=== PATIENT | female | born 1970 | race Caucasian/White ===

== ENCOUNTER 2023-12-16 10:42 | Outpatient (OUT) | payer SELFPAY | END 2023-12-16 10:43 | disposition home or self-care (01) | LOC: PST 10:43 | PROVIDERS: Visit Provider Surgery | DX: Z01.818 Encounter for other preprocedural examination (principal); Z12.11 Encounter for screening for malignant neoplasm of colon ==

== ENCOUNTER 2024-07-13 08:31 | Outpatient (OUT) | payer OTHER, SELFPAY ==
--- OUTSIDE RECORDS SUMMARY | 2024-07-13 08:34 | XMS_ITS | CCD ---
Author Organization [facility] Care Team Providers Care Marketing Consultant Name Role Phone JACQUELYN LECHUGA Admitting Unavailable JACQUELYN LECHUGA Attending Unavailable MISC, DOCTOR Primary Care Unavailable MISC, DOCTOR Consulting Unavailable ABBY GUAJARDO Consulting Unavailable Mayra Lopez Unavailable Sherice Beasley Unavailable Naila Meyer MD Primary Care Pr ovider LNIDA MCCLURE Referring Unavailable NAILA VILLARREAL Primary Care Unavailable NAILA MEYER Primary Care Un available YUNIOR RESTREPO Referring Unavailable Naila Villarreal MD Primary Care Provider ISAIAS CASTELLON Attending Unavailab ISAIAS Pride Referring Unavailab LUCA Linda Attending Unavailable ISAIAS CASTELLON Referring Unavailab SHANTHI Jones Attending Unavailable LUCA SHARMA Attending Unavailable SHANTHI VALLE Referring Unavailable LUCA MACE Attending Unavailable MAYRA HOFFMAN Attending Unavailable SHANTHI VALLE Referring Unavailable Allergies Allergy Classification Reported Allergen(s) Allergy Type Date of Onset Reaction(s) Facility (2 sources) Penicillins; Translations: [PENICILLINS] Drug allergy (disorder) 03-24-20 15 [facility] Repository (2 sources) Penicillin Drug Allergy Unknown [employer] Other (1 source) Penicillins Propensity to adverse reactions to drug 06-19-20 12 Anaphylaxis [facility] (17 sources) Latex Propensity to adverse reactions 12-05-19 24 Rash [facility] (17 sources) Penicillins Drug Intolerance 06-19-20 12 Anaphylaxis, Unknown [facility] Medications Current Medications Medication Drug Class(es) Dates Sig (Normalized) Sig (Original) bacitracin zinc 0.5 unt/mg topical ointment (17 sources) bacitracin 500 UNIT/GM ointment APPLY A THIN AMOUNT TO AFFECTED AREA TWICE A DAY Active Bioflavonoid Products (Bioflex) tablet (17 sources) take 1 tablet by mouth twice daily Bioflavonoid Products (Bioflex) tablet Take by mouth twice a day Active biotin 5 mg oral capsule (2 sources) take 1 capsule by mouth every twenty-four hours Biotin 5000 5 MG 1 capsule Orally Once a day Active bisacodyl 5 mg delayed release oral tablet (2 sources) Stimulant Laxative Start: 07-02-2024 End: 07-02-2024 take 1 tablet by mouth once bisacodyl (Dulcolax) 5 MG EC tablet Indications: Screening for malignant neoplasm of colon Take 1 tablet (5 mg) by mouth 1 time for 1 dose Do not crush, chew, or split. Take as detailed on clinic hand out for colonoscopy prep 4 tablet 07/02/2024 07/02/2024 Active calcium carbonate 1250 mg / cholecalciferol 200 unt oral tablet (1 source) Vitamin D take 1 tablet by mouth once daily calcium-vitamin D (OSCAL-500) 500-200 MG-UNIT per tablet Take 1 tablet by mouth daily 0 Active cefdinir 300 mg oral capsule (1 source) Cephalosporin Antibacterial Start: 08-06-2021 take 1 capsule by mouth every twelve hours Cefdinir 300 MG 1 capsule Orally every 12 hrs for 10 day(s) Aug, Active cholecalciferol 0.01 mg oral tablet (18 sources) Vitamin D take 1 tablet by mouth in the morning Cholecalciferol (VIT D3) 10 MCG (400 UNIT) tablet Take 400 Units by mouth in the morning. Active Cholecalciferol (VITAMIN D PO) Take by mouth 0 Active cyclobenzaprine hydrochloride 10 mg oral tablet (1 source) Muscle Relaxant Start: 11-14-2021 take 1 tablet by mouth three times daily as needed Cyclobenzaprine HCl 10 MG 1 tab(s) Orally tid prn Oct, Active dimenhyDRINATE (1 source) dimenhyDRINATE (MOTION SICKNESS PO) Take by mouth 0 Active estradiol 0.5 mg oral tablet (19 sources) Estrogen estradiol (Estra ce) 0.5 MG tablet Inject 0.5 mg into the skin in the morning. Active apply 1 dose topically once ronna y Divigel 0.5 MG/0.5GM apply 1 packet by topical route every day to upper thigh Transdermal *please review for potential _update for e-prescription and drug interaction check* Active Estradiol POWD (1 source) Start: 09-27-2022 Estradiol POWD APPLY 0.1ML ONCE DAILY & INCREASE BY 0.1ML EVERY 4 DAYS UP TO 0.5ML TOTAL DAILY DOSE, EITHER ONCE DAILY OR IN DIVIDED DOSES. 15 each 5 09/27/2022 Active estrogens, conjugated (detention) 0.625 mg/ml vaginal cream (16 sources) Estrogen Estrogens Conjugated (Premarin) 0.625 MG/GM cream Insert into the vagina Estrogen topical. Active fluconazole 150 mg oral tablet (1 source) Azole Antifungal Start: 08-09-2021 take 1 tablet by mouth once Fluconazole 150 MG 1 tablet Orally once for 1 day Aug, Active FLUoxetine 10 mg oral tablet (3 sources) Serotonin Reuptake Inhibitor Start: 06-17-2021 FLUoxetine (PROZAC) 10 MG tablet take 1 tablet by mouth once ronna y PROzac 10 MG 1 tablet Orally Once a day Active fluticasone propionate 0.05 mg/actuat metered dose nasal spray (18 sources) Corticosteroid Start: 08-06-2021 take 1 spray(s) nasal route once daily Flonase Allergy Relief 50 MCG/ACT 1 spray in each nostril Nasally Once a day for 30 day(s) Aug, Active fluticasone (Gilberto nase) 50 MCG/ACT nasal spray SPRAY SPRAY 1 SPRAY INTO EACH NOSTRIL EVERY DAY FOR 30 DAYS Active L-Lysine (2 sources) L-Lysine *please review for potential _update for e-prescription and drug interaction check* Active L-LYSINE PO (1 source) L-LYSINE PO Take by mouth 0 Active meclizine hydrochloride 25 mg oral tablet (2 sources) Antiemetic Start: take 1 tablet by mouth every twenty-four hours Meclizine HCl 25 MG 1 tablet as needed Orally Once a day for 30 day(s) PRN May, Active meloxicam 15 mg oral tablet (2 sources) Nonsteroidal Anti-inflammatory Drug take 1 tablet by mouth every twenty-four hours Mobic 15 MG 1 tablet Orally Once a day for 30 refill Active Multiple Vitamins-Minerals (MULTIVITAMIN ADULT PO) (1 source) Multiple Vitamins-Minerals (MULTIVITAMIN ADULT PO) Take by mouth 0 Active Multiple Vitamins-Minerals (Multivitamin Women) tablet (17 sources) Multiple Vitamins-Minerals (Multivitamin Women) tablet as directed Orally Active Multivitamin Women - (2 sources) Multivitamin Wom en - as directed Orally Active NONFORMULARY (1 source) NONFORMULARY Armaan ly topically daily. Hormone therapy 0 Active ofloxacin 3 mg/ml otic solution (17 sources) Quinolone Antimicrobial Start: ofloxacin (Floxin) 0.3 % otic solution INSERT 10 DROPS INTO AFFECTED EAR OR EARS ONCE DAILY FOR 7 DAYS 05/18/2023 Active omeprazole 20 mg delayed release oral capsule (20 sources) Proton Pump Inhibitor Start: End: take 1 capsule by mouth in the morning omeprazole (PriLOSEC) [address] capsule Indications: Gastroesophageal reflux disease without esophagitis Take 1 capsule (20 mg) by mouth in the morning and 1 capsule (20 mg) before bedtime. Do not crush or chew.. 180 capsule 1 06/18/2024 Active take 1 tablet by mouth once ronna y PriLOSEC OTC 20 MG 1 tablet 30 minutes before morning meal Orally Once a day Active OneTouch Ultra Test (2 sources) OneTouch Ultra T est In Vitro once daily *please review for potential _update for e-prescription and drug interaction check* Active Osteo Bi-Flex Adv Double St (2 sources) Osteo Bi-Flex Ad v Double St *please review for potential _update for e-prescription and drug interaction check* Active phentermine hydrochloride 37.5 mg oral capsule (9 sources) Sympathomimetic Amine Anorectic Start: End: take 1 capsule by mouth before mealtime phentermine 37.5 MG capsule Indications: Obesity (BMI 30.0-34.9) Take 1 capsule (37.5 mg) by mouth in the morning. Take before meals. 30 capsule 05/31/2024 Active 24 hr phentermine 3.75 mg / topiramate 23 mg extended release oral capsule (6 sources) Sympathomimetic Amine Anorectic Start: End: take 1 capsule by mouth once daily Phentermine-Topiramat e (Qsymia) 3.75-23 MG capsule sustained-release 24 hr Indications: Obesity (BMI 30.0-34.9) Take 1 capsule by mouth Daily 30 capsule 05/17/2024 05/31/2024 Discontinued (Cost of medication) polyethylene glycol 3350 63779 mg powder for oral solution (2 sources) Osmotic Laxative Start: End: take 17 g by mouth once polyethylene glycol, PEG, 3350 (Glycolax) 17 GM/SCOOP powder Indications: Colonoscopy Take 238 g by mouth 1 (one) time for 1 dose Take as detailed from clinic hand out for colonoscopy prep 238 g 07/02/2024 07/02/2024 Active predniSONE 20 mg oral tablet (6 sources) Start: End: take 1 tablet by mouth in the morning predniSONE (Deltasone) 20 MG tablet Indications: Acute pain of left knee Take 1 tablet (20 mg) by mouth in the morning and 1 tablet (20 mg) before bedtime. Do all this for 5 days. 10 tablet 05/15/2024 05/20/2024 Active Start: 11-14-2021 take 1 tablet by adriano th every twelve hours predniSONE 20 MG 1 tablet Orally bid for 5 day(s) Oct, Active Progesterone (16 sources) Progesterone Progesterone 40 % cream Progesterone topical Active Progesterone 50 MG/ML (2 sources) Progesterone 50 MG/ML apply 0.5mL once daily and adjust dose as directed *please review for potential _update for e-prescription and drug interaction check* Active Testosterone (20 sources) Androgen End: 05-15-2024 testosterone (Fortesta) 10 MG/ACT (2%) gel gel 1 (one) time each day at the same time 05/15/2024 Discontinued End: 05-15-2024 testosterone (Androgel) 50 M G/5GM (1%) gel Place 50 mg on the skin in the morning. 05/15/2024 Discontinued End: 05-15-2024 [address] pow[address] er Place on the skin 05/15/2024 Discontinued Testosterone 20 % cream Testosterone topical. Active Testosterone Pro pionate powder Place on the skin Active Testosterone 10 MG/ACT (2%) 1 pump to skin in the morning Transdermal Once a day Active Testosterone Propionate 2 % CREA (1 source) Testosterone Propionate 2 % CREA Indications: Routine gynecological examination Place onto the skin. 0 Active tiZANidine 2 mg oral tablet (16 sources) Central alpha-2 Adrenergic Agonist Start: 4 End: 4 take 1 tablet by mouth every eight hours for muscle spasms tiZANidine (Zanaflex) 2 MG tablet Indications: Acute pain of left knee Take 1 tablet (2 mg) by mouth every 8 (eight) hours if needed for muscle spasms for up to 5 days 15 tablet 06/14/2024 Active valACYclovir 1000 mg oral tablet (5 sources) Herpesvirus Nucleoside Analog DNA Polymerase Inhibitor, Herpes Simplex Virus Nucleoside Analog DNA Polymerase Inhibitor, Herpes Zoster Virus Nucleoside Analog DNA Polymerase Inhibitor Start: 2 take 1 tablet by mouth every twelve hours valACYclovir HCl 1 GM 1 tablet Orally twice a day for 10 day(s) Aug, Active End: 05-15-2024 take 1 tablet by mouth in the morning valACYclovir (Valtrex) 1 g tablet Take 1 tablet by mouth in the morning and 1 tablet before bedtime. 05/15/2024 Discontinued vitamin B12 (2 sources) Vitamin B12 Vitamin B12 *ple ase review for potential _update for e-prescription and drug interaction check* Active Vitamin D3 (2 sources) Vitamin D3 *plea se review for potential _update for e-prescription and drug interaction check* Active Completed/Discontinued Medications Medication Drug Class(es) Dates Sig (Normalized) Sig (Original) doxycycline hyclate 100 mg oral tablet (3 sources) Tetracycline-class Drug End: 05-15-2024 take 1 tablet by mouth in the morning doxycycline (Vibra-Tabs) 100 MG tablet Take 1 tablet by mouth in the morning and 1 tablet before bedtime. 05/15/2024 Discontinued Triamcinolone (20 sources) Corticosteroid Start: 11-14-2021 KENALOG - 10 mg Oct, 40 mg Start: 08-11-2018 triamcinolone (ARISTOCORT) 0.5 % ointment 1 APPLICATION TO AFFECTED AREA TWICE A DAY NEED 4 08/11/2018 Active Problems Active Problems Problem Classification Problem Date Documented Da te Episodic/Chronic Abdominal hernia (4 sources) Hiatal hernia; Translations: [Diaphragmatic hernia without obstruction or gangrene] 07-02-2024 Episodic Conditions associated with dizziness or vertigo (4 sources) Benign paroxysmal positional vertigo; Translations: [Benign paroxysmal vertigo, unspecified ear] Episodic Diabetes mellitus without complication (2 sources) Diabetes mellitus; Translations: [Type 2 diabetes mellitus without complications] Chronic Disorders of lipid metabolism (19 sources) Hypercholesterolemia ; Translations: [Pure hypercholesterolemia , unspecified] Onset: 11-11-2023 11-11-2023 Chronic Esophageal disorders (2 sources) Gastro-esophageal reflux disease without esophagitis; Translations: [Gastroesophageal reflux disease without esophagitis] Onset: 10-14-2023 06-17-2024 Chronic Essential hypertension (19 sources) Essential hypertension; Translations: [Essential (primary) hypertension] Onset: 11-11-2023 11-11-2023 Chronic Gastritis and duodenitis (4 sources) Bile-induced gastritis; Translations: [Other gastritis without bleeding] 07-02-2024 Episodic Malaise and fatigue (2 sources) Fatigue; Translations: [Chronic fatigue, unspecified] Chronic Menopausal disorders (15 sources) Menopausal symptom; Translations: [Menopausal and female climacteric states] Onset: 02-13-2024 05-16-2024 Chronic Mood disorders (17 sources) Reactive depression (situational); Translations: [Major depressive disorder, single episode, unspecified] Onset: 11-11-2023 11-11-2023 Chronic Osteoarthritis (17 sources) Primary coxarthrosis, bilateral; Translations: [Bilateral primary osteoarthritis of hip] Onset: 06-15-2017 11-11-2023 Chronic Other ear and sense organ disorders (19 sources) Conductive hearing loss, bilateral; Translations: [Conductive hearing loss, bilateral] Onset: 06-30-2022 11-11-2023 Chronic Other ear and sense organ disorders (2 sources) Bilateral tinnitus; Translations: [Tinnitus, bilateral] Episodic Other gastrointestinal disorders (1 source) Bariatric surgery status; Translations: [Bariatric surgery status] Onset: 10-14-2023 Episodic Other inflammatory condition of skin (19 sources) Psoriasis; Translations: [Psoriasis, unspecified] Onset: 11-11-2023 11-11-2023 Chronic Other nervous system disorders (4 sources) Nerve root and plexus disorder, unspecified; Translations: [NERVE ROOT AND PLEXUS DISORDER UNS] Onset: 08-28-2018 Chronic Other nervous system disorders (2 sources) Difficulty walking; Translations: [Difficulty in walking, not elsewhere classified] Chronic Other nervous system disorders (2 sources) Chronic pain; Translations: [Other chronic pain] Chronic Other nervous system disorders (2 sources) Nerve root compression syndrome; Translations: [Nerve root and plexus disorder, unspecified] Chronic Other non-traumatic joint disorders (15 sources) Pain in left knee; Translations: [Pain in joint, lower leg] Onset: 05-24-2024 05-15-2024 Episodic Other nutritional; endocrine; and metabolic disorders (2 sources) Morbid obesity; Translations: [Morbid (severe) obesity due to excess calories] Chronic Other nutritional; endocrine; and metabolic disorders (2 sources) Body mass index 40+ - severely obese; Translations: [Morbid (severe) obesity due to excess calories] Onset: 06-22-2012 Resolved: 06-22-2012 Chronic Other nutritional; endocrine; and metabolic disorders (1 source) Morbid (severe) obesity due to excess calories; Translations: [Morbid (severe) obesity due to excess calories] Onset: 10-14-2023 Chronic Other nutritional; endocrine; and metabolic disorders (20 sources) Obese class I; Translations: [Obesity (BMI 30.0-34.9)] Onset: 11-11-2023 11-11-2023 Chronic Other nutritional; endocrine; and metabolic disorders (2 sources) Body mass index 30+ - obesity; Translations: [Obesity, unspecified] 05-16-2024 Chronic Other nutritional; endocrine; and metabolic disorders (2 sources) Abnormal weight gain; Translations: [Abnormal weight gain] Onset: 02-17-2024 Episodic Other screening for suspected conditions (not mental disorders or infectious disease) (3 sources) Encounter for screening for other metabolic disorders; Translations: [Patient encounter status] Onset: 10-14-2023 07-02-2024 Episodic Otitis media and related conditions (17 sources) Chronic tubotympanic suppurative otitis media; Translations: [Chronic tubotympanic suppurative otitis media, unspecified] Onset: 08-25-2022 11-11-2023 Chronic Spondylosis; intervertebral disc disorders; other back problems (4 sources) Lumbosacral spondylosis without myelopathy; Translations: [Spondylosis without myelopathy or radiculopathy, lumbosacral region] Chronic Past or Other Problems Problem Classification Problem Date Documented Da te Episodic/Chronic Appendicitis and other appendiceal conditions (1 source) Perforation of cecum; Translations: [Acute appendicitis with perforation and localized peritonitis, without abscess] Onset: 2 Resolved: 2 Episodic Mood disorders (17 sources) Mood disorders Onset: 4 11-11-2023 Other gastrointestinal disorders (1 source) Disorder of abdomen; Translations: [Peritoneal adhesions (postprocedural) (postinfection)] Onset: 2 Episodic Otitis media and related conditions (20 sources) Postmastoidectomy complication; Translations: [Other disorders following mastoidectomy, unspecified ear] Onset: 2 11-11-2023 Episodic Ovarian cyst (1 source) Cyst of bilateral ovaries; Translations: [Unspecified ovarian cyst, right side] Onset: 2 Episodic Residual codes; unclassified (17 sources) Family history of cancer of colon; Translations: [Family history of malignant neoplasm of digestive organs] Onset: 9 11-11-2023 Episodic Residual codes; unclassified (17 sources) History of sleeve gastrectomy; Translations: [Acquired absence of stomach [part of]] Onset: 4 11-11-2023 Episodic Sprains and strains (2 sources) Strain of muscle, fascia and tendon at neck level, initial encounter; Translations: [Strain of muscle and tendon of back wall of thorax, initial encounter] Onset: 2 Resolved: 2 Episodic Unclassified (2 sources) Acute pain of left knee 05-15-2024 Results Test Name Value Interpretation Reference Range Facility Vitamin B6on 02-21-2024 Vitamin B6 464.6 nmol/L High 20.0-125.0 [facility] Comment on above: Result Comment: (NOT E) INTERPRETIVE INFORMATION: Vitamin B6 (Pyridoxal 5-Phosphate) Pyridoxal 5'-phosphate measured in a specimen collected following an 8-hour or overnight fast accurately indicates vitamin B6 nutritional status. Non-fasting specimen concentration reflects recent vitamin intake. This test was developed and its performance characteristics determined by [facility]. It has not been cleared or approved by the [place] Food and Drug Administration. This test was performed in a CLIA certified laboratory and is intended for clinical purposes. Performed By: [facility] [address] [place] [address] Rhythmic Gymnastics Coach: Partha Crandall MD, PhD CLIA Number: [id number] Performed By: #### A VITB6 #### [facility] [address] [place] [address] Application Internship: León Jain MD #### GLYHGB #### [address] [address] Application Internship: Jamie Kilgore MD #### CP, TSH #### [address] [place] [address] Application Internship: Dk Steele MD Comp Metabolic Profon 2023 Albumin [Mass/Vol] 4.3 g/dL Normal 3.5-5.2 [facility] Comment on above: Performed By: #### A VITB6 #### [address] [address] Application Internship: León Jain MD #### GLYHGB #### [address] [address] Application Internship: Jamie Kilgore MD #### CP, TSH #### [address] [place] [address] Application Internship: Dk Steele MD Albumin/Glob Ratio 1.5 Normal 1.0-2.5 [facility] Comment on above: Performed By: #### A VITB6 #### [facility] [address] [place] [address] Application Internship: León Jain MD #### GLYHGB #### [address] [address] Application Internship: Jamie Kilgore MD #### CP, TSH #### [address] [place], [place] [id number] Application Internship: Dk Steele MD Alkaline Phos 46 U/L Normal 35-104 [facility] Comment on above: Performed By: #### A VITB6 #### [facility] [address] [place] [address] Application Internship: León Jain MD #### GLYHGB #### [facility] [address] [place] [id number] Application Internship: Jamie Kilgore MD #### CP, TSH #### [facility] [address] [place], [place] [id number] Application Internship: Dk Steele MD ALT [Catalytic activity/Vol] 28 U/L Normal 5-33 [facility] Comment on above: Performed By: #### A VITB6 #### [facility] [address] [place] [address] Application Internship: León Jain MD #### GLYHGB #### [facility] [address] [place] [id number] Application Internship: Jamie Kilgore MD #### CP, TSH #### [address] [place], [place] [id number] Application Internship: Dk Steele MD Anion gap [Moles/Vol] 9 mmol/L Normal 9-17 [facility] Comment on above: Performed By: #### A VITB6 #### [facility] [address] [place] [address] Application Internship: León Jain MD #### GLYHGB #### [facility] [address] [place] [address] Application Internship: Jamie Kilgore MD #### CP, TSH #### [facility] [address] [place], [place] [id number] Application Internship: Dk Steele MD AST [Catalytic activity/Vol] 22 U/L Normal <32 [facility] Comment on above: Performed By: #### A VITB6 #### [facility] [address] [place] [address] Application Internship: León Jain MD #### GLYHGB #### [facility] [address] [place] [address] Application Internship: Jamie Kilgore MD #### CP, TSH #### [facility] [address] [place], [place] [id number] Application Internship: Dk Steele MD Bilirubin [Mass/Vol] 0.3 mg/dL Normal 0.3-1.2 [facility] Comment on above: Performed By: #### A VITB6 #### [facility] [address] [place] [address] Application Internship: León Jain MD #### GLYHGB #### [address] [address] Application Internship: Jamie Kilgore MD #### CP, TSH #### [facility] [address] [place], [place] [id number] Application Internship: Dk Steele MD BUN/CRE Ratio 30 High 9-20 [facility] Comment on above: Performed By: #### A VITB6 #### [facility] [address] [place] [address] Application Internship: León Jain MD #### GLYHGB #### [facility] [address] [place] [address] Application Internship: Jamie Kilgore MD #### CP, TSH #### [facility] [address] [place], [place] [id number] Application Internship: Dk Steele MD Calcium [Mass/Vol] 9.3 mg/dL Normal 8.6-10.4 [facility] Comment on above: Performed By: #### A VITB6 #### [facility] [address] [place] [address] Application Internship: León Jain MD #### GLYHGB #### [facility] [address] [place] [address] Application Internship: Jamie Kilgore MD #### CP, TSH #### [facility] [address] [place], [place] [id number] Application Internship: Dk Steele MD Chloride [Moles/Vol] 104 mmol/L Normal 98-107 [facility] Comment on above: Performed By: #### A VITB6 #### [facility] [address] [place] [address] Application Internship: León Jain MD #### GLYHGB #### [address] [address] Application Internship: Jamie Kilgore MD #### CP, TSH #### [facility] [address] [place] [address] Application Internship: Dk Steele MD CO2 [Moles/Vol] 28 mmol/L Normal 20-31 [facility] Comment on above: Performed By: #### A VITB6 #### [facility] [address] [place] [address] Application Internship: León Jain MD #### GLYHGB #### [address] [address] Application Internship: Jamie Kilgore MD #### CP, TSH #### [facility] [address] [place] [address] Application Internship: Dk Steele MD Creatinine [Mass/Vol] 0.6 mg/dL Normal 0.5-0.9 [facility] Comment on above: Performed By: #### A VITB6 #### [facility] [address] [place] [address] Application Internship: León Jain MD #### GLYHGB #### [address] [address] Application Internship: Jamie Kilgore MD #### CP, TSH #### [address] [place] [address] Application Internship: Dk Steele MD GFR/1.73 sq M.predicted among non-blacks MDRD (S/P/Bld) [Vol rate/Area] mL/min/{1.73_m2} Normal >60 [facility] Comment on above: Result Comment: These results are not intended for use in patients <18 years of age. eGFR results are calculated without a race factor using the 2020 CKD-EPI equation. Careful clinical correlation is recommended, particularly when comparing to results calculated using previous equations. The CKD-EPI equation is less accurate in patients with extremes of muscle mass, extra-renal metabolism of creatine, excessive creatine ingestion, or following therapy that affects renal tubular secretion. Performed By: #### A VITB6 #### [facility] [address] [place] [address] Application Internship: León Jain MD #### GLYHGB #### [address] [address] Application Internship: Jamie Kilgore MD #### CP, TSH #### [facility] [address] [place] [address] [place] [address] Application Internship: Dk Steele MD Glucose [Mass/Vol] 93 mg/dL Normal 70-99 [facility] Comment on above: Performed By: #### A VITB6 #### [facility] [address] [place] [address] Application Internship: León Jain MD #### GLYHGB #### [address] [address] Application Internship: Jamie Kilgore MD #### CP, TSH #### [facility] [address] [place] [address] [place] [place], [place] [address] Application Internship: Dk Steele MD Potassium [Moles/Vol] 4.0 mmol/L Normal 3.7-5.3 [facility] Comment on above: Performed By: #### A VITB6 #### [facility] [address] [place] [address] Application Internship: León Jain MD #### GLYHGB #### [address] [address] Application Internship: Jamie Kilgore MD #### CP, TSH #### [address] [place], [place] [address] Application Internship: Dk Steele MD Protein [Mass/Vol] 7.1 g/dL Normal 6.4-8.3 [facility] Comment on above: Performed By: #### A VITB6 #### [facility] [address] [place] [address] Application Internship: León Jain MD #### GLYHGB #### [address] [address] Application Internship: Jamie Kilgore MD #### CP, TSH #### [address] [place], [place] [address] Application Internship: Dk Steele MD Sodium [Moles/Vol] 141 mmol/L Normal 135-144 [facility] Comment on above: Performed By: #### A VITB6 #### [facility] [address] [place] [address] Application Internship: León Jain MD #### GLYHGB #### [address] [address] Application Internship: Jamie Kilgore MD #### CP, TSH #### [facility] [address] [place] [address] Application Internship: Dk Stelee MD Urea nitrogen [Mass/Vol] 18 mg/dL Normal 6-20 [facility] Comment on above: Performed By: #### A VITB6 #### [facility] [address] [place] [address] Application Internship: León Jain MD #### GLYHGB #### [facility] [address] [place] [address] Application Internship: Jamie Kilgore MD #### CP, TSH #### [facility] [address] [address] Application Internship: Dk Steele MD Hemoglobin A1Con 02-17-2024 Glucose [Mass/Vol] 111 mg/dL Normal [facility] Comment on above: Result Comment: The ADA and AACC recommend providing the estimated average glucose result to permit better patient understanding of their HBA1c result. Performed By: #### A VITB6 #### [facility] [address] [place] [address] Application Internship: León Jain MD #### GLYHGB #### [address] [address] Application Internship: Jamie Kilgore MD #### CP, TSH #### [facility] [address] [place] [address] Application Internship: Dk Steele MD HbA1c (Bld) [Mass fraction] 5.5 % Normal 4.0-6.0 [facility] Comment on above: Performed By: #### A VITB6 #### [facility] [address] [place] [address] Application Internship: León Jain MD #### GLYHGB #### [address] [address] Application Internship: Jamie Kilgore MD #### CP, TSH #### [facility] [address] [place] [address] Application Internship: Dk Steele MD Thyroid Stim. Horm.on 2023 Thyroid Stim. Horm. 3.58 uIU/mL Normal 0.30-5.00 [facility] Comment on above: Performed By: #### A VITB6 #### [facility] [address] [place] [address] Application Internship: León Jain MD #### GLYHGB #### [facility] [address] [place] [address] Application Internship: Jamie Kilgore MD #### CP, TSH #### [facility] [address] [place] [address] Application Internship: Dk Steele MD BI MAMMOGRAM SCREENING TOMOS YNTHESIS BILATERALon 12-02-2023 BI MAMMOGRAM SCREENING TOMOSYNTHESIS BILATERAL This is a summary report. The complete report is available in the patient's medical record. If you cannot access the medical record, please contact the sending organization for a detailed fax or copy. EXAMINATION: BI MAMMOGRAM SCREENING TOMOSYNTHESIS BILATERAL CLINICAL HISTORY:SCREENING COMPARISON: September 16, 2022. RESULT: Digital mammography and 3D tomosynthesis of bilateral breasts was performed. Density: Almost entirely fatty [1] Overall appearance is stable. Typically benign calcifications. There is no suspicious mass, asymmetry, architectural distortion, or calcification IMPRESSION: BIRADS 2 - Benign Follow-up: Routine Screening Mamm Board Certified Radiologists. Accredited by the ACR and FDA. MAMMOGRAPHY IS VERY IMPORTANT TO YOUR HEALTH. THE [place] [employer] GUIDELINES RECOMMEND THAT WOMEN 40 YEARS OF AGE AND OLDER SHOULD HAVE A MAMMOGRAM EVERY YEAR. A REMINDER LETTER WILL BE SENT AT THE APPROPRIATE TIME. THIS FACILITY UTILIZES A REMINDER SYSTEM TO ENSURE ALL PATIENTS RECEIVE REMINDER NOTIFICATIONS AT THE APPROPRIATE TIME BASED ON THE RECOMMENDATIONS OF THIS EXAM. THIS INCLUDES REMINDERS FOR ROUTINE SCREENING MAMMOGRAMS, DIAGNOSTIC MAMMOGRAMS IN WHICH THE PATIENT IS ASKED TO RETURN FOR ADDITIONAL VIEWS, OR OTHER BREAST IMAGING INTERVENTIONS WHEN APPROPRIATE. THE PATIENT WILL BE PLACED IN THE APPROPRIATE REMINDER SYSTEM INCLUDING A REMINDER AT THE APPROPRIATE TIME FOR ANY PENDING ADDITIONAL VIEWS. TRANSCRIBED BY: ELECTRONICALLY SIGNED BY: Augustin Esparza MD Normal Not Available CBC AND AUTO DIFFon 10-14-19 24 ABSOLUTE BASOPHIL 0.0 X10E9/L Normal 0.0-0.2 [facility] Comment on above: Performed By: #### C BCA, CMP, 47135-3, FEPR, 81688-1, 2777-1, 2276-4, 2284-8, 12505-0, 2131-9 #### [facility] ([id number]) [address], [address] [place] [address] #### VITASP, 2900-9, 2998-3 #### [facility] ([id number]) [address] [place] [address] ABSOLUTE NEUTROPHIL 2.5 X10E9/L Normal 1.5-6.6 [facility] Comment on above: Performed By: #### C BCA, CMP, 00853-9, FEPR, 79006-6, 2777-1, 2276-4, 2284-8, 17854-1, 2131-9 #### [facility] ([id number]) [address], [address] [place] [address] #### VITASP, 2900-9, 2998-3 #### [facility] ([id number]) [address] [place] [address] Basophils/100 WBC (Bld) 1.1 % Normal [facility] Comment on above: Performed By: #### C BCA, CMP, 43429-8, FEPR, 07453-2, 2777-1, 2276-4, 2284-8, 47377-1, 2131-9 #### [facility] ([id number]) [address], [address] [place] [address] #### VITASP, 2900-9, 2998-3 #### [facility] ([id number]) [address] [place] [address] Eosinophils (Bld) [#/Vol] 0.2 10*3/uL Normal 0.0-0.4 [facility] Comment on above: Performed By: #### C BCA, CMP, 47195-9, FEPR, 05052-9, 2777-1, 2276-4, 2284-8, 32437-2, 2131-9 #### [facility] ([id number]) [address] [facility], [address] [place] [address] #### VITASP, 2900-9, 2998-3 #### [facility] ([id number]) [address] [place] [address] Eosinophils/100 WBC (Bld) 3.6 % Normal [facility] Comment on above: Performed By: #### C BCA, CMP, 13811-9, FEPR, 89791-0, 2777-1, 2276-4, 2284-8, 31757-9, 2132-04 #### [facility] ([id number]) [address], [address] [place] [address] #### VITASP, 2900-9, 2998-3 #### [facility] ([id number]) [address] [place] [address] Erythrocyte distribution width (RBC) [Ratio] 13.1 % Normal 11.5-15.0 [facility] Comment on above: Performed By: #### C BCA, CMP, 99873-4, FEPR, 79177-2, 2777-1, 2276-4, 2284-8, 62488-5, 2131-9 #### [facility] ([id number]) [address], [address] [place] [address] #### VITASP, 2900-9, 2998-3 #### [facility] ([id number]) [address] [place] [address] Hematocrit (Bld) [Volume fraction] 36.8 % Normal 35-47 [facility] Comment on above: Performed By: #### C BCA, CMP, 59095-0, FEPR, 05285-6, 2777-1, 2276-4, 2284-8, 90432-4, 2131-9 #### [facility] ([id number]) [address] [facility], [address] [place] [address] #### VITASP, 2900-9, 2998-3 #### [facility] ([id number]) [address] [place] [address] Hemoglobin (Bld) [Mass/Vol] 12.5 g/dL Normal 11.7-15.5 [facility] Comment on above: Performed By: #### C BCA, CMP, 28939-2, FEPR, 09194-6, 2777-1, 2276-4, 2284-8, 25460-8, 2131-9 #### [facility] ([id number]) [address] [facility], [address] [place] [address] #### VITASP, 2900-9, 2998-3 #### [facility] ([id number]) [address] [place] [address] Lymphocytes (Bld) [#/Vol] 1.4 10*3/uL Normal 1.0-3.5 [facility] Comment on above: Performed By: #### C BCA, CMP, 24166-7, FEPR, 36133-6, 2777-1, 2276-4, 2284-8, 29390-1, 2131-9 #### [facility] ([id number]) [address] [facility], [address] [place] [address] #### VITASP, 2900-9, 2998-3 #### [facility] ([id number]) [address] [place] [address] Lymphocytes/100 WBC (Bld) 31.0 % Normal [facility] Comment on above: Performed By: #### C BCA, CMP, 62714-5, FEPR, 30275-8, 2777-1, 2276-4, 2284-8, 81639-5, 213-9 #### [facility] ([id number]) [address], [address] [place] [address] #### VITASP, 2900-9, 2998-3 #### [facility] ([id number]) [address] [place] [address] MCH (RBC) [Entitic mass] 30.3 pg Normal 27-34 [facility] Comment on above: Performed By: #### C BCA, CMP, 05134-4, FEPR, 01959-2, 2777-1, 2276-4, 2284-8, 85690-1, 2131-9 #### [facility] ([id number]) [address], [address] [place] [address] #### VITASP, 2900-9, 2998-3 #### [facility] ([id number]) [address] [place] [address] MCHC (RBC) [Mass/Vol] 33.9 g/dL Normal 32-36 [facility] Comment on above: Performed By: #### C BCA, CMP, 60717-0, FEPR, 02855-2, 2777-1, 2276-4, 2284-8, 74420-0, 2131-9 #### [facility] ([id number]) [address], [address] [place] [address] #### VITASP, 2900-9, 2998-3 #### [facility] ([id number]) [address] [place] [address] MCV (RBC) [Entitic vol] 89 fL Normal 80-100 [facility] Comment on above: Performed By: #### C BCA, CMP, 18551-6, FEPR, 69071-9, 2777-1, 2276-4, 2284-8, 49428-5, 2131-9 #### [facility] ([id number]) [address], [address] [place] [address] #### VITASP, 2900-9, 2998-3 #### [facility] ([id number]) [address] [place] [address] Monocytes (Bld) [#/Vol] 0.4 10*3/uL Normal 0-0.9 [facility] Comment on above: Performed By: #### C BCA, CMP, 83710-0, FEPR, 80980-8, 2777-1, 2276-4, 2284-8, 88646-4, 2132-04 #### [facility] ([id number]) [address], [address] [place] [address] #### VITASP, 2900-9, 2998-3 #### [facility] ([id number]) [address] [place] [address] Monocytes/100 WBC (Bld) 8.7 % Normal [facility] Comment on above: Performed By: #### C BCA, CMP, 18535-8, FEPR, 99165-6, 2777-1, 2276-4, 2284-8, 81031-7, 2131-9 #### [facility] ([id number]) [address], [address] [place] [address] #### VITASP, 2900-9, 2998-3 #### [facility] ([id number]) [address] [place] [address] Neutrophils/100 WBC (Bld) 55.6 % Normal [facility] Comment on above: Performed By: #### C BCA, CMP, 20977-3, FEPR, 23941-6, 2777-1, 2276-4, 2284-8, 43741-4, 2131-9 #### [facility] ([id number]) [address], [address] [place] [address] #### VITASP, 2900-9, 2998-3 #### [facility] ([id number]) [address] [place] [address] Platelet mean volume (Bld) [Entitic vol] 8.8 fL Normal 7-12 [facility] Comment on above: Performed By: #### C BCA, CMP, 52570-6, FEPR, 76087-5, 2777-1, 2276-4, 2284-8, 69899-1, 2131-9 #### [facility] ([id number]) [address], [address] [place] [address] #### VITASP, 2900-9, 2998-3 #### [facility] ([id number]) [address] [place] [address] Platelets (Bld) [#/Vol] 246 10*3/uL Normal 150-450 [facility] Comment on above: Performed By: #### C BCA, CMP, 41798-1, FEPR, 18894-8, 2777-1, 2276-4, 2284-8, 66633-8, 2131-9 #### [facility] ([id number]) [address], [address] [place] [address] #### VITASP, 2900-9, 2998-3 #### [facility] ([id number]) [address] [place] [address]47 RBC COUNT 4.11 X10E12/L Normal 3.80-5.20 [facility] Comment on above: Performed By: #### C BCA, CMP, 68285-6, FEPR, 33636-4, 2777-1, 2276-4, 2284-8, 35836-7, 2131-9 #### [facility] ([id number]) [address], [address] [place] [address] #### VITASP, 2900-9, 2998-3 #### [facility] ([id number]) [address] [place] [address] WBC (Bld) [#/Vol] 4.4 10*3/uL Normal 4.0-11.0 [facility] Comment on above: Performed By: #### C BCA, CMP, 23264-9, FEPR, 73963-9, 2777-1, 2276-4, 2284-8, 54614-7, 2131-9 #### [facility] ([id number]) [address] [facility], [address] [place] [address] #### VITASP, 2900-9, 2998-3 #### [facility] ([id number]) [address] [place] [address] COMPREHENSIVE METABOLIC PANE Neil 10-14-2023 Albumin [Mass/Vol] 4.4 g/dL Normal 3.2-5.3 [facility] Comment on above: Performed By: #### C BCA, CMP, 90026-7, FEPR, 55139-9, 2777-1, 2276-4, 2284-8, 96896-4, 2131-9 #### [facility] ([id number]) [address] [facility], [address] [place] [address] #### VITASP, 2900-9, 2998-3 #### [facility] ([id number]) [address] [place] [address] ALP [Catalytic activity/Vol] 37 U/L Low 39-130 [facility] Comment on above: Performed By: #### C BCA, CMP, 03893-9, FEPR, 68968-3, 2777-1, 2276-4, 2284-8, 68645-5, 2131-9 #### [facility] ([id number]) [address] [place] [address], [address] [place] [address] #### VITASP, 2900-9, 2998-3 #### [facility] ([id number]) [address] [place] [address]606 ALT [Catalytic activity/Vol] 35 U/L High 0-31 [facility] Comment on above: Performed By: #### C BCA, CMP, 26507-5, FEPR, 17746-1, 2777-1, 2276-4, 2284-8, 98106-3, 2131-9 #### [facility] ([id number]) [address] [place] [address], [address] [place] [address] #### VITASP, 2900-9, 2998-3 #### [facility] ([id number]) [address] [place] [address] 10419 Anion gap [Moles/Vol] 11 mmol/L Normal 5-15 [facility] Comment on above: Performed By: #### C BCA, CMP, 81333-0, FEPR, 38467-8, 2777-1, 2276-4, 2284-8, 40727-3, 2131-9 #### [facility] ([id number]) [address] [place] [address], [address] [place] [address] #### VITASP, 2900-9, 2998-3 #### [facility] ([id number]) [address] [place] [address] 61127 AST [Catalytic activity/Vol] 24 U/L Normal 0-41 [facility] Comment on above: Performed By: #### C BCA, CMP, 85374-5, FEPR, 55110-2, 2777-1, 2276-4, 2284-8, 71141-0, 9 #### [facility] ([id number]) [address] [facility], [address] [place] [address] #### VITASP, 2900-9, 2998-3 #### [facility] ([id number]) [address] [place] [address] 23582 Bilirubin [Mass/Vol] 0.5 mg/dL Normal 0.3-1.2 [facility] Comment on above: Performed By: #### C BCA, CMP, 72810-9, FEPR, 41747-5, 2777-1, 2276-4, 2284-8, 50567-4, 2132-04 #### [facility] ([id number]) [address] [facility], [address] [place] [address] #### VITASP, 2900-9, 2998-3 #### [facility] ([id number]) [address] [place] [address] 12471 Calcium [Mass/Vol] 9.6 mg/dL Normal 8.5-10.5 [facility] Comment on above: Performed By: #### C BCA, CMP, 01445-1, FEPR, 39534-3, 2777-1, 2276-4, 2284-8, 05222-4, 2132-04 #### [facility] ([id number]) [address] [facility], [address] [place] [address] #### VITASP, 2900-9, 2998-3 #### [facility] ([id number]) [address] [place] [address] 66165 Chloride [Moles/Vol] 106 mmol/L Normal 98-109 [facility] Comment on above: Performed By: #### C BCA, CMP, 54241-5, FEPR, 29852-2, 2777-1, 2276-4, 2284-8, 77198-0, 2132-9 #### [facility] ([id number]) [address] [facility], [address] [place] [address] #### VITASP, 2900-9, 2998-3 #### [facility] ([id number]) [address] [place] [address] 76007 CO2 [Moles/Vol] 26 mmol/L Normal 22-32 [facility] Comment on above: Performed By: #### C BCA, CMP, 22502-6, FEPR, 28435-4, 2777-1, 2276-4, 2284-8, 40786-2, 2131-9 #### [facility] ([id number]) [address] [facility], [address] [place] [address] #### VITASP, 2900-9, 2998-3 #### [facility] ([id number]) [address] [place] [address] 50324 Creatinine [Mass/Vol] 0.68 mg/dL Normal 0.40-1.00 [facility] Comment on above: Result Comment: METH OD TRACEABLE TO IDMS STANDARD Performed By: #### C BCA, CMP, 32548-0, FEPR, 66227-2, 2777-1, 2276-4, 2284-8, 02051-7, 9 #### [facility] ([id number]) [address] [facility], [address] [place] [address] #### VITASP, 2900-9, 2998-3 #### [facility] ([id number]) [address] [place] [address] 94583 eGFR (CKD-EPI) NON-RACE DEPENDENT >90 Normal >59 [facility] Comment on above: Result Comment: Reported eGFR is based on the CKD-EPI 2020 equation that does not use a race coefficient. Performed By: #### C BCA, CMP, 63500-8, FEPR, 24828-2, 2777-1, 2276-4, 2284-8, 56664-7, 2131-9 #### [facility] ([id number]) [address], [address] [place] [address] #### VITASP, 2900-9, 2998-3 #### [facility] ([id number]) [address] [place] [address] Glucose [Mass/Vol] 95 mg/dL Normal 65-99 [facility] Comment on above: Performed By: #### C BCA, CMP, 90395-8, FEPR, 11273-9, 2777-1, 2276-4, 2284-8, 63860-7, 9 #### [facility] ([id number]) [address], [address] [place] [address] #### VITASP, 2900-9, 2998-3 #### [facility] ([id number]) [address] [place] [address] 43912 Potassium [Moles/Vol] 3.9 mmol/L Normal 3.5-5.0 [facility] Comment on above: Performed By: #### C BCA, CMP, 07751-6, FEPR, 21107-5, 2777-1, 2276-4, 2284-8, 00176-7, 2131-9 #### [facility] ([id number]) [address], [address] [place] [address] #### VITASP, 2900-9, 2998-3 #### [facility] ([id number]) [address] [place] [address] 41050 Protein [Mass/Vol] 6.8 g/dL Normal 6.0-8.0 [facility] Comment on above: Performed By: #### C BCA, CMP, 91910-1, FEPR, 62707-4, 2777-1, 2276-4, 2284-8, 92017-9, 2131-9 #### [facility] ([id number]) [address] [facility], [address] [place] [address] #### VITASP, 2900-9, 2998-3 #### [facility] ([id number]) [address] [place] [address] 49316 Sodium [Moles/Vol] 143 mmol/L Normal 134-146 [facility] Comment on above: Performed By: #### C BCA, CMP, 47995-5, FEPR, 46735-9, 2777-1, 2276-4, 2284-8, 70411-3, 2131-9 #### [facility] ([id number]) [address] [facility], [address] [place] [address] #### VITASP, 2900-9, 2998-3 #### [facility] ([id number]) [address] [place] [address] 53078 Urea nitrogen [Mass/Vol] 28 mg/dL High 5-23 [facility] Comment on above: Performed By: #### C BCA, CMP, 89655-6, FEPR, 77268-1, 2777-1, 2276-4, 2284-8, 42951-4, 2131-9 #### [facility] ([id number]) [address] [facility], [address] [place] [address] #### VITASP, 2900-9, 2998-3 #### [facility] ([id number]) [address] [place] [address] FERRITINon 10-14-2023 Ferritin [Mass/Vol] 71 ng/mL Normal 11-307 [facility] Comment on above: Performed By: #### C BCA, CMP, 52847-5, FEPR, 35434-5, 2777-1, 2276-4, 2284-8, 58354-5, 2131-9 #### [facility] ([id number]) [address], [address] [place] [address] #### VITASP, 2900-9, 2998-3 #### [facility] ([id number]) [address] [place] [address] Folate [Mass/Vol]on 10-14-19 24 FOLIC ACID >25.0 Normal >5.8 [facility] Comment on above: Result Comment: NEW REFERENCE RANGE Performed By: #### C BCA, CMP, 22395-4, FEPR, 58020-5, 2777-1, 2276-4, 2284-8, 80258-2, 2132-9 #### [facility] ([id number]) [address], [address] [place] [address] #### VITASP, 2900-9, 2998-3 #### [facility] ([id number]) [address] [place] [address] HGB A1C (GLYCO-HGB)on 2023 Glucose [Mass/Vol] 126 mg/dL Normal [facility] Comment on above: Performed By: #### C BCA, CMP, 00020-8, FEPR, 20662-5, 2777-1, 2276-4, 2284-8, 62909-3, 2132-9 #### [facility] ([id number]) [address], [address] [place] [address] #### VITASP, 2900-9, 2998-3 #### [facility] ([id number]) [address] [place] [address] HbA1c (Bld) [Mass fraction] 6.0 % High 4.4-5.6 [facility] Comment on above: Result Comment: NOTE ADA Guidelines Result HgbA1c Normal : less than 5.7 % Prediabetes : 5.7 % to 6.4 % Diabetes : > 6.4 % Use with caution in patients with abnormal hemoglobin variants as the half-life of red blood cells and in vivo glycation rates are affected. Performed By: #### C BCA, CMP, 23136-1, FEPR, 67299-2, 2777-1, 2276-4, 2284-8, 23354-5, 213-9 #### [facility] ([id number]) [address] [facility] [address], [address] [place] [address] #### VITASP, 2900-9, 2998-3 #### [facility] ([id number]) [address] [place] [address] IRON PROFILEon 10-14-2023 Iron [Mass/Vol] 130 ug/dL Normal 50-170 [facility] Comment on above: Performed By: #### C BCA, CMP, 04850-8, FEPR, 13880-2, 2777-1, 2276-4, 2284-8, 65916-4, 2131-9 #### [facility] ([id number]) [address], [address] [place] [address] #### VITASP, 2900-9, 2998-3 #### [facility] ([id number]) [address] [place] [address] IRON BINDING 371 ug/dL Normal 250-425 [facility] Comment on above: Performed By: #### C BCA, CMP, 58125-0, FEPR, 39058-5, 2777-1, 2276-4, 2284-8, 88440-7, 2131-9 #### [facility] ([id number]) [address] [facility] [facility] [address], [address] [place] [address] #### VITASP, 2900-9, 2998-3 #### [facility] ([id number]) [address] [place] [address]78 IRON SATURATION 35 % SATURATION Normal 15-50 [facility] Comment on above: Performed By: #### C BCA, CMP, 02339-8, FEPR, 60696-3, 2777-1, 2276-4, 2284-8, 10000-3, 2131-9 #### [facility] ([id number]) [address], [address] [place] [address] #### VITASP, 2900-9, 2998-3 #### [facility] ([id number]) [address] [place] [address] 86655 Lipid 1996 panelon 4 Cholesterol [Mass/Vol] 183 mg/dL Normal 150-200 [facility] Comment on above: Performed By: #### C BCA, CMP, 68512-9, FEPR, 82313-9, 2777-1, 2276-4, 2284-8, 00935-7, 9 #### [facility] ([id number]) [address], [address] [place] [address] #### VITASP, 2900-9, 2998-3 #### [facility] ([id number]) [address] [place] [address] 60761 Cholesterol in HDL [Mass/Vol] 69 mg/dL Normal >39 [facility] Comment on above: Result Comment: HDL <40 mg/dL - High Risk HDL > or = 40mg/dL- Desirable HDL >60 mg/dL - Negative Risk Performed By: #### C BCA, CMP, 11382-7, FEPR, 21042-4, 2777-1, 2276-4, 2284-8, 28736-2, 2131-9 #### [facility] ([id number]) [address], [address] [place] [address] #### VITASP, 2900-9, 2998-3 #### [facility] ([id number]) [address] [place] [address] 17566 Cholesterol in LDL [Mass/Vol] 92 mg/dL Normal <130 [facility] Comment on above: Result Comment: LDL <100 mg/dL - Desirable LDL >160 mg/dL - High Risk Performed By: #### C BCA, CMP, 51962-9, FEPR, 94535-1, 2777-1, 2276-4, 2284-8, 63458-7, 213-9 #### [facility] ([id number]) [address] [place] [address], [address] [place] [address] #### VITASP, 2900-9, 2998-3 #### [facility] ([id number]) [address] [place] [address] 17390 Cholesterol in VLDL [Mass/Vol] 22 mg/dL Normal 0-30 [facility] Comment on above: Performed By: #### C BCA, CMP, 40854-4, FEPR, 21141-1, 2777-1, 2276-4, 2284-8, 99612-3, 2131-9 #### [facility] ([id number]) [address] [place] [address], [address] [place] [address] #### VITASP, 2900-9, 2998-3 #### [facility] ([id number]) [address] [place] [address] 93159 CHOLESTEROL:HDL 2.7 Normal 1.0-5.0 [facility] Comment on above: Performed By: #### C BCA, CMP, 96695-9, FEPR, 80141-2, 2777-1, 2276-4, 2284-8, 25902-8, 2132-9 #### [facility] ([id number]) [address], [address] [place] [address] #### VITASP, 2900-9, 2998-3 #### [facility] ([id number]) [address] [place] [address] Triglyceride [Mass/Vol] 111 mg/dL Normal 27-150 [facility] Comment on above: Performed By: #### C BCA, CMP, 20692-8, FEPR, 28181-1, 2777-1, 2276-4, 2284-8, 33095-9, 9 #### [facility] ([id number]) [address], [address] [place] [address] #### VITASP, 2900-9, 2998-3 #### [facility] ([id number]) [address] [place] [address] MAGNESIUMon 10-14-2023 Magnesium [Mass/Vol] 2.1 mg/dL Normal 1.8-2.6 [facility] Comment on above: Performed By: #### C BCA, CMP, 22936-4, FEPR, 64177-5, 2777-1, 2276-4, 2284-8, 12713-2, 2132-04 #### [facility] ([id number]) [address], [address] [place] [address] #### VITASP, 2900-9, 2998-3 #### [facility] ([id number]) [address] [place] [address] 45852 PHOSPHORUSon 10-14-2023 Phosphate [Mass/Vol] 4.0 mg/dL Normal 2.4-4.9 [facility] Comment on above: Performed By: #### C BCA, CMP, 28879-9, FEPR, 94930-8, 2777-1, 2276-4, 2284-8, 99066-4, 9 #### [facility] ([id number]) [address] [place] [address], [address] [place] [address] #### VITASP, 2900-9, 2998-3 #### [facility] ([id number]) [address] [place] [address] 59497 Pyridoxine [Mass/Vol]on 09-29 VITAMIN B6 307.1 nmol/L High 20.0-125.0 [facility] Comment on above: Result Comment: NOTE INTERPRETIVE INFORMATION: Vitamin B6 (Pyridoxal 5-Phosphate) Pyridoxal 5'-phosphate measured in a specimen collected following an 8-hour or overnight fast accurately indicates vitamin B6 nutritional status. Non-fasting specimen concentration reflects recent vitamin intake. This test was developed and its performance characteristics determined by [facility]. It has not been cleared or approved by the US Food and Drug Administration. This test was performed in a CLIA certified laboratory and is intended for clinical purposes. Performed By: [facility] [address] [place] [address] Rhythmic Gymnastics Coach: Partha Crandall MD, PhD CLIA Number: [id number] Performed By: #### C BCA, CMP, 47767-1, FEPR, 96884-9, 2777-1, 2276-4, 2284-8, 75615-4, 2132-9 #### [facility] ([id number]) [address] [place] [address], [address] [place] [address] #### VITASP, 2900-9, 2998-3 #### [facility] ([id number]) [address] [place] [address] 84979 Thiamine (Bld) [Mass/Vol]on 10-14-2023 THIAMIN VITAMIN B1 See Below Normal [facility] Comment on above: Result Comment: NOTE TEST RESULT FLAG UNIT REF.RANGE ------ Vitamin B1 (TDP), Whole Blood 112.5 nmol/L 84.3-213.3 This assay measures the concentration of thiamine diphosphate (TDP), the primary active form of vitamin B1. Approximately 90 percent of vitamin B1 present in whole blood is TDP. Thiamine and thiamine monophosphate, which comprise the remaining 10 percent, are not measured. This test was developed and its performance characteristics determined by [facility] [place] ([facility]). It has not been cleared or approved by the FDA. [facility] is regulated under CLIA as qualified to perform high-complexity testing. This test is used for clinical purposes. It should not be regarded as investigational or for research. Test Performed By: [place] [address] Rhythmic Gymnastics Coach: Josias Villanueva III, M.D. CLIA #[id number] Performed By: #### C ELIZABETH, FRAN, 80174-6, FEPR, 06872-6, 2777-1, 2276-4, 2284-8, 21886-8, 2132-04 #### [facility] ([id number]) [address] [place] [address], [address] [place] [address] #### VITASP, 2900-9, 2998-3 #### [facility] ([id number]) [address] [place] [address] 73046 VITAMIN A(RETINOL)on 024 RETINYL PALMITATE 0.24 mg/L High 0.00-0.10 [facility] Comment on above: Performed By: #### C BCA, CMP, 84497-9, FEPR, 83210-4, 2777-1, 2276-4, 2284-8, 61645-8, 9 #### [facility] ([id number]) [address] [place] [address], [address] [place] [address] #### VITASP, 2900-9, 2998-3 #### [facility] ([id number]) [address] [place] [address] 82761 VIT A,SER/PL INTERP SEE NOTE Normal [facility] Comment on above: Result Comment: NOTE Modest elevation of retinyl palmitate consistent with oral supplementation. Vitamin A supplements in the range of 10,000 IU/day are typically associated with a retinyl palmitate concentration less than 0.10 mg/L. Drugs which may interfere with analysis include probucal (Lorelco). This test was developed and its performance characteristics determined by [facility]. It has not been cleared or approved by the US Food and Drug Administration. This test was performed in a CLIA certified laboratory and is intended for clinical purposes. Performed By: [facility] [address] [place] [address] Rhythmic Gymnastics Coach: Partha Crandall MD, PhD CLIA Number: [id number] Performed By: #### C ELIZABETH, CMP, 97997-4, FEPR, 40051-1, 2777-1, 2276-4, 2284-8, 09517-1, 2131-9 #### [facility] ([id number]) [address] [facility], [address] [place] [address] #### VITASP, 2900-9, 2998-3 #### [facility] ([id number]) [address] [place] [address] VITAMIN A(RETINOL) 0.82 mg/L Normal 0.30-1.20 [facility] Comment on above: Performed By: #### C BCA, CMP, 86848-1, FEPR, 14057-2, 2777-1, 2276-4, 2284-8, 72413-0, 2131-9 #### [facility] ([id number]) [address] [facility] [address], [address] [place] [address] #### VITASP, 2900-9, 2998-3 #### [facility] ([id number]) [address] [place] [address] 08741 VITAMIN B12on 10-14-2023 Cobalamin (Vitamin B12) [Mass/Vol] 413 pg/mL Normal 180-914 [facility] Comment on above: Performed By: #### C FRAN JOHNSON, 21106-8, FEPR, 02878-1, 2777-1, 2276-4, 2284-8, 92191-9, 2131-9 #### [facility] ([id number]) [address] [facility], [address] [place] [address] #### VITASP, 2900-9, 2998-3 #### [facility] ([id number]) [address] [place] [address] 36318 Vitamin D+Metabolites [Mass/ Vol]on 10-14-2023 VITAMIN D 25 HYD TOT 29.9 ng/mL Low 30-100 [facility] Comment on above: Result Comment: Vitamin D status 25 [place] Vitamin D Deficiency <20 ng/mL Insufficiency 20-29 ng/mL Sufficiency 30-100 ng/mL Toxicity >100 ng/mL NOTE: A pediatric reference range has not been established by the artistic associate of this kit. The [place] [employer] recommends a Vitamin D level of = or >20ng/mL in infants and children. Performed By: #### C ELIZABETH, CMP, 39774-4, FEPR, 73772-8, 2777-1, 2276-4, 2284-8, 43809-7, 2131-9 #### [facility] ([id number]) [facility] [facility], [address] [place] [address] #### VITASP, 2900-9, 2998-3 #### [facility] ([id number]) [address] [place] [address] Zinc [Mass/Vol]on 10-14-2023 ZINC 83 ug/dL Normal 60-120 [facility] Comment on above: Result Comment: NOTE This test was developed and its performance characteristics determined by [facility] [place] ([facility]). It has not been cleared or approved by the FDA. [facility] is regulated under CLIA as qualified to perform high-complexity testing. This test is used for clinical purposes. It should not be regarded as investigational or for research. Test Performed By: [facility] [address] [place] [address] Rhythmic Gymnastics Coach: Josias Villanueva III, M.D. [place] #[id number] Performed By: #### C BCA, CMP, 28217-4, FEPR, 30075-3, 2777-1, 2276-4, 2284-8, 05667-3, 2132-9 #### [facility] ([id number]) [address] [place] [address], [address] [place] [address] #### VITASP, 2900-9, 2998-3 #### [facility] ([id number]) [address] [facility] [place] [address] Microalbumin (with Creat)on 12-23-2021 mALB <1.2 Low [facility] Comment on above: Result Comment: Unab le to calculate mALB/Crea ratio, mALB is <1.2 mg/dL mALB reference range not established. Performed By: #### m ALBC #### [facility] [address] [place], [place] [id number] UCREA 105 mg/dL Normal 28-217 [facility] Comment on above: Performed By: #### m ALBC #### [facility] [address] [place], [place] [id number] SCREENING MAMMOGRAM W/LLOYD, BILATERAL*on 07-29-2021 SCREENING MAMMOGRAM W/LLOYD, BILATERAL* CLINICAL HISTORY: Screening Mammogram COMPARISON: Dating back to August 24, 2019, June 06, 2018 TECHNIQUE: 2D and 3D Tomosynthesis of the right and left breasts was performed. FINDINGS: Breast composition demonstrates scattered fibroglandular densities. Typically benign calcifications. Overall appearance is stable. No suspicious microcalcifications, asymmetry, architectural distortion, or associated features are present. IMPRESSION: BIRADS 2: Benign mammogram Board Certified Radiologist. Accredited by the ACR and FDA. MAMMOGRAPHY IS VERY IMPORTANT TO YOUR HEALTH. THE CURRENT [place] [employer] AND [employer] GUIDELINES RECOMMENDS ANNUAL MAMMOGRAPHY BEGINNING AT AGE 40 THIS FACILITY USES A REMINDER SYSTEM TO ENSURE ALL PATIENTS RECEIVE REMINDER NOTIFICATIONS AT THE APPROPRIATE TIME BASED ON THE RECOMMENDATIONS OF THIS EXAM. 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 Anesthetic utilized: General. Health Status Allergies: Allergic Reactions (Selected) Moderate Penicillins- Rash. Severity Not Documented Glutens- Stomach bloating/ache. Ibuprofen- Cant have due to sleeve. Latex- Red rash. Problem list: All Problems Symptomatic cholelithiasis / SNOMED CT 582274554 / Confirmed Resolved: Anxiety / SNOMED CT 99661988 Physical Examination No qualifying data available General: Alert and oriented, No acute distress. Respiratory: Lungs are clear to auscultation. Cardiovascular: Normal rate, Regular rhythm. Neurologic: Normal sensory. Review / Management Condition: Stable. Assessment Anesthetic outcome No anesthetic complications noted. Adequate pain relief. TOLERATING PO INTAKE. voiding w/o diff.. No Complaint of nausea and vomiting. Plan Transfer/ Discharge: Condition stable. Normal [facility] Comment on above: Result Comment: Elec tronically Signed By: Joseph Rincon Jr, DO\.br\Date and Time Signed: 05/18/21 10:17 EDT General Surgery Office/Clini c Noteon 04-14-2021 General Surgery Office/Clinic Note HPI Staff 9 day post operative visit following robotic assisted cholecystectomy on 04/01. History of Present Illness Consent: The patient or their guardian verbally consented to allow Yang Blakely to record this visit. Kathy Martinez is a 50-year-old female who presents for postoperative follow-up for a robotic assisted laparoscopic cholecystectomy performed on 04/01/2021 for symptomatic cholelithiasis. There was increased complexity to her case due to robust and tenacious adhesions throughout the peritoneal cavity, requiring lysis of the adhesions, lasting greater than 90 minutes. A 22 modifier was requested for the case. Since the operation, the patient states she has been doing well with no pain and is tolerating a regular diet without difficulty. She experienced some constipation initially, but this has since resolved. Review of Systems Constitutional: no fever, no sweats, no weight loss. Eyes: no glasses, no blurred vision, no visual loss. ENMT: no dentures, no hoarseness, no swallowing difficulties, no hearing loss, no ear infection(s), no nose bleeds. Cardiovascular: normal blood pressure, no chest pain, regular heartbeat, no heart murmur. Respiratory: no shortness of breath, no cough, no asthma, no wheezing. Gastrointestinal: no nausea, no vomiting, no diarrhea, no constipation, no blood in stool, no change in bowel habits, no abdominal pain, no hepatitis. Genitourinary: no kidney stones, no urine infection, no dysuria. Musculoskeletal: no pain, no weakness. Skin: no changing moles, no rash, no skin lumps. Neurologic: no seizures, no epilepsy, no headache. Psychiatric: no emotional or psychiatric problem. Heme/Lymph: no bleeding problems, no anemia, no blood clots, no transfusions. Allergy/Immunologic: no swollen lymph nodes/glands, no IV drug abuse. Other: Additional ROS info: Except as noted in the above Review of Systems and in the History of Present Illness, all other systems have been reviewed and are negative or noncontributory. Physical Exam Vitals & Measurements T: 36.2 ?C (Tympanic) General: No acute distress Respiratory: Unlabored breathing on room air Cardiac: Regular rate and rhythm Abdomen: Soft nontender nondistended. Her incisions are clean, dry, intact, and healing well. Assessment/Plan Symptomatic cholelithiasis (K80.20: Calculus of gallbladder without cholecystitis without obstruction) The patient is a 50-year-old female with symptomatic cholelithiasis status post robotic assisted cholecystectomy. She may resume regular activity without any restrictions. She may advance her diet as tolerated. ATTESTATION Draft generated by Matt RUIZ and edited by Caroline Campa, Quality Cattle Broker. Follow-up No qualifying data available Problem List/Past Medical History Ongoing Symptomatic cholelithiasis Historical No qualifying data Procedure/Surgical History Laparoscopic cholecystectomy (04/01/2021), section, Gastric sleeve, History of appendectomy, History of hernia repair, Mastoidectomy, Myringotomy and insertion of T tube, Partial or subtotal hysterectomy, Reconstruction of abdominal wall, T and A (tonsillectomy and adenoidectomy) postoperative education. Medications biotin 2.5 mg oral tablet, 2.5 mg= 1 tab(s), Oral, Daily calcium (as carbonate) 600 mg oral tablet, 600 mg= 1 tab(s), Oral, Daily Celebrate Multivitamin oral capsule, 1 cap(s), Oral, Daily fluoxetine, 10 mg, Oral, Daily HRT (Bioidentical) Testosterone dhea/Estradiol/progest erone, 5 mg each, Daily lysine, 500 mg, Oral, Daily Motion Sickness Relief 50 mg oral tablet, 50 mg= 1 tab(s), Oral, q6hr, PRN phentermine 37.5 mg oral capsule, 37.5 mg= 1 cap(s), Oral, Daily Vitamin B12 50 mcg oral tablet, 50 mcg= 1 tab(s), Oral, qWeek Vitamin D 1000 intl units Tab, 1000 International_Unit= 1 tab(s), Oral, Daily Allergies penicillins (Rash) Glutens (stomach bloating/ache) Latex (red rash) ibuprofen (cant have due to sleeve) Social History Alcohol Current, 1-2 times per year, 03/19/2021 Substance Abuse - Denies Substance Abuse, 03/19/2021 Tobacco - Denies Tobacco Use, 03/19/2021 Never (less than 100 in lifetime) Tobacco Use:., 03/17/2021 Family History CA - Cancer of kidney: Mother. Diabetes mellitus type 1: Mother. Hodgkin's disease: Mother. Primary malignant neoplasm of colon: Mother. Normal [facility] Comment on above: Result Comment: Elec tronically Signed By: Sumit Killian MD\.br\Date and Time Signed: 04/14/21 08:25 EDT\.br\Electronically Co-Signed By: Caroline Campa.br\Date and Time Co-Signed: 04/10/21 15:13 EDT Provider Letteron 04-10-2021 Provider Letter April 10, 2021 April 10, 2021 KATHY MARTINEZ [address] [place] [id number] KATHY MARTINEZ 1970 To Whom It May Concern, Please excuse above patient from work. Date of Illness: From: 03/20/21 To: 04/15/21 May Return to Work On: 04/16/21 Restrictions: None Comments: Any questions feel free to call the office at [phone] Sincerely, Dr. Sumit Daniel [facility] Progress Note-Physicianon Progress Note-Physician Patient: KATHY MARTINEZ Age: 50 years Sex: Female : 1970 Associated Diagnoses: None Author: Joseph Rincon Jr, DO Preoperative Information Time patient last ate or drank:=== (npo 8 hours) Anesthesia history: Patient history: No prior anesthesia problems. Re-evaluation prior to induction: Completed, Initial evaluation reviewed. Review of Systems Respiratory: No shortness of breath. Cardiovascular: No chest pain. Hematology/Lymphatics: No bruising tendency, No bleeding tendency. Health Status Allergies: Allergic Reactions (All) Moderate Penicillins- Rash. Severity Not Documented Glutens- Stomach bloating/ache. Ibuprofen- Cant have due to sleeve. Latex- Red rash. Canceled/Inactive Reactions (All) No Known Medication Allergies Current medications: (Selected) Inpatient Medications Ordered Lactated Ringers IV Thuy 1000 mL 1,000 mL: 1,000 mL, IV, 150 mL/hr, Routine, Start date 04/01/21 10:30:00 EDT, 6.7 hour(s), Total volume (mL): 1,000, 81.2 kg, 1.96, m2 clindamycin additive + Premix Dextrose 5% Diluent 50 mL: 900 mg = 50 mL, Soln-IV, IV Piggyback, PREOP, Routine, Start date 04/01/21 10:30:00 EDT, 100 mL/hr, Infuse over 30 minute(s) enoxaparin 40 mg/0.4 mL SC Thuy: 40 mg = 0.4 mL, Injection, SubCutaneous, PREOP, Routine, Start date 04/01/21 10:30:00 EDT, 04/01/21 10:30:00 EDT indocyanine green: 5 mg = 2 mL, Powder-Inj, IV Push, PREOP, Routine, Start date 04/01/21 10:30:00 EDT, 04/01/21 10:30:00 EDT Documented Medications Documented Celebrate Multivitamin oral capsule: 1 cap(s), Oral, Daily, Prophylaxis HRT (Bioidentical) Testosterone dhea/Estradiol/progest erone: HRT (Bioidentical) Testosterone dhea/Estradiol/progest erone, 5 mg each, Daily Motion Sickness Relief 50 mg oral tablet: 50 mg = 1 tab(s), Oral, q6hr, PRN as needed for motion sickness Vitamin B12 50 mcg oral tablet: 50 mcg = 1 tab(s), Oral, qWeek, Prophylaxis Vitamin D 1000 intl units Tab: 1,000 International_Unit = 1 tab(s), Oral, Daily, Prophylaxis biotin 2.5 mg oral tablet: 2.5 mg = 1 tab(s), Oral, Daily, Prophylaxis calcium (as carbonate) 600 mg oral tablet: 600 mg = 1 tab(s), Oral, Daily, Prophylaxis fluoxetine: 10 mg, Oral, Daily, Anxiety lysine: 500 mg, Oral, Daily, Prophylaxis phentermine 37.5 mg oral capsule: 37.5 mg = 1 cap(s), Oral, Daily, Other (see comment) Problem list: All Problems Symptomatic cholelithiasis / SNOMED CT 004003923 / Confirmed Resolved: Anxiety / SNOMED CT 58130919 Histories Past Medical History: No active or resolved past medical history items have been selected or recorded. Family History: Primary malignant neoplasm of colon Mother Diabetes mellitus type 1 Mother CA - Cancer of kidney Mother Hodgkin's disease Mother Procedure history: T and A (tonsillectomy and adenoidectomy) (8248058548). Myringotomy and insertion of T tube b/l x5 (445904027). Mastoidectomy (62970908). History of hernia repair x2 (6313971447). section/tubal (25924277). Partial or subtotal hysterectomy (2728740785). History of appendectomy/ovaries removed/4 inches of bowel removed (0885966581). Reconstruction of abdominal wall (619709397). Gastric sleeve (7988579396). Social History Social & Psychosocial Habits Alcohol 03/19/2021 Use: Current Frequency: 1-2 times per year Substance Abuse 03/19/2021 Risk Assessment: Denies Substance Abuse Tobacco 03/17/2021 Tobacco Use: Never (less than 100 in l 03/19/2021 Risk Assessment: Denies Tobacco Use . Physical Examination Vital Signs 04/01/2021 10:48 EDT Heart Rate Monitored 69 bpm Systolic Blood Pressure 115 mmHg Diastolic Blood Pressure 75 mmHg Blood Pressure Location Left arm Mean Arterial Pressure, Monitered 89 mmHg 04/01/2021 10:47 EDT Temperature Oral 36.7 DegC Heart Rate Monitored 67 bpm Respiratory Rate 16 br/min Systolic Blood Pressure 135 mmHg Diastolic Blood Pressure 81 mmHg Mean Arterial Pressure, Monitered 99 mmHg SpO2 100 % Respiratory: Lungs are clear to auscultation. Cardiovascular: Normal rate, Regular rhythm. Review / Management Results review Interpretation of Outside Results Chest x-ray results Radiology results ECG interpretation Condition Plan [place] [employer] Anesthesiologists (ASA) physical status classification: Class II. Anesthetic Preoperative Plan Anesthesia: General. . Anesthetic plan, risks, benefits, and alternatives discussed with the patient and/or family. Risks discussed: nausea, vomiting, headache, sore throat, dental injury, serious complications. Patient verbalized understanding. Communication: face to face with (patient 5 minutes, Pt educated on the importance of smoking cessation.). Normal [facility] Comment on above: Result Comment: Elec tronically Signed By: Joseph Rincon Jr, DO\.rhiannon\Date and Time Signed: 04/08/21 14:50 EDT Coding Summary.on 04-07-2021 Coding Summary. [id number] Gh 0bWw+PGhlYWQ+AE6PMFGlE 40ttZGqpU8TG0kQFN2KOMF IPBZJKZ0CNY6hhUP5USlgQ 2VybiAv PiopdVZvUN38CPv2HPD6wE ctWCgvdU5vwJCbF1e0JvMi LI11nV50SHnbEIJnMyE6Vl ZpbjsgbWFy Y6swXwPcjKUeUxs+PHRhYm xlIHdpZHRoPScxMDAlJyBz tFcnTD0lJx9zQIKnUCXufT xhcHNlOiBj s4yhFQWcOPonYK1auZumB0 LnjTR7YAWmg0e9Vz38tKF+ JRYiPMM6iMfcPKpvm036Ek Aeb7ogIXM4 rTYlNVryLUN4S66tr8U8BV HhRUIhOLG1sXG2pC1ljRaf zbpkG0IawFEvTjM7RBP2qY EvsK8pjHlq wvobbC2lOpu+E62APW5HHF JSZG2PKax7I9OvGvgjmPK+ YW46OOAdUX83zNZycOMyh7 mhtCr3CmFn XGNwPWJ3xQznZFyyn5RlXQ VjW04xiENkv0K1KLZqbBxv oZDjOrJpvDA4oT2wJHwfxf tyr8caydry Irbng4qggk66mF10N68yPU jwEQPeARO0OPXqCVTqtKwx yy3tpX2bYd9+FOnuu8hjb0 cjcDj3YiIj BYFbweEysGebODO0i0ZpPn 30C1SskSagn5KxEah5rv16 lLXpf0M9tTR0TKpoQNBolJ 7dMGctLmN2 TVBoTsMrgC17gBWaMRirWp 0qiHxyuQhfFG1kTMFsktbz FGEbbP5uJAJjyFKkzVpaFI 4wNTBpbjtm c308JpLiQGW1QTKvnWCwL4 ZrdG3fNfMbLBPxRFYoZ3Uk rPZuPFdnV724JPjjTgK6QN AolnItT0Ud GWJerBdfVrT9n1I7Rd2Kc2 KjxepnRYX0GTjwOEO1XzH9 EmYfJmR9F2FgGcq2OYQcyW fdGT5kN6Zy GZGylgrfyopxwEL7BNJoLT MfgJ58pYFjEPqgRw8za4F7 p099HHRqJSGmiU64Dn5ljC ogMTBwdCBU pI3esgowe9pfxdlrNhWsLV CsILg6OJt0EBVapVvoRqTc LSK4LeA5XNG7rSPcvW7npG wulboksK0g Oyc+I71tlB5zWJI4OWL4gx qiMLGfsaEpPY97BW18J4Ej PjwvdGFibGU+PGRpdiBzdH emUN3mZlEv f1xfk0SbEPimG7FtKQXyVV knQgw0TYQlBMM7jYZ1nZ5i HQWiBBvax2W9aDL7I5Jsze Grqc9nn1zv ISOzHPdmN39vvUQlw5W4GX VqqFT7PTPutXqrSeUggG99 Oyc+LBBtyVcbc6PjAnshb2 vqe1dlwXp5 BrOkLNCyycNraOanWOM9h5 EpUh12V83zXDhfDZRaFVHp JWVyDCXjbZfiaw1exF4cJz 8+PGNvbCB3 dQM1nE4yGIMfDhI8TGtdJ6 05NoKstNBaYzzqx3bvk2on eMd3GnVtXBGawgKkdOimCL X3v3RkWk06 F72oSKmfFGXfDFMpGSWoIJ BevXulhh1zoJ8oTy5+PC9j f4otgw61gW98mQP+PHRkIH B5vChlMNar CZQocT4rROwjPiD7PKBjVs JvwN96qPXnOStcUr9wkXim wJmsBL6oXOGvaiaal846Jf Ghg7otZCVe xHNxUOvfORX7L08gz5W7HF QrUCJoPZL0kHX9vY9nsHmg bjogbGVmdDsgdmVydGljYW ixXBwdR419 IHRvcDsnPlBhdGllbnQgTm XtVAc1W4CtLhx5FREejBkd VX9asMPoEGdgMq9nmFvccB gyXT9mBZCa vhlze248QwQpb5quHBJlwR QvQHblDXE1A98qq8Y6YNWd ODQgWDW2rKQ4dX0ebVuunp ogbGVmdDsg yaWsqTruTSaxVDusW716FC RvcDsnPkJpcnRoIERhdGU6 VR11RC11zDBvl3N4lDY8B2 BhZGRpbmct qsjnlXQ1PHBaOONacR89Ig 5asRaxSw1kITBgOUI3XVYc wDAeO3JcgY6lSrYqQBEvYZ RgN4UsnVCd IKaaL972GZuqRwH2GANtnd DyO6SxMZAnaUkfYoE8y6D3 Az9QV9X2LG00MO55hGXne4 J0fYJ9A3Hq IJMhjjppzzsrcXZ5KAUiCU ZsmC61Ry2nwZonVm1kEKOh COF4XGIzmRCfP4YqvS2pEd AjMDAwMDAw S5EtlPAwWQmvG431TKceHc D3PIDsnqWdA1QrHXVtnIez UaA1f8T3Sm8QRMo2NT06VC 55tMZaj6O1 aHW9F3FdKWYtytujbhrvrC B1QHEaTFPawC69Lk0daQrp Py5iDNOaUNE4BZWswXZrM1 CywF1yLnHe IGKmQBXkI3RhiYJrJLoyK3 73BZsdGrX8LWNypvAeN9Ij OBYekXdfTxQ7n4S9Vz8YAJ HzXT07NOT5 qXL4TM19OD22R8VcEcbrhY FibGU+PHRhYmxlIHdpZHRo PAxwWJLkOeLkmTmyMI2gAc 9yZGVyLWNv mJdhrMIrWgVol9baNGRcUO bdPO0kcIjmG7UgfSF8ZVEx m1b4Ul23T62gE0EsjAO+PG YzvMD1xPQ0 wE2rLlJyPgK3JYcdA167Mt TevSZhDzjdu3isa7hzrVe6 OzV1QSMrycRwfNofTNY8o9 PbNt48Q35g IHdpZHRoPSIxNSUiIHZhbG sqsn6iwE1bQz1+PGNvbCB3 zST8lA0jYcEwNeO8GApmT3 49InRvcCIv Lcuvf4slb2kpaKv3LgNaFN ThljWshIezIBC6w6NeWn98 A6KggLkvo0RdXfb7hw51kH Gmz1W8dEE8 X9VrIAOcfirlsETawWtgTK 4iMUTcdlrjYQYhlZ1xHIIr P7d3LbOwAhT4QXepM1Josn B9BNGcpUVw FIpbMZL0Z64nh8I6WUDjMP VcWWM3jFD9zD5hfEhpirpw bGVmdDsgdmVydGljYWwtYW srR624VTWh uLcqEXScvP9eVHTxaLIfuM asHL5eGCJvavhmUqILJJPp BE9UG8fGGQeSOEm3E2PnTi m5BJRewPjd GB4piPKpOLziNz9fvVasdH qnCY0lICMacwuhUKOokX1x OPAxgOJqsUlnAN8xQGJxei ikg126OgWm KSB0XYDljZUuF2QlsJ4hTt OsXHTnEMZtI1QjnABbAUdq B743CAkjOuN5MMEjqrHnR4 FsLWFsaWdu VlO4h8K7Un4nHl4lAX4kFI ohPF20WB07gQBdp5Q5wVJ4 Z4EpKXAalwefpvofxAT5BH OgBQBfsP20 oWXjLOxmEa2cj8P9g696BC VpOROufZ08Rr4tmVwbVDHe xZPGzN4zxsiwc5lljzojRa AwMDAwMDt0 ZQs8METjnXxrZxEcTJM1Uh Y7QJO1zNYmkF1qcLxbaved jY5jNap+KWLxCVMhykY8K2 XaWho3HREc zFcoEY2eyEKpRXvzWc8uoA yhkVzpBL3yMKNpeufiNGTs gS0dYZErbQWbmYcySM7aHG Zyjpvjh563 NiPgXKD9MVJetYEtM4GauU 7gLhDkQWMmUOQkD2XbeOMq YKvuM608UVovJqB6FGUqls TaV6YvUFCr tBhmNdK3p6Y4Zu6OVN9cbW L3F9RdGeb0VTQokGvwYR1f sFFoJRbzLf7qcMidlFedEX 4wNTBpbjtw NQUwlM3bFZUjdRBolAriZR 9mBSZifmdnc294CiHfXFQ3 ROYrlCVoM7UjdM6dFbNeUS CuENMwG3Hy aEUrDXnaC270KBedDlU4AZ VdzbTkO6WzZIKdgBxmUoS4 n8C7Za5PhLF4rTQ6j4J0N8 NhbWUgRGF5 ANO1oncqkta2N8JcRgdffP I+ZD31ZUOuVK31bPBbhDQa z3ihgAq0AyBjQONsURD1qF nfKBwea5Jh BJRwP29ehBCwj2O4WBMieO ygvFTlRbAwlME8mB0oWGqm iogpn7vbtyxoVrgge2hspn 83yD85V70u IHdpZHRoPSIzMCUiIHZhbG leen3zmU4eRu9+PGNvbCB3 pUY1lU4uJrCySyX2ADthY2 49InRvcCIv Bnpkf0juz0idwHn1GtNgCK MurvQvjIuzXTE7i8RiYh66 K92fLBbzVSRvGPAuORUrXZ PofDskkf9x mF3kAm3+WB3ng2awoh13uS 48dHI+TMZxYDV9kOkoKZzx IEKqwN9iCOtwZnU9ZICeLp HsuN18dMJm MAaeIx7rdXqgbFmdYI0uSI Kqedgty705FjNfe6pkRSKu eZDbMShxFOO1Z91vm2A1TA MwMDAwMDA7 fSA3sN1tsHlkdmttsTHshH qqdcEpoUloINtcIKwhF146 CHKfsBpsLvSgcLSuR1fcgp TXUJ1jZghb dGQ+LZUlQVM9lCiwFYubRE HlyY7zAOBxJ0u9IwLrJfD5 MXliQ0JjicI2YDXhfFCfMN LttRRSyN1f aobrc4aszgglSlPpSGRtOE m2OPt4IFQmzYbtVgQzAEC2 MdY9BEO1gBQyjJ9dqSgcpd qwbN1zPis+ RklOOjwvdGQ+ORAsXOI3lK quGBrgVPYnsV9iXFHyD1f0 QpFjDhP7ZUvsG5NslqQ2ED JvbGQgMTBw eTULaY0armkxv7xzgixlYt WpWVBeSGe5YFm8WMNqqRsg XjIsDBX4JcW5SYR1tQEkxX 1hbGlnbjog nH2hAkd+TVJOOjwvdGQ+PH RjBJP7aQyxGYgqUHLulD8h QJBaX3e7TkKwFoG8NOsgT9 GdpwO6VDXn jEGhHVMstQPFmH7jzabxr8 sjrisaCzPiRTMiOCk2SKt4 EPCprThtAoWxGII7PcB5LE G5tJNkwI5u tBrmdhwrsM0qXxf+UGF5ZX Y5TK54AP90Z4TiMxbxdIOj bGU+PHRhYmxlIHdpZHRoPS cxMDAlJyBz dHls (more content not included)... [facility] Postoperative Documentson Postoperative Documents [id number]#1. 00CD:127 [facility] Consent for Anesthesiaon Consent for Anesthesia [id number]#1. 00CD:127 [facility] Discharge Instructionson Discharge Instructions [id number]#1. 00CD:127 Normal [facility] IntraOperative Documentson 0 04-02-2021 IntraOperative Documents [id number]#1. 00CD:127 Normal [facility] IntraOperative Documents [id number]#1. 00CD:127 Normal [facility] IntraOperative Documents [id number]#1. 00CD:127 Normal [facility] Main OR Intraoperative Recor don 04-02-2021 Main OR Intraoperative Record IntraOp Document Type FT Summary Primary Physician: Sumit Killian MD Finalized Date/Time: 04/02/21 12:31:53 Pt. Name: JUAN KATHYFRANK Anderson D.O.B./Sex: 1970 Female Med Rec #: [id number] Physician: Sumit Killian MD Financial #: [id number] Pt. Type: A Room/Bed: [place] [address] Admit/Disch: 04/01/21 10:30:50 - 04/01/21 18:00:00 Institution: Case Times FT Entry 1 Patient Times In Room 04/01/21 11:53:00 Out Room 04/01/21 14:41:00 Procedure Times Start 04/01/21 12:13:00 Stop 04/01/21 14:35:00 Anesthesia Times Start 04/01/21 11:53:00 Stop 04/01/21 14:41:00 Last Modified By: Lalo STROUD, Lori Gómez 04/01/21 14:41:58 General Comments: 04/02/21 Chart opened to review and send charges Tanya FERNANDES Case Attendance FT Entry 1 Entry 2 Entry 3 Case Attendee Constantin CHOE, Sumit Bush CRNA, Sherrie Sainz CST Role Performed Surgeon - Primary 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/ Time In 04/01/21 11:53:00 04/01/21 12:06:00 04/01/21 11:53:00 Time Out 04/01/21 14:41:00 04/01/21 12:41:00 04/01/21 14:41:00 Procedure CHOLECYSTECOMY ROBOT CHOLECYSTECOMY ROBOT CHOLECYSTECOMY ROBOT ASSISTED(.) ASSISTED(.) ASSISTED(.) Comments dr rincon supervising surgical services assistant student Last Modified By: Lalo RN, Lori May RN, Lori May RN, Lori Gómez 04/01/21 15:03:08 04/01/21 15:03:08 04/01/21 15:03:08 Entry 4 Entry 5 Entry 6 Case Attendee Lalo STROUD, Lori Sharma RN, Deepti Whalen CST, Keya Gómez Role Performed Welding Systems And Equipment Repairer - Primary Welding Systems And Equipment Repairer - Primary Scrub - Primary Time In 04/01/21 11:53:00 04/01/21 11:53:00 04/01/21 11:53:00 Time Out 04/01/21 14:41:00 04/01/21 14:41:00 04/01/21 14:41:00 Procedure CHOLECYSTECOMY ROBOT CHOLECYSTECOMY ROBOT CHOLECYSTECOMY ROBOT ASSISTED(.) ASSISTED(.) ASSISTED(.) Comments out of room from orientation - out for [id number] for lunch lunch from [id number] Last Modified By: Lalo RN, Lori May RN, Lori May RN, Lori Gómez 04/01/21 15:03:08 04/01/21 15:03:08 04/01/21 15:03:08 Entry 7 Entry 8 Case Attendee Greyson STROUD, Anayeli Pacheco Role Performed Welding Systems And Equipment Repairer - Relief Anesthesiologist Transportation Specialist Time In 04/01/21 12:15:00 04/01/21 11:53:00 Time Out 04/01/21 12:59:00 04/01/21 14:41:00 Procedure CHOLECYSTECOMY ROBOT CHOLECYSTECOMY ROBOT ASSISTED(.) ASSISTED(.) Comments dr rincon supervising lunch out of room from [id number] Last Modified By: Lalo RN, Lori May RN, Lori Gómez 04/01/21 15:03:08 04/01/21 15:03:08 General Comments: rodger hernandez rep present for procedure. Michael weeks [facility] internship Protocols FT Pre-Care Text: Implements protective measures prior to operative or invasive procedure, confirms identity before the operative or invasive procedure, verifies operative procedure, surgical site, and laterality Entry 1 Procedure(s) CHOLECYSTECOMY ROBOT Patient Identity Birthday, ID Band Check ASSISTED(.) Verified (select at least 2): Consents / H and P Anesthesia Consent, Operative Site N/A Verified HandP, Surgery/Procedure Marking Verified Consent Surgical Site Yes Laterality Verified n/a Verified Procedure Verified Yes Correct Patient Yes Position Verified Availability Equipment, Medication Prep Dry Yes Verified (If Applicable) PreOp Antibiotic Yes Time Out Sumit Killian MD, Given Participants Alpesh NEGRETE, Lalo Marroquin RN, Edith Santoro RN, Marlee Niño 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, John Hidalgo, Anayeli Velasco Time Out Complete 04/01/21 12:13:00 Outcomes Met? Yes Last Modified By: Lori May RN 04/01/21 13:11:00 Post-Care Text: The patient is free from signs and symptoms of injury caused by extraneous objects Allergy Information FT Pre-Care Text: Verifies allergies Entry 1 Allergies Reviewed? Yes Allergies Reviewed Self/Patient With Outcomes Met? Yes Last Modified By: Diana Rubi RN 04/01/21 12:43:38 Post-Care Text: The patient received appropriate medication(s) safely administered during the perioperative period Surgical Procedures FT Entry 1 Procedure Description Procedure CHOLECYSTECOMY ROBOT Modifiers . ASSISTED Surgeon Description ROBOTIC ASSISTED LAPARASCOPIC CHOLECYSTECTOMY, LAPAROSCOPIC LYSIS OF ADHESIONS LASTING GREATER THAN 90 MINUTES (REQUEST 22 MODIFIER) Primary Procedure Yes Primary Surgeon Sumit Killian MD Start 04/01/21 12:13:00 Stop 04/01/21 14:35:00 Anesthesia Type General Surgical Service General Wound Class 3 - Contaminated Last Modified By: Lori May RN 04/01/21 14:41:51 General Case Data FT Pre-Care Text: Classifies surgical wound, implements aseptic technique, initiates traffic control Entry 1 Case Information OR OR 6 FT Case Level Level 5 Wound Class 3 - Contaminated Specialty General ASA Class 2 Preop Diagnosis SYMPTOMATIC Postop Same As Preop Yes CHOLELITHIASIS Postop Diagnosis SYMPTOMATIC Outcomes Met? Yes CHOLELITHIASIS Last Modified By: Lori May RN 04/01/21 14:13:03 Post-Care Text: The patient is free (more content not included)... Normal [facility] Preoperative Documentson Preoperative Documents [id number]#1. 00CD:127 Normal [facility] Preoperative Documents [id number]#1. 00CD:127 Normal [facility] Preoperative Documents [id number]#1. 00CD:127 Normal [facility] Consent for Procedure/Surger yon 04-01-2021 Consent for Procedure/Surgery [id number]#1.00 CD:127 Normal [facility] Consent for Treatmenton Consent for Treatment [id number]#1.0 0CD:127 Normal [facility] Inpatient Patient Summaryon 04-01-2021 Inpatient Patient Summary [place] [id number] [facility] Clinical Discharge Instructions PERSON INFORMATION Name: KATHY MARTINEZ PHYSICIANS Admitting Physician: Sumit Killian MD Attending Physician: Sumit Killian MD PCP: PHIL CHOE, NALIA Discharge Diagnosis: Comment: PATIENT EDUCATION INFORMATION Instructions: Laparoscopic Cholecystectomy, Care After Medication Leaflets: Follow up: With: Address: When: Sumit Killian [address] [place], [place] [id number] [phone] Business (1) Comments: Keep scheduled appointment Type Location Start Finish State Post Op 15 [facility] 04/10/2021 1:00 PM 04/10/2021 1:15 PM Confirmed MEDICATION LIST New Medications [facility]/pharmacy #[id number], [address], [place] [id number], [phone] acetaminophen-oxycodon e (Percocet 5 mg-325 mg oral tablet) 1 Tablets By Mouth every 6 hours as needed as needed for pain. Refills: 0. Medications to Continue with No Changes Other Medications biotin (biotin 2.5 mg oral tablet) 1 Tablets By Mouth every day. calcium carbonate (calcium (as carbonate) 600 mg oral tablet) 1 Tablets By Mouth every day. cholecalciferol (Vitamin D 1000 intl units Tab) 1 Tablets By Mouth every day. cyanocobalamin (Vitamin B12 50 mcg oral tablet) 1 Tablets By Mouth every week. dimenhyDRINATE (Motion Sickness Relief 50 mg oral tablet) 1 Tablets By Mouth every 6 hours as needed as needed for motion sickness. fluoxetine 10 Milligram By Mouth every day. lysine 500 Milligram By Mouth every day. multivitamin with minerals (Celebrate Multivitamin oral capsule) 1 Capsules By Mouth every day. Non-Formulary Medication (HRT (Bioidentical) Testosterone dhea/Estradiol/progest erone) 5 mg each every day., hormone replacement therapy phentermine (phentermine 37.5 mg oral capsule) 1 Capsules By Mouth every day., appetite suppresant Comment: Normal [facility] Main OR PACU I [facility] Main OR PACU I Record PACU Phase I Docum ent Type FT Summary Primary Physician: Sumit Killian MD Finalized Date/Time: 04/01/21 15:38:37 Pt. Name: JUANKATHY/Sex: 1970 Female Med Rec #: [id number] Physician: Sumit Killian MD Financial #: [id number] Pt. Type: A Room/Bed: [facility] Admit/Disch: 04/01/21 10:30:50 - Institution: Case Times PACU I FT Pre-Care Text: Identifies barriers to communication and implements measures to provide psychological support Develops individualized plan of care, and ensures continuity of care Maintains patient's dignity and privacy, and maintains patient confidentiality Identifies and reports philosophical, cultural, and spiritual beliefs and values Identifies individual values and wishes concerning care Implements aseptic technique, and administers prescribed antibiotic therapy and immunizing agents as ordered Evaluates postoperative tissue perfusion Implements thermoregulation measures, and monitors body temperature Evaluates postoperative respiratory status Evaluates postoperative cardiac status Evaluates postoperative neurological status Assesses pain control, collaborated in initiating patient-controlled analgesia and implements alternative methods of pain control Verifies allergies, administers prescribed medications and solutions, evaluates response to medications Entry 1 In PACU I 04/01/21 14:43:00 Discharge from PACU 04/01/21 15:13:00 I Outcomes Met? Yes Last Modified By: Emilie Green RN 04/01/21 15:38:22 Post-Care Text: The patient demonstrates knowledge of the expected response to the operative or invasive procedure The patient's care is consistent with the individualized perioperative plan of care The patient's right to privacy is maintained The patient's value system, lifestyle, ethnicity, and culture are considered, respected, and incorporated into the perioperative plan of care The patient participates in decisions affecting his or her perioperative plan of care The patient is free from signs and symptoms of infection The patient has wound/tissue perfusion consistent with or improved from baseline levels established preoperatively The patient is at or returning to normothermia at the conclusion of the immediate postoperative period The patient's respiratory function is consistent with or improved from baseline levels established preoperatively The patient's cardiovascular status is consistent with or improved from baseline levels established preoperatively The patient's cardiovascular status is consistent with or improved from baseline levels established preoperatively The patient demonstrates and/or reports adequate pain control throughout the perioperative period The patient received appropriate medication(s), safely administered during the perioperative period Acuity Level PACU I FT Entry 1 Start Time 04/01/21 14:43:00 Stop Time 04/01/21 15:13:00 Acuity Level Acuity Level I Last Modified By: Emilie Green RN 04/01/21 15:38:34 Finalized By: Emilie Green RN Document Signatures Signed By: Emilie Green RN 04/01/21 15:38 Normal [facility] Main OR PACU II [facility] Main OR PACU II Record PACU Phase II Document Type FT Summary Primary Physician: Sumit Killian MD Finalized Date/Time: 04/01/21 18:21:53 Pt. Name: MARTINEZKATHY/Sex: 1970 Female Med Rec #: [id number] Physician: Sumit Killian MD Financial #: [id number] Pt. Type: A Room/Bed: [facility] Admit/Disch: 04/01/21 10:30:50 - 04/01/21 18:00:00 Institution: Case Times PACU II FT Pre-Care Text: Identifies barriers to communication and implements measures to provide psychological support and determines knowledge level Develops individualized plan of care, and ensures continuity of care Maintains patient's dignity and privacy, and maintains patient confidentiality Identifies and reports philosophical, cultural, and spiritual beliefs and values Identifies individual values and wishes concerning care administers prescribed antibiotic therapy and immunizing agents as ordered, Evaluates postoperative tissue perfusion Implements thermoregulation measures, and monitors body temperature Evaluates postoperative respiratory status Evaluates postoperative cardiac status Evaluates postoperative neurological status Assesses pain control, collaborated in initiating patient-controlled analgesia and implements alternative methods of pain control Verifies allergies, administers prescribed medications and solutions, evaluates response to medications Entry 1 In PACU II 04/01/21 15:15:00 Discharge from PACU 04/01/21 18:00:00 II Outcomes Met? Yes Last Modified By: Danny Coleman RN 04/01/21 18:21:52 Post-Care Text: The patient demonstrates knowledge of the expected response to the operative or invasive procedure The patient's care is consistent with the individualized perioperative plan of care The patient's right to privacy is maintained The patient's value system, lifestyle, ethnicity, and culture are considered, respected, and incorporated into the perioperative plan of care The patient participates in decisions affecting his or her perioperative plan of care. The patient is free from signs and symptoms of infection The patient has wound/tissue perfusion consistent with or improved from baseline levels established preoperatively The patient is at or returning to normothermia at the conclusion of the immediate postoperative period The patient's respiratory function is consistent with or improved from baseline levels established preoperatively The patient's cardiovascular status is consistent with or improved from baseline levels established preoperatively The patient's neurological status is consistent with or improved from baseline levels established preoperatively The patient demonstrates and/or reports adequate pain control throughout the perioperative period The patient received appropriate medication(s), safely administered during the perioperative period Finalized By: Danny Coleman RN Document Signatures Signed By: Danny Coleman RN 04/01/21 18:21 [facility] Main OR Preoperative Recordo n 04-01-2021 Main OR Preoperative Record PreOp Document Type FT Summary Primary Physician: Sumit Killian MD Finalized Date/Time: 04/01/21 12:43:26 Pt. Name: KATHY MARTINEZ /Sex: 1970 Female Med Rec #: [id number] Physician: Sumit Killian MD Financial #: [id number] Pt. Type: A Room/Bed: Admit/Disch: 04/01/21 10:30:50 - Institution: Case Times PreOp FT Pre-Care Text: Verifies consent for planned procedure, identifies individual values and wishes concerning care, includes family members in perioperative teaching Entry 1 Patient Times. In Pre Surgery 04/01/21 10:35:00 Out Pre Surgery 04/01/21 11:51:00 Outcomes Met? Yes Last Modified By: Diana Rubi RN 04/01/21 12:43:22 Post-Care Text: The patient participates in decisions affecting his or her perioperative plan of care Finalized By: Diana Rubi RN Document Signatures Signed By: Diana Rubi RN 04/01/21 12:43 Normal [facility] Monitor [facility] 04-01-2021 Monitor Record [id number]#1. 00CD:127 Normal [facility] Operative Reporton 1 Operative Report Indication for Surge ry 50-year-old female with history of exploratory laparotomy with bowel resection, abdominal wall reconstruction with component separation and retrorectus mesh repair, laparoscopic sleeve gastrectomy performed 2019, symptomatic cholelithiasis here today for robotic assisted laparoscopic cholecystectomy Preoperative Diagnosis Symptomatic cholelithiasis Postoperative Diagnosis As above Operation CHOLECYSTECOMY ROBOT ASSISTED, ROBOTIC ASSISTED LAPARASCOPIC CHOLECYSTECTOMY, LAPAROSCOPIC LYSIS OF ADHESIONS LASTING GREATER THAN 90 MINUTES (REQUEST 22 MODIFIER), . Surgeon(s) Sumit Killian MD (Surgeon - Primary) Transportation Specialist Sherrie Betts Anesthesia [facility] Joseph Nation DO (Adult Secondary Education Instructor) Barbra Bush CRNA (Other) Anayeli Barber (Anesthesiologist Transportation Specialist) Estimated Blood Loss 20 cc Urine Output Voided prior to procedure Findings Marked adhesions throughout the entire peritoneal cavity along the abdominal wall as well as to the gallbladder and liver itself, due to increased complexity of case request 22 modifier Specimen(s) Pathology Tissue Exam (Gallbladder,AP Specimen) Complications No Technique After obtaining informed sent the patient was taken to the operating room she was positioned supine on the operating room table. General anesthesia was achieved. The abdomen was prepped and draped in sterile fashion. A timeout was performed. The patient received perioperative antibiotics. A Veress needle was used to insufflate the peritoneal cavity to 20 mmHg at Leonard's point. A 5 mm laparoscopic Optiview trocar was used to gain entry into the peritoneal cavity. There is no evidence of injury upon entering the peritoneal cavity. Upon inspection of the peritoneal cavity due to her prior surgeries there were dense adhesions noted along the abdominal wall to the gallbladder and to the liver itself. The adhesions were thick and tenacious. An open area of the abdomen was found and a 5 mm laparoscopic port was inserted and using a combination of sharp dissection blunt dissection electrocautery adhesions were lysed for 90 minutes. The dissection was long and tedious. There is no injury made to the bowel during this dissection. One of the 2 laparoscopic ports in the left lower quadrant was upsized to an 8 mm robotic port. 3 additional robotic ports were placed in the right lower quadrant. The robot was brought in and docked. The 30 mm camera as well as the force bipolar and monopolar robotic scissors were docked. Our attention was then turned to lysing the adhesions adherent to the gallbladder and to the liver itself. Once these were freed the gallbladder was found to be distended. Using an aspiration needle the gallbladder was aspirated of bile. The gallbladder was now easier to retract cephalad. The gallbladder was then retracted cephalad. Dissection was begun to expose the triangle of Calot. The cystic duct and cystic artery were identified and dissected circumferentially. The cystic plate was bluntly dissected. Robotic clips were placed on the cystic duct and cystic artery. The cystic duct and cystic artery were taken. The gallbladder was dissected off the gallbladder fossa using electrocautery. The gallbladder was placed in Endo Catch bag. The peritoneal cavity was irrigated using normal saline. The irrigation continue until the effluent returned clear. The Endo Catch bag was removed from the peritoneal cavity. All the remaining instruments and ports were removed. The skin incisions were closed using 4-0 Monocryl in subcuticular fashion. Skin glue was applied. All of our counts were correct x2. The patient tolerated the procedure without any difficulty and the patient was returned to recovery room in a stable condition. Normal [facility] Comment on above: Result Comment: Elec tronically Signed By: Constantin CHOE, Sumit Milian\.br\Date and Time Signed: 04/01/21 15:06 EDT Outpatient Surgery Discharge Instructionon 04-01-2021 Outpatient Surgery Discharge Instruction [place] [id number] Patient Discharge Instructions PERSON INFORMATION Name: KATHY MARTINEZ Date of : 1970 Current Date: 04/01/2021 15:42:50 PHYSICIANS Admitting Physician: Sumit Killian MD Discharge Diagnosis: KATHY MARTINEZ has been given the following list of follow-up instructions, prescriptions, and patient education materials: PATIENT FOLLOW-UP INFORMATION Diet: Regular Discharge Activity: Expect mild pain, Expect minimal amount of drainage and/or bleeding Discharge Restrictions: No driving for 24 hrs, Do not make important decisions for 24 hours, Do not drink alcoholic beverages for 24 hours Call Your Doctor For: Persistent or heavy bleeding, Temperature above 101.5 degrees, Redness, swelling, or pus at operative site, Severe pain at the operative site, Persistent vomiting Additional Instructions: Okay to shower tomorrow. No submerge incisions underwater as in pool or tub. No heavy lifting pushing pulling greater than 35 pounds for 2 weeks after surgery. IF UNABLE TO CONTACT YOUR PHYSICIAN AND YOU FEEL IT IS AN EMERGENCY, GO TO THE NEAREST EMERGENCY ROOM OR CALL 911 IJUAN MICHFRANK Anderson, have received the attached patient education materials/instructions and have verbalized understanding: May we do a follow up call? Yes No I was present when discharge instructions were given Patient Signature Date Clinican/Nurse Signature ___ Date Follow up: With: Address: When: Sumit Killian [address], [facility] [address], [address] [address] [phone] Business (1) Comments: Keep scheduled appointment Type Location Start Finish [facility] Post Op 15 [facility] [place] 04/10/2021 1:00 PM 04/10/2021 1:15 PM Confirmed Pharmacy Information: You may receive a survey from [employer] asking you to rate your care experience. Your feedback is important and will help us understand what we do well and how we can improve the quality of care we provide to you, your loved ones and our community. It?s an honor to serve you. Thank you for choosing [facility] HERE ARE THE MEDICATION CHANGES THAT OCCURRED DURING YOUR HOSPITAL STAY New Medications [id number], [address], [place] [id number], [phone] acetaminophen-oxycodon e (Percocet 5 mg-325 mg oral tablet) 1 Tablets By Mouth every 6 hours as needed as needed for pain. Refills: 0. Medications to Continue with No Changes Other Medications biotin (biotin 2.5 mg oral tablet) 1 Tablets By Mouth every day. calcium carbonate (calcium (as carbonate) 600 mg oral tablet) 1 Tablets By Mouth every day. cholecalciferol (Vitamin D 1000 intl units Tab) 1 Tablets By Mouth every day. cyanocobalamin (Vitamin B12 50 mcg oral tablet) 1 Tablets By Mouth every week. dimenhyDRINATE (Motion Sickness Relief 50 mg oral tablet) 1 Tablets By Mouth every 6 hours as needed as needed for motion sickness. fluoxetine 10 Milligram By Mouth every day. lysine 500 Milligram By Mouth every day. multivitamin with minerals (Celebrate Multivitamin oral capsule) 1 Capsules By Mouth every day. Non-Formulary Medication (HRT (Bioidentical) Testosterone dhea/Estradiol/progest erone) 5 mg each every day., hormone replacement therapy phentermine (phentermine 37.5 mg oral capsule) 1 Capsules By Mouth every day., appetite suppresant PATIENT EDUCATION INFORMATION Instructions: Laparoscopic Cholecystectomy, Care After This sheet gives you information about how to care for yourself after your procedure. Your health care provider may also give you more specific instructions. If you have problems or questions, contact your health care provider. What can I expect after the procedure? After the procedure, it is common to have: ? Pain at your incision sites. You will be given medicines to control this pain. ? Mild nausea or vomiting. ? Bloating and possible shoulder pain from the air-like gas that was used during the procedure. Follow these instructions at home: Incision care ? Follow instructions from your health care provider about how to take care of your incisions. Make sure you: ? Wash your hands with soap and water before you change your bandage (dressing). If soap and water are not available, use hand chief analytics officer. ? Change your dressing as told by your health care provider. ? Leave stitches (sutures), skin glue, or adhesive strips in place. These skin closures may need to be in place for 2 weeks or longer. If adhesive strip edges start to loosen and curl up, you may trim the loose edges. Do not remove adhesive strips com (more content not included)... Normal [facility] Patient Education - Texton 0 04-01-2021 Patient Education - Text Gastroenterology Laparoscopic Cholecystectomy, Care After This sheet gives you information about how to care for yourself after your procedure. Your health care provider may also give you more specific instructions. If you have problems or questions, contact your health care provider. What can I expect after the procedure? After the procedure, it is common to have: ? Pain at your incision sites. You will be given medicines to control this pain. ? Mild nausea or vomiting. ? Bloating and possible shoulder pain from the air-like gas that was used during the procedure. Follow these instructions at home: Incision care ? Follow instructions from your health care provider about how to take care of your incisions. Make sure you: ? Wash your hands with soap and water before you change your bandage (dressing). If soap and water are not available, use hand chief analytics officer. ? Change your dressing as told by your health care provider. ? Leave stitches (sutures), skin glue, or adhesive strips in place. These skin closures may need to be in place for 2 weeks or longer. If adhesive strip edges start to loosen and curl up, you may trim the loose edges. Do not remove adhesive strips completely unless your health care provider tells you to do that. ? Do not take baths, swim, or use a hot tub until your health care provider approves. Ask your health care provider if you can take showers. You may only be allowed to take sponge baths for bathing. ? Check your incision area every day for signs of infection. Check for: ? More redness, swelling, or pain. ? More fluid or blood. ? Warmth. ? Pus or a bad smell. Activity ? Do not drive or use heavy machinery while taking prescription pain medicine. ? Do not lift anything that is heavier than 10 lb (4.5 kg) until your health care provider approves. ? Do not play contact sports until your health care provider approves. ? Do not drive for 24 hours if you were given a medicine to help you relax (sedative). ? Rest as needed. Do not return to work or school until your health care provider approves. General instructions ? Take gwhg-uka-uqqdcpg and prescription medicines only as told by your health care provider. ? To prevent or treat constipation while you are taking prescription pain medicine, your health care provider may recommend that you: ? Drink enough fluid to keep your urine clear or pale yellow. ? Take wcll-iph-ljhfryk or prescription medicines. ? Eat foods that are high in fiber, such as fresh fruits and vegetables, whole grains, and beans. ? Limit foods that are high in fat and processed sugars, such as fried and sweet foods. Contact a health care provider if: ? You develop a rash. ? You have more redness, swelling, or pain around your incisions. ? You have more fluid or blood coming from your incisions. ? Your incisions feel warm to the touch. ? You have pus or a bad smell coming from your incisions. ? You have a fever. ? One or more of your incisions breaks open. Get help right away if: ? You have trouble breathing. ? You have chest pain. ? You have increasing pain in your shoulders. ? You faint or feel dizzy when you stand. ? You have severe pain in your abdomen. ? You have nausea or vomiting that lasts for more than one day. ? You have leg pain. This information is not intended to replace advice given to you by your health care provider. Make sure you discuss any questions you have with your health care provider. Document Released: 07/18/2006 Document Revised: 06/30/2018 Document Reviewed: 01/03/2017 [employer] Patient Education ? 2019 [employer]. [facility] Consent for Procedure/Surger yon 03-25-2021 Consent for Procedure/Surgery [id number]#1. 00CD:127 [facility] Consent for Treatmenton 03-02 Consent for Treatment [id number]#1. 00CD:127 [facility] Coding Summary.on 03-23-2021 Coding Summary. CD:[id number] Gh 0bWw+PGhlYWQ+FI8XPEGzN 12kcRJvgX9AQ6jPGI2RLTJ DFMZNNV7RYX1jzCB2MCigM 2VybiAv FwltqMHeIW64IIw5KTD5sB cpNWkptA2nxLShG6k9QkDz PK76wS43RCovQWVuOkQ0Uu ZpbjsgbWFy B2pxXtLgeWMdZhy+PHRhYm xlIHdpZHRoPScxMDAlJyBz eMhfAG2oHt2eUZWjEHIcdC xhcHNlOiBj g0smLJRwPHozHV2juBwnV4 HonAE7TBPvc6e2Sw48lGG+ OGOqWMR2uZoqZGccr783Sh Dro9bmFMR2 bZElHRriFRP5M91xp0A1VB OfSXXjHNQ9tLI1eV6qgAgo qnrrT3FunNSzAlA8THQ7vU HoqL8hlQrm tnrsgG7gNsc+M93FZU3AON VWKO4YYky7R5CyUiogcOR+ TS64WWTcEX81gVOebUIez6 hxwWo9LnWe HFTyFJM8jXutBEdum6NaEP JjA37bqBFkw4N5QHAcoYws bEIiXxPmdEY1cO2kCJkzpf mjz9bztbwp Mpams2gmaf83qH41I88yON zjRRNzMZJ0TJNkQHScyLyt ci4kaJ1pSo6+SUacd8erj5 eieEq7OkCr AREmnyFqrHdqCRF9a4DmSi 97A3ShiAwsy0ZzAei2on19 mNJuf8K1pQV4OLajWLBxyY 2hIHuoEpH9 CDUdMdLejP16cENiUTcvZe 0djPtqbMnhEY9iKZWizycd HXOjaL9iQHGmxGDqsNuvRC 4wNTBpbjtm t084BeKyQSP1JDWxbDXgI2 XvxK3pWkMdEOFqOFMjK9Le nHAiKJilO724UUsuKkF8WM FumsMsR2Im XWZrsTkkJwD0r5J9Io2Vw9 AdjlbrJPL8NLfkOMS2KpPw YmUmEiW2D4ApMmv3UQQmxL jsPB4gJ4Df USPtfngztlpkgER9JNUeZR JhrI52bXShKIzmQi7rt2S3 q878OWBqZYRvtG39Rc0qaL ogMTBwdCBU uC8roqpkw2loeyotEyBgLL RjAVc9WOe6ZJOmdFleSiKw CWA6JzX7RWI1rXIhjV0djM wfuweccI1i Oyc+X12peW3aNXQ9TWY8hw bpHCLicxSyDA97ZW37O6Sp PjwvdGFibGU+PGRpdiBzdH koST0nMbHj k9ysp9KeHSqxP5GcCSOtSI gwWxx8VDPrEHV3zRE4gC2h ZHLePTajw3G6uAS2W9Kgkb Iyat4ab7nr VERiWXrqX36naFCfk3B6DF TziRD1UOKtzWbfJbKylS02 Oyc+FKNddCams9KnJvval8 eoc5oieFt9 MuRaGWTuutDdrXagEEY6a1 ZrVg12P36jJXllRQMrPGHd OTUlBJStaQdquz4ovA9vQu 8+PGNvbCB3 eEU0aQ4cYCAtTaK2RWerD5 84OtSbrRQdScqvz5yfp7lo aSw3UjJePXFmcuTwfBfeGW G5k0YsAg87 N21vKAuaRPNqROEyKIBcXL RclQhvhw8quN6oTa9+PC9j q2glgr07bQ69iOH+PHRkIH K3eXalEOpw UYUexB1oWApqRgD1WCSsOy HhwC39kZStQGpwLk3iuIyl qVtlFI9sYEBphnusw049Cm Epf8vlXSSq zINjFFxoSSE4I25hs2Q5BB FuFKRaQSK0cLO1wV2klUgf bjogbGVmdDsgdmVydGljYW sjLHzsL758 IHRvcDsnPlBhdGllbnQgTm ZoLNh7V6OtWoo4TJZlyAuz XI6suFEiWYfwLp8qxEqlkU ccAN2wUBDb zgnyk440RpRfu3qbOGMflT SiNAdpNFB5J35sd2W0TMBw CHMoMRW9wWW3eQ1luOgvvf ogbGVmdDsg fmLlcQxrQJvzZOxmP990PM RvcDsnPkJpcnRoIERhdGU6 DX52FM04pNQsq2G7xVO0G6 BhZGRpbmct kqpqhOJ5HHFbESYvcB56Ag 6oeXlxZs4oZDEsUUK6MLXn sLQxR0EqvF4mBhXoJAUxYQ LaS3WhrPTr LMieV317QCzwVyP5MNFxik YhN0XlSCHhuHluGwE5y5D6 Xy4QT4V5LK51LA37hTRcf0 Z0aFH4N9Zx YENoqqagjxfawWX8LYYoMM SsvG61Lu4dgPlvUq0tMJZr OEP4MLEtiVWeA7ZedC8aEl AjMDAwMDAw T1ZdtYNtQKqpG763VUacAj I3QHIjfiGvY9NyRWTfxSqa TwP6h7X8Xv4FEZa3NO70BW 61bQMbu1Y5 qCT9O1VhCGTstzpvhuvxhG Z6FFKxBZLikF88Gb6bgQvj Os1kORReNFZ3DXThnOOsE8 IvrE5lXlOg OUBmBMShM8FxxGPgKFjyJ6 20YFqeOrN6JBQzjrTdA7Dm QQMbvIrtFwK8v9Y1Ul4AYW LbSQ83VNR1 sGY3TV81AY52P7FqObdgmT FibGU+PHRhYmxlIHdpZHRo HAinTJSeRlWyvTvuHN4xHe 9yZGVyLWNv yTciuTMoNvPch5pzKTWtIR dzOX7pmCmkO3SokVN4QXYa n2c4Xi90A72wM0VtwKP+PG OguAT1gDO4 tC9nDgHaVeQ9DYjwA183Jx OrsPEqUctzu1zpv7qpaBk1 FmN6WTRokaYpmEcwOYT2f1 HvDo41B38e IHdpZHRoPSIxNSUiIHZhbG gwpn2mdL4hQj5+PGNvbCB3 hIJ5lN5pUuRnOhD2KLejB6 49InRvcCIv Ucapi3fsm6ykwCf2XfCnCZ KbrqMafYuxIJM0d2KzWy83 S1QxjUcoy2PnPjt7nv59lR Din9Z8uJI7 X3YsJSSusfqvnGBlwBfkJV 0iAPCnwtkeGCDxrZ1aUWGh E6r0CkCoHzZ2COhgE0Bpqj X0DIAybGEs MYxhOUH4U60uj0P4FJKtGG KvSQH7rON3rZ9rgKexmnbq bGVmdDsgdmVydGljYWwtYW kiA862HEOk yKavIXTjeM4kCUOobUGjuP ekOT0fUFXbamkzBjWTIRPt KY6DJ8yDJCeWQLx3O1YbOf h5EKVlgJcu AZ0msWVcPPbqEo9ddUqleV boVQ9zJRFxmwjuSBYhwI7n NHDpnADqaGttFK7hFWIkra yar432LaPg HCV7BIPbeSUsK0OphR5bHn ImZMUhHVQzR8GssPYdXUtc Q518LDokVfR9TPRvnlKyX1 FsLWFsaWdu TpD2t3U2Tx5qJa6oZF7qNM ibZF11YG90nJLat7K3jDL2 V3IeKUQbodfmucspoUB4CJ WyMPEyqB20 aWIqSMgcAx4wx0P0r329AX OhHWAujU75Ks5zoEtxKPGa dORChW4cisree4djipyfZp AwMDAwMDt0 SNd7UNBjcAnzLvDnLDV4Oo W3QNW3bEFydI6ysCtgxewt jY6lOwk+BPFnAXPcunB6B1 XsQhb0GZSv zVfeFG4wvYUsPTjrPs6usI nwoAewPI6nGDMtxmefWRDv xA9pGJZzoCPzkKdyER5cCD Endeorf214 TuKbMCS7MPGeyTFqM3CxwL 6wUeMfTUDkBQXsC7FtpZRp YEorW646WFmdCzG2WPHvyx RsB6LuFWLw sYisQgY1m7N4Dw6BYR2cdX Y4S9CmCqf4HAFbuRhuJX5f cMYpTFzbBy4fcJaviNzdDI 4wNTBpbjtw URHnjA5tLQWoaXLvqIgjGJ 3cKKImagkun848HdRrNRM0 VRVxsHBvU0HajO9pFxZhED WpOZAfD8Tq zHOnNHulE357RMqqYlE3IR DibxYoO2QlFFNkaYwlJkL2 g4F2Js2ThQQrBQMnEG73KN 58IG67P9Jx PjwvdGFibGU+PHRhYmxlIH dpZHRoPScxMDAlJyBzdHls ET9yEp4qUVYmVSGthBlelA KyXtKum0fv FQZpLDdeYJ9rfZqqS2CcfS Y8QKDzv0b1Rt09N53iS0Li dXA+VNLpbFD6tJD1nH6tQd LnTbM5AUkj G386RtOchEXwNxxlx3hyo7 qirYe1YfOyJPEjzvIyuCru FJD0o0SrLg40F51pJPqvIM RoPSIyMCUi CRYxtQkueu9bsA4uWc4+PG GbwOF5uVV4dC6vWlGhNgQ0 ADcnZ522FoOcvIGnMqniB9 8bH5YsaCY+ QFFyCfo7YRAhrUujIS0kwM VxEIdwZb4iFLV9KnWoTsVg LOioR1YeSERjnswvhsrnnP N3RAQaARPc fB71Tp5nkHrzAo3tPYOwZT L2HSVsuCChC3ZcjZ5iJiPh JGTwKVFaT7LzoSNeZCpsV7 67CIxaOoT2 SKEbgeQiL2AdPGFnhBqiGf M3c1Q5Ci5QjTnruVEiTF4j YkQiBWm1V2MdYnc8EQCmzT tiCP6irHRe EJphZo0qgSvtcLpfQF7qAM Anpnkkz985XbKlu4vmUZIt fBFrXQxeMIG7L59jo4Q6GI MwMDAwMDA7 hMV0rP5tpFqwgusdoJUusJ iyrnPjqNanIGmcZQycT145 UFVutLszCvEQCng0R9SbUp h7CYPdlPow YN9olCHgGUrjQh3nwWdldB lkXU1pOAPqarbts205FxHm w6khDWMkbLUdPNznRYD7G4 5yh1I4ILJm AVLgTHT5vLJ1sL7dmRiesp ogbGVmdDsgdmVydGljYWwt VXusA532WFYdpBunFd3XEn f2Q3KeCyl1 NXAaqRbnTD3xlEDwTOybWx 7imFkvgMkzGF1qCPFsopwl k036ZzSfb7lkELEffDHcXG orYXU5M36v b9C5JMQlMYNxVOD5nVY9lJ 1hbGlnbjogbGVmdDsgdmVy mMlhJMkwMMzuA049LYPlnS snPlBheWVy OjwvdGQ+FM77wo47J4ZuKd naLjo0PAZxFIG3zYZ0cK0r XZRaBWitm4H6vXM1N3Qptr Eqba2mo9sk YXBz (more content not included)... Normal [facility] Formson 03-23-2021 Forms [id number]#[id number] CD:127 Normal [facility] COVID-19 (MC)on 03-20-2021 SARS-CoV-2 (COVID-19) RNA LAUREN+probe Ql (Unsp spec) Detected Abnormal Not Detected [facility] Comment on above: Result Comment: Resu lts Called To Milli Honeycutt/Constantin Stroud By ALL And Read Back For Confirmation On 03/20/2021 13:59:13 EDT Faxed to [facility] 03/20/2021 13:59:16 EDT. This test result should be correlated with clinical presentations and medical history by a healthcare provider to determine its clinical significance. This assay was performed by a reverse transcriptase real-time polymerase chain reaction (rt PCR) method on the [employer] system. This test has been authorized only for the detection of nucleic acid from SARS-CoV-2, not for any other viruses or pathogens. This test has not been FDA cleared or approved. This test has been authorized by FDA under an Emergency Use Authorization (EUA). This test is only authorized for the duration of time the declaration on that circumstances exist justifying the authorization emergency use of in vitro diagnostic tests for detection and/or diagnosis of COVID-19 infection under section 564 (b) (1) of the Act, 21 U.S.C. 360 bbb-3 (b) (1), unless authorization is terminated or revoked sooner. Performed By: #### 2 [id number] ####[address] [place] [address] SARS-CoV-2 (COVID-19) RNA LAUREN+probe Ql (Unsp spec) Pass Normal Pass [facility] Comment on above: Performed By: #### 2 [id number] ####[address] [address] Specimen source Nom (Unsp spec) Nasal Normal [facility] Comment on above: Performed By: #### 2 [id number] ####[address] [place] [address] Patient Correspondenceon Patient Correspondence [id number] CD:127 Normal [facility] Provider Letteron 03-20-2021 Provider Letter March 20, 2021 KATHY MARTINEZ [address] [place] [phone] KATHY MARTINEZ 1970 To Whom It May Concern, Please excuse above patient from work. Date of Illness: From: 03/20/2021 To: 04/20/2021 May Return to Work On: 04/20/2021 Restrictions: pt fully restricted until 04/20/21 Sincerely, Dr. Sumit Killian Normal [facility] BUNon 03-19-2021 Urea nitrogen [Mass/Vol] 23 mg/dL High - [facility] Comment on above: Performed By: #### 2 765542, 4414538, 14096595, 2938439, 4389785, 6450360, 8059672 ####[facility] [address] [place] [address] CBC w/Indiceson 03-19-2021 Erythrocyte distribution width (RBC) [Ratio] 12.8 % Normal 10.9-14.2 [facility] Comment on above: Performed By: #### 2 335109, 8099746, 00982437, 3300916, 8163374, 5425203, 5529966 ####[facility] [address] [place] [address] Hematocrit (Bld) [Volume fraction] 36.4 % Normal 34.0-46.0 [facility] Comment on above: Performed By: #### 2 900016, 1624503, 90808387, 5916114, 6416550, 5765488, 9711433 ####[facility] [address] [place] [address] Hemoglobin (Bld) [Mass/Vol] 12.4 g/dL Normal 12.0-16.0 [facility] Comment on above: Performed By: #### 2 552051, 0079753, 20567303, 8234032, 3531673, 8991776, 1117016 ####[facility] [address] [place] [address] MCH (RBC) [Entitic mass] 30.0 pg Normal 27.0-34.0 [facility] Comment on above: Performed By: #### 2 544607, 0771072, 35059694, 8657582, 8378446, 2675410, 7884276 ####[facility] [address] [place] [address] MCHC (RBC) [Mass/Vol] 33.9 g/dL Normal 31.4-36.[address] [facility] Comment on above: Performed By: #### 2 974169, 7328444, 48595354, 6222823, 5453249, 4134519, 8478117 ####[facility] [address] [place] [address] MCV (RBC) [Entitic vol] 88.5 fL Normal 80.0-100.0 [facility] Comment on above: Performed By: #### 2 020021, 0422097, 29995356, 6438355, 6648698, 1615857, 1208894 ####[facility] [address] [place] [address] Platelet mean volume (Bld) [Entitic vol] 8.9 fL Normal 6.4-10.8 [facility] Comment on above: Performed By: #### 2 333752, 0516655, 04494554, 7531806, 9849393, 3530916, 6545381 ####[facility] [address] [place] [address] Platelets (Bld) [#/Vol] 213.0 E9/L Normal 150.0-500.0 [facility] Comment on above: Performed By: #### 2 207916, 5675535, 65969243, 3837299, 8678088, 7977690, 8844364 ####[address] [address] RBC (Bld) [#/Vol] 4.1 E12/L Low 4.3-5.9 [facility] Comment on above: Performed By: #### 2 429739, 5631877, 93399382, 8203857, 8018331, 6386046, 1396000 ####[address] [address] WBC corrected for nucl RBC Auto (Bld) [#/Vol] 2.5 E9/L Low 4.0-11.0 [facility] Comment on above: Performed By: #### 2 381183, 9815619, 90607541, 4065535, 4779026, 8248783, 6369679 ####[facility] [address] [place] [address] Consent for Treatmenton 03-01 Consent for Treatment [id number] 0CD:127 Normal [facility] Creatinineon 03-19-2021 Creatinine [Mass/Vol] 0.5 mg/dL Normal 0.5-1.[address] [facility] Comment on above: Performed By: #### 2 617023, 4321731, 87900469, 6386972, 8960792, 6587250, 3405162 ####[facility] [address] [place] [address] Glucoseon 03-19-2021 Glucose [Mass/Vol] 91 mg/dL Normal 55-199 [facility] Comment on above: Performed By: #### 2 827461, 5939097, 84968065, 6995045, 9203080, 3287653, 6951469 ####[facility] [address] [place] [address] Hep Func Panelon 03-19-2021 Bilirubin.indirect [Mass or moles/Vol] UTC Abnormal 0.1-0.9 [facility] Comment on above: Result Comment: Resu lt verified by Discern Rule. Performed result UTC (Unable to Calculate) was sent as an Alpha code due the inability to calculate a valid numeric value. Performed By: #### 2 184137, 3252156, 62525382, 7027098, 7667237, 1005465, 5791799 ####[facility] [address] [place] [address] Albumin [Mass/Vol] 4.0 g/dL Normal 3.3-5.0 [facility] Comment on above: Performed By: #### 2 501822, 4794647, 98233261, 7623298, 7776283, 3413080, 4345202 ####[facility] [address] [place] [address] Albumin/Globulin (S) [Mass conc ratio] 1.5 Normal 1.1-2.2 [facility] Comment on above: Performed By: #### 2 338159, 9523083, 03828444, 2393370, 1384131, 4835738, 5550733 ####[facility] [address] [place] [address] ALP [Catalytic activity/Vol] 40 Int._Unit/L Normal 21-98 [facility] Comment on above: Performed By: #### 2 634252, 2816135, 59404490, 5221948, 7603151, 8111414, 1694870 ####[facility] [address] [place] [address] ALT No additional P-5'-P [Catalytic activity/Vol] 29 Int._Unit/L Normal 6-46 [facility] Comment on above: Performed By: #### 2 074861, 3750095, 56122334, 3253879, 3102203, 4139737, 4104559 ####[facility] [address] [place] [address] AST [Catalytic activity/Vol] 24 Int._Unit/L Normal 5-43 [facility] Comment on above: Performed By: #### 2 639755, 5124944, 47624287, 8119280, 5121852, 7443942, 9865226 ####[address] [place] [address] Bilirubin [Mass/Vol] 0.3 mg/dL Normal 0.0-1.1 [facility] Comment on above: Performed By: #### 2 724673, 7984515, 46598330, 4413421, 5974452, 6537415, 7434610 ####[facility] [address] [place] [address] Bilirubin.direct [Mass/Vol] mg/dL Normal 0.1-0.4 [facility] Comment on above: Performed By: #### 2 192795, 3338011, 71622072, 2514734, 6901613, 8905105, 6099731 ####[facility] [address] [place] [address] Globulin (S) [Mass/Vol] 2.7 g/dL Normal 1.4-4.0 [facility] Comment on above: Performed By: #### 2 227290, 7773290, 72048115, 8895816, 1542725, 8478412, 0705213 ####[facility] [address] [place] [address] Protein [Mass/Vol] 6.7 g/dL Normal 6.0-7.8 [facility] Comment on above: Performed By: #### 2 529392, 0340627, 57321830, 3978570, 0992694, 4970768, 3051347 ####[facility] [address] [place] [address] [place]ytes[place] 03-19-2021 Anion gap [Moles/Vol] 14 mmol/L Normal 6-[address] [facility] Comment on above: Performed By: #### 2 063866, 3385790, 37046278, 2404770, 3118516, 8166650, 0864803 ####[facility] [address] [place] [address] Chloride [Moles/Vol] 102 mmol/L Normal 101-111 [facility] Comment on above: Performed By: #### 2 200535, 2813045, 84694494, 6512339, 8350814, 3262780, 1933659 ####[facility] [address] [place] [address] CO2 [Moles/Vol] 25 mmol/L Normal 21-31 [facility] Comment on above: Performed By: #### 2 [id number], [id number], [id number], [id number], 2126051, 4245172, [id number] ####[facility] [address] [place] [address] Potassium [Moles/Vol] 4.0 mmol/L Normal 3.5-5.[address] [facility] Comment on above: Performed By: #### 2 [id number], [id number], [id number], [id number], 0150471, 6055409, [id number] ####[facility] [address] [place] [address] Sodium [Moles/Vol] 137 mmol/L Normal 135-145 [facility] Comment on above: Performed By: #### 2 069262, 6577029, [id number], 9658568, 4898825, 2804101, 1145483 ####[facility] [address] [place] [address] XR Chest 2 Viewson XR Chest 2 Views Exam Date/Time: 03/19/2021 14:10 EDT Reason for Exam: Pre OP Report IMPRESSION: No acute radiographic abnormality. EXAMINATION: XR Chest 2 Views Clinical History: Pre OP. Comparison: None RESULT: No consolidation. No pleural effusion. No pneumothorax. Normal pulmonary vascular pattern. Normal cardiomediastinal silhouette. No acute osseous findings. FINAL REPORT Dictated: 03/19/2021 4:48 pm Ethan Helton MD Signed (Electronic Signature): 03/19/2021 4:48 pm Signed by: Ethan Helton MD Transcribed by: REMINGTON Technologist: LISA Daniel [facility] eGFRon 03-19-2021 GFR/1.73 sq M.predicted among blacks MDRD (S/P/Bld) [Vol rate/Area] mL/min/{1.73_m2} Normal >=59 [facility] Comment on above: Order Comment: Order added by Discern Expert. Result Comment: eGFR is race adjusted. AA=. Performed By: #### 2 507150, 5987656, 02962509, 2776875, 7626195, 4231031, [id number] ####[facility] [address] [place] [address] GFR/1.73 sq M.predicted among non-blacks MDRD (S/P/Bld) [Vol rate/Area] mL/min/{1.73_m2} Normal >=59 [facility] Comment on above: Order Comment: Order added by Discern Expert. Result Comment: Worksite Wellness Practitioner barbie kidney disease could be indicated at eGFR's of less than 60 mL/min/1.73m2. Kidney failure is indicated at less than 15 mL/min/1.73m2. 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 NO Normal [facility] Comment on above: Performed By: #### 2 [id number] ####[facility] [address] [place] [address] ICU NO [facility] Comment on above: Performed By: #### 2 [id number] ####[facility] [address] [place] [address] ? NO Normal [facility] Comment on above: Performed By: #### 2 [id number] ####[facility] [address] [place] [address] Resides in a Congregate Care Setting NO Normal [facility] Comment on above: Performed By: #### 2 [id number] ####[facility] [address] [place] [address] Symptomatic as defined by CDC Unknown Normal [facility] Comment on above: Performed By: #### 2 [id number] ####[facility] [address] [place] [address] Consultation Noteon 03-18-20 21 Consultation Note [id number] CD:127 Normal [facility] Ambulatory Clinical Summaryo n 03-17-2021 Ambulatory Clinical Summary {[id number]}CD:[id number] Normal [facility] Consent for Procedure/Surger yon 03-17-2021 Consent for Procedure/Surgery [id number]#1. 00CD:127 Normal [facility] Formson 03-17-2021 Forms [id number] 0CD:127 Normal [facility] RAD - MISCon 03-17-2021 RAD - MISC [id number] 0CD:127 Normal [facility] RAD - Ultrasound Reporton RAD - Ultrasound Report [id number]. 00CD:127 Normal [facility] MRI C-SPINE WO CONon 019 MRI C-SPINE WO CON [address] [place] [address] Patient: KATHY MARTINEZ Exam Date: 08/28/2018 : 1970 Gender:F Ordering : [facility] Admission #: [id number] Family : Order #: [id number] CLICK HERE TO VIEW EXAM RADIOLOGY REPORT PROCEDURE: MRI C-SPINE WITHOUT CONTRAST COMPARISON: None. INDICATIONS: acute pain in cervical spine with numbness in right arm and right fingers after tripping TECHNIQUE: A variety of imaging planes and parameters were utilized for visualization of suspected pathology. FINDINGS: CRANIOCERVICAL AREA: Normal foramen magnum with no Chiari malformation. PARASPINAL AREA: Normal with no visible mass. BONES: No fracture, pars defect, or osseous lesion. CORD: Normal caliber, contour, and signal intensity. CERVICAL DISC LEVELS: C2-C3: No significant disc/facet abnormality, spinal stenosis, or foraminal stenosis. C3-C4: No significant disc/facet abnormality, spinal stenosis, or foraminal stenosis. C4-C5: No significant disc/facet abnormality, spinal stenosis, or foraminal stenosis. C5-C6: Early degenerative disc disease is present without focal protrusion or neural impingement. C6-C7: Mild diffuse disc bulging with broad-based disc protrusion into the right paracentral foraminal region. Moderate foraminal narrowing bilaterally and mild central canal narrowing. No significant disc height reduction or facet spondylosis. C7-T1 No significant disc/facet abnormality, spinal stenosis, or foraminal stenosis. CONCLUSION: 1. C6-7 degenerative disc disease resulting in moderate foraminal narrowing; right greater than left. Dictated by: Abby Guajardo M.D. on 08/28/2018 at 13:32 Approved by: Abby Guajardo M.D. on 08/28/2018 at 13:54 Normal [facility] Vital Signs Date Time Vital Sign Value Performing Clinician Facility 07-02-2024 08:19-0500 Body height 170.2 cm [employer] Phone: [facility] [employer] 07-02-2024 08:19-0500 Body mass index (BMI) [Ratio] 36.65 kg/m2 [employer] Phone: [facility] [employer] 07-02-2024 08:19-0500 Body weight 106.14 kg [employer] Phone: [facility] [employer] 07-02-2024 08:19-0500 Diastolic blood pressure 78 mm[Hg] [employer] Phone: [facility] [employer] 07-02-2024 08:19-0500 Heart rate 67 /min [employer] Phone: [facility] [employer] 07-02-2024 08:19-0500 Respiratory rate 12 /min [employer] Phone: [facility] [employer] 07-02-2024 08:19-0500 SaO2% (BldA) [Mass fraction] 99 % [employer] Phone: [facility] 07-02-2024 08:19-0500 Systolic blood pressure 137 mm[Hg] Luca Mace DO Work Phone: [facility] 05-15-2024 19:15-0400 Body height 170.2 cm 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 Phone: [facility] 05-15-2024 19:15-0400 Body mass index (BMI) [Ratio] 35.84 kg/m2 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 Phone: [facility] 05-15-2024 19:15-0400 Body weight 103.78 kg 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 Phone: [facility] 05-15-2024 19:15-0400 Diastolic blood pressure 72 mm[Hg] 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 Phone: [facility] 05-15-2024 19:15-0400 Heart rate 84 /min 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 Phone: [facility] 05-15-2024 19:15-0400 SaO2% (BldA) [Mass fraction] 97 % 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 Phone: [facility] 05-15-2024 19:15-0400 Systolic blood pressure 122 mm[Hg] 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 Phone: [facility] 11-14-2021 14:50-0400 Body height 168.91 cm Sherice Beasley Other [employer] Other 11-14-2021 14:50-0400 Body mass index (BMI) [Ratio] 28.61 kg/m2 Sherice Beasley Other [employer] Other 11-14-2021 14:50-0400 Body temperature 97.4 [degF] Sherice Beasley Other [employer] Other 11-14-2021 14:50-0400 Body weight 81.65 kg Sherice Beasley Other [employer] Other 11-14-2021 14:50-0400 SaO2% (BldA) [Mass fraction] 98 % Sherice Beasley Other [employer] Other Encounters Encounter Date Encounter Type Care Provider Facility Start: 07-09-2024 End: 07-09-2024 Bamboo flowsheet Mayra Hoffman PT [facility] Start: 07-09-2024 End: 07-09-2024 Bamboo flowsheet Mayra Hoffman PT [facility] Start: 07-09-2024 End: 07-09-2024 ambulatory Mayra Hoffman PT [facility] Comment on above: Acute pain of left k nee (Primary Dx) Start: 07-02-2024 End: 07-02-2024 Bamboo flowsheet Lucareggie Mace DO Work Phone: [facility] Start: 07-02-2024 End: 07-02-2024 Bamboo flowsheet Luca Nakita DO Work Phone: [facility] Start: 07-02-2024 End: 07-02-2024 Office outpatient visit 25 minutes Luca Nakita DO Work Phone: [facility] Comment on above: Screening for malign ant neoplasm of colon (Primary Dx); Hiatal hernia; Reflux gastritis Start: 07-02-2024 End: 07-02-2024 ambulatory LUCA NAKITA Not Available Start: 06-20-2024 End: 06-21-2024 Telephone encounter Jorge Chan PT Work Phone: [facility] Comment on above: [facility] (Tried to c ontact, per message taken by Roger, to offer time / day availability for PT Eval. She was treated 1x in [place] but had noted she'd like to transfer to [place]. Had to lm requesting call back.); Call Back (She contacted and we scheduled her PT Eval 07/09 w/ Tomy Hoffman PT.) Start: 06-17-2024 End: 06-18-2024 Refill Isaias Castellon MANUFACTURING PRODUCTION TECHNICIAN Work Phone: [facility] Comment on above: Gastroesophageal ref lux disease without esophagitis Start: 06-14-2024 End: 06-14-2024 Orders Only Shanthi Faithmehdi MANUFACTURING PRODUCTION TECHNICIAN Work Phone: [facility] Comment on above: Acute pain of left k nee Start: 05-31-2024 End: 05-31-2024 Orders Only Shanthi Faithmehdi MANUFACTURING PRODUCTION TECHNICIAN Work Phone: [facility] Comment on above: Obesity (BMI 30.0-34 .9) (Primary Dx) Start: 05-24-2024 End: 05-25-2024 ambulatory Luca Sharma PT Work Phone: [facility] Comment on above: Chronic pain of left knee (Primary Dx) Start: 05-24-2024 End: 05-24-2024 Bamboo flowsheet Luca J Zachary PT Work Phone: [facility] Start: 05-24-2024 End: 05-24-2024 Bamboo flowsheet Luca J Zachary PT Work Phone: [facility] Start: 05-17-2024 End: 05-17-2024 Orders Only Shanthi Faithmehdi MANUFACTURING PRODUCTION TECHNICIAN Work Phone: [facility] Comment on above: Obesity (BMI 30.0-34 .9) (Primary Dx) Obesity (BMI 30.0-34 .9) Start: 05-16-2024 End: 05-16-2024 Telephone encounter Naila Villarreal MD Work Phone: [facility] Start: 05-15-2024 End: 05-15-2024 Office outpatient visit 25 minutes Shanthi Tori MANUFACTURING PRODUCTION TECHNICIAN Work Phone: [facility] Comment on above: Acute pain of left k nee (Primary Dx); Obesity (BMI 30-39.9) Start: 05-15-2024 End: 05-15-2024 ambulatory SHANTHI VALLE Not Available Start: 05-15-2024 End: 05-15-2024 Bamboo flowsheet 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 Phone: [facility] Start: 05-15-2024 End: 05-15-2024 Bamboo flowsheet 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 Phone: [facility] Start: 02-17-2024 End: 02-17-2024 ambulatory NAILA MEYER [facility] Start: 12-05-2023 End: 12-05-2023 ambulatory LUCA MACE Not Available Start: 12-02-2023 End: 12-02-2023 [facility] Start: 11-11-2023 End: 11-11-2023 ambulatory [facility] Start: 10-14-2023 End: 10-15-2023 [facility] Start: 10-07-2022 End: 10-07-2022 Patient encounter procedure Naila Meyer MD Work Phone: [facility] Start: 10-07-2022 End: 10-07-2022 Subsequent hospital visit by physician Naila Meyer MD Work Phone: [facility] Comment on above: Women's annual routi ne gynecological examination Start: 11-14-2021 End: 11-14-2021 ambulatory Sherice Beasley Other [employer] Other Start: 11-14-2021 Office outpatient vi sit 15 minutes Sherice Beasley [facility] Start: 08-09-2021 End: 08-09-2021 ambulatory Mayra Lopez Other [employer] Other Start: 08-09-2021 Telephone encounter Mayra Lopez [facility] Start: 08-28-2018 End: 08-29-2018 Patient encounter procedure JACQUELYN LECHUGA Facility:[facility] Procedures Date Procedure Procedure Detail Performing Clinician Start: 12-02-2023 Mammography Shanthi rodas MANUFACTURING PRODUCTION TECHNICIAN Work Phone: Start: 11-11-2023 H/O: hysterectomy Hx of hysterectomy 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 Phone: Start: 11-10-2018 Colonoscopy Naila Santiago MD Work Phone: H/O: hysterectomy Mayra Gint y Other Plan of Treatment Date Care Activity Detail Author Start: 11-10-2028 Screening for malign ant neoplasm of colon [facility] Start: 03-17-2026 Lipid panel [facility]ids [facility] Start: 12-01-2024 Screening for malign ant neoplasm of breast Mammogram [facility] Start: 08-23-2024 End: 08-23-2024 ambulatory 08/23/2024 6:00 PM EST Treatment [facility] [address] [facility] [address] [place] [address] Henrietta Ding, ROADABILITY MACHINE OPERATOR [facility] Start: 08-20-2024 End: 08-20-2024 ambulatory 08/20/2024 8:00 AM EST Treatment [facility] [address] [facility] [address] [place] [address] Oswaldo Storey, ROADABILITY MACHINE OPERATOR [facility] Start: 08-15-2024 End: 08-15-2024 ambulatory 08/15/2024 5:00 PM EST Treatment [facility] [address] [facility] [address] [place] [address] Roger Vizcarra, ROADABILITY MACHINE OPERATOR [facility] Start: 08-13-2024 End: 08-13-2024 ambulatory 08/13/2024 8:30 AM EST Treatment [facility] [address] [facility] [address] [place] [address] Mayra Hoffman, PT [facility] Start: 08-09-2024 End: 08-09-2024 ambulatory 08/09/2024 6:00 PM EST Treatment [facility] [address] [facility] [address] [place] [address] Henrietta Ding, ROADABILITY MACHINE OPERATOR [facility] Start: 08-06-2024 End: 08-06-2024 ambulatory 08/06/2024 8:30 AM EST Treatment [facility] [address] [facility] [address] [place] [address] Mayra Hoffman, PT [facility] Start: 08-02-2024 End: 08-02-2024 ambulatory 08/02/2024 5:30 PM EST Treatment [facility] [address] [facility] [address] [place] [address] Henrietta Ding, ROADABILITY MACHINE OPERATOR [facility] Start: 07-30-2024 End: 07-30-2024 ambulatory 07/30/2024 8:30 AM EST Treatment [facility] [address] [facility] [address] [place] [address] Oswaldo Storey, ROADABILITY MACHINE OPERATOR [facility] Start: 07-26-2024 End: 07-26-2024 ambulatory 07/26/2024 8:00 AM EST Treatment [facility] [address] [facility] [address] [place] [address] Mayra Hoffman, PT [facility] Start: 07-18-2024 End: 07-18-2024 ambulatory 07/18/2024 5:30 PM EST Treatment [facility] [address] [facility] [address] [place] [address] Roger Vizcarra, ROADABILITY MACHINE OPERATOR [facility] Start: 07-16-2024 End: 07-16-2024 ambulatory 07/16/2024 7:00 AM EST Treatment [facility] [address] [facility] [address] [place] [address] Oswaldo Storey, ROADABILITY MACHINE OPERATOR [facility] Start: 07-09-2024 End: 07-09-2024 ambulatory [facility] Comment on above: Arrived Start: 07-02-2024 End: 07-02-2025 RF Upper gastrointestinal tract and Small bowel Single view W contrast PO FL upper GI double contrast w KUB Imaging Routine Hiatal hernia Reflux gastritis Expected: 07/02/2024, Expires: 07/02/2025 [facility] Work Phone: Comment on above: Expected: 07/02/2024 , Expires: 07/02/2025 Start: 07-02-2024 End: 07-02-2024 Patient encounter procedure 07/02/2024 8:00 AM EST Office Visit [facility] [address] [place] [address] Luca Mace DO [address] [place] [address] Arrived [facility] Comment on above: Arrived Start: 06-11-2024 End: 06-11-2024 ambulatory 06/11/2024 8:00 AM EST Treatment [facility] [address] [place] [id number] Summer Oconnell, RIVERA [address] [place] [address] [facility] Start: 06-07-2024 End: 06-07-2024 ambulatory 06/07/2024 7:00 AM EST Treatment [facility] [address] [place] [id number] Sonia Gillespie PTA [facility] Start: 05-24-2024 End: 05-24-2024 ambulatory 05/24/2024 5:30 PM EDT Evaluation [facility] [address] [place] [phone] Luca Sharma, PT [address] [place] [address] [facility] Start: 05-15-2024 End: 05-15-2024 Patient encounter procedure 05/15/2024 7:30 PM EDT Office Visit [facility] [address] [place] [address] Shanthi Valle, VELMA [address] [place] [address] Arrived [facility] Comment on above: Arrived Start: 04-01-2024 Influenza vaccination Influenza Vacc ine (#1) [facility] Start: 03-01-2022 Influenza vaccination Flu vaccine (# 1) [facility] Start: 06-17-2021 Hemoglobin A1c measurement A1C test (Diabetic or Prediabetic) [facility] Start: 2020 Screening for malign ant neoplasm of breast Breast cancer screen [facility] Start: 2020 Shingles vaccine (1 of 2) Carson gles vaccine (1 of 2) [facility] Start: 10-29-2015 Screening for malign ant neoplasm of colon [facility] Start: 1989 DTaP/Tdap/Td vaccine (1 - Tdap) DTaP/Tdap/Td vaccine (1 - Tdap) [facility] Start: 1988 Hepatitis C screening Hepatitis C sc reen [facility] Start: 1985 HIV screening HIV screen [facility] Start: 1982 Depression Screen Depression Screen [facility] Start: 04-30-1971 COVID-19 Vaccine (#1) COVID-19 Vacci ne (#1) [facility] End: 10-07-2022 Cytopathology procedure, preparation of smear, genital source [facility] Lab Routine Women's annual routine gynecological examination 1 Occurrences starting 10/07/2022 until 10/07/2022 [facility] Work Phone: Comment on above: 1 Occurrences starti ng 10/07/2022 until 10/07/2022 Immunizations Immunization Date Immunization Notes Care Provider Aaliyah sky NEGATED: Highlighted row has not occurred! 9 pneumococcal polysaccharide vaccine, 23 valent Patient Objection Mayra Lopez Other [employer] Other NEGATED: Highlighted row has not occurred! 9 influenza, high dose seasonal, preservative-free Patient Objection Mayra Thelmanty Other [employer] Other NEGATED: Highlighted row has not occurred! 9 influenza, high dose seasonal, preservative-free Patient Objection Mayra Ginty Other [employer] Other NEGATED: Highlighted row has not occurred! 8 influenza, high dose seasonal, preservative-free Patient Objection Mayra Thelmanty Other [employer] Other NEGATED: Highlighted row has not occurred! 8 pneumococcal polysaccharide vaccine, 23 valent Patient Objection Mayra Beckyy Other [employer] Other Payers Date Payer Category Payer Unknown [id number] 2024 [facility] [id number] 2024 Unknown [id number] 2023 Private Health Insurance [facility] [id number] 2023 Unknown [id number] 2013 Unknown [id number] 1970 Unknown [id number] 2.16.840.1.233959.3.579. 2.593 1970 Unknown [id number] 2.16.840.1.700376.3.579. 2.1286 1970 Unknown [id number] 2.16.840.1.579144.3.579. 2.173 1970 Unknown [id number] 2.16.840.1.907371.3.579. 2.1259 1970 Unknown [id number] 2.16.840.1.692714.3.579. 2.1259 1970 Unknown [id number] 2.16.840.1.289065.3.579. 2.1259 1970 Unknown [id number] 2.16.840.1.620246.3.579. 2.9 1970 Unknown [id number] 2.16.840.1.014940.3.579. 2.9 1970 Unknown [id number] 2.16.840.1.253325.3.579. 2.1259 1970 Unknown [id number] 2.16.840.1.570537.3.579. 2.1259 1959 Unknown [id number] Private Health Insurance [id number] Social History Date Type Detail Facility Unknown if ever smoked [employer] Other Start: 11-11-2023 End: 05-15-2024 Sex Assigned At [facility] Start: 11-16-2018 End: 11-11-2023 Tobacco smoking status [facility] Never smoked tobacco [employer] Start: 11-16-2018 End: 11-11-2023 Tobacco use and exposure Smokeless tobacco non-user [employer] Phone: Start: 10-07-2022 Alcohol intake Current drinker of alcohol (finding) [employer] Phone: Start: 06-19-2012 Alcohol Comment rarely [employer] Phone: Start: 1970 Sex Assigned At Not on file MITALI GRANT [employer] Work Phone: Start: 12-05-2023 End: 07-02-2024 Alcoholic beverage intake Ex-drinker (finding) [facility] Start: 11-11-2023 End: 05-15-2024 History of Social function [facility] How often do you nee d to have someone help you when you read instructions, pamphlets, or other written material from your doctor or pharmacy [SILS] Never [facility] Do you belong to any clubs or organizations such as evangelical groups, unions, fraternal or athletic groups, or school groups? Yes [facility] Are you now , , , , never or living with a partner? [facility] How often to you hav e a drink containing alcohol? Never [facility] How hard is it for y ou to pay for the very basics like food, housing, medical care, and heating Not very hard [facility] Do you feel stress - tense, restless, nervous, or anxious, or unable to sleep at night because your mind is troubled all the time - these days [OSQ] Only a little [facility] (I/We) worried wheth er (my/our) food would run out before (I/we) got money to buy more. Never true [facility] In the past 12 month s, was there a time when you were not able to pay the mortgage or rent on time? No [facility] Start: 05-15-2024 Alcohol Comment caffeien intake: 1 cup daily [facility] Medical Equipment Procedure Code Equipment Code Equipment Original Text Equi pment Identifier Dates OneTouch UltraSoft Lancets Clinical Notes 03-20-2021 to 07-02-2024 Luca Mace, DO - 07/02/2024 8:00 AM ESTTelephone Encounter - Jasmina Joshi - 06/20/2024 1:36 PM ESTTelephone Encounter - Jasmina Joshi - 06/20/2024 1:36 PM EST Note Date & Type Note Facility 07-02-2024 History of Presen t illness Narrative General Surgery H&P Kathy Wu 1970 Kathy Wu is a 53 y.o. female presents for Colonoscopy. Pt presents today for a colonoscopy consult. Pt admits to having a colonoscopy before. Last colonoscopy was about 5 years ago and it was normal. Pt denies abdominal pain. Pt denies rectal bleeding. Pt denies changes in bowel movements. Pt admits to a family history of colon cancer that they know of. Pt states that her mother had colon cancer. She states that would like to discuss an egd as well. She has been having increased reflux despite being on BID omeprazole. She is interested in possibly having her sleeve converted to a RnY. Denies abdominal pain. Denies hx of unplanned weight loss. Denies fevers, chills, or sweats. Denies nausea or vomiting. Last colonoscopy was 2018. SUBJECTIVE: MEDICATIONS: ALLERGIES Current Outpatient Medications Medication Instructions bacitracin 500 UNIT/GM ointment APPLY A THIN AMOUNT TO AFFECTED AREA TWICE A DAY Bioflavonoid Products (Bioflex) tablet 2 times daily bisacodyl (DULCOLAX) 5 mg, Oral, Once, Do not crush, chew, or split. Take as detailed on clinic hand out for colonoscopy prep Cholecalciferol (VIT D3) 400 Units, Daily RT estradiol (ESTRACE) 0.5 mg, Daily RT Estrogens Conjugated (Premarin) 0.625 MG/GM cream Insert into the vagina Estrogen topical. fluticasone (Flonase) 50 MCG/ACT nasal spray SPRAY SPRAY 1 SPRAY INTO EACH NOSTRIL EVERY DAY FOR 30 DAYS Multiple Vitamins-Minerals (Multivitamin Women) tablet as directed Orally ofloxacin (Floxin) 0.3 % otic solution INSERT 10 DROPS INTO AFFECTED EAR OR EARS ONCE DAILY FOR 7 DAYS omeprazole (PRILOSEC) 20 mg, Oral, 2 times daily, Do not crush or chew. phentermine 37.5 mg, Oral, Daily before breakfast polyethylene glycol (PEG) 3350 (GLYCOLAX) 238 g, Oral, Once, Take as detailed from clinic hand out for colonoscopy prep Progesterone 40 % cream Progesterone topical Testosterone 20 % cream Testosterone topical. tiZANidine (ZANAFLEX) 2 mg, Oral, Every 8 hours PRN triamcinolone (Kenalog) 0.5 % ointment APPLY TO AFFECTED AREA TWICE DAILY NEEDED FOR 30 DAYS Allergies Allergen Reactions Penicillins Anaphylaxis and Unknown Unknown reaction, tested positive as a child Latex Rash PAST MEDICAL HISTORY: SOCIAL HISTORY SURGICAL HISTORY: History reviewed. No pertinent past medical history. Social History Tobacco Use Smoking status: Never Smokeless tobacco: Never Vaping Use Vaping status: Never Used Substance Use Topics Alcohol use: Not Currently Comment: caffeien intake: 1 cup daily Drug use: Not Currently Past Surgical History: Procedure Laterality Date APPENDECTOMY 2014? SECTION, LOW TRANSVERSE 2003 CHOLECYSTECTOMY 2020 COLON SURGERY 2014? EAR MASTOIDECTOMY W/ COCHLEAR IMPLANT W/ LANDMARK Right 08/2022 [facility] HERNIA REPAIR 2019 HYSTERECTOMY 2004 SMALL INTESTINE SURGERY 2014? TUBAL LIGATION 2003 Family History Problem Relation Name Age of Onset Cancer Mother Anastacio Downing Diabetes Mother Anastacio Downing Heart disease Mother Anastacio Downing Hypertension Mother Anastacio Downing Colon cancer Mother's Brother Allergies Allergen Reactions Penicillins Anaphylaxis and Unknown Unknown reaction, tested positive as a child Latex Rash Past Surgical History: Procedure Laterality Date APPENDECTOMY 2014? SECTION, LOW TRANSVERSE 2003 CHOLECYSTECTOMY 2020 COLON SURGERY 2014? EAR MASTOIDECTOMY W/ COCHLEAR IMPLANT W/ LANDMARK Right 08/2022 [facility] HERNIA REPAIR 2019 HYSTERECTOMY 2004 SMALL INTESTINE SURGERY 2014? TUBAL LIGATION 2003 Tobacco Use: Low Risk (07/02/2024) Patient History Smoking Tobacco Use: Never Smokeless Tobacco Use: Never Passive Exposure: Not on file Alcohol Use: Not At Risk (05/15/2024) AUDIT-C Frequency of Alcohol Consumption: Never Average Number of Drinks: Patient does not drink Frequency of Binge Drinking: Never Depression: Not at risk (11/11/2023) PHQ-2 PHQ-2 Score: 0 Physical Activity: Inactive (05/15/2024) Exercise Vital Sign Days of Exercise per Week: 0 days Minutes of Exercise per Session: 0 min REVIEW OF SYMPTOMS: Review of Systems All other systems reviewed and are negative. 10 systems were reviewed. Positives noted above. Remainder are negative per CMS guidelines. OBJECTIVE: Visit Vitals BP 137/78 Pulse 67 Resp 12 Ht 5' 7 Wt 234 lb SpO2 99% BMI 36.65 kg/m Smoking Status Never BSA 2.24 m Physical Exam Vitals reviewed. General: AAOx3, NAD Head: atraumatic normocephalic Neck: trachea midline. No masses or lymphadenopathy Heart: Regular rate and rhythm Lungs: equal chest rise and fall, non labored breathing Abdomen: soft, nontender, and non distended Ext: motor 5/5 all extremities with no gross deformities Psych: alert and oriented, behavior appropriate ASSESSMENT AND PLAN: Assessment/Plan Diagnoses and all orders for this visit: Screening for malignant neoplasm of colon - bisacodyl (Dulcolax) 5 MG EC tablet; Take 1 tablet (5 mg) by mouth 1 time for 1 dose Do not crush, chew, or split. Take as detailed on clinic hand out for colonoscopy prep - polyethylene glycol, PEG, 3350 (Glycolax) 17 GM/SCOOP powder; Take 238 g by mouth 1 (one) time for 1 dose Take as detailed from clinic hand out for colonoscopy prep Hiatal hernia - FL upper GI double contrast w KUB; Future - Ambulatory referral to Bariatric Surgery; Future Reflux gastritis - FL upper GI double contrast w KUB; Future - Ambulatory referral to Bariatric Surgery; Future Plan: Patient is average risk for colon cancer. Colonoscopy can be scheduled electively. Patient informed of the risks of procedure which include but not limited to bleeding, perforation, and risks of anesthesia. Patient understood risks and signed informed consent for the procedure under monitored anesthesia care. Handout for bowel prep provided in clinic. Patient was informed of the need for a ride home from the hospital and the need for someone to be with them for the following 24 hrs post procedure. UGI ordered and referral to bariatric specialist that does revisions for her persistent reflux post sleeve gastrectomy. Thank you, K Tony Mace DO documented in this encounter [facility] 06-20-2024 Telephone encount er Note Offer 06/25 @ either 8:30 or 9 w/ Jorge Chan, PTWander [facility] 06-20-2024 Miscellaneous Notes Formattin g of this note might be different from the original. Offer 06/25 @ either 8:30 or 9 w/ Jorge Chan PT. documented in this encounter [facility] 05-24-2024 History of Presen t illness Narrative Images from the original note were not included. Physical Therapy Physical Therapy Evaluation Visit Patient Name: Kathy Wu Today's Date: 05/24/2024 Encounter Diagnoses Name Primary? Chronic pain of left knee Yes Visit number: 1 Subjective Kathy Wu 53 y.o. female presents to physical therapy w/ chief c/o L knee pain. Mechanism of Onset: late October early november hyperextended wrestling with daughter and then had fall about 1 week later on knee. Current deficits: pain, decreased ROM, swelling, weakness, decreased functional activity and walking tolerance pt reports resulting in weight gain s/p wt loss surgery and significant loss in the past. LEFS= 44% impaired at IE Pain: 1/10 amb into session, mod at times, improved recently while on oral steroids 1-2 more days remain. Location: ant knee, lat knee and post knee at times Aggravating Factors: prolonged standing and walking, getting up and going after sitting, bending/squatting, steps, ADLs/self care, tends to pay for it the next day when increases activities like biking and walking longer distances Relieving factors: rest, ice Imaging: No MRI to date, X-ray urgent care only unremarkable per pt, not in our EMR system. 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 Neg valgus, varus, ant and post drawer. No pain or popping noted with Mcmurrays today but still have concerns of meniscus vs OA 2nd to chronic swelling and pain. Treatment Interventions Education: HEP education with demonstration with handout and review, Educated on Eval Findings and POC, CP use x 10 min self care Manual Therapy: prn Therapeutic Exercise: Per JESSICA grid, ROM, flexibility, strength x 15 min sup Therapeutic Activity: Exercises to improve dynamic activities, functional tasks, functional mobility to return to prior activity level Gait Training: prn Modalities: CP x 10 min ant and post knee end of session. Add US and ESU prn. Assessment/Plan L knee pain, decreased ROM, strength, impaired gait and functional activity tolerance, unable to walk long distances for wt management causing increased difficulty with Adls and decreased QOL Patient Goals Short Term Goal #1: pt will self report impairment less than or equal to 15% per LEFS at DC Short Term Goal #2: pt will demo normalized quality of gait reciprical up and down steps pain free Short Term Goal #3: pt will demo R knee strenght grossly 5/5 MMT pain free Short Term Goal #4: pt will be ind with HEP for maintenance able to resume walking for wt management and able to avoid further imaging/intervention at DC Pt will benefit from skilled PT to address the above impairments for 2-3x/week for 4-6 weeks. I hereby deem this POC medically necessary. Please sign below. Date: documented in this encounter [facility] 05-16-2024 Telephone encount er Note Qsymia Wegovy and Zepbound are what [employer] will cover for weight loss med . Prior Auth - # [id number] [facility] 05-16-2024 Miscellaneous Notes Formattin g of this note might be different from the original. Qsymia Wegovy and Zepbound are what [employer] will cover for weight loss med . Prior Auth - # [id number] documented in this encounter [facility] 05-15-2024 History of Presen t illness Narrative Images from the original note were not included. Kathy Wu is a 53 y.o. female presents with chief complaint of Knee Pain HPI: HPI Presents to the office with complaints of left knee pain. Initially started in September, hyperextended incorrectly playing with her daughter. About a week later, she sustained a fall on the same knee due to tripping over her grandsons leg. She sought medical attention at an urgent care facility where x-rays were taken, which revealed a sprain. However symptoms have progressed. She has tried Tylenol, icing, and elevation, she experiences pain during ambulation. Her right knee only causes discomfort due to altered gait. She also reports crackling sounds in her left knee. Mobility hs been significantly limited, use to walk regularly but is not able to know d/t the pain, has gained a lot of weight she had previously lost, would like to discuss medication options to help with weight reduction. SUBJECTIVE: MEDICATIONS: Current Outpatient Medications Medication Instructions bacitracin 500 UNIT/GM ointment APPLY A THIN AMOUNT TO AFFECTED AREA TWICE A DAY Bioflavonoid Products (Bioflex) tablet 2 times daily Cholecalciferol (VIT D3) 400 Units, Daily RT estradiol (ESTRACE) 0.5 mg, Daily RT Estrogens Conjugated (Premarin) 0.625 MG/GM cream Insert into the vagina Estrogen topical. fluticasone (Flonase) 50 MCG/ACT nasal spray SPRAY SPRAY 1 SPRAY INTO EACH NOSTRIL EVERY DAY FOR 30 DAYS Multiple Vitamins-Minerals (Multivitamin Women) tablet as directed Orally ofloxacin (Floxin) 0.3 % otic solution INSERT 10 DROPS INTO AFFECTED EAR OR EARS ONCE DAILY FOR 7 DAYS omeprazole (PriLOSEC) [address] capsule TAKE 1 CAPSULE BY MOUTH IN THE MORNING WITH MEALS (DO NOT CRUSH OR CHEW) Progesterone 40 % cream Progesterone topical Testosterone 20 % cream Testosterone topical. triamcinolone (Kenalog) 0.5 % ointment APPLY TO AFFECTED AREA TWICE DAILY NEEDED FOR 30 DAYS REVIEW OF SYMPTOMS: Review of Systems Constitutional: Negative. HENT: Negative. Eyes: Negative. Respiratory: Negative. Cardiovascular: Negative. Gastrointestinal: Negative. Genitourinary: Negative. Musculoskeletal: Negative. Skin: Negative. Neurological: Negative. OBJECTIVE: Visit Vitals BP 122/72 (BP Location: Right arm, Patient Position: Sitting, BP Cuff Size: Large adult) Pulse 84 Ht 5' 7 Wt 228 lb 12.8 oz SpO2 97% BMI 35.84 kg/m Smoking Status Never BSA 2.22 m Physical Exam Vitals reviewed. Constitutional: Appearance: She is obese. HENT: Head: Normocephalic and atraumatic. Nose: Nose normal. Mouth/Throat: Mouth: Mucous membranes are moist. Eyes: Pupils: Pupils are equal, round, and reactive to light. Cardiovascular: Rate and Rhythm: Normal rate and regular rhythm. Pulses: Normal pulses. Heart sounds: Normal heart sounds. Pulmonary: Effort: Pulmonary effort is normal. Breath sounds: Normal breath sounds. Musculoskeletal: Cervical back: Normal range of motion and neck supple. Right lower leg: No edema. Left lower leg: No edema. Comments: Left knee: tenderness to medial joint line, no swelling, ROM decreased, especially with flexion, mild laxity noted Skin: General: Skin is warm and dry. Capillary Refill: Capillary refill takes less than 2 seconds. Findings: No rash. Neurological: General: No focal deficit present. Mental Status: She is alert and oriented to person, place, and time. ASSESSMENT AND PLAN: Assessment/Plan Diagnoses and all orders for this visit: Acute pain of left knee - predniSONE (Deltasone) 20 MG tablet; Take 1 tablet (20 mg) by mouth in the morning and 1 tablet (20 mg) before bedtime. Do all this for 5 days. - Ambulatory referral to Physical Therapy; Future - tiZANidine (Zanaflex) 2 MG tablet; Take 1 tablet (2 mg) by mouth every 8 (eight) hours if needed for muscle spasms for up to 5 days -Initiate steroids and muscle relaxers. Refer to physical therapy. Obesity (BMI 30-39.9) -Medication options discussed, she will call her insurance to find out whether weight loss medication is covered and notify office once she finds out documented in this encounter [facility] 11-14-2021 Evaluation note Encounter Date Diagnosis Assessment Notes Oct, Strain of neck muscle, initial encounter (ICD-10 - S16.1XXA) Drink plenty fluids, get plenty of rest. Continue home medications as prescribed. Take the prednisone as prescribed until gone. Use the cyclobenzaprine as prescribed as needed for muscle pain and stiffness. Follow-up with your family physician if no improvement in 3 to 4 days. Oct, Strain of thoracic back region (ICD-10 - S29.012A) [employer] Other 09-01-2021 NoteHistory and Physical Update H&P Reviewed. Patient seen and examined, appropriate for planned surgery, robot cholecystectomy Problem List/Past Medical History Ongoing Symptomatic cholelithiasis Historical No qualifying data Procedure/Surgical History section, Gastric sleeve, History of appendectomy, History of hernia repair, Mastoidectomy,Myringotomy and insertion of T tube, Partial or subtotal hysterectomy, Reconstruction of abdominal wall, T and A (tonsillectomy and adenoidectomy) postoperative education. Medications biotin 2.5 mg oral tablet, 2.5 mg= 1 tab(s), Oral, Daily calcium (as carbonate) 600 mg oral tablet, 600 mg= 1 tab(s), Oral, Daily Celebrate Multivitamin oral capsule, 1 cap(s), Oral, Daily clindamycin additive + Premix Dextrose 5% Diluent 50 mL fluoxetine, 10 mg, Oral, Daily HRT (Bioidentical) Testosterone dhea/Estradiol/progesterone, 5 mg each, Daily HYDROmorphone 1 mg/mL injectable solution, 0.4 mg= 0.4 mL, IV Push, q4min, PRN Lactated Ringers IV Thuy 1000 mL 1,000 mL, 1000 mL, IV Lactated Ringers IV Thuy 1000 mL 1,000 mL, 1000 mL, IV lysine, 500 mg, Oral, Daily Motion Sickness Relief 50 mg oral tablet, 50 mg= 1 tab(s), Oral, q6hr, PRN Phenergan 25 mg/mL Injection, 12.5 mg= 0.5 mL, IV Push, q2min, PRN phentermine 37.5 mg oral capsule, 37.5 mg= 1 cap(s), Oral, Daily Vitamin B12 50 mcg oral tablet, 50 mcg= 1 tab(s), Oral, qWeek Vitamin D 1000 intl units Tab, 1000 International_Unit= 1 tab(s), Oral, Daily Allergies penicillins (Rash) Glutens (stomach bloating/ache) Latex (red rash) ibuprofen (cant have due to sleeve) Social History Alcohol Current, 1-2 times per year, 03/19/2021 Substance Abuse - Denies Substance Abuse, 03/19/2021 Tobacco - Denies Tobacco Use, 03/19/2021 Never (less than 100 in lifetime) Tobacco Use:., 03/17/2021 Family History CA - Cancer of kidney: Mother. Diabetes mellitus type 1: Mother. Hodgkin's disease: Mother. Primary malignant neoplasm of colon: Mother.[facility] 03-25-2021 [id number]:127[facility]08-20-2021 NoteHPI Staff pt presents for consultation regarding gallstones/ biliary dyskinesia, self referred. pt complains of RUQ pain, nausea, abdominal bloating, change in bowel habits, sensitivity to certain foods for the last 2mo. pt with history of gastric sleeve surgery 1 yr ago. pt has US and HIDA scan completed. History of Present Illness Consent: The patient or their guardian verbally consented to allow [employer] to record this visit. Kathy Martinez is a 50-year-old female who was referred to me for evaluation of symptomatic cholelithiasis. A HIDA scan was found to be normal; however, a right upper quadrant ultrasound revealed multiple gallstones with normal gallbladder wall thickness. She is status post sleeve gastrectomy bariatric surgery with laparoscopy performed in 01/2020. The patient reports that she also had an abdominal wall reconstruction. She is referred to us due to worsening discomfort. The patient reports that her gallbladder pain began approximately 2 months ago. She describes the pain as a sharp and cramping sensation, depending on what she ate. She states it is a cramping pain the causes her to be unable to stand straight. The patient localizes the pain to the right upper quadrant. She is unsure if the pain radiates to the posterior shoulder. The patient reports that she hasa herniated disc in the posterior right shoulder region, for which she is unable to tell if the pain is associated to gallbladder pain. She reports associated nausea. The patient reports that she was with and gave to twins. She attributes this to having had multiple hernias. The patient reports a past surgical history of , hysterectomy, hernia repair, oophorectomy, appendectomy, and removal of 4 inches of the bowel. She had to have 4 inches of the bowel removed due to injury during the oophorectomy. Her most recent surgery was in 2011 for mesh placement during an abdominal wall reconstruction. Review of Systems Constitutional: no fever, no sweats, no weight loss. Eyes: no glasses, no blurred vision, no visual loss. ENMT: no dentures, no hoarseness, no swallowing difficulties, no hearing loss, no ear infection(s),no nose bleeds. Cardiovascular: normal blood pressure, no chest pain, regular heartbeat, no heart murmur. Respiratory: no shortness of breath, no cough, no asthma, no wheezing. Gastrointestinal: no diarrhea, no constipation, no blood in stool, no change in bowel habits, no abdominal pain, no hepatitis. Positive for nausea, vomiting, and right upper quadrant pain. Genitourinary: no kidney stones, no urine infection, no dysuria. Musculoskeletal: no pain, no weakness. Skin: no changing moles, no rash, no skin lumps. Neurologic: no seizures, no epilepsy, no headache. Psychiatric: no emotional or psychiatric problem. Heme/Lymph: no bleeding problems, no anemia, no blood clots, no transfusions. Allergy/Immunologic: no swollen lymph nodes/glands, no IV drug abuse. Other: Additional ROS info: Except as noted in the above Review of Systems and in the History of Present Illness, all other systems have been reviewed and are negative or noncontributory. Physical Exam General: No acute distress Eyes: normal conjunctiva, sclera clear, no scleral icterus, EOM intact, PERRLA. Neck: trachea midline Respiratory: Respirations non labored. Cardiovascular: regular rate and rhythm, Gastrointestinal: soft, non distended, no tenderness, no hepatosplenomegaly. Musculoskeletal: normal gait, digits and nails without infection, nodes, cyanosis, clubbing. Skin: no rashes, no lesions, no ulcers, no subcutaneous nodules, induration. Psychiatric/Neuro: oriented to time, place, person, judgement normal, affect appropriate for age, insight intact, no focal deficits. Lymphatic: No cervical lymphadenopathy Tests: labs reviewed, x-rays reviewed Assessment/Plan Patient is a 50-year-old female who presents today with symptomatic cholelithiasis. 1. Symptomatic cholelithiasis (K80.20: Calculus of gallbladder without cholecystitis without obstruction) I will plan for a robotic assisted laparoscopic possible open cholecystectomy, possible intraoperative phalangeal graft. I have discussed the procedure, as well as the risks, benefits, and aftercare of the surgery. discussed risks that she may be at increased risk of conversion to open operation due to multiple prior abdominal surgeries. She would like to proceed with the procedure. Informed consent was obtained and signed by the patient today in the office. ATTESTATION Draft generated by Matt RUIZ and edited by Henrietta Linder, [employer]. Reviewed and entered into [employer] by Olamide Garcia. Follow-up No qualifying data available Problem List/Past Medical History Ongoing Symptomatic cholelithiasis Historical No qualifying data Medications fluoxetine, Oral phentermine 37.5 mg oral capsule, 37.5 mg= 1 cap(s), Oral, Daily Allergies penicillins (Rash) (more content not included)...[facility] Comment on above:Result Comment: Electronically Signed By: Sumit Killian MD\.br\Date and Time Signed: 03/20/21 08:43 EDT\.br\Electronically Co-Signed By: Olamide Garcia\.br\Date and Time Co-Signed: 03/17/21 15:27 EDTEvaluation noteNo [facility] Other Evaluation note* Diagnosis Women's annual routine gynecological examination documented in this encounter [employer] Phone: evaluation note* Diagnosis Acute pain of left knee- Primary Obesity (BMI 30-39.9) [facility] Diagnosis Obesity (BMI 30.0-34.9)- Primary [facility] Diagnosis Obesity (BMI 30.0-34.9) [facility]* Diagnosis Chronic pain of left knee- Primary [facility] Diagnosis Obesity (BMI 30.0-34.9)- Primary [facility] Diagnosis Acute pain of left knee [facility] Diagnosis Gastroesophageal reflux disease without esophagitis Esophageal reflux [facility] Diagnosis Screening for malignant neoplasm of colon- Primary Hiatal hernia Diaphragmatic hernia without mention of obstruction or gangrene Reflux gastritis Other specified gastritis without mention of hemorrhage [facility] Diagnosis Acute pain of left knee- Primary [facility] N[facility]ative - Reported* Type Description Date Medical History Hernia, abdominal Medical History Diabetes Mellitus, adult onset Medical History Elevated BP, not hypertension Medical History Intertrigo, abdominal fold Medical History Psoriasis Medical History Vertigo Medical History Obesity Medical History BL hip injections Medical History Vertigo Medical History Conductive hearing loss, bilater al Medical History Bilateral tinnitus Medical History Benign paroxysmal positional olvin tigo Medical History Encounter for debrid ement of right postmastoidectomy cavity Medical History anxiety Surgical History bowel resection 06/2012 Surgical History mastoidectomy 1987 Surgical History Hysterectomy 2003 Surgical History Umbilical hernioplasty 06-12-09 Surgical History Procedure: section;Dise ase: 2003 Surgical History Procedure:Appendectomy;Disease: 06/2012 Surgical History Procedure:abdominal wall reconstruction;Disease:Hernia, abdominal 01/2013 Surgical History Bilateral myringotom y (ear tubes) (1976, 1986, 1987, 1997, 2004, 2011) x6 Surgical History D&C 2003 Surgical History Ovary/fallopian tubes removed 08/2011 Surgical History tendon lengthening, foot 1996 Surgical History T&A Surgical History tubal ligation 2003 Surgical History median nerve block 05-20-17 Surgical History cholecystectomy Hospitalization History see above [employer] Other Reason for visit Narrative* Rehabilitation - Outpatient (Routine) - Authorized Specialty Diagnoses / Procedures Referred By Mike zamorano Referred To Contact Physical Therapy Diagnoses Acute pain of left knee Procedures MA OFFICE/OUTPATIENT [facility] ([facility]3] 60 MINUTES Shanthi Valle NP [address] [place] [address] Phone: tel: fax: Luca Sharma PT [address] [place] [address] Phone: tel: fax: Referral ID Status Reason Start Date Expiration Date Visits Requested Visits Authorized [id number] Authorized Specialty Services Required 4 11/11/2024 20 20 [facility] Narrative* Rehabilitation - Outpatient (Routine) - Authorized Specialty Diagnoses / Procedures Referred By Mike zamorano Referred To Contact Physical Therapy Diagnoses Acute pain of left knee Procedures [place] OFFICE/OUTPATIENT [facility] Shanthi Valle NP [address] [place] [address] Phone: tel: fax: Mayra Hoffman, PT Referral ID Status Reason Start Date Expiration Date Visits Requested Visits Authorized [id number] Authorized Specialty Services Required 05/11/2025 19 19 [facility] Summary Purpose Family History No Family History Records FoundNo Family History Records FoundNo Family History Records FoundNo Family History Records FoundNo Family History Records FoundNo Family History Records Found Advance Directives No Advanced Directives Records FoundLatest Code Status on File Code Status Date Activated Date Inactivated Comments Full Code 06/20/2012 1:55 PM 06/26/2012 1:09 PM Additional Source Comments INFORMATION SOURCE (unrecogn ized section and content) DATE CREATED AUTHOR 12/19/2018 [facility] DATE CREATED AUTHOR AUTHOR'S ORGANIZ ATION 10/05/2021 [facility] DATE CREATED AUTHOR AUTHOR'S ORGANIZ ATION 12/24/2021 [facility] Specialist DATE CREATED AUTHOR AUTHOR'S ORGANIZ ATION 10/19/2023 [facility] DATE CREATED AUTHOR AUTHOR'S ORGANIZ ATION 02/24/2024 [facility] DATE CREATED AUTHOR AUTHOR'S ORGANIZ ATION 07/11/2024 [facility] dical Specialists EPIC REASON FOR VISIT (unrecogniz ed section and content) Reason Comments Colonoscopy Pt presents today fo r a colonoscopy consult. Pt denies/admits to: admits to having a colonoscopy before. Last colonoscopy was about 5 years ago and it was normal. Pt denies abdominal pain. Pt denies rectal bleeding. Pt denies changes in bowel movements. Pt admits to a family history of colon cancer that they know of. Pt states that her mother had colon cancer. She states that would like to discuss an egd as well. Reason Onset Date Comments Med Refill 06/17/2024 Reason Onset Date Comments Ronnie PT 06/20/2024 Tried to contact , per message taken by Roger, to offer time / day availability for PT Eval. She was treated 1x in [place] but had noted she'd like to transfer to [place]. Had to lm requesting call back. Call Back 06/21/2024 She contacted an d we scheduled her PT Eval 07/09 w/ Tomy Hoffman PT. Reason Comments Knee Pain STIFF NECK, UPPER BACK DISCOMFORT, NO INJURY Care Teams (unrecognized sec tion and content) Marketing Consultant Relationship Specialty Start Date End Date AlyceNaila Villarreal MD [address] [place] [address] PCP - General Family Medicine 11/16/18 Marketing Consultant Relationship Specialty Start Date End Date Naila Villarreal MD [address] [place] [address] PCP - General Family Medicine 12/07/22 Marketing Consultant Relationship Specialty Start Date End Date Naila Villarreal MD [address] [place] [address] PCP - General Family Medicine 12/07/22 Marketing Consultant Relationship Specialty Start Date End Date Naila Villarreal MD [address] [place] [address] PCP - General Family Medicine 12/07/22 Marketing Consultant Relationship Specialty Start Date End Date Naila Villarreal MD [address] [place] [address] PCP - General Family Medicine 12/07/22 Marketing Consultant Relationship Specialty Start Date End Date Naila Villarreal MD [address] [place] [address] PCP - General Family Medicine 12/07/22 Marketing Consultant Relationship Specialty Start Date End Date Naila Villarreal MD [address] [place] [address] PCP - General Family Medicine 12/07/22 Marketing Consultant Relationship Specialty Start Date End Date Naila Villarreal MD [address] [place] [address] PCP - General Family Medicine 12/07/22 Marketing Consultant Relationship Specialty Start Date End Date Naila Villarreal MD [address] [place] [address] PCP - General Family Medicine 12/07/22 Marketing Consultant Relationship Specialty Start Date End Date Naila Villarreal MD [address] [place] [address] PCP - General Family Medicine 12/07/22 Marketing Consultant Relationship Specialty Start Date End Date Naila Villarreal MD [address] [place] [address] PCP - General Family Medicine 12/07/22 Marketing Consultant Relationship Specialty Start Date End Date Naila Villarreal MD [address] [place] [address] PCP - General Family Medicine 12/07/22 FOR RECORDS PERTAINING TO PATIENTS WHO ARE OR HAVE BEEN ENROLLED IN A CHEMICAL DEPENDENCY/SUBSTANCEABUSE PROGRAM, SOME INFORMATION MAY BE OMITTED. This clinical summary was aggregated from multiple sources. Caution should be exercised in using it in the provision of clinical care. This summary normalizes information from multiple sources, and as a consequence, information in this document may materially change the coding, format and clinical context of patient data. In addition, data may be omitted in some cases. CLINICAL DECISIONS SHOULD BE BASED ON THE PRIMARY CLINICAL RECORDS. [facility]. provides no warranty or guarantee of the accuracy or completeness of information in this document.
== END 2024-07-13 08:32 | disposition home or self-care (01) ==
LOC: PST 08:31
PROVIDERS: PCP Family Medicine; Visit Provider Surgery
DX: Z01.818 Encounter for other preprocedural examination (principal); Z12.11 Encounter for screening for malignant neoplasm of colon

== ENCOUNTER 2024-07-17 10:01 | Day surgery (SDC) | payer BC, OTHER, SELFPAY ==
--- OUTSIDE RECORDS SUMMARY | 2024-07-17 10:14 | XMS_ITS | CCD ---
Author Organization [facility] Care Team Providers Care Sack Cleaning Hand Name Role Phone JACQUELYN LECHUGA Admitting Unavailable JACQUELYN LECHUGA Attending Unavailable MISC, DOCTOR Primary Care Unavailable MISC, DOCTOR Consulting Unavailable ABBY GUAJARDO Consulting Unavailable Mayra Lopez Unavailable Sherice Beasley Unavailable Naila Meyer MD Primary Care Pr ovider LINDA MCCLURE Referring Unavailable NAILA VILLARREAL Primary Care [...] [PENICILLINS] Drug allergy (disorder) 03-24-20 15 [facility] (2 sources) Penicillin Drug Allergy Unknown [facility] Other (1 source) Penicillins Propensity to adverse reactions to drug 06-19-20 12 Anaphylaxis [facility] (17 sources) Latex Propensity to adverse reactions 12-05-19 24 Rash [facility] (17 sources) Penicillins Drug Intolerance [...] 15 each 5 09/27/2022 Active estrogens, conjugated (long-term) 0.625 mg/ml vaginal cream (16 sources) Estrogen [...] Discontinued (Cost of medication) polyethylene glycol 3350 96800 mg powder for oral solution (2 sources) [...] 02-21-2024 Vitamin B6 464.6 nmol/L High 20.0-125.0 [facility] Comment on above: Result Comment: (NOT E) INTERPRETIVE INFORMATION: Vitamin B6 (Pyridoxal 5-Phosphate) Pyridoxal 5'-phosphate measured in a specimen collected following an 8-hour or overnight fast accurately indicates vitamin B6 nutritional status. Non-fasting specimen concentration reflects recent vitamin intake. This test was developed and its performance characteristics determined by [facility]. It has not been cleared or approved by the [place] Food and Drug Administration. This test was performed in a CLIA certified laboratory and is intended for clinical purposes. Performed By: [facility] [address] [place] [address] Director Of Tax Services: Partha Crandall MD, PhD CLIA Number: [id number] Performed By: #### A VITB6 #### [facility] [address] [place] [address] Yarn Mercerizer Operator Helper: León Jain MD #### GLYHGB #### [address] [address] Yarn Mercerizer Operator Helper: Jamie Kilgore MD #### CP, TSH #### [address] [place] [address] Yarn Mercerizer Operator Helper: Dk Steele MD Comp Metabolic Profon 2023 Albumin [Mass/Vol] 4.3 g/dL Normal 3.5-5.2 [facility] Comment on above: Performed By: #### A VITB6 #### [address] [address] Yarn Mercerizer Operator Helper: León Jain MD #### GLYHGB #### [address] [address] Yarn Mercerizer Operator Helper: Jamie Kilgore MD #### CP, TSH #### [address] [place] [address] Yarn Mercerizer Operator Helper: Dk Steele MD Albumin/Glob Ratio 1.5 Normal 1.0-2.5 [facility] Comment on above: Performed By: #### A VITB6 #### [facility] [address] [place] [address] Yarn Mercerizer Operator Helper: León Jain MD #### GLYHGB #### [address] [address] Yarn Mercerizer Operator Helper: Jamie Kilgore MD #### CP, TSH #### [address] [place], [place] [address] Yarn Mercerizer Operator Helper: Dk Steele MD Alkaline Phos 46 U/L Normal 35-104 [facility] Comment on above: Performed By: #### A VITB6 #### [facility] [address] [place] [address] Yarn Mercerizer Operator Helper: León Jain MD #### GLYHGB #### [facility] [address] [place] [address] Yarn Mercerizer Operator Helper: Jamie Kilgore MD #### CP, TSH #### [facility] [address] [place], [place] [address] Yarn Mercerizer Operator Helper: Dk Steele MD ALT [Catalytic activity/Vol] 28 U/L Normal 5-33 [facility] Comment on above: Performed By: #### A VITB6 #### [facility] [address] [place] [address] Yarn Mercerizer Operator Helper: León Jain MD #### GLYHGB #### [facility] [address] [place] [address] Yarn Mercerizer Operator Helper: Jamie Kilgore MD #### CP, TSH #### [address] [place], [place] [address] Yarn Mercerizer Operator Helper: Dk Steele MD Anion gap [Moles/Vol] 9 mmol/L Normal 9-17 [facility] Comment on above: Performed By: #### A VITB6 #### [facility] [address] [place] [address] Yarn Mercerizer Operator Helper: León Jain MD #### GLYHGB #### [facility] [address] [place] [address] Yarn Mercerizer Operator Helper: Jamie Kilgore MD #### CP, TSH #### [facility] [address] [place], [place] [id number] Yarn Mercerizer Operator Helper: Dk Steele MD AST [Catalytic activity/Vol] 22 U/L Normal <32 [facility] Comment on above: Performed By: #### A VITB6 #### [facility] [address] [place] [address] Yarn Mercerizer Operator Helper: León Jain MD #### GLYHGB #### [facility] [address] [place] [address] Yarn Mercerizer Operator Helper: Jamie Kilgore MD #### CP, TSH #### [facility] [address] [place], [place] [id number] Yarn Mercerizer Operator Helper: Dk Steele MD Bilirubin [Mass/Vol] 0.3 mg/dL Normal 0.3-1.2 [facility] Comment on above: Performed By: #### A VITB6 #### [facility] [address] [place] [address] Yarn Mercerizer Operator Helper: León Jain MD #### GLYHGB #### [address] [address] Yarn Mercerizer Operator Helper: Jamie Kilgore MD #### CP, TSH #### [facility] [address] [place], [place] [address] Yarn Mercerizer Operator Helper: Dk Steele MD BUN/CRE Ratio 30 High 9-20 [facility] Comment on above: Performed By: #### A VITB6 #### [facility] [address] [place] [address] Yarn Mercerizer Operator Helper: León Jain MD #### GLYHGB #### [facility] [address] [place] [address] Yarn Mercerizer Operator Helper: Jamie Kilgore MD #### CP, TSH #### [facility] [address] [place], [place] [address] Yarn Mercerizer Operator Helper: Dk Steele MD Calcium [Mass/Vol] 9.3 mg/dL Normal 8.6-10.4 [facility] Comment on above: Performed By: #### A VITB6 #### [facility] [address] [place] [address] Yarn Mercerizer Operator Helper: León Jain MD #### GLYHGB #### [facility] [address] [place] [address] Yarn Mercerizer Operator Helper: Jamie Kilgore MD #### CP, TSH #### [facility] [address] [place], [place] [address] Yarn Mercerizer Operator Helper: Dk Steele MD Chloride [Moles/Vol] 104 mmol/L Normal 98-107 [facility] Comment on above: Performed By: #### A VITB6 #### [facility] [address] [place] [address] Yarn Mercerizer Operator Helper: León Jain MD #### GLYHGB #### [address] [address] Yarn Mercerizer Operator Helper: Jamie Kilgore MD #### CP, TSH #### [facility] [address] [place] [address] Yarn Mercerizer Operator Helper: Dk Steele MD CO2 [Moles/Vol] 28 mmol/L Normal 20-31 [facility] Comment on above: Performed By: #### A VITB6 #### [facility] [address] [place] [address] Yarn Mercerizer Operator Helper: León Jain MD #### GLYHGB #### [address] [address] Yarn Mercerizer Operator Helper: Jamie Kilgore MD #### CP, TSH #### [facility] [address] [place] [address] Yarn Mercerizer Operator Helper: Dk Steele MD Creatinine [Mass/Vol] 0.6 mg/dL Normal 0.5-0.9 [facility] Comment on above: Performed By: #### A VITB6 #### [facility] [address] [place] [address] Yarn Mercerizer Operator Helper: León Jain MD #### GLYHGB #### [address] [address] Yarn Mercerizer Operator Helper: Jamie Kilgore MD #### CP, TSH #### [address] [place] [address] Yarn Mercerizer Operator Helper: Dk Steele MD GFR/1.73 sq M.predicted among non-blacks MDRD (S/P/Bld) [Vol rate/Area] mL/min/{1.73_m2} Normal >60 [facility] Comment on above: Result Comment: These results [...] #### A VITB6 #### [facility] [address] [place] [address] Yarn Mercerizer Operator Helper: León Jain MD #### GLYHGB #### [address] [address] Yarn Mercerizer Operator Helper: Jamie Kilgore MD #### CP, TSH #### [facility] [address] [place] [address] [place] [address] Yarn Mercerizer Operator Helper: Dk Steele MD Glucose [Mass/Vol] 93 mg/dL Normal 70-99 [facility] Comment on above: Performed By: #### A VITB6 #### [facility] [address] [place] [address] Yarn Mercerizer Operator Helper: León Jain MD #### GLYHGB #### [address] [address] Yarn Mercerizer Operator Helper: Jamie Kilgore MD #### CP, TSH #### [facility] [address] [place] [address] [place] [place], [place] [address] Yarn Mercerizer Operator Helper: Dk Steele MD Potassium [Moles/Vol] 4.0 mmol/L Normal 3.7-5.3 [facility] Comment on above: Performed By: #### A VITB6 #### [facility] [address] [place] [address] Yarn Mercerizer Operator Helper: León Jain MD #### GLYHGB #### [address] [address] Yarn Mercerizer Operator Helper: Jamie Kilgore MD #### CP, TSH #### [address] [place], [place] [address] Yarn Mercerizer Operator Helper: Dk Steele MD Protein [Mass/Vol] 7.1 g/dL Normal 6.4-8.3 [facility] Comment on above: Performed By: #### A VITB6 #### [facility] [address] [place] [address] Yarn Mercerizer Operator Helper: León Jain MD #### GLYHGB #### [address] [address] Yarn Mercerizer Operator Helper: Jamie Kilgore MD #### CP, TSH #### [address] [place], [place] [address] Yarn Mercerizer Operator Helper: Dk Steele MD Sodium [Moles/Vol] 141 mmol/L Normal 135-144 [facility] Comment on above: Performed By: #### A VITB6 #### [facility] [address] [place] [address] Yarn Mercerizer Operator Helper: León Jain MD #### GLYHGB #### [address] [address] Yarn Mercerizer Operator Helper: Jamie Kilgore MD #### CP, TSH #### [facility] [address] [place] [address] Yarn Mercerizer Operator Helper: Dk Steele MD Urea nitrogen [Mass/Vol] 18 mg/dL Normal 6-20 [facility] Comment on above: Performed By: #### A VITB6 #### [facility] [address] [place] [address] Yarn Mercerizer Operator Helper: León Jain MD #### GLYHGB #### [facility] [address] [place] [address] Yarn Mercerizer Operator Helper: Jamie Kilgore MD #### CP, TSH #### [facility] [address] [place] [address] Yarn Mercerizer Operator Helper: Dk Steele MD Hemoglobin A1Con 02-17-2024 Glucose [Mass/Vol] 111 mg/dL Normal [facility] Comment on above: Result Comment: The ADA and AACC recommend providing the estimated average glucose result to permit better patient understanding of their HBA1c result. Performed By: #### A VITB6 #### [facility] [address] [place] [address] Yarn Mercerizer Operator Helper: Lenó Jain MD #### GLYHGB #### [address] [address] Yarn Mercerizer Operator Helper: Jamie Kilgore MD #### CP, TSH #### [facility] [address] [place] [address] Yarn Mercerizer Operator Helper: Dk Steele MD HbA1c (Bld) [Mass fraction] 5.5 % Normal 4.0-6.0 [facility] Comment on above: Performed By: #### A VITB6 #### [facility] [address] [place] [address] Yarn Mercerizer Operator Helper: León Jain MD #### GLYHGB #### [address] [address] Yarn Mercerizer Operator Helper: Jamie Kilgore MD #### CP, TSH #### [facility] [address] [place] [address] Yarn Mercerizer Operator Helper: Dk Steele MD Thyroid Stim. Horm.on 2023 Thyroid Stim. Horm. 3.58 uIU/mL Normal 0.30-5.00 [facility] Comment on above: Performed By: #### A VITB6 #### [facility] [address] [place] [address] Yarn Mercerizer Operator Helper: León Jain MD #### GLYHGB #### [facility] [address] [place] [address] Yarn Mercerizer Operator Helper: Jmaie Kilgore MD #### CP, TSH #### [facility] [address] [place] [address] Yarn Mercerizer Operator Helper: Dk Steele MD BI MAMMOGRAM SCREENING TOMOS [...] IS VERY IMPORTANT TO YOUR HEALTH. THE [employer] GUIDELINES RECOMMEND THAT WOMEN 40 [...] 24 ABSOLUTE BASOPHIL 0.0 X10E9/L Normal 0.0-0.2 [facility] Comment on above: Performed By: #### C BCA, CMP, 30957-5, FEPR, 00735-7, 2777-1, 2276-4, 2284-8, 02079-8, 2131-9 #### [facility] ([id number]) [address], [address] [place] [address] #### VITASP, 2900-9, 2998-3 #### [facility] ([id number]) [address] [place] [address] ABSOLUTE NEUTROPHIL 2.5 X10E9/L Normal 1.5-6.6 [facility] Comment on above: Performed By: #### C BCA, CMP, 98819-8, FEPR, 70003-5, 2777-1, 2276-4, 2284-8, 96138-3, 2131-9 #### [facility] ([id number]) [address], [address] [place] [address] #### VITASP, 2900-9, 2998-3 #### [facility] ([id number]) [address] [place] [address] Basophils/100 WBC (Bld) 1.1 % Normal [facility] Comment on above: Performed By: #### C BCA, CMP, 66636-1, FEPR, 09042-6, 2777-1, 2276-4, 2284-8, 80351-7, 2131-9 #### [facility] ([id number]) [address], [address] [place] [address] #### VITASP, 2900-9, 2998-3 #### [facility] ([id number]) [address] [place] [address] Eosinophils (Bld) [#/Vol] 0.2 10*3/uL Normal 0.0-0.4 [facility] Comment on above: Performed By: #### C BCA, CMP, 87538-8, FEPR, 69275-0, 2777-1, 2276-4, 2284-8, 74077-4, 2131-9 #### [facility] ([id number]) [address], [address] [place] [address] #### VITASP, 2900-9, 2998-3 #### [facility] ([id number]) [address] [place] [address] Eosinophils/100 WBC (Bld) 3.6 % Normal [facility] Comment on above: Performed By: #### C BCA, CMP, 67798-2, FEPR, 09824-7, 2777-1, 2276-4, 2284-8, 13048-9, 2132-04 #### [facility] ([id number]) [address], [address] [place] [address] #### VITASP, 2900-9, 2998-3 #### [facility] ([id number]) [address] [place] [address] Erythrocyte distribution width (RBC) [Ratio] 13.1 % Normal 11.5-15.0 [facility] Comment on above: Performed By: #### C BCA, CMP, 17588-5, FEPR, 41340-3, 2777-1, 2276-4, 2284-8, 30453-6, 2131-9 #### [facility] ([id number]) [address], [address] [place] [address] #### VITASP, 2900-9, 2998-3 #### [facility] ([id number]) [address] [place] [address] Hematocrit (Bld) [Volume fraction] 36.8 % Normal 35-47 [facility] Comment on above: Performed By: #### C BCA, CMP, 54586-9, FEPR, 88412-7, 2777-1, 2276-4, 2284-8, 91921-9, 2131-9 #### [facility] ([id number]) [address], [address] [place] [address] #### VITASP, 2900-9, 2998-3 #### [facility] ([id number]) [address] [place] [address] Hemoglobin (Bld) [Mass/Vol] 12.5 g/dL Normal 11.7-15.5 [facility] Comment on above: Performed By: #### C BCA, CMP, 14517-8, FEPR, 83203-2, 2777-1, 2276-4, 2284-8, 02608-4, 2131-9 #### [facility] ([id number]) [address], [address] [place] [address] #### VITASP, 2900-9, 2998-3 #### [facility] ([id number]) [address] [place] [address] Lymphocytes (Bld) [#/Vol] 1.4 10*3/uL Normal 1.0-3.5 [facility] Comment on above: Performed By: #### C BCA, CMP, 70658-1, FEPR, 78273-1, 2777-1, 2276-4, 2284-8, 72836-1, 2131-9 #### [facility] ([id number]) [address], [address] [place] [address] #### VITASP, 2900-9, 2998-3 #### [facility] ([id number]) [address] [place] [address] Lymphocytes/100 WBC (Bld) 31.0 % Normal [facility] Comment on above: Performed By: #### C BCA, CMP, 72765-5, FEPR, 55859-7, 2777-1, 2276-4, 2284-8, 18094-1, 213-9 #### [facility] ([id number]) [address], [address] [place] [address] #### VITASP, 2900-9, 2998-3 #### [facility] ([id number]) [address] [place] [address] MCH (RBC) [Entitic mass] 30.3 pg Normal 27-34 [facility] Comment on above: Performed By: #### C BCA, CMP, 76268-8, FEPR, 59694-2, 2777-1, 2276-4, 2284-8, 47537-0, 2131-9 #### [facility] ([id number]) [address], [address] [place] [address] #### VITASP, 2900-9, 2998-3 #### [facility] ([id number]) [address] [place] [address] MCHC (RBC) [Mass/Vol] 33.9 g/dL Normal 32-36 [facility] Comment on above: Performed By: #### C BCA, CMP, 45909-9, FEPR, 52258-5, 2777-1, 2276-4, 2284-8, 04228-2, 2131-9 #### [facility] ([id number]) [address], [address] [place] [address] #### VITASP, 2900-9, 2998-3 #### [facility] ([id number]) [address] [place] [address] MCV (RBC) [Entitic vol] 89 fL Normal 80-100 [facility] Comment on above: Performed By: #### C BCA, CMP, 07939-1, FEPR, 69839-5, 2777-1, 2276-4, 2284-8, 48859-9, 2131-9 #### [facility] ([id number]) [address], [address] [place] [address] #### VITASP, 2900-9, 2998-3 #### [facility] ([id number]) [address] [place] [address] Monocytes (Bld) [#/Vol] 0.4 10*3/uL Normal 0-0.9 [facility] Comment on above: Performed By: #### C BCA, CMP, 76231-3, FEPR, 41178-7, 2777-1, 2276-4, 2284-8, 47933-9, 2132-04 #### [facility] ([id number]) [address], [address] [place] [address] #### VITASP, 2900-9, 2998-3 #### [facility] ([id number]) [address] [place] [address] Monocytes/100 WBC (Bld) 8.7 % Normal [facility] Comment on above: Performed By: #### C BCA, CMP, 87996-4, FEPR, 25421-7, 2777-1, 2276-4, 2284-8, 10363-7, 2131-9 #### [facility] ([id number]) [address], [address] [place] [address] #### VITASP, 2900-9, 2998-3 #### [facility] ([id number]) [address] [place] [address] Neutrophils/100 WBC (Bld) 55.6 % Normal [facility] Comment on above: Performed By: #### C BCA, CMP, 12492-9, FEPR, 20266-7, 2777-1, 2276-4, 2284-8, 88159-1, 2131-9 #### [facility] ([id number]) [address], [address] [place] [address] #### VITASP, 2900-9, 2998-3 #### [facility] ([id number]) [address] [place] [address] Platelet mean volume (Bld) [Entitic vol] 8.8 fL Normal 7-12 [facility] Comment on above: Performed By: #### C BCA, CMP, 59229-4, FEPR, 14919-7, 2777-1, 2276-4, 2284-8, 78415-5, 2131-9 #### [facility] ([id number]) [address], [address] [place] [address] #### VITASP, 2900-9, 2998-3 #### [facility] ([id number]) [address] [place] [address] Platelets (Bld) [#/Vol] 246 10*3/uL Normal 150-450 [facility] Comment on above: Performed By: #### C BCA, CMP, 11996-5, FEPR, 94122-7, 2777-1, 2276-4, 2284-8, 30180-6, 2131-9 #### [facility] ([id number]) [address], [address] [place] [address] #### VITASP, 2900-9, 2998-3 #### [facility] ([id number]) [address] [place] [address] RBC COUNT 4.11 X10E12/L Normal 3.80-5.20 [facility] Comment on above: Performed By: #### C BCA, CMP, 04038-6, FEPR, 48133-9, 2777-1, 2276-4, 2284-8, 92033-9, 2131-9 #### [facility] ([id number]) [address], [address] [place] [address] #### VITASP, 2900-9, 2998-3 #### [facility] ([id number]) [address] [place] [address] WBC (Bld) [#/Vol] 4.4 10*3/uL Normal 4.0-11.0 [facility] Comment on above: Performed By: #### C BCA, CMP, 83692-8, FEPR, 74738-6, 2777-1, 2276-4, 2284-8, 48224-8, 2131-9 #### [facility] ([id number]) [address], [address] [place] [address] #### VITASP, 2900-9, 2998-3 #### [facility] ([id number]) [address] [place] [address] COMPREHENSIVE METABOLIC PANE Neil 10-14-2023 Albumin [Mass/Vol] 4.4 g/dL Normal 3.2-5.3 [facility] Comment on above: Performed By: #### C BCA, CMP, 23283-1, FEPR, 79496-5, 2777-1, 2276-4, 2284-8, 54082-5, 2131-9 #### [facility] ([id number]) [address], [address] [place] [address] #### VITASP, 2900-9, 2998-3 #### [facility] ([id number]) [address] [place] [address]162 ALP [Catalytic activity/Vol] 37 U/L Low 39-130 [facility] Comment on above: Performed By: #### C BCA, CMP, 02931-6, FEPR, 21503-8, 2777-1, 2276-4, 2284-8, 71412-4, 2131-9 #### [facility] ([id number]) [address] [place] [address], [address] [place] [address] #### VITASP, 2900-9, 2998-3 #### [facility] ([id number]) [address] [place] [address] ALT [Catalytic activity/Vol] 35 U/L High 0-31 [facility] Comment on above: Performed By: #### C BCA, CMP, 98880-9, FEPR, 38563-4, 2777-1, 2276-4, 2284-8, 80191-0, 2131-9 #### [facility] ([id number]) [address] [place] [address], [address] [place] [address] #### VITASP, 2900-9, 2998-3 #### [facility] ([id number]) [address] [place] [address] Anion gap [Moles/Vol] 11 mmol/L Normal 5-15 [facility] Comment on above: Performed By: #### C BCA, CMP, 98055-8, FEPR, 26991-2, 2777-1, 2276-4, 2284-8, 63855-8, 2131-9 #### [facility] ([id number]) [address] [place] [address], [address] [place] [address] #### VITASP, 2900-9, 2998-3 #### [facility] ([id number]) [address] [place] [address] AST [Catalytic activity/Vol] 24 U/L Normal 0-41 [facility] Comment on above: Performed By: #### C BCA, CMP, 93864-2, FEPR, 30606-3, 2777-1, 2276-4, 2284-8, 91263-7, 9 #### [facility] ([id number]) [address], [address] [place] [address] #### VITASP, 2900-9, 2998-3 #### [facility] ([id number]) [address] [place] [address] Bilirubin [Mass/Vol] 0.5 mg/dL Normal 0.3-1.2 [facility] Comment on above: Performed By: #### C BCA, CMP, 74269-1, FEPR, 30082-5, 2777-1, 2276-4, 2284-8, 12749-9, 2132-04 #### [facility] ([id number]) [address], [address] [place] [address] #### VITASP, 2900-9, 2998-3 #### [facility] ([id number]) [address] [place] [address]000 Calcium [Mass/Vol] 9.6 mg/dL Normal 8.5-10.5 [facility] Comment on above: Performed By: #### C BCA, CMP, 96332-9, FEPR, 55933-8, 2777-1, 2276-4, 2284-8, 70226-7, 2132-04 #### [facility] ([id number]) [address], [address] [place] [address] #### VITASP, 2900-9, 2998-3 #### [facility] ([id number]) [address] [place] [address] 72752 Chloride [Moles/Vol] 106 mmol/L Normal 98-109 [facility] Comment on above: Performed By: #### C BCA, CMP, 82091-3, FEPR, 35651-0, 2777-1, 2276-4, 2284-8, 71153-2, 2132-9 #### [facility] ([id number]) [address], [address] [place] [address] #### VITASP, 2900-9, 2998-3 #### [facility] ([id number]) [address] [place] [address] 24426 CO2 [Moles/Vol] 26 mmol/L Normal 22-32 [facility] Comment on above: Performed By: #### C BCA, CMP, 74065-1, FEPR, 50414-5, 2777-1, 2276-4, 2284-8, 85966-8, 2131-9 #### [facility] ([id number]) [address], [address] [place] [address] #### VITASP, 2900-9, 2998-3 #### [facility] ([id number]) [address] [place] [address] Creatinine [Mass/Vol] 0.68 mg/dL Normal 0.40-1.00 [facility] Comment on above: Result Comment: METH OD TRACEABLE TO IDMS STANDARD Performed By: #### C BCA, CMP, 34740-7, FEPR, 96316-3, 2777-1, 2276-4, 2284-8, 25450-5, 9 #### [facility] ([id number]) [address], [address] [place] [address] #### VITASP, 2900-9, 2998-3 #### [facility] ([id number]) [address] [place] [address] 93965 eGFR (CKD-EPI) NON-RACE DEPENDENT >90 Normal >59 [facility] Comment on above: Result Comment: Reported eGFR is based on the CKD-EPI 2020 equation that does not use a race coefficient. Performed By: #### C BCA, CMP, 39253-8, FEPR, 61161-2, 2777-1, 2276-4, 2284-8, 15339-5, 2131-9 #### [facility] ([id number]) [address], [address] [place] [address] #### VITASP, 2900-9, 2998-3 #### [facility] ([id number]) [address] [place] [address] Glucose [Mass/Vol] 95 mg/dL Normal 65-99 [facility] Comment on above: Performed By: #### C BCA, CMP, 01230-4, FEPR, 43139-1, 2777-1, 2276-4, 2284-8, 05573-5, 9 #### [facility] ([id number]) [address], [address] [place] [address] #### VITASP, 2900-9, 2998-3 #### [facility] ([id number]) [address] [place] [address]20 Potassium [Moles/Vol] 3.9 mmol/L Normal 3.5-5.0 [facility] Comment on above: Performed By: #### C BCA, CMP, 04551-5, FEPR, 32902-9, 2777-1, 2276-4, 2284-8, 86886-3, 2131-9 #### [facility] ([id number]) [address], [address] [place] [address] #### VITASP, 2900-9, 2998-3 #### [facility] ([id number]) [address] [place] [address]3279 Protein [Mass/Vol] 6.8 g/dL Normal 6.0-8.0 [facility] Comment on above: Performed By: #### C BCA, CMP, 36794-2, FEPR, 42928-6, 2777-1, 2276-4, 2284-8, 55505-5, 2131-9 #### [facility] ([id number]) [address], [address] [place] [address] #### VITASP, 2900-9, 2998-3 #### [facility] ([id number]) [address] [place] [address] 47070 Sodium [Moles/Vol] 143 mmol/L Normal 134-146 [facility] Comment on above: Performed By: #### C BCA, CMP, 70493-1, FEPR, 87807-9, 2777-1, 2276-4, 2284-8, 76133-5, 2131-9 #### [facility] ([id number]) [address], [address] [place] [address] #### VITASP, 2900-9, 2998-3 #### [facility] ([id number]) [address] [place] [address] Urea nitrogen [Mass/Vol] 28 mg/dL High 5-23 [facility] Comment on above: Performed By: #### C BCA, CMP, 26011-3, FEPR, 20663-9, 2777-1, 2276-4, 2284-8, 09460-5, 2131-9 #### [facility] ([id number]) [address], [address] [place] [address] #### VITASP, 2900-9, 2998-3 #### [facility] ([id number]) [address] [place] [address] 81129 FERRITINon 10-14-2023 Ferritin [Mass/Vol] 71 ng/mL Normal 11-307 [facility] Comment on above: Performed By: #### C BCA, CMP, 55980-8, FEPR, 39133-3, 2777-1, 2276-4, 2284-8, 98195-3, 2131-9 #### [facility] ([id number]) [address], [address] [place] [address] #### VITASP, 2900-9, 2998-3 #### [facility] ([id number]) [address] [place] [address] 41474 Folate [Mass/Vol]on 10-14-19 24 FOLIC ACID >25.0 Normal >5.8 [facility] Comment on above: Result Comment: NEW REFERENCE RANGE Performed By: #### C BCA, CMP, 60918-0, FEPR, 01732-4, 2777-1, 2276-4, 2284-8, 26126-7, 2132-9 #### [facility] ([id number]) [address] [facility], [address] [place] [address] #### VITASP, 2900-9, 2998-3 #### [facility] ([id number]) [address] [place] [address] 32053 HGB A1C (GLYCO-HGB)on 2023 Glucose [Mass/Vol] 126 mg/dL Normal [facility] Comment on above: Performed By: #### C BCA, CMP, 53458-8, FEPR, 07971-3, 2777-1, 2276-4, 2284-8, 65696-8, 2132-9 #### [facility] ([id number]) [address], [address] [place] [address] #### VITASP, 2900-9, 2998-3 #### [facility] ([id number]) [address] [place] [address] 17814 HbA1c (Bld) [Mass fraction] 6.0 % High 4.4-5.6 [facility] Comment on above: Result Comment: NOTE ADA Guidelines Result HgbA1c Normal : less than 5.7 % Prediabetes : 5.7 % to 6.4 % Diabetes : > 6.4 % Use with caution in patients with abnormal hemoglobin variants as the half-life of red blood cells and in vivo glycation rates are affected. Performed By: #### C BCA, CMP, 77127-0, FEPR, 44097-1, 2777-1, 2276-4, 2284-8, 01295-2, 213-9 #### [facility] ([id number]) [address] [facility], [address] [place] [address] #### VITASP, 2900-9, 2998-3 #### [facility] ([id number]) [address] [place] [address] 47720 IRON PROFILEon 10-14-2023 Iron [Mass/Vol] 130 ug/dL Normal 50-170 [facility] Comment on above: Performed By: #### C BCA, CMP, 91018-1, FEPR, 97962-7, 2777-1, 2276-4, 2284-8, 75158-1, 2131-9 #### [facility] ([id number]) [address] [facility], [address] [place] [address] #### VITASP, 2900-9, 2998-3 #### [facility] ([id number]) [address] [place] [address] 57161 IRON BINDING 371 ug/dL Normal 250-425 [facility] Comment on above: Performed By: #### C BCA, CMP, 04847-8, FEPR, 51336-9, 2777-1, 2276-4, 2284-8, 14510-0, 2131-9 #### [facility] ([id number]) [address] [facility], [address] [place] [address] #### VITASP, 2900-9, 2998-3 #### [facility] ([id number]) [address] [place] [address] 00650 IRON SATURATION 35 % SATURATION Normal 15-50 [facility] Comment on above: Performed By: #### C BCA, CMP, 05426-0, FEPR, 83276-0, 2777-1, 2276-4, 2284-8, 79383-1, 2131-9 #### [facility] ([id number]) [address], [address] [place] [address] #### VITASP, 2900-9, 2998-3 #### [facility] ([id number]) [address] [place] [address] 49582 Lipid 1996 panelon 4 Cholesterol [Mass/Vol] 183 mg/dL Normal 150-200 [facility] Comment on above: Performed By: #### C BCA, CMP, 40258-5, FEPR, 24846-2, 2777-1, 2276-4, 2284-8, 65090-9, 9 #### [facility] ([id number]) [address], [address] [place] [address] #### VITASP, 2900-9, 2998-3 #### [facility] ([id number]) [address] [place] [address] 65362 Cholesterol in HDL [Mass/Vol] 69 mg/dL Normal >39 [facility] Comment on above: Result Comment: HDL <40 mg/dL - High Risk HDL > or = 40mg/dL- Desirable HDL >60 mg/dL - Negative Risk Performed By: #### C BCA, CMP, 64096-0, FEPR, 11860-4, 2777-1, 2276-4, 2284-8, 49310-0, 2131-9 #### [facility] ([id number]) [address], [address] [place] [address] #### VITASP, 2900-9, 2998-3 #### [facility] ([id number]) [address] [place] [address] 28646 Cholesterol in LDL [Mass/Vol] 92 mg/dL Normal <130 [facility] Comment on above: Result Comment: LDL <100 mg/dL - Desirable LDL >160 mg/dL - High Risk Performed By: #### C BCA, CMP, 74306-8, FEPR, 73804-4, 2777-1, 2276-4, 2284-8, 89963-3, 213-9 #### [facility] ([id number]) [address] [place] [address], [address] [place] [address] #### VITASP, 2900-9, 2998-3 #### [facility] ([id number]) [address] [place] [address] 63600 Cholesterol in VLDL [Mass/Vol] 22 mg/dL Normal 0-30 [facility] Comment on above: Performed By: #### C BCA, CMP, 50003-4, FEPR, 67648-7, 2777-1, 2276-4, 2284-8, 39630-0, 2131-9 #### [facility] ([id number]) [address] [place] [address], [address] [place] [address] #### VITASP, 2900-9, 2998-3 #### [facility] ([id number]) [address] [place] [address] 98946 CHOLESTEROL:HDL 2.7 Normal 1.0-5.0 [facility] Comment on above: Performed By: #### C BCA, CMP, 82211-0, FEPR, 74612-6, 2777-1, 2276-4, 2284-8, 94550-6, 2132-9 #### [facility] ([id number]) [address], [address] [place] [address] #### VITASP, 2900-9, 2998-3 #### [facility] ([id number]) [address] [place] [address] 35555 Triglyceride [Mass/Vol] 111 mg/dL Normal 27-150 [facility] Comment on above: Performed By: #### C BCA, CMP, 92732-8, FEPR, 06824-3, 2777-1, 2276-4, 2284-8, 71019-5, 9 #### [facility] ([id number]) [address], [address] [place] [address] #### VITASP, 2900-9, 2998-3 #### [facility] ([id number]) [address] [place] [address] 79046 MAGNESIUMon 10-14-2023 Magnesium [Mass/Vol] 2.1 mg/dL Normal 1.8-2.6 [facility] Comment on above: Performed By: #### C BCA, CMP, 56893-4, FEPR, 03325-6, 2777-1, 2276-4, 2284-8, 14751-7, 2132-04 #### [facility] ([id number]) [address], [address] [place] [address] #### VITASP, 2900-9, 2998-3 #### [facility] ([id number]) [address] [place] [address] 50457 PHOSPHORUSon 10-14-2023 Phosphate [Mass/Vol] 4.0 mg/dL Normal 2.4-4.9 [facility] Comment on above: Performed By: #### C BCA, CMP, 95333-2, FEPR, 71874-9, 2777-1, 2276-4, 2284-8, 36866-5, 9 #### [facility] ([id number]) [address] [place] [address], [address] [place] [address] #### VITASP, 2900-9, 2998-3 #### [facility] ([id number]) [address] [place] [address] 84941 Pyridoxine [Mass/Vol]on 09-29 VITAMIN B6 307.1 nmol/L High 20.0-125.0 [facility] Comment on above: Result Comment: NOTE INTERPRETIVE INFORMATION: Vitamin B6 (Pyridoxal 5-Phosphate) Pyridoxal 5'-phosphate measured in a specimen collected following an 8-hour or overnight fast accurately indicates vitamin B6 nutritional status. Non-fasting specimen concentration reflects recent vitamin intake. This test was developed and its performance characteristics determined by [facility]. It has not been cleared or approved by the US Food and Drug Administration. This test was performed in a CLIA certified laboratory and is intended for clinical purposes. Performed By: [facility] [address] [place] [address] Director Of Tax Services: Partha Crandall MD, PhD CLIA Number: [id number] Performed By: #### C BCA, CMP, 54911-6, FEPR, 47694-1, 2777-1, 2276-4, 2284-8, 01040-4, 2132-9 #### [facility] ([id number]) [address] [place] [address], [address] [place] [address] #### VITASP, 2900-9, 2998-3 #### [facility] ([id number]) [address] [place] [address] 31018 Thiamine (Bld) [Mass/Vol]on 10-14-2023 THIAMIN VITAMIN B1 See Below Normal [facility] Comment on above: Result Comment: NOTE TEST [...] developed and its performance characteristics determined by [facility] [place] ([facility]). It has not been cleared or approved by the FDA. [facility] is regulated under CLIA as qualified to perform high-complexity testing. This test is used for clinical purposes. It should not be regarded as investigational or for research. Test Performed By: [place] [address] Director Of Tax Services: Josias Villanueva III, M.D. CLIA #[id number] Performed By: #### C ELIZABETH, FRAN, 49738-2, FEPR, 90542-6, 2777-1, 2276-4, 2284-8, 09404-8, 2132-04 #### [facility] ([id number]) [address] [place] [address], [address] [place] [address] #### VITASP, 2900-9, 2998-3 #### [facility] ([id number]) [address] [place] [address] 11837 VITAMIN A(RETINOL)on 024 RETINYL PALMITATE 0.24 mg/L High 0.00-0.10 [facility] Comment on above: Performed By: #### C BCA, CMP, 28554-2, FEPR, 44156-8, 2777-1, 2276-4, 2284-8, 20948-2, 9 #### [facility] ([id number]) [address] [place] [address], [address] [place] [address] #### VITASP, 2900-9, 2998-3 #### [facility] ([id number]) [address] [place] [address] 06983 VIT A,SER/PL INTERP SEE NOTE Normal [facility] Comment on above: Result Comment: NOTE Modest elevation of retinyl palmitate consistent with oral supplementation. Vitamin A supplements in the range of 10,000 IU/day are typically associated with a retinyl palmitate concentration less than 0.10 mg/L. Drugs which may interfere with analysis include probucal (Lorelco). This test was developed and its performance characteristics determined by [facility]. It has not been cleared or approved by the US Food and Drug Administration. This test was performed in a CLIA certified laboratory and is intended for clinical purposes. Performed By: [facility] [address] [place] [address] Director Of Tax Services: Partha Crandall MD, PhD CLIA Number: [id number] Performed By: #### C ELIZABETH, CMP, 15688-8, FEPR, 86251-7, 2777-1, 2276-4, 2284-8, 04202-5, 2131-9 #### [facility] ([id number]) [address], [address] [place] [address] #### VITASP, 2900-9, 2998-3 #### [facility] ([id number]) [address] [place] [address] VITAMIN A(RETINOL) 0.82 mg/L Normal 0.30-1.20 [facility] Comment on above: Performed By: #### C BCA, CMP, 84747-3, FEPR, 86515-5, 2777-1, 2276-4, 2284-8, 06901-6, 2131-9 #### [facility] ([id number]) [address], [address] [place] [address] #### VITASP, 2900-9, 2998-3 #### [facility] ([id number]) [address] [place] [address] 51571 VITAMIN B12on 10-14-2023 Cobalamin (Vitamin B12) [Mass/Vol] 413 pg/mL Normal 180-914 [facility] Comment on above: Performed By: #### C FRAN JOHNSON, 28422-2, FEPR, 13243-0, 2777-1, 2276-4, 2284-8, 59692-0, 2131-9 #### [facility] ([id number]) [address] [facility], [address] [place] [address] #### VITASP, 2900-9, 2998-3 #### [facility] ([id number]) [address] [place] [address] 48744 Vitamin D+Metabolites [Mass/ Vol]on 10-14-2023 VITAMIN D 25 HYD TOT 29.9 ng/mL Low 30-100 [facility] Comment on above: Result Comment: Vitamin D status 25 [place] Vitamin D Deficiency <20 ng/mL Insufficiency 20-29 ng/mL Sufficiency 30-100 ng/mL Toxicity >100 ng/mL NOTE: A pediatric reference range has not been established by the copy holder of this kit. The [place] [employer] recommends a Vitamin D level of = or >20ng/mL in infants and children. Performed By: #### C ELIZABETH, CMP, 84095-1, FEPR, 57248-5, 2777-1, 2276-4, 2284-8, 58190-7, 2131-9 #### [facility] ([id number]) [facility] [facility], [address] [place] [address] #### VITASP, 2900-9, 2998-3 #### [facility] ([id number]) [address] [place] [address] Zinc [Mass/Vol]on 10-14-2023 ZINC 83 ug/dL Normal 60-120 [facility] Comment on above: Result Comment: NOTE This test was developed and its performance characteristics determined by [facility] [place] ([facility]). It has not been cleared or approved by the FDA. [facility] is regulated under CLIA as qualified to perform high-complexity testing. This test is used for clinical purposes. It should not be regarded as investigational or for research. Test Performed By: [facility] [employer] [address] [place] [address] Director Of Tax Services: Josias Villanueva III, M.D. [place] #[id number] Performed By: #### C BCA, CMP, 04740-9, FEPR, 92940-1, 2777-1, 2276-4, 2284-8, 84845-8, 2132-9 #### [facility] ([id number]) [address] [place] [address], [address] [place] [address] #### VITASP, 2900-9, 2998-3 #### [facility] ([id number]) [address] [facility], [place] [address] Microalbumin (with Creat)on 12-23-2021 mALB <1.2 Low [facility] Comment on above: Result Comment: Unab le to calculate mALB/Crea ratio, mALB is <1.2 mg/dL mALB reference range not established. Performed By: #### m ALBC #### [facility] [address] [place], [place] [id number] UCREA 105 mg/dL Normal 28-217 [facility] Comment on above: Performed By: #### m ALBC #### [facility] [address] [place], [place] [id number] SCREENING MAMMOGRAM W/LLOYD, BILATERAL*on 07-29-2021 SCREENING MAMMOGRAM [...] VERY IMPORTANT TO YOUR HEALTH. THE CURRENT [employer] OF [employer] AND N[employer] COMPREHENSIVE CANCER NETWORK GUIDELINES RECOMMENDS ANNUAL MAMMOGRAPHY BEGINNING AT AGE 40 THIS FACILITY USES A REMINDER SYSTEM TO ENSURE ALL PATIENTS RECEIVE REMINDER NOTIFICATIONS AT THE APPROPRIATE TIME BASED ON THE RECOMMENDATIONS OF THIS EXAM. Report reported and signed by Augustin Esparza on 08/03/2021 0702 Normal [facility] [employer]er Progress Note-Physicianon Progress Note-Physician Patient: KATHY MARTINEZ [...] All Problems Symptomatic cholelithiasis / SNOMED CT 001039498 / Confirmed Resolved: Anxiety / SNOMED CT 41422029 Physical Examination No qualifying data available General: Alert and oriented, No acute distress. Respiratory: Lungs are clear to auscultation. Cardiovascular: Normal rate, Regular rhythm. Neurologic: Normal sensory. Review / Management Condition: Stable. Assessment Anesthetic outcome No anesthetic complications noted. Adequate pain relief. TOLERATING PO INTAKE. voiding w/o diff.. No Complaint of nausea and vomiting. Plan Transfer/ Discharge: Condition stable. Normal [facility] Comment on above: Result Comment: Elec tronically [...] RUIZ and edited by Caroline Campa, Quality Tailoring Teacher. Follow-up No qualifying data available Problem List/Past [...] Primary malignant neoplasm of colon: Mother. Normal [facility] Comment on above: Result Comment: Elec tronically Signed By: Sumit Killian MD\.br\Date and Time Signed: 04/14/21 08:25 EDT\.br\Electronically Co-Signed By: Caroline Campa.br\Date and Time Co-Signed: 04/10/21 15:13 EDT Provider Letteron 04-10-2021 Provider Letter April 10, 2021 April 10, 2021 KATHY MARTINEZ [address] [place] [phone] KATHY MARTINEZ 1970 To Whom It May Concern, Please excuse above patient from work. Date of Illness: From: 03/20/21 To: 04/15/21 May Return to Work On: 04/16/21 Restrictions: None Comments: Any questions feel free to call the office at [phone] Sincerely, Dr. Sumit Daniel [facility] Progress Note-Physicianon Progress Note-Physician Patient: KATHY MARTINEZ [...] All Problems Symptomatic cholelithiasis / SNOMED CT 493633879 / Confirmed Resolved: Anxiety / SNOMED CT 23158543 Histories Past Medical History: No active or resolved past medical history items have been selected or recorded. Family History: Primary malignant neoplasm of colon Mother Diabetes mellitus type 1 Mother CA - Cancer of kidney Mother Hodgkin's disease Mother Procedure history: T and A (tonsillectomy and adenoidectomy) (3595487752). Myringotomy and insertion of T tube b/l x5 (248522664). Mastoidectomy (83077882). History of hernia repair x2 (1855288435). section/tubal (14941577). Partial or subtotal hysterectomy (8247609257). History of appendectomy/ovaries removed/4 inches of bowel removed (5639856522). Reconstruction of abdominal wall (103446526). Gastric sleeve (4989159097). Social History Social & Psychosocial Habits Alcohol [...] results Radiology results ECG interpretation Condition Plan [place] [employer]iologists (ASA) physical status classification: Class II. Anesthetic Preoperative Plan Anesthesia: General. . Anesthetic plan, risks, benefits, and alternatives discussed with the patient and/or family. Risks discussed: nausea, vomiting, headache, sore throat, dental injury, serious complications. Patient verbalized understanding. Communication: face to face with (patient 5 minutes, Pt educated on the importance of smoking cessation.). Normal [facility] Comment on above: Result Comment: Elec tronically Signed By: Joseph Rincon Jr, DO\.rhiannon\Date and Time Signed: 04/08/21 14:50 EDT Coding Summary.on 04-07-2021 Coding Summary. CD:[id number] Gh 0bWw+PGhlYWQ+FB7QTRJoT 17moPUwnR0BG3fMLH2HIZS ZOQSJBP8OOR1ykNP3JImwV 2VybiAv WnylkPIjJL50XKg7QEZ1lM asKKymhY1wpDIkU2a4RdDh NE97gA83TYvbTQQiYiW3Xb ZpbjsgbWFy S5dkReLcpRLzIxd+PHRhYm xlIHdpZHRoPScxMDAlJyBz gIyyLY4pUz6eLCEkFQZntE xhcHNlOiBj g2abXAGmSXbdYZ3gdWxsJ9 WulHL7VUUun5u0Lf31lMD+ PLNhZVE2zWrhAGuzm222Ya Aef9omXJS0 bYWeHFswPAU0L14dl7A6IK KvZIVyLGV8rPC5vN4frPla glotT4RnyPBrNsV3DBJ7cS FzoI1ysOzz uxpuuF0mZzb+T32WWW2ZZS LWLM5FZsg1X2KgXlstwHQ+ RH73ORHyYX59zPBscASff6 trdLi9RlSh KZEeGZG5wEalSUghe6PbUL MvK22atYKsu7R0JGTuoWws iQOeSaKpyHK8yI6hIZrptl qem4yifqwq Ckjtv0fsdm76lN38B54cCD avNEIuVIO3XNTsKURtsDfq wk6jkI6xJi7+DUfzs6osi9 njvIh0NmLb WERpbhOrtWkpZFX2j1CxJs 17Y4ZrjYksx4BwTyo1gp71 mWFlt5C8lLH6YCpvZSDtdV 4jAMtsYyN9 JYTkZpDjwQ46tIAfRGvfWt 4sjWicjPmdEK7qIXFnioap EJUbpY2fGUHjwYSgyCmmPZ 4wNTBpbjtm b187QlFcVTJ2ENUtcVZlO8 WxyM5pGuKpEXLqRHKfF4Je wKZtQYvpK022KMneCeV4CV NtswMjW3Jm KULptWqaXhB9f2D2Yi5Jb8 ScnxcdFXH6VDpbFJJ5XfX7 VyPiSoP1V8AhArp7HWKecE znYB1hM9If XQWkghwojdgmeNR8AJHuCP YziO00lLByERsdYv8wz4U1 u027GBUrHVHurG79Qk0akC ogMTBwdCBU hY3vjeucq4wfmggbMnJnGV YcENg1TGh1ZGJzpRrfQeSc WIB5KcZ8PLN9qPJmdF6fmK ddzacffR8t Oyc+W24phT2cKBU5OCT0dp zdMGGjpkRcYC58MN66L6Nw PjwvdGFibGU+PGRpdiBzdH iuAI4aLpYt d6avw5FhXEpiQ5AiJFVfXY yzAdn6HTNrPVD1aFP4wD0x CQUeJAtxc1J0fLW2Y7Ndrf Mkgu9dz9md KZLfZFutG52wwDGtg5B1RO CecLQ9FFGczMkeOeLmhQ53 Oyc+TEAwmCeig2QkQercq9 tza8amwTa5 MgVjEBKyvxZaxVdwQJW0x3 TyLr99G55bUGneWGFjVENq DSFgPKYttXqhlf9wzC2tTt 8+PGNvbCB3 wWU8pB9jUGNhQzD0QXriH9 06NoPaoYLwHlhei1jcx3sk tPp7MlBlPSKbauXgnLnfYR E0n4NrGq68 K40yLNhpHSQgNLSdFQFyVX UyiKabny2urY3mPh4+PC9j u7ubbx90kR63cZY+PHRkIH A2jAyjQBdm HTNsiF0oGSzdKpA5BDUlOk AikI51vKKsGSiiPw7hkWix hXpaPS5hTBTavglhd648Vo Hxf7eiYWFi yBVkOMmhOKJ1B06gu9V2DM MbBVYwMMB3vNL1qC6qbUcj bjogbGVmdDsgdmVydGljYW krHKsuC594 IHRvcDsnPlBhdGllbnQgTm HgZUx4L9VuPyy0SPBkyQcg LH8tdSQdZUgdNn4iwVsduW leKS9gFABs ngzak384YrEsf1vvWFFbrN QbHBssXAD0E54on5Y4YNKy OMFmSDS9cSQ0rT1tfLfkmm ogbGVmdDsg zeLteKxpFQtfOEpjD906ZZ RvcDsnPkJpcnRoIERhdGU6 XY09TG64qNJve5F0ePB5O6 BhZGRpbmct juioqWU9BZQpRAMquM86Uj 1dbJnwRd5iIMKkDDK0OMIb hCRhA9HgdQ6rMyUhHLZjSL XqR3VvbZYn PIlxE041LYoaVaC6UXNjgo ViZ2RkRFWnlXfuKmE9r9F0 Ki7GH4T6IC93ZW63zBFrp9 V7cYK3A5Rw IEMwgmdzchvolQJ4JGQpCR XzfY92Zu2tjDxhMe6lWCCg GVI9SRNicGJbQ9TqdB4bIu AjMDAwMDAw J8LgoMGxLNukP359AKpxPn U8UDZdcyQqK1DkHWCobAjv ItR4t0F0Bt3VLNl0VM24CM 89xXVde3T1 pDU8N6KdKZByyelflxtweE W0DUJlMKDjsF76Na1rrIlh Da3sZQHdSKV9DWHrxVSkE9 ZykA6wLxNw TURzFHXwN2PpyMNlDLmbC4 23MRfuZpO7DUAbtfTrG6Um HMOkyMwePxR7t4F1Rd3FJS RnTH44KUB0 aTE5JP71AW61E6YxMgizzN FibGU+PHRhYmxlIHdpZHRo CYpcASFpZxUgxSoqBW4qYq 9yZGVyLWNv yTkbiPUtAzVwr2bdGKXuST oqUX0jfOulM2FdmVG9EVKm c1p1Xu94B14eM2ZfrBD+PG VohXL9pQM9 qM0tFdPxPwU0YGcsM977Au GkwFKqNftjg6hje3zbyKx8 WlA6YMHdxpKytCpfXOY9r4 UmOg86U51m IHdpZHRoPSIxNSUiIHZhbG ekyf8uyS9eLf0+PGNvbCB3 tOX1nM0tKuVdJoV4SDpmY9 49InRvcCIv Ahnsm3whi5jeyLo9HpBqTS NuolUkkVprDUF4j0IwCo74 W7AsxNdfl4KmEsq2zj78rX Dkn6L5pUW3 I9ImSLCmiasboNQtjQqwUM 0fETLauffuLZXydP5vWRUu A2d1MyKiApJ9QKkyX1Oaqn T9XLUfcCGm FVjdDWR0O25dx6G4HBKgRG HwOJG1aJD6yK9dgCtzarkl bGVmdDsgdmVydGljYWwtYW woR535BFOe lKegFHMciP9yMQHddXHjeG pfPL8lAVXrkamlWnEGQOBu IV5LR6cAJKuXAXy1G0UjCe r6CPPzuWrs LP6jcJYtSAkqXo5ziHxcaU oqQU2qGTBuzcmjHBKfwH7i DUPruKUkgKdcKN7iGKVvkv tzr117VvOh RGR2MFFxkLWtY6LbbZ2tKi VrOJQdRPYsQ2VmhDBeYQuh S407QQssNbJ6PTIxsoVbK6 FsLWFsaWdu JvC4j5V1Fc5dCy4rNQ8dTW jtSN58SA82kQKis1J2jBZ6 R8DkEFPyqwmzduhxiXI1XH ZkNVXljF21 sWSlFLinOb5vz2Q6n830FA JlDVNnwM59Vb2leWidYMGm vIQKkF4dvthxv4jwejnrVp AwMDAwMDt0 KUy8WDFyhPtaEdVyUEY9Wg E0QNL4uIGaoZ7ixNohgqhe iX2iLpw+EPFmBZZcrxT1N3 DhMaw5GEGx kSokGL1ozNDrLJqqOt2bjG ozrAqjWK2zSRZmbzlfSXAk oT0rISPlfAXurRauAV3wJS Zbtbiub571 CrFvIAU0IPIdiXWaW9IijV 4eNkEqWXDrWUOxW0TyqLWy QVwzU381DUioThB6BJJfcg HqI0PqEZWz fSbpQcH6s4R2Gn0BPT6jzF V0J9JjYdl5RBGunBmgWH4q jTQoLPsfTl4zfElojGadYO 4wNTBpbjtw CRXpuZ7iIJJquONwyCdqGF 9yFGMqjwgpi181GuSoRON4 WZPjbPViK6NykG4vZpDkCH XaKIHtT2Nn hKLfBVicC100AWdjMiI2AW KauiKfV1OeOZLwqBpkQdP1 y1H5Ke7QdYG4rVI6w2L5A8 NhbWUgRGF5 ALB9avkwraq2A2QzKkdbcT I+IK95UXLcGX38nIKlrKDz z9nbyIs0YaYsPXZjZLO2lA iwNYgus1Xf ZSKlL01yaCYtr5C5VOTqbM zfbUGrSnVidLZ8qJ5zFClx ulolx9rybywtLihnd7auro 75pK52N98m IHdpZHRoPSIzMCUiIHZhbG kqdt6crO3yMk9+PGNvbCB3 mEZ2yU1mHaWhOqO4QPrdQ6 49InRvcCIv Rncfd0uef2pcbCq5CiWfWU PlxfWgeFjsHAC1q2PqSv77 Y98eJHxsDGDkGRReACPkGC WzcKvpjt8e lB9jMr3+XE9jc3sbaf79vI 48dHI+BVVaUQA8hSswZCcx SCQiuC2qNJseZxP7OTToIa WvyS89wWWu MOemCl1dzQbunCpvEE3hVQ Hqhwkkw628CtFiu3ftRNXo tDTuQBqoJIX3O66gw4C0ON MwMDAwMDA7 iFT7xC2euRkpvhezkKJazL avfzOdjBpjWEcjLHndI500 XBKayAzlRzUdrBGiL4lmfy BEJS8dVbxs dGQ+IDHnBFC4mHcnRFxeEB HbkF1zVEYaP2l9OrSkBdA3 OTppO1MrqaV7SRKlwTGlRH OsnXNPcJ4o gpmri0usqqveLgPjIVKgAZ f0TZl2ZDWjiMtbFbNvXSV7 WkF4OUC0lABsdU7qvMbzqn qkgU4yBdk+ RklOOjwvdGQ+TVAjHWW5iQ mwHCzaQMVqdF5pSDOuQ3t0 IbFnEiG7XPskF4XsywX5IN JvbGQgMTBw nNLRjS0olrwsx0oygegfAq EoDVUyACh2VKv3AZYsnAft EcTrOVP8YuP8IIT3tRQlrA 1hbGlnbjog yC9pDwi+TVJOOjwvdGQ+PH KpYYV6mHvjOEmlSPAzuP5r JLZyP4v8BrAlZmK0KTecJ7 VwtnZ5TZXs bKHwLUHqeESUqG3blqxyx3 qoxxdoGtVuVTVxMUl1CGy9 NCEjwTaoOgFzWBB8NbU2FN O7yPKnyO6c cVdiipsceC3hIyf+UGF5ZX J8HC77CN72Y5GyGaqpgWMk bGU+PHRhYmxlIHdpZHRoPS cxMDAlJyBz dHls (more content not included)... [facility] Postoperative Documentson Postoperative Documents [id number]#1. 00CD:127 [facility] Consent for Anesthesiaon Consent for Anesthesia [id number]#1. 00CD:127 [facility] Discharge Instructionson Discharge Instructions [id number]#1. 00CD:127 Normal [facility] IntraOperative Documentson 0 04-02-2021 IntraOperative Documents [id number]#1. 00CD:127 Normal [facility] IntraOperative Documents [id number]#1. 00CD:127 Normal [facility] IntraOperative Documents [id number]#1. 00CD:127 Normal [facility] Main OR Intraoperative Recor don 04-02-2021 Main OR Intraoperative Record IntraOp Document Type FT Summary Primary Physician: Sumit Killian MD Finalized Date/Time: 04/02/21 12:31:53 Pt. Name: JUAN KATHYFRANK Anderson D.O.B./Sex: 1970 Female Med Rec #: [id number] Physician: Sumit Killian MD Financial #: [id number] Pt. Type: A Room/Bed: [place] [address] Admit/Disch: 04/01/21 10:30:50 - 04/01/21 18:00:00 Institution: [...] Sainz CST Role Performed Surgeon - Primary GOLF [employer]ART MAKER IMMIGRATION LAW SPECIALIST/ Time In 04/01/21 11:53:00 04/01/21 12:06:00 04/01/21 11:53:00 Time Out 04/01/21 14:41:00 04/01/21 12:41:00 04/01/21 14:41:00 Procedure CHOLECYSTECOMY ROBOT CHOLECYSTECOMY ROBOT CHOLECYSTECOMY ROBOT ASSISTED(.) ASSISTED(.) ASSISTED(.) Comments dr rincon supervising assistant professor surgical technology student Last Modified By: Lalo RN, Lori May RN, Lori May RN, Lori Gómez 04/01/21 15:03:08 04/01/21 15:03:08 04/01/21 15:03:08 Entry 4 Entry 5 Entry 6 Case Attendee Lalo STROUD, Lori Sharma RN, Deepti Whalen CST, Keya Gómez Role Performed Band Reamer Machine Operator - Primary Band Reamer Machine Operator - Primary Scrub - Primary Time In 04/01/21 11:53:00 04/01/21 11:53:00 04/01/21 11:53:00 Time Out 04/01/21 14:41:00 04/01/21 14:41:00 04/01/21 14:41:00 Procedure CHOLECYSTECOMY ROBOT CHOLECYSTECOMY ROBOT CHOLECYSTECOMY ROBOT ASSISTED(.) ASSISTED(.) ASSISTED(.) Comments out of room from orientation - out for 9533-3810 for lunch lunch from 5119-9018 Last Modified By: Lalo RN, Lori May RN, Lori May RN, Lori Gómez 04/01/21 15:03:08 04/01/21 15:03:08 04/01/21 15:03:08 Entry 7 Entry 8 Case Attendee Greyson STROUD, Anyaeli Pacheco Role Performed Band Reamer Machine Operator - Relief Anesthesiologist Insurance Compliance Analyst Time In 04/01/21 12:15:00 04/01/21 11:53:00 Time Out 04/01/21 12:59:00 04/01/21 14:41:00 Procedure CHOLECYSTECOMY ROBOT CHOLECYSTECOMY ROBOT ASSISTED(.) ASSISTED(.) Comments dr rincon supervising lunch out of room from [id number] Last Modified By: Lalo RN, Lori May RN, Lori Gómez 04/01/21 15:03:08 04/01/21 15:03:08 General Comments: rodger hernandez rep present for procedure. 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 Normal [facility] Preoperative Documentson Preoperative Documents [id number]#1. 00CD:127 Normal [facility] Preoperative Documents [id number]#1. 00CD:127 Normal [facility] Preoperative Documents [id number]#1. 00CD:127 Normal [facility] Consent for Procedure/Surger yon 04-01-2021 Consent for Procedure/Surgery [id number]#1.00 CD:127 Normal [facility] Consent for Treatmenton Consent for Treatment [id number]#1.0 0CD:127 Normal [facility] Inpatient Patient Summaryon 04-01-2021 Inpatient Patient Summary [place] [id number] [facility] Clinical Discharge Instructions PERSON INFORMATION Name: KATHY MARTINEZ PHYSICIANS Admitting Physician: Sumit Killian MD Attending Physician: Sumit Killian MD PCP: PHIL CHOE, NAILA Discharge Diagnosis: Comment: PATIENT EDUCATION INFORMATION Instructions: Laparoscopic Cholecystectomy, Care After Medication Leaflets: Follow up: With: Address: When: Sumit Killian [address] [place], [place] [id number] [phone] Business (1) Comments: Keep scheduled appointment Type Location Start Finish State Post Op 15 [facility] 04/10/2021 1:00 PM 04/10/2021 1:15 PM Confirmed MEDICATION LIST New Medications [facility][id number], [address], [place] [id number], [phone] acetaminophen-oxycodon e (Percocet 5 mg-325 mg oral [...] Mouth every day., appetite suppresant Comment: Normal [facility] Main OR PACU I Recordon Main OR PACU I Record PACU Phase I Docum ent Type FT Summary Primary Physician: Sumit Killian MD Finalized Date/Time: 04/01/21 15:38:37 Pt. Name: JUANKATHY/Sex: 1970 Female Med Rec #: [id number] Physician: Sumit Killian MD Financial #: [id number] Pt. Type: A Room/Bed: [facility] Admit/Disch: 04/01/21 10:30:50 - Institution: Case Times [...] By: Emilie Green RN 04/01/21 15:38 Normal [facility] Main OR PACU II Recordon Main OR PACU II Record PACU Phase II Document Type FT Summary Primary Physician: Sumit Killian MD Finalized Date/Time: 04/01/21 18:21:53 Pt. Name: MARTINEZKATHY/Sex: 1970 Female Med Rec #: [id number] Physician: Sumit Killian MD Financial #: [id number] Pt. Type: A Room/Bed: [facility] Admit/Disch: 04/01/21 10:30:50 - 04/01/21 18:00:00 Institution: [...] Signed By: Danny Coleman RN 04/01/21 18:21 [facility] Main OR Preoperative Recordo n 04-01-2021 Main OR Preoperative Record PreOp Document Type FT Summary Primary Physician: Sumit Killian MD Finalized Date/Time: 04/01/21 12:43:26 Pt. Name: KATHY MARTINEZ /Sex: 1970 Female Med Rec #: [id number] Physician: Sumit Killian MD Financial #: [id number] Pt. Type: A Room/Bed: Admit/Disch: 04/01/21 10:30:50 [...] By: Diana Rubi RN 04/01/21 12:43 Normal [facility] Monitor Recordon 04-01-2021 Monitor Record [id number]#1. 00CD:127 Normal [facility] Operative Reporton 1 Operative Report Indication for [...] Surgeon(s) Sumit Killian MD (Surgeon - Primary) Insurance Compliance Analyst Sherrie Betts Anesthesia General Psychiatric Joseph Nation DO (Terrazzo Supervisor) Barbra Bush CRNA (Other) Anayeli Barber (Anesthesiologist Insurance Compliance Analyst) Estimated Blood Loss 20 cc Urine Output [...] recovery room in a stable condition. Normal [facility] Comment on above: Result Comment: Elec tronically Signed By: Constantin CHOE, Sumit Milian\.br\Date and Time Signed: 04/01/21 15:06 EDT Outpatient Surgery Discharge Instructionon 04-01-2021 Outpatient Surgery Discharge Instruction [place] [id number] Patient Discharge Instructions PERSON INFORMATION Name: KATHY [...] up: With: Address: When: Sumit Killian [address], [place] [address], [address] [phone] Business (1) Comments: Keep scheduled appointment Type Location Start Finish [facility] Post Op 15 [facility] [place] 04/10/2021 1:00 PM 04/10/2021 1:15 [...] to serve you. Thank you for choosing [facility] HERE ARE THE MEDICATION CHANGES THAT OCCURRED DURING YOUR HOSPITAL STAY New Medications [id number], [address], [place] [id number], [phone] acetaminophen-oxycodon e (Percocet 5 mg-325 mg oral [...] and water are not available, use hand glass belt sander. ? Change your dressing as told by your health care provider. ? Leave stitches (sutures), skin glue, or adhesive strips in place. These skin closures may need to be in place for 2 weeks or longer. If adhesive strip edges start to loosen and curl up, you may trim the loose edges. Do not remove adhesive strips com (more content not included)... Normal [facility] Patient Education - Texton 0 04-01-2021 Patient [...] and water are not available, use hand glass belt sander. ? Change your dressing as told by [...] care provider approves. General instructions ? Take xgra-xkx-gwiortt and prescription medicines only as told by your health care provider. ? To prevent or treat constipation while you are taking prescription pain medicine, your health care provider may recommend that you: ? Drink enough fluid to keep your urine clear or pale yellow. ? Take abhd-sky-dktjypl or prescription medicines. ? Eat foods that [...] 07/18/2006 Document Revised: 06/30/2018 Document Reviewed: 01/03/2017 [employer] Patient Education ? 2019 [employer]. [facility] Consent for Procedure/Surger yon 03-25-2021 Consent for Procedure/Surgery [id number]#1. 00CD:127 [facility] Consent for Treatmenton 03-02 Consent for Treatment [id number]#1. 00CD:127 [facility] Coding Summary.on 03-23-2021 Coding Summary. CD:[id number] Gh 0bWw+PGhlYWQ+CV5YQVWhD 28taMOtrN3JG9vJGN9LUOM FKINSGE5PHQ2urOP4IGmvT 2VybiAv JtumnDKgIA46VFz5SOD1uU haPCbarS2kjPAzU1g6FwHq CT75pM40UOngORFsBeB9Xg ZpbjsgbWFy V0dzZnYlkDOjMvj+PHRhYm xlIHdpZHRoPScxMDAlJyBz hCezTU5jNq7lBGMbMVAydN xhcHNlOiBj l0soSLHePJizVK0jjNzhG1 UkfCS2ZYUqw7c4Uj08uHZ+ LGKuIRE8gPoxQFwcv583Gf Wpn5obMTM7 zTWgQDplHTP7Z04xx0B4WP XpOIXhVVU3oJF3mX8qyDlb vsjkJ0FbfZCrNlC2BXJ5fA FjyT5zuDla wtkgfX9fVps+G20INK4SZV WOJE2XEfb2W5DhUsmlhHY+ JW26SXPmGW83pDWiyZPqe1 qjzQf9SuEj FEIiDNX1yBasELyoy3RcKI EtG19wbDImr3B0EMRkjFuj hFNqPnBhvFD3xC1aUFcomq dbf5dboxkn Xibvr3iaad77nK14L78bNX grGINdGVF3PTAbWKPdtRpn xu8muL0sPe8+FFhno8yud7 mzmOm3VlGs VTKuknOiyUbhJHB2a0WhVc 77K1QalHmzq4WaQsz7fa79 gSLaa5T8dPS3BTqnZRZfrD 2qQVpzUfU5 FROqEyAymR51nVYrHJbrHm 5hiUijoJxrHA7bSWZymznt CCDchC5wSNHhyORtjMteXC 4wNTBpbjtm g659IkUeWJG8APWumMRyU5 TnzF8rKgEhNXXeGUYoU4Bo rOPbUMtgP568TPnsLoE6WL AshzBwN9It EMAazVfzVyL5k7D8Sk6Cb1 SvuwfkPIR0TQbuDUL8GkJj GqQjNzG3Q1LyBnn6KNZqpH tsCR0dH0Dz PIRnewejvpctnKV8MNFlPW BfvS08eUHmAXxqXk3zf7L4 n136MXKyTIUtgZ41Pk4anS ogMTBwdCBU cH0fmngrn1scjkwzGyMkTN OvHUc4HNg7LXBdwRncXcGp PLH1QkP9IOI3cDLbqS7kuS tlaaxxfS6e Oyc+A08oaS9vIAB9WJI7ym voMZJawaJsDF85XW21I8Ty PjwvdGFibGU+PGRpdiBzdH upZB8sSdJi c8zmg1LlFHuiW8QgEXEnBZ tdClv1JJYrHBR5pEL0vQ8m SAZdCYvvq8Y4gQQ3L5Zmlw Ciov3wk3he DQEhXSusQ80sxRHal6Y1ID QwlPW6KZHymVfrLhMlwP40 Oyc+WNCrwLubr5DeFtwsd7 fix8zneQu6 RhBeOYVtveSvuVifJID0k9 TsMn70F10tRLgyUSJnLUKf ZSClFCMhaWwqbw0kwH0gHp 8+PGNvbCB3 qCV9yW1hOKJyQkK3PNuhG8 58BwJmeBTmCudgd0zbt0mg uCt0IaKxMQRuyjYbiXphCO U9b1AnXs10 X55vGUysNSLyYJXwHZSlEP DgtRekbo7scJ1xKc5+PC9j l4vkoe91cB58oDS+PHRkIH U3wAewTZvg CSObqS7lGStlJwY6GXIqRq ZbuN98zUCgGBogKc3rhNtz nZgxYC8rIGOoqfods475Lt Fhq1xfXPJc sFGxIOkbMLK7T03nv6R0JN TeHAObBJC5vCW3xH3yiRki bjogbGVmdDsgdmVydGljYW bzTWtcI001 IHRvcDsnPlBhdGllbnQgTm JkVRz8F2YnVmt9BAGvfIai QN3vtOXgJIakYv9yyCovyX uwRF7tPQSa zwzdk861LkIik8gbCKJczI DmGKrbSMQ8I96fj6Z2OGLe LPMiTVL0zNK0zC0puWqcer ogbGVmdDsg ywRyjBanDZenCEogO967GA RvcDsnPkJpcnRoIERhdGU6 VT55DI92jWYbk9Z9nFU6Q2 BhZGRpbmct ungxwXR3EWUlXYWitU84Pe 2kaUydQh5oXESqXKS6TZRq bIHfI0XhsX1cWoHiPYNxIQ BkS6AguWTw ZRrvS186BUycPfV9NZOgfl VoT7QeTPVujLfxZtJ3f4Y4 Qg7KE6S5QE27OW71tQRxa7 N4uWQ1Z0Ap XOVbmtxwlzbfuZC6TDUuJQ PamF26Pg5niEqzSh7yYQCm JRX6RPEfiPSrC3MngC3wUl AjMDAwMDAw M0AglQMlXPffM991DMhbZe C3LIWxrjZwZ0MeTAKbjGna NwE6g7K1Tx0HAPw2WI05QC 52yRQhd9B7 dGH8U3JmHCEeicrfquxpbZ E2OIAjWHBorA28Yj5ljHto Eg0iOLErGRN9JZTzjUNlX7 RxfO0oRtLq DQVdILTvF6EwnRWwHBokU1 52SIezRfJ0HXDvahEbB3Ay EYOqcYadJzR8c5R5Bb1WSU VmSW19NCG2 bHQ9EL83HP13R0TeMobtpZ FibGU+PHRhYmxlIHdpZHRo XBmxSLUhHnNuoXebVE9aGz 9yZGVyLWNv zOrjsNIjHzLpn2tvPFKfAM tkNL5vcVdoG6HxzYX8UJOj o3v8Xg95E05qQ7GrjNT+PG EdjRZ3bTB0 cG7oWpUtAaH4WWauB313Pa AuwUYkObqof5sgi7abgCc0 HwO1KNDytlAqxMlyWXS3x4 VvMt36M98d IHdpZHRoPSIxNSUiIHZhbG yaln5edP1rOs9+PGNvbCB3 hIU9eQ3sPjMrMwX2MSssN0 49InRvcCIv Sloqw8msd0sybPi9XySyWT ZoahKtaEuhQQY6m2OhTf31 V4RgzMkzl3AfFvo0ff95fU Iwf8B9aXD6 P8XaRRBxebjqiXUqyXnyRW 6gOSErgxuqLVPzfX8lWHLa B9s0AaXbJmX6QDstQ6Csix Z2FGGyzJOc YLegXTF7A90yh2F7RXCbWH RjWGH9sDZ0pY6xqVlqusvs bGVmdDsgdmVydGljYWwtYW nbM202CPDz bPlsMAMcaE3oAOByxLDeaX ugBU4jROIomopnGnUFWWDu OS0VT2iMWUzQAEv6R6BnRo y7YVXdaLry MU2brGRrIReeDh2caEhpmD cuOS7bDUJvkbyiMXAmpP0q ILZakLOgzFcoYO4tPBMhel zfv461DtRi UER2YHVrmGCyB5DrbF8nWw BrAPUfXZUfR5UcnWXxYWgq E873YTjwTxR4XVTimmAoU5 FsLWFsaWdu SeI1e4N1Sy4jZl9oEM1yZP igJZ22GF68gUKnv0V3cRW6 A6BeWAVdqvucsegnqQF7MY CkXMSgeC01 gQIdLTeuXk0cb8U5b001TA NbGQKgeQ13Yf3kfJjtTIJw fOKRnO5nidviq9srevumSn AwMDAwMDt0 VJz9SQVnwThiYmUmLOW2La N5GAM7wKKceI1ecIangkmw sN5kMfo+GIKjNQUxwbP1C9 MiKnv8BYXf tChjLT6lwTZuOKjnXp5xlC itsDufPI6zGXQmmjdsLUFc kW3xRWUprFXaeTufJG1tGK Fgebfov496 FrDhSJK3YTMckUMrD0GwmE 6zRiRrUGCcSVRwI5DhfMWn PCjwL273BSzfTbL8IPCouh FlL1QxONDj iVzqEfU0u4P3Un8AYJ2vzF A3E1RqDaa4DOAygLkhWJ6t iPOfVSfqTy3wfTwtvJmoQF 4wNTBpbjtw UCCmgD5sBQBtlOBkrOadRD 3jLWPfitrvv808BxRsYCI3 QUZxyWKwR5RxmV5aYpQxGK KrPJKrF8Mu aGFnPCzwX563ONmlJlL1HW QxnjOmM6PoIAWejJwqNvL7 d0B7Nb1PaOBhNSYsZZ74XI 89TY62T4Yb PjwvdGFibGU+PHRhYmxlIH dpZHRoPScxMDAlJyBzdHls BL8tBm2nGCEgEXOfwVphoK IpDfZem0ng CYZkDHqvEH2avPzpX8FdnE E8DEXev4b0Ap56B18uA5Uq dXA+USGmnSG5wFA1bA6uQc PwHwH4XGsr B228LvEnjXKaMmnhl5wpo6 kozZp4NzCaTONnzhGexGen NQB6n9QuYm56H33pPLlmBS RoPSIyMCUi JIKmhGnzzk8heC0kZh5+PG ZjuEI5bKA0dH6jCoFpGcZ6 CIzbW184XeTbzXYoUsgdK7 3jV1SwpNJ+ NDXsHut8SHNfiMxqSF3srI SbZLqvQr1kYIR6PnMhBjQm IWywU3YnPWMnfiqlhdzbxG K3BBHnGYNy zK52Ms9veFjiDg4sNXBhPQ N2JVMplDVzX6RjqZ6eJkIz NCAvZGKeU9CplMZfGMlaD9 32QIsmElF1 TBHutbGuK9HvOVVsuSplEz Q4o2K1Jf3TxNakdZTbGP3w XmZnLZg8Z5SxXhx7FRLdrP hiTW4pcHLr ZSfvBj3itCuigObjQA9zEM Oeplhli545PlNdh9gsNBJm zVGuKRpwJBC9Q17bl7V2JN MwMDAwMDA7 uIR2tG9qwDngtksifGXkpI nsczAjuXpwMWefZHxzC617 OGEghOfxWvGDCii5E1TyXr s5YJCdkQfz PI0yeDOlIKtvVw9jmSllnF syAK8lZNDkzxlya555WhSd o0zcFYSwiKGfSMruTBF1V1 0sk9Y9ESQe WWGwGIU6qCD5vO2xiBtdzt ogbGVmdDsgdmVydGljYWwt HPvaX444GRRaeDtiHh9SJb j1B5BnLmo6 RZYjuOwyNO8fvTPmVBbyJv 3cjXaiqVtwNH1nTDHttgwc s679XnVnr4uqHXBjvNWdEA voBAD8S19f v2N0IEGqIXAsSUM7tVP4lU 1hbGlnbjogbGVmdDsgdmVy dMgvXDcrPWvoP883OYUcqE snPlBheWVy OjwvdGQ+BK35fp36H9QsNh pxDvs7JPNoDYT1qZE3xK3g CUNlFFfws1P9pHV1W6Iauu Waqg4cs7lq YXBz (more content not included)... Normal [facility] Formson 03-23-2021 Forms [id number]#1.00 CD:127 Normal [facility] COVID-19 (MC)on 03-20-2021 SARS-CoV-2 (COVID-19) RNA LAUREN+probe Ql (Unsp spec) Detected Abnormal Not Detected [facility] Comment on above: Result Comment: Resu lts Called To Milli Honeycutt/Constantin Stroud By ALL And Read Back For Confirmation On 03/20/2021 13:59:13 EDT Faxed to [facility] 03/20/2021 13:59:16 EDT. This test result should be correlated with clinical presentations and medical history by a healthcare provider to determine its clinical significance. This assay was performed by a reverse transcriptase real-time polymerase chain reaction (rt PCR) method on the [employer] system. This test has been authorized only [...] or revoked sooner. Performed By: #### 2 [id number] ####[address] [place] [address] SARS-CoV-2 (COVID-19) RNA LAUREN+probe Ql (Unsp spec) Pass Normal Pass [facility] Comment on above: Performed By: #### 2 [id number] ####[address] [address] Specimen source Nom (Unsp spec) Nasal Normal [facility] Comment on above: Performed By: #### 2 [id number] ####[address] [place] [address] Patient Correspondenceon Patient Correspondence [id number] CD:127 Normal [facility] Provider Letteron 03-20-2021 Provider Letter March 20, 2021 KATHY MARTINEZ [address] [place] [id number] KATHY MARTINEZ 1970 To Whom It May Concern, Please excuse above patient from work. Date of Illness: From: 03/20/2021 To: 04/20/2021 May Return to Work On: 04/20/2021 Restrictions: pt fully restricted until 04/20/21 Sincerely, Dr. Sumit Killian Normal [facility] BUNon 03-19-2021 Urea nitrogen [Mass/Vol] 23 mg/dL High - [facility] Comment on above: Performed By: #### 2 572668, 6887333, 84044079, 6116224, 2561058, 7742881, 4887747 ####[facility] [address] [place] [address] CBC w/Indiceson 03-19-2021 Erythrocyte distribution width (RBC) [Ratio] 12.8 % Normal 10.9-14.2 [facility] Comment on above: Performed By: #### 2 631196, 3113737, 83429994, 1657920, 0474822, 6465921, 6823511 ####[facility] [address] [place] [address] Hematocrit (Bld) [Volume fraction] 36.4 % Normal 34.0-46.0 [facility] Comment on above: Performed By: #### 2 578775, 8223405, 73652999, 9246676, 9658874, 3441584, 4121108 ####[facility] [address] [place] [address] Hemoglobin (Bld) [Mass/Vol] 12.4 g/dL Normal 12.0-16.0 [facility] Comment on above: Performed By: #### 2 623767, 3303746, 66218476, 9514880, 2368135, 6830167, 5831464 ####[facility] [address] [place] [address] MCH (RBC) [Entitic mass] 30.0 pg Normal 27.0-34.0 [facility] Comment on above: Performed By: #### 2 358066, 2638288, 17124086, 1882086, 6937369, 1533710, 9139673 ####[facility] [address] [place] [address] MCHC (RBC) [Mass/Vol] 33.9 g/dL Normal 31.4-36.0 [facility] Comment on above: Performed By: #### 2 057393, 2712332, 46181422, 7027643, 0834711, 0987830, 7412688 ####[facility] [address] [place] [address] MCV (RBC) [Entitic vol] 88.5 fL Normal 80.0-100.0 [facility] Comment on above: Performed By: #### 2 432366, 6655140, 57519577, 2833701, 8990348, 7364450, 0232872 ####[facility] [address] [place] [address] Platelet mean volume (Bld) [Entitic vol] 8.9 fL Normal 6.4-10.8 [facility] Comment on above: Performed By: #### 2 903033, 0494978, 05897335, 3172281, 6852287, 6385060, 6728536 ####[facility] [address] [place] [address] Platelets (Bld) [#/Vol] 213.0 E9/L Normal 150.0-500.0 [facility] Comment on above: Performed By: #### 2 372689, 1872172, 19378038, 4872735, 7560282, 6752338, 2343354 ####[address] [address] RBC (Bld) [#/Vol] 4.1 E12/L Low 4.3-5.9 [facility] Comment on above: Performed By: #### 2 958036, 4364183, 32691776, 1876085, 6101102, 3239960, 1507106 ####[address] [address] WBC corrected for nucl RBC Auto (Bld) [#/Vol] 2.5 E9/L Low 4.0-11.0 [facility] Comment on above: Performed By: #### 2 606973, 7279489, 29017314, 5309171, 1419011, 5603766, 8682013 ####[facility] [address] [place] [address] Consent for Treatmenton 03-01 Consent for Treatment [id number] 0CD:127 Normal [facility] Creatinineon 03-19-2021 Creatinine [Mass/Vol] 0.5 mg/dL Normal 0.5-1.3 [facility] Comment on above: Performed By: #### 2 310884, 2157568, 78737563, 7984768, 8190114, 0636645, 8935236 ####[facility] [address] [place] [address] Glucoseon 03-19-2021 Glucose [Mass/Vol] 91 mg/dL Normal 55-199 [facility] Comment on above: Performed By: #### 2 899753, 9253001, 72254859, 9801574, 5741014, 1401120, 9370931 ####[facility] [address] [place] [address] Hep Func Panelon 03-19-2021 Bilirubin.indirect [Mass or moles/Vol] UTC Abnormal 0.1-0.9 [facility] Comment on above: Result Comment: Resu lt verified by Discern Rule. Performed result UTC (Unable to Calculate) was sent as an Alpha code due the inability to calculate a valid numeric value. Performed By: #### 2 371240, 3641114, 00301907, 8538479, 5616556, 2284552, 9756876 ####[facility] [address] [place] [address] Albumin [Mass/Vol] 4.0 g/dL Normal 3.3-5.0 [facility] Comment on above: Performed By: #### 2 397557, 0160392, 26629501, 1478302, 0472121, 0005665, 3543715 ####[facility] [address] [place] [address] Albumin/Globulin (S) [Mass conc ratio] 1.5 Normal 1.1-2.2 [facility] Comment on above: Performed By: #### 2 375233, 5136228, 14436118, 7675565, 4289994, 8084012, 2339343 ####[facility] [address] [place] [address] ALP [Catalytic activity/Vol] 40 Int._Unit/L Normal 21-98 [facility] Comment on above: Performed By: #### 2 341599, 8191911, 21036056, 9700179, 1729353, 4882874, 7447053 ####[facility] [address] [place] [address] ALT No additional P-5'-P [Catalytic activity/Vol] 29 Int._Unit/L Normal 6-46 [facility] Comment on above: Performed By: #### 2 437659, 9938729, 19431846, 8932310, 4289292, 8096447, 1386411 ####[facility] [address] [place] [address] AST [Catalytic activity/Vol] 24 Int._Unit/L Normal 5-43 [facility] Comment on above: Performed By: #### 2 449956, 5214580, 56617945, 8714958, 6266830, 8739609, 6002861 ####[address] [place] [address] Bilirubin [Mass/Vol] 0.3 mg/dL Normal 0.0-1.1 [facility] Comment on above: Performed By: #### 2 654043, 4118473, 84084488, 7604584, 7450654, 4816280, 3064822 ####[facility] [address] [place] [address] Bilirubin.direct [Mass/Vol] mg/dL Normal 0.1-0.4 [facility] Comment on above: Performed By: #### 2 784274, 3412634, 79403473, 5947732, 9240990, 7125916, 5371349 ####[facility] [address] [place] [address] Globulin (S) [Mass/Vol] 2.7 g/dL Normal 1.4-4.0 [facility] Comment on above: Performed By: #### 2 660113, 5726135, 62289761, 5499497, 3590233, 4196688, 8040336 ####[facility] [address] [place] [address] Protein [Mass/Vol] 6.7 g/dL Normal 6.0-7.8 [facility] Comment on above: Performed By: #### 2 822438, 5539172, 06979792, 5138496, 8438856, 7611617, 5298088 ####[facility] [address] [place] [address] Lyteson 03-19-2021 Anion gap [Moles/Vol] 14 mmol/L Normal 6-16 [facility] Comment on above: Performed By: #### 2 157509, 7948641, 17598638, 3970209, 5800873, 4547761, 4870262 ####[facility] [address] [place] [address] Chloride [Moles/Vol] 102 mmol/L Normal 101-111 [facility] Comment on above: Performed By: #### 2 890973, 1765846, 73541624, 8198272, 9728082, 4797678, 0327017 ####[facility] [address] [place] [address] CO2 [Moles/Vol] 25 mmol/L Normal 21-31 [facility] Comment on above: Performed By: #### 2 127355, 0642993, 66188247, 4110854, 7762525, 6142462, 6318541 ####[facility] [address] [place] [address] Potassium [Moles/Vol] 4.0 mmol/L Normal 3.5-5.3 [facility] Comment on above: Performed By: #### 2 143424, 3727651, 05434791, 6860819, 3143770, 3043133, 2825687 ####[facility] [address] [place] [address] Sodium [Moles/Vol] 137 mmol/L Normal 135-145 [facility] Comment on above: Performed By: #### 2 783294, 3619051, 43485289, 5733098, 8886562, 0125315, 0933277 ####[facility] [address] [place] [address] XR Chest 2 Viewson XR Chest 2 [...] MD Transcribed by: REMINGTON Technologist: LISA Daniel [facility] eGFRon 03-19-2021 GFR/1.73 sq M.predicted among blacks MDRD (S/P/Bld) [Vol rate/Area] mL/min/{1.73_m2} Normal >=59 [facility] Comment on above: Order Comment: Order added by Discern Expert. Result Comment: eGFR is race adjusted. AA=. Performed By: #### 2 314825, 7208531, 54909847, 5644707, 4162255, 8083531, 9170410 ####[facility] [address] [place] [address] GFR/1.73 sq M.predicted among non-blacks MDRD (S/P/Bld) [Vol rate/Area] mL/min/{1.73_m2} Normal >=59 [facility] Comment on above: Order Comment: Order added by Discern Expert. Result Comment: Lead Generation Representative barbie kidney disease could be indicated at eGFR's of less than 60 mL/min/1.73m2. Kidney failure is indicated at less than 15 mL/min/1.73m2. Performed By: #### 2 996359, 2025115, 20342772, 4603662, 1530641, 5838954, 8388000 ####[facility] [address] [place] [address] COVID-19 ([facility] 03-18-2021 Employed in Healthcare NO Normal [facility] Comment on above: Performed By: #### 2 [id number] ####[facility] [address] [place] [address] First Test Unknown Normal [facility] Comment on above: Performed By: #### 2 [id number] ####[address] [address] Hospitalized? NO Normal [facility] Comment on above: Performed By: #### 2 [id number] ####[facility] [address] [place] [address] ICU NO [facility] Comment on above: Performed By: #### 2 [id number] ####[facility] [address] [place] [address] ? NO Normal [facility] Comment on above: Performed By: #### 2 [id number] ####[facility] [address] [place] [address] Resides in a Congregate Care Setting NO Normal [facility] Comment on above: Performed By: #### 2 [id number] ####[facility] [address] [place] [address] Symptomatic as defined by CDC Unknown Normal [facility] Comment on above: Performed By: #### 2 [id number] ####[facility] [address] [place] [address] Consultation Noteon 03-18-20 21 Consultation Note [id number] CD:127 Normal [facility] Ambulatory Clinical Summaryo n 03-17-2021 Ambulatory Clinical Summary {[id number] Normal [facility] Consent for Procedure/Surger yon 03-17-2021 Consent for Procedure/Surgery [id number]. 00CD:127 Normal [facility] Formson 03-17-2021 Forms [id number] 0CD:127 Normal [facility] RAD - MISCon 03-17-2021 RAD - MISC [id number] 0CD:127 Normal [facility] RAD - Ultrasound Reporton RAD - Ultrasound Report [id number]. 00CD:127 Normal [facility] MRI C-SPINE WO CONon 019 MRI C-SPINE WO CON [address] [place] [address] Patient: KATHY MARTINEZ Exam Date: 08/28/2018 : 1970 Gender:F Ordering : MR[facility] JACQUELYN LECHUGA [facility] Admission #: [id number] Family : Order #: [id number] CLICK HERE TO VIEW EXAM RADIOLOGY REPORT [...] Guajardo M.D. on 08/28/2018 at 13:54 Normal [facility] Vital Signs Date Time Vital Sign Value Performing Clinician Facility 07-02-2024 08:19-0500 Body height 170.2 cm [employer] Phone: [facility] [place] 07-02-2024 08:19-0500 Body mass index (BMI) [Ratio] 36.65 kg/m2 [employer] Phone: [facility] 07-02-2024 08:19-0500 Body weight 106.14 kg [employer] Phone: [facility] 07-02-2024 08:19-0500 Diastolic blood pressure 78 mm[Hg] [employer] Phone: [facility] 07-02-2024 08:19-0500 Heart rate 67 /min [employer] Phone: [facility] 07-02-2024 08:19-0500 Respiratory rate 12 /min [employer] Phone: [facility] 07-02-2024 08:19-0500 SaO2% (BldA) [Mass fraction] 99 % [employer] Phone: [facility] 07-02-2024 08:19-0500 Systolic blood pressure 137 mm[Hg] Luca Mace DO Work Phone: [facility] 05-15-2024 19:15-0400 Body height 170.2 cm Shanthi Valle CUSTOMER ASSOCIATE Work Phone: [facility] 05-15-2024 19:15-0400 Body mass index (BMI) [Ratio] 35.84 kg/m2 Shanthi Valle CUSTOMER ASSOCIATE Work Phone: [facility] 05-15-2024 19:15-0400 Body weight 103.78 kg Shanthi Valle CUSTOMER ASSOCIATE Work Phone: [facility] 05-15-2024 19:15-0400 Diastolic blood pressure 72 mm[Hg] Shanthi Valle CUSTOMER ASSOCIATE Work Phone: [facility] 05-15-2024 19:15-0400 Heart rate 84 /min Shanthi Valle CUSTOMER ASSOCIATE Work Phone: [facility] 05-15-2024 19:15-0400 SaO2% (BldA) [Mass fraction] 97 % Shanthi Valle CUSTOMER ASSOCIATE Work Phone: [facility] 05-15-2024 19:15-0400 Systolic blood pressure 122 mm[Hg] Shanthi Valle CUSTOMER ASSOCIATE Work Phone: [facility] 11-14-2021 14:50-0400 Body height 168.91 cm Sherice Beasley Other [facility] Other 11-14-2021 14:50-0400 Body mass index (BMI) [Ratio] 28.61 kg/m2 Sherice Beasley Other [facility] Other 11-14-2021 14:50-0400 Body temperature 97.4 [degF] Sherice Beasley Other [facility] Other 11-14-2021 14:50-0400 Body weight 81.65 kg Sherice Beasley Other [facility] Other 11-14-2021 14:50-0400 SaO2% (BldA) [Mass fraction] 98 % Sherice Beasley Other [facility] Other Encounters Encounter Date Encounter Type Care [...] minutes Luca Nakita DO Work Phone: [facility] Comment on above: Screening for malign [...] PT Eval. She was treated 1x in [place] but had noted she'd like to transfer to [place]. Had to lm requesting call back.); Call Back (She contacted and we scheduled her PT Eval 07/09 w/ Tomy Hoffman PT.) Start: 06-17-2024 End: 06-18-2024 Refill Isaias Castellon CUSTOMER ASSOCIATE Work Phone: [facility] Comment on above: Gastroesophageal ref lux disease without esophagitis Start: 06-14-2024 End: 06-14-2024 Orders Only Shanthi Faithmehdi CUSTOMER ASSOCIATE Work Phone: [facility] Comment on above: Acute pain of left k nee Start: 05-31-2024 End: 05-31-2024 Orders Only Shanthi Faithmehdi CUSTOMER ASSOCIATE Work Phone: [facility] Comment on [...] 05-17-2024 End: 05-17-2024 Orders Only Shanthi Faithmehdi CUSTOMER ASSOCIATE Work Phone: [facility] Comment on above: Obesity (BMI 30.0-34 .9) (Primary Dx) Obesity (BMI 30.0-34 .9) Start: 05-16-2024 End: 05-16-2024 Telephone encounter Naila Villarreal MD Work Phone: [facility] Start: 05-15-2024 End: 05-15-2024 Office outpatient visit 25 minutes Shanthi Tori CUSTOMER ASSOCIATE Work Phone: [facility] Comment on above: Acute pain of left k nee (Primary Dx); Obesity (BMI 30-39.9) Start: 05-15-2024 End: 05-15-2024 ambulatory SHANTHI VALLE Not Available Start: 05-15-2024 End: 05-15-2024 Bamboo flowsheet Shanthi Valle CUSTOMER ASSOCIATE Work Phone: [facility] Start: 05-15-2024 End: 05-15-2024 Bamboo flowsheet Shanthi Valle CUSTOMER ASSOCIATE Work Phone: [facility] Start: 02-17-2024 End: 02-17-2024 ambulatory NAILA MEYER [facility] Start: 12-05-2023 End: 12-05-2023 ambulatory LUCA MACE Not Available Start: 12-02-2023 End: 12-02-2023 [facility] Start: 11-11-2023 End: 11-11-2023 [facility] Start: 10-14-2023 End: 10-15-2023 [facility] Start: 10-07-2022 End: 10-07-2022 Patient encounter procedure Naila Meyer MD Work Phone: [facility] Start: 10-07-2022 End: 10-07-2022 Subsequent hospital visit by physician Naila Meyer MD Work Phone: [facility] Comment on above: Women's annual routi ne gynecological examination Start: 11-14-2021 End: 11-14-2021 ambulatory Sherice Beasley Other [facility] Other Start: 11-14-2021 Office outpatient vi sit 15 minutes Sherice Beasley [facility] Start: 08-09-2021 End: 08-09-2021 ambulatory Mayra Lopez Other [facility] Other Start: 08-09-2021 Telephone encounter Mayra Lopez [facility] Start: 08-28-2018 End: 08-29-2018 Patient encounter procedure JACQUELYN LECHUGA Facility:[facility]1 Procedures Date Procedure Procedure Detail Performing Clinician Start: 12-02-2023 Mammography Shanthi rodas CUSTOMER ASSOCIATE Work Phone: Start: 11-11-2023 H/O: hysterectomy Hx of hysterectomy Shanthi Valle CUSTOMER ASSOCIATE Work Phone: Start: 11-10-2018 Colonoscopy Naila Santiago MD Work Phone: H/O: hysterectomy Mayra Gint y Other Plan of Treatment Date Care Activity Detail Author Start: 11-10-2028 Screening for malign ant neoplasm of colon [facility] Start: 03-17-2026 Lipid panel Lipids [facility] Start: 12-01-2024 Screening for malign ant neoplasm of breast Mammogram [facility] Start: 08-23-2024 End: 08-23-2024 ambulatory 08/23/2024 6:00 PM EST Treatment [facility] [address] [facility] [address] [place] [address] Henrietta Ding, FUR TRIMMER [facility] Start: 08-20-2024 End: 08-20-2024 ambulatory 08/20/2024 8:00 AM EST Treatment [facility] [address] [facility] [address] [place] [address] Oswaldo Storey, FUR TRIMMER [facility] Start: 08-15-2024 End: 08-15-2024 ambulatory 08/15/2024 5:00 PM EST Treatment [facility] [address] [facility] [address] [place] [address] Roger Vizcarra, FUR TRIMMER [facility] Start: 08-13-2024 End: 08-13-2024 ambulatory 08/13/2024 8:30 AM EST Treatment [facility] [address] [facility] [address] [place] [address] Mayra Hoffman, PT [facility] Start: 08-09-2024 End: 08-09-2024 ambulatory 08/09/2024 6:00 PM EST Treatment [facility] [address] [facility] [address] [place] [address] Henrietta Ding, FUR TRIMMER [facility] Start: 08-06-2024 End: 08-06-2024 ambulatory 08/06/2024 8:30 AM EST Treatment [facility] [address] [facility] [address] [place] [address] Mayra Hoffman, PT [facility] Start: 08-02-2024 End: 08-02-2024 ambulatory 08/02/2024 5:30 PM EST Treatment [facility] [address] [facility] [address] [place] [address] Henrietta Ding, FUR TRIMMER [facility] Start: 07-30-2024 End: 07-30-2024 ambulatory 07/30/2024 8:30 AM EST Treatment [facility] [address] [facility] [address] [place] [address] Oswaldo Storey, FUR TRIMMER [facility] Start: 07-26-2024 End: 07-26-2024 ambulatory 07/26/2024 8:00 AM EST Treatment [facility] [address] [facility] [address] [place] [address] Mayra Hoffman, PT [facility] Start: 07-18-2024 End: 07-18-2024 ambulatory 07/18/2024 5:30 PM EST Treatment [facility] [address] [facility] [address] [place] [address] Roger Vizcarra, FUR TRIMMER [facility] Start: 07-16-2024 End: 07-16-2024 ambulatory 07/16/2024 7:00 AM EST Treatment [facility] [address] [facility] [address] [place] [address] Oswaldo Storey, FUR TRIMMER [facility] Start: 07-09-2024 End: 07-09-2024 [...] [address] [place] [address] Luca Mace DO [address] [place] [address] Arrived [facility] Comment on above: Arrived Start: 06-11-2024 End: 06-11-2024 ambulatory 06/11/2024 8:00 AM EST Treatment [facility] [address] [place] [phone] Summer Oconnell, RIVERA [address] [place] [address] [facility] Start: 06-07-2024 End: 06-07-2024 ambulatory 06/07/2024 7:00 AM EST Treatment [facility] [address] [place] [phone] Sonia Gillespie PTA [facility] Start: 05-24-2024 End: 05-24-2024 ambulatory 05/24/2024 5:30 PM EDT Evaluation [facility] [address] [place] [phone] Luca Sharma, PT [address] [place] [address] [facility] Start: 05-15-2024 End: 05-15-2024 Patient encounter procedure 05/15/2024 7:30 PM EDT Office Visit [facility] [address] [place] [address] Shanthi Valle, VELMA [address] [place] [address] Arrived [facility] Comment on above: Arrived Start: 04-01-2024 Influenza vaccination Influenza Vacc ine (#1) [facility] Start: 03-01-2022 Influenza vaccination Flu vaccine (# [facility]) [facility] Start: 06-17-2021 Hemoglobin A1c measurement A1C test (Diabetic or Prediabetic) [facility] Start: 2020 Screening for malign ant neoplasm of breast Breast cancer screen [facility] Start: 2020 Shingles vaccine (1 of 2) Carson gles vaccine (1 of 2) [facility] Start: 10-29-2015 Screening for malign ant neoplasm of colon [facility] Start: 1989 DTaP/Tdap/Td vaccine (1 - Tdap) DTaP/Tdap/Td vaccine (1 - Tdap) [facility] Start: 1988 Hepatitis C screening Hepatitis C sc reen [facility] Start: 1985 HIV screening HIV screen [facility] Start: 1982 Depression Screen Depression Screen [facility] Start: 04-30-1971 COVID-19 Vaccine (#1) COVID-19 Vacci ne (#1) [facility] End: 10-07-2022 Cytopathology procedure, preparation of smear, genital source [facility] Routine Women's annual routine gynecological examination 1 Occurrences starting 10/07/2022 until 10/07/2022 [facility] Work Phone: Comment on above: 1 Occurrences starti ng 10/07/2022 until 10/07/2022 Immunizations Immunization Date Immunization Notes Care Provider Aaliyah sky NEGATED: Highlighted row has not occurred! 9 pneumococcal polysaccharide vaccine, 23 valent Patient Objection Mayra Lopez Other [employer] Other NEGATED: Highlighted row has not occurred! 9 influenza, high dose seasonal, preservative-free Patient Objection Mayra Thelmanty Other [employer] Other NEGATED: Highlighted row has not occurred! 9 influenza, high dose seasonal, preservative-free Patient Objection Mayra Ginty Other [facility] Other NEGATED: Highlighted row has not occurred! 8 influenza, high dose seasonal, preservative-free Patient Objection Mayra Thelmanty Other [facility] Other NEGATED: Highlighted row has not occurred! 8 pneumococcal polysaccharide vaccine, 23 valent Patient Objection Mayra Beckyy Other [facility] Other Payers Date Payer Category Payer Unknown [id number] [address] [facility] [id number] 2024 Unknown [id number] 2023 Private Health Insurance [facility] [id number] 2023 Unknown [id number] 2013 Unknown [id number] [id number] 1970 Unknown [id number] 2.16.840.1.312721.3.579. 2.593 1970 Unknown [id number] 2.16.840.1.274602.3.579. 2.1286 1970 Unknown [id number] 2.16.840.1.742727.3.579. 2.173 1970 Unknown [id number] 2.16.840.1.188935.3.579. 2.1259 1970 Unknown [id number] 2.16.840.1.284551.3.579. 2.1259 1970 Unknown [id number] 2.16.840.1.208983.3.579. 2.1259 1970 Unknown [id number] 2.16.840.1.943832.3.579. 2.9 1970 Unknown [id number] 2.16.840.1.877935.3.579. 2.9 1970 Unknown [id number] 2.16.840.1.173740.3.579. 2.1259 1970 Unknown [id number] 2.16.840.1.907838.3.579. 2.1259 1959 Unknown [id number] Private Health Insurance [id number] Social History Date Type Detail Facility Unknown if ever smoked [facility] Other Start: 11-11-2023 End: 05-15-2024 Sex Assigned At [facility] Start: 11-16-2018 End: 11-11-2023 Tobacco smoking status [facility] Never smoked tobacco [employer] Start: 11-16-2018 End: 11-11-2023 Tobacco use and exposure Smokeless tobacco non-user [employer] Phone: Start: 10-07-2022 Alcohol intake Current drinker of alcohol (finding) [employer] Phone: Start: 06-19-2012 Alcohol Comment rarely [employer] Phone: Start: 1970 Sex Assigned At Not on file MITALI GRANT [employer] Work Phone: Start: 12-05-2023 End: 07-02-2024 Alcoholic beverage intake Ex-drinker (finding) [facility] Start: 11-11-2023 End: 05-15-2024 History of Social function [facility] How often do you nee d to have someone help you when you read instructions, pamphlets, or other written material from your doctor or pharmacy [SILS] Never [facility] Do you belong to any clubs or organizations such as islam groups, unions, fraternal or athletic groups, or [...] Presen t illness Narrative General Surgery H&P Ktahy Wu 1970 Kathy Wu is a 53 [...] Tony Mace DO documented in this encounter [facility] 06-20-2024 Telephone encount er Note Offer 06/25 @ either 8:30 or 9 w/ Jorge Chan, PTWander [facility] 06-20-2024 Miscellaneous Notes Formattin g of this note might be different from the original. Offer 06/25 @ either 8:30 or 9 w/ Jorge Chan PT. documented in this encounter [facility] 05-24-2024 History of Presen t illness [...] sign below. Date: documented in this encounter [facility] 05-16-2024 Telephone encount er Note Qsymia Wegovy and Zepbound are what [employer] will cover for weight loss med . Prior Auth - # [id number] [facility] 05-16-2024 Miscellaneous Notes Formattin g of this note might be different from the original. Qsymia Wegovy and Zepbound are what [employer] will cover for weight loss med . Prior Auth - # [id number] documented in this encounter [facility] 05-15-2024 History of Presen t illness [...] she finds out documented in this encounter [facility] 11-14-2021 Evaluation note Encounter Date Diagnosis [...] of thoracic back region (ICD-10 - S29.012A) [facility] Other 09-01-2021 NoteHistory and Physical Update H&P [...] Mother. Primary malignant neoplasm of colon: Mother.[facility] 03-25-2021 [id number]:127[facility]08-20-2021 NoteHPI Staff pt presents for [...] or their guardian verbally consented to allow [employer] to record this visit. Kathy Martinez is [...] RUIZ and edited by Henrietta Linder, Quality Tailoring Teacher. Reviewed and entered into [employer] by Olamide Garcia. Follow-up No qualifying data available Problem List/Past Medical History Ongoing Symptomatic cholelithiasis Historical No qualifying data Medications fluoxetine, Oral phentermine 37.5 mg oral capsule, 37.5 mg= 1 cap(s), Oral, Daily Allergies penicillins (Rash) (more content not included)...[facility] Comment on above:Result Comment: Electronically Signed By: Sumit Killian MD\.br\Date and Time Signed: 03/20/21 08:43 EDT\.br\Electronically Co-Signed By: Olamide Garcia\.br\Date and Time Co-Signed: 03/17/21 15:27 EDTEvaluation noteNo [employer] Other Evaluation note* Diagnosis Women's annual routine gynecological examination documented in this encounter [employer] Phone: evaluation note* Diagnosis Acute pain of [...] Surgical History cholecystectomy Hospitalization History see above [facility] Other Reason for visit Narrative* Rehabilitation - Outpatient (Routine) - Authorized Specialty Diagnoses / Procedures Referred By Mike zamorano Referred To Contact Physical Therapy Diagnoses Acute pain of left knee Procedures [place] OFFICE/OUTPATIENT [facility] 60 MINUTES Shanthi Valle NP [address] [place] [address] Phone: tel: fax: Luca Sharma PT [address] [place] [address] Phone: tel: fax: Referral ID Status Reason Start Date Expiration Date Visits Requested Visits Authorized [id number] Authorized Specialty Services Required 4 11/11/2024 20 [facility] Rehabilitation - Outpatient (Routine) - Authorized Specialty Diagnoses / Procedures Referred By Mike zamorano Referred To Contact Physical Therapy Diagnoses Acute pain of left knee Procedures [place] OFFICE/OUTPATIENT [facility] Shanthi Valle NP [address] [place] [address] Phone: tel: fax: Mayra Hoffman, PT Referral ID Status Reason Start Date Expiration Date Visits Requested Visits Authorized [id number] Authorized Specialty Services Required 05/11/2025 19 19 [...] DATE CREATED AUTHOR AUTHOR'S ORGANIZ ATION 10/05/2021 [facility] DATE CREATED AUTHOR AUTHOR'S ORGANIZ ATION 12/24/2021 [facility] dical Specialist DATE CREATED AUTHOR AUTHOR'S ORGANIZ ATION 10/19/[address] [facility] DATE CREATED AUTHOR AUTHOR'S ORGANIZ ATION 02/24/2024 [facility] DATE CREATED AUTHOR AUTHOR'S ORGANIZ ATION 07/11/2024 [facility] dical Specialists EPIC REASON FOR VISIT (unrecogniz [...] PT Eval. She was treated 1x in [place] but had noted she'd like to transfer to [place]. Had to lm requesting call back. Call Back 06/21/2024 She contacted an d we scheduled her PT Eval 07/09 w/ Tomy Hoffman PT. Reason Comments Knee Pain STIFF NECK, UPPER BACK DISCOMFORT, NO INJURY Care Teams (unrecognized sec tion and content) [employer] Relationship Specialty Start Date End Date AlyceNaila Villarreal MD [address] [place] [address] PCP - General Family Medicine 11/16/18 [employer] Relationship Specialty Start Date End Date Naila Villarreal MD [address] [place] [address] PCP - General Family Medicine 12/07/22 [employer] Relationship Specialty Start Date End Date Naila Villarreal MD [address] [place] [address] PCP - General Family Medicine 12/07/22 [employer] Relationship Specialty Start Date End Date Naila Villarreal MD [address] [place] [address] PCP - General Family Medicine 12/07/22 [employer] Relationship Specialty Start Date End Date Naila Villarreal MD [address] [place] [address] PCP - General Family Medicine 12/07/22 [employer] Relationship Specialty Start Date End Date Naila Villarreal MD [address] [place] [address] PCP - General Family Medicine 12/07/22 [employer] Relationship Specialty Start Date End Date Naila Villarreal MD [address] [place] [address] PCP - General Family Medicine 12/07/22 [employer] Relationship Specialty Start Date End Date Naila Villarreal MD [address] [place] [address] PCP - General Family Medicine 12/07/22 [employer] Relationship Specialty Start Date End Date Naila Villarreal MD [address] [place] [address] PCP - General Family Medicine 12/07/22 [employer] Relationship Specialty Start Date End Date Naila Villarreal MD [address] [place] [address] PCP - General Family Medicine 12/07/22 [employer] Relationship Specialty Start Date End Date Naila Villarreal MD [address] [place] [address] PCP - General Family Medicine 12/07/22 [employer] Relationship Specialty Start Date End Date Naila Villarreal MD [address] [place] [address] PCP - General Family Medicine 12/07/22 FOR [...] BE BASED ON THE PRIMARY CLINICAL RECORDS. [facility] [employer] [facility]. provides no warranty or guarantee of the accuracy or completeness of information in this document.
[2024-07-17 10:43] VITALS: BP 145/82; PULSE 62; TEMP 36.1; O2SAT 100; BMI 36.6
[2024-07-17] MEDS: LACTATED RINGER'S SOLUTION 1,000 ML 50 ML IV (11:07)
--- NOTE | 2024-07-17 11:44 | W.PM.PROCNOT ---
Date of procedure: 07/17/24 Pre-op diagnosis: screening c-scope Post-op diagnosis: same as pre-op Procedure: Previous colonoscopy: 2019 procedure: screening colonoscopy The patient was given IV conscious sedation.? The patient's SPO2 remained above 90% throughout the procedure. The colonoscope was inserted per rectum and advanced under direct vision to the cecum without difficulty.? The prep was good.? Findings: Terminal ileum os: normal Cecum/Ascending colon: normal Transverse colon: normal Descending/Sigmoid colon: normal Rectum/Anus: examined in normal and retroflexed positions and was normal Withdrawal Time was (minutes): 10 The colon was decompressed and the scope was removed.? The patient tolerated the procedure well. Recommendations/Plan: 1.? Lifestyle and dietary modifications as discussed 2.? F/U in 10 years for repeat c-scope 4.? Discussed with the family Anesthesia: MAC Surgeon: Abdoul Proctor Estimated blood loss (mL): 0 Pathology: none sent Condition: stable Disposition: PACU
[2024-07-17 12:10] VITALS: BP 137/82; PULSE 64; O2SAT 98
[2024-07-17 12:25] VITALS: BP 132/85; PULSE 59; O2SAT 95
--- NOTE | 2024-07-17 12:31 | PC.NURSE ---
Up to bathroom; passing green stool
== END 2024-07-17 12:40 | disposition home or self-care (01) ==
PROVIDERS: PCP Family Medicine; Visit Provider Surgery
PROC: (CPT 812; principal; 2024-07-17 10:55)
DX: Z12.11 Encounter for screening for malignant neoplasm of colon (principal); Z80.0 Family history of malignant neoplasm of digestive organs; Z90.49 Acquired absence of other specified parts of digestive tract; Z98.51 Tubal ligation status; Z98.84 Bariatric surgery status; K21.9 Gastro-esophageal reflux disease without esophagitis; K44.9 Diaphragmatic hernia without obstruction or gangrene
CPT/HCPCS: 45378; J2704

== ENCOUNTER 2024-12-14 19:06 | Emergency (ER) | payer OTHER, SELFPAY ==
[2024-12-14 19:16] VITALS: BP 120/68; PULSE 93; TEMP 36.8; O2SAT 97; BMI 35.2
--- NOTE | 2024-12-14 19:31 | ED.GENADUL1 ---
HPI HPI - General Adult General Chief complaint: Extremity Problem, Nontraumatic Stated complaint: swelling in feet and hands Time Seen by Provider: 12/14/24 19:28 Source: patient Mode of arrival: walk-in Limitations: no limitations History of Present Illness HPI narrative: patient presents complaining of swelling of he ankles for one week. feels her fingers and hands are swollen also but they appear normal. Denies dyspnea or abdominal distension. No new medications Related Data Home Medications ?Medication ?Instructions ?Recorded ?Confirmed Bioidentical topical hormone 12/16/23 replacement therapy cholecalciferol (vitamin D3) 25 25 mcg PO DAILY 12/16/23 07/17/24 mcg (1,000 unit) capsule dimenhydrinate 50 mg tablet 50 mg PO Q8H 12/16/23 07/17/24 (Dramamine) fluticasone propionate 50 1 spray intranasal DAILY PRN 12/16/23 07/17/24 mcg/actuation nasal allergy symptoms spray,suspension multivitamin (Daily Multi-Vitamin 1 tab PO DAILY 12/16/23 07/17/24 tablet) omeprazole 20 mg capsule,delayed 20 mg PO BID 12/16/23 07/17/24 release valacyclovir 1 gram tablet 1,000 mg PO BID PRN cold sores 12/16/23 07/17/24 Allergies Allergy/AdvReac Type Severity Reaction Status Date / Time latex Allergy Rash Verified 12/14/24 19:16 Penicillins Allergy Unknown Verified 12/14/24 19:16 Review of Systems ROS Status of ROS 10 or more systems reviewed and unremarkable except as noted in history and below [facility] Medical History (Updated 12/14/24 @ 20:48 by Anshu Marti MD) Hiatal hernia ?K44.9 - Diaphragmatic hernia without obstruction or gangrene (ICD-10) Anemia ?D64.9 - Anemia, unspecified (ICD-10) COVID-19 ?U07.1 - COVID-19 (ICD-10) Migraine ?G43.909 - Migraine, unspecified, not intractable, without status migrainosus (ICD-10) Vertigo ?R42 - Dizziness and giddiness (ICD-10) Dysfunction of both eustachian tubes ?H69.93 - Unspecified Eustachian tube disorder, bilateral (ICD-10) Hearing loss ?H91.90 - Unspecified hearing loss, unspecified ear (ICD-10) GERD (gastroesophageal reflux disease) ?K21.9 - Gastro-esophageal reflux disease without esophagitis (ICD-10) Hernia ?K46.9 - Unspecified abdominal hernia without obstruction or gangrene (ICD-10) Postoperative nausea and vomiting ?R11.2 - Nausea with vomiting, unspecified (ICD-10) ?Z98.890 - Other specified postprocedural states (ICD-10) Surgical History (Updated 07/17/24 @ 10:39 by Selena Dowd) History of hysterectomy ?Z90.710 - Acquired absence of both cervix and uterus (ICD-10) History of right mastoidectomy ?Z90.89 - Acquired absence of other organs (ICD-10) H/O tubal ligation ?Z98.51 - Tubal ligation status (ICD-10) History of colon surgery ?Z98.890 - Other specified postprocedural states (ICD-10) History of cholecystectomy ?Z90.49 - Acquired absence of other specified parts of digestive tract (ICD-10) H/O section ?Z98.891 - History of uterine scar from previous surgery (ICD-10) History of appendectomy ?Z90.49 - Acquired absence of other specified parts of digestive tract (ICD-10) H/O ovarian cystectomy ?Z98.890 - Other specified postprocedural states (ICD-10) ?Z87.42 - Personal history of other diseases of the female genital tract (ICD-10) History of hernia repair ?Z98.890 - Other specified postprocedural states (ICD-10) ?Z87.19 - Personal history of other diseases of the digestive system (ICD-10) H/O oophorectomy H/O colonoscopy ?Z98.890 - Other specified postprocedural states (ICD-10) H/O wisdom tooth extraction ?K08.409 - Partial loss of teeth, unspecified cause, unspecified class (ICD-10) History of sleeve gastrectomy ?Z90.3 - Acquired absence of stomach [part of] (ICD-10) H/O abdominal surgery ?Z98.890 - Other specified postprocedural states (ICD-10) H/O umbilical hernia repair ?Z98.890 - Other specified postprocedural states (ICD-10) ?Z87.19 - Personal history of other diseases of the digestive system (ICD-10) H/O myringotomy ?Z98.890 - Other specified postprocedural states (ICD-10) History of ear surgery ?Z98.890 - Other specified postprocedural states (ICD-10) Family History Other Family history of cancer Family history of diabetes mellitus Family history of hypertension Family history of myocardial infarction Social History (Updated 07/13/24 @ 08:33 by Renee Brothers) Within the past year, how often did you have a drink containing alcohol: monthly or less Smoking status: Never smoker Non-prescribed substance use: denies use 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 Highest level of school completed/degree received: high school graduate Little interest or pleasure in doing things: not at all Feeling down, depressed, or hopeless: not at all Exam Constitutional Vital Signs, click to edit/add: Last Vital Signs Temp 98.3 F 12/14/24 19:16 Pulse 93 H 12/14/24 19:16 Resp 20 12/14/24 19:35 BP 120/68 12/14/24 19:16 Pulse Ox 97 12/14/24 19:16 O2 Del Method Room Air 12/14/24 19:16 Common normals: no apparent distress, average body habitus, oriented x3, no limitations, healthy appearing, alert and well nourished [facility] Common normals: normocephalic and head/scalp atraumatic Eye Common normals: PERRL and EOMs intact bilaterally Respiratory Common normals: normal respiratory effort, no retractions, no use of accessory muscles and clear to auscultation bilaterally Cardio Common normals: regular rate, regular rhythm, S1 normal heart sound and S2 normal heart sound GI Common normals: Normal to inspection, nondistended, normoactive bowel sounds present, soft to palpation and non-tender Extremity Common normals: normal to inspection Other: trace edema bilat ankles. no obvious swelling of hands or fingers Neuro Common normals: oriented x3, CN's II-XII intact bilaterally, moves all extremities and no focal motor deficits Psych Appearance: grossly normal Course Vital Signs Vital signs: Vital Signs Temperature 98.3 F 12/14/24 19:16 Pulse Rate 93 H 12/14/24 19:16 Respiratory Rate 19 12/14/24 19:16 Blood Pressure 120/68 12/14/24 19:16 Pulse Oximetry 97 12/14/24 19:16 Oxygen Delivery Method Room Air 12/14/24 19:16 Temperature 98.3 F 12/14/24 19:16 Pulse Rate 93 H 12/14/24 19:16 Respiratory Rate 20 12/14/24 19:35 Blood Pressure 120/68 12/14/24 19:16 Pulse Oximetry 97 12/14/24 19:16 Oxygen Delivery Method Room Air 12/14/24 19:16 Medical Decision Making MDM Narrative Medical decision making narrative: presents with complaint of swelling of her ankles for the past week. Feels her hands and fingers are swollen but they appear normal. No symptoms of dyspnea or fatigue. No new medications. Is taking Ozempic, effexor, . labs revealed suppressed TSH. Patient not taking thyroid supplement. Informed her Ozempic may be the cause of her edema. She is advised to follow up with her doctor about the edema and the thyroid. Given prescription for lasix 20mg qd prn # 10 Lab Data Labs: Lab Results 12/14/24 Range/Units 19:47 WBC 4.0 (4.0-11.0) 10^3/uL RBC 4.05 L (4.20-5.40) 10^6/uL Hgb 11.8 L (12.0-16.0) g/dL Hct 34.5 L (36.0-48.0) % MCV 85.2 (81.0-99.0) fL MCH 29.1 (26.7-34.0) pg MCHC 34.2 (29.9-35.2) g/dL RDW 12.1 (11.0-15.0) % Plt Count 275 (150-450) 10^3/uL MPV 10.3 (9.5-13.5) fL Neut % (Auto) 47.9 (43.0-75.0) % Lymph % (Auto) 37.4 (20.5-60.0) % [place] % (Auto) 10.6 (1.7-12.0) % Eos % (Auto) 3.2 (0.9-7.0) % Baso % (Auto) 0.7 (0.2-2.0) % Neut # (Auto) 1.9 (1.4-6.5) 10^3/uL Lymph # (Auto) 1.5 (1.2-3.8) 10^3/uL [place] # (Auto) 0.4 (0.3-0.8) 10^3/uL Eos # (Auto) 0.1 (0.0-0.7) 10^3/uL Baso # (Auto) 0.0 (0.0-0.1) 10^3/uL Abs Immat Gran (auto) 0.01 (0.00-0.03) 10^3/uL Imm/Tot Granulo (auto) 0.2 (0.0-0.5) % Sodium 144 (136-145) mmol/L Potassium 3.7 (3.5-5.1) mmol/L Chloride 107 (98-107) mmol/L Carbon Dioxide 27.0 (21.0-32.0) mmol/L Anion Gap 13.7 BUN 19.0 H (7.0-18.0) mg/dL Creatinine 0.55 (0.55-1.02) mg/dL Est GFR ( Amer) >60 (>=60 mL/min/1.73m^2) Est GFR (Non-Af Amer) >60 (>=60 mL/min/1.73m^2) BUN/Creatinine Ratio 34.5 Glucose 114 H (74-106) mg/dL Calcium 8.7 (8.5-10.1) mg/dL Total Bilirubin 0.2 (0.2-1.0) mg/dL AST 14 L (15-37) U/L ALT 30 (14-59) U/L Alkaline Phosphatase 53 (46-116) U/L Total Protein 6.0 L (6.4-8.2) g/dL Albumin 3.4 (3.4-5.0) g/dL Globulin 2.6 g/dL Albumin/Globulin Ratio 1.3 Discharge Plan Discharge Chief Complaint: Extremity Problem, Nontraumatic Clinical Impression: Pedal edema, Hyperthyroidism Patient Disposition: Home, Self-Care Prescriptions / Home Meds: No Action cholecalciferol (vitamin D3) 25 mcg (1,000 unit) capsule 25 mcg PO DAILY Bioidentical topical hormone replacement therapy fluticasone propionate 50 mcg/actuation spray,suspension 1 spray intranasal DAILY PRN (Reason: allergy symptoms) Rx Instructions: administer into each nostril multivitamin [Daily Multi-Vitamin] Tablet 1 tab PO DAILY omeprazole 20 mg capsule,delayed release(DR/EC) 20 mg PO BID valacyclovir 1 gram tablet 1,000 mg PO BID PRN (Reason: cold sores) dimenhydrinate [Dramamine] 50 mg tablet 50 mg PO Q8H Print Language: Occitan Instructions: Hyperthyroidism (ED), Edema (ED) Additional Instructions: follow up with your doctor next week. Referrals: BERTO VILLARREAL [Physician, Family Practice] - 1 week
--- OUTSIDE RECORDS SUMMARY | 2024-12-14 19:31 | XMS_ITS | CCD ---
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 Name Role Phone JACQUELYN LECHUGA Admitting Unavailable JACQUELYN LECHUGA Attending Unavailable MISC, DOCTOR Primary Care Unavailable MISC, DOCTOR Consulting Unavailable ABBY GUAJARDO Consulting Unavailable Mayra Lopez Unavailable Sherice Beasley Unavailable Naila Meyer MD Primary Care Pr ovider LINDA MCCLURE Referring Unavailable NAILA VILLARREAL Primary Care Unavailable NAILA MEYER Primary Care Un available YUNIOR RESTREPO Referring Unavailable Naila Villarreal MD Primary Care Provider NAILA VILLARREAL Primary Care Unavailable MELINA LEE Attending Unavailable MELINA LEE Admitting Unavailable MELINA LEE Attending Unavailable MELINA LEE Admitting Unavailable NAILA VILLARREAL Primary Care Unavailable Tori HUMAN RESOURCE OFFICER, Shanthi Unavailable TESHA WALTON Attending Unavailable TESHA WALTON Attending Unavailable ISAIAS CASTELLON Attending Unavailab ISAIAS Pride Referring Unavailab LUCA Linda Attending Unavailable ISAIAS CASTELLON Referring Unavailab SHANTHI Jones Attending Unavailable LUCA SHARMA Attending Unavailable SHANTHI VALLE Referring Unavailable LUCA MACE Attending Unavailable MAYRA HOFFMAN Attending Unavailable SHANTHI VALLE Referring Unavailable OSWALDO TAYLOR Attending Unavailable SHANTHI VALLE Referring Unavailable VANDA CHOW Attending Unavailable SHANTHI VALLE Referring Unavailable SHANTHI VALLE Referring Unavailable VANDA CHOW Attending Unavailable HENRIETTA EDMONDSON Attending Unavailable TORI, SHANTHI Referring Unavailable CALISTA YUNG Attending Unavailab CALISTA Carrera Referring Unavailab le CALISTA YUNG Referring Unavailab reggie LEE JR., MELINA Dumont Attending Unavaila CALISTA Swift Referring Unavailab JACQUELYN Gonzalez Attending Unavailable LUCA SHARMA Attending Unavailable JACQUELYN BANKS Referring Unavailable Sherice Pressley APRN Attending Provider Annabel Bailey APRN Primary Care Provider [place], Imwalter Admitting Unavailable Zoe Go Attending Unavailable Annabel Bailey Primary Care Unavailable Annabel Bailey Primary Care Unavailable Sherice Pressley Admitting Unavailable Sherice Pressley Attending Unavailable Annabel Bailey APRN Primary Care Provider Zoe Go MD Attending Provider Allergies Allergy Classification Reported Allergen(s) Allergy Type Date of Onset Reaction(s) Facility (9 sources) Penicillins; Translations: [PENICILLINS] Drug allergy (disorder) 5 Unknown Reaction [facility] Repository Comment on above: Childhood allergy (3 sources) Penicillin; Translations: [penicillin] Drug Allergy [facility] Repository (2 sources) Penicillins Propensity to adverse reactions to drug 2 Anaphylaxis [facility] (20 sources) Latex; Translations: [Latex] Propensity to adverse reactions 4 [facility] (20 sources) Penicillins Drug Intolerance 2 Anaphylaxis, [facility] (8 sources) natural latex rubber; Translations: [Latex, Natural Rubber] Allergy to substance 5 [facility] (1 source) Penicillins Drug allergy (disorder) [address] [place] [address] Repository Medications Current Medications Medication Drug Class(es) Dates Sig (Normalized) Sig (Original) acetaminophen 325 mg oral tablet (2 sources) Start: 11-22-2024 take 1 tablet by mouth every six hours as needed for pain Acetaminophen (Tylenol) 325 mg tablet Active 325 MG PO Every 6 hours as needed for pain November 22, 2024 12:00am acetaminophen 325 mg / HYDROcodone bitartrate 5 mg oral tablet (3 sources) Opioid Agonist Start: 08-19-2024 End: 08-26-2024 take 1 tablet by mouth every six hours for pain HYDROcodone-acetami nophen ([place]) 5-325 MG tablet Indications: Acute medial meniscus tear of left knee, initial encounter Take 1 tablet by mouth every 6 (six) hours if needed for severe pain for up to 3 days 12 tablet 08/23/2024 08/26/2024 Active bacitracin zinc 0.5 unt/mg topical ointment (20 sources) bacitracin 500 UNIT/GM ointment APPLY A THIN AMOUNT TO AFFECTED AREA TWICE A DAY Active Bioflavonoid Products (Bioflex) tablet (20 sources) End: 07-30-2024 take 1 tablet by mouth twice daily Bioflavonoid Products (Bioflex) tablet Take by mouth twice a day 07/30/2024 Discontinued (Therapy completed) take 1 tablet by mouth twice xi ly Bioflavonoid Products (Bioflex) tablet Take by mouth twice a day Active biotin 5 mg oral capsule (2 sources) take 1 capsule by mouth every twenty-four hours Biotin 5000 5 MG 1 capsule Orally Once a day Active bisacodyl 5 mg delayed release oral tablet (2 sources) Stimulant Laxative Start: 2023 End: 2023 take 1 tablet by mouth once bisacodyl (Dulcolax) 5 MG EC tablet Indications: Screening for malignant neoplasm of colon Take 1 tablet (5 mg) by mouth 1 time for 1 dose Do not crush, chew, or split. Take as detailed on clinic hand out for colonoscopy prep 4 tablet 07/02/2024 07/02/2024 Active calcium carbonate 1250 mg / cholecalciferol 200 unt oral tablet (2 sources) Vitamin D take 1 tablet by mouth once daily calcium-vitamin D (OSCAL-500) 500-200 MG-UNIT per tablet Take 1 tablet by mouth daily 0 Active cefdinir 300 mg oral capsule (1 source) Cephalosporin Antibacterial Start: 2021 take 1 capsule by mouth every twelve hours Cefdinir 300 MG 1 capsule Orally every 12 hrs for 10 day(s) Aug, Active cholecalciferol 0.05 mg oral capsule (20 sources) Vitamin D Start: 2024 take 1 capsule by mouth once daily Cholecalciferol (Vitamin D3) 50 mcg (2,000 unit) capsule Active 50 MCG PO Daily October 25, 2024 12:00am take 1 tablet by mouth in the mo rning Cholecalciferol (VIT D3) 10 MCG (400 UNIT) tablet Take 400 Units by mouth in the morning. Active Cholecalciferol (VITAMIN D PO) Take by mouth 0 Active cyclobenzaprine hydrochloride 10 mg oral tablet (1 source) Muscle Relaxant Start: 11-14-2021 take 1 tablet by mouth three times daily as needed Cyclobenzaprine HCl 10 MG 1 tab(s) Orally tid prn Oct, Active dimenhyDRINATE (2 sources) dimenhyDRINATE (MOTION SICKNESS PO) Take by mouth 0 Active estradiol 0.5 mg oral tablet (20 sources) Estrogen estradiol (Estra ce) 0.5 MG tablet Inject 0.5 mg into the skin in the morning. Active apply 1 dose topically once ronna y Divigel 0.5 MG/0.5GM apply 1 packet by topical route every day to upper thigh Transdermal *please review for potential _update for e-prescription and drug interaction check* Active Estradiol POWD (2 sources) Start: 09-27-2022 Estradiol POWD APPLY 0.1ML ONCE DAILY & INCREASE BY 0.1ML EVERY 4 DAYS UP TO 0.5ML TOTAL DAILY DOSE, EITHER ONCE DAILY OR IN DIVIDED DOSES. 15 each 5 09/27/2022 Active estrogens, conjugated (intermediate) 0.625 mg/ml vaginal cream (20 sources) Estrogen Estrogens Conjugated (Premarin) 0.625 MG/GM cream Insert into the vagina Estrogen topical. Active fluconazole 150 mg oral tablet (1 source) Azole Antifungal Start: 08-09-2021 take 1 tablet by mouth once Fluconazole 150 MG 1 tablet Orally once for 1 day Aug, Active FLUoxetine 10 mg oral tablet (4 sources) Serotonin Reuptake Inhibitor Start: 06-17-2021 FLUoxetine (PROZAC) 10 MG tablet take 1 tablet by mouth once ronna y PROzac 10 MG 1 tablet Orally Once a day Active fluticasone propionate 0.05 mg/actuat metered dose nasal spray (20 sources) Corticosteroid Start: 08-06-2021 take 1 spray(s) [...] and drug interaction check* Active L-LYSINE PO (2 sources) L-LYSINE PO Take by mouth 0 Active loratadine 10 mg oral tablet (5 sources) Start: 10-25-2024 take 1 capsule by mouth once daily as needed Loratadine (Allergy Relief (Loratadine)) 10 mg capsule Active 10 MG PO Daily as needed for allergy symptoms October 25, 2024 12:00am lysine 1000 mg oral tablet (5 sources) Start: 10-25-2024 take 1 tablet by mouth once daily Lysine 1,000 mg tablet Active 1000 MG PO Daily October 25, 2024 12:00am meclizine hydrochloride 12.5 mg oral tablet (7 sources) Antiemetic Start: 10-25-2024 take 1 tablet by mouth once daily at bedtime as needed for dizziness Meclizine 12.5 mg tablet Active 12.5 MG PO Daily at bedtime as needed for dizziness October 25, 2024 12:00am Start: 05-29-2019 take 1 tablet by adriano th every twenty-four hours Meclizine HCl 25 MG 1 tablet as needed Orally Once a day for 30 day(s) PRN May, Active meloxicam 15 mg oral tablet (2 sources) Nonsteroidal Anti-inflammatory Drug take 1 tablet by mouth every twenty-four hours Mobic 15 MG 1 tablet Orally Once a day for 30 refill Active methylPREDNISolone (1 source) Corticosteroid Star t: 4-20 25 methylPREDNISolone (Medrol Dospak) 4 MG tablets Indications: Status post arthroscopy of left knee , Acute pain of both knees Follow schedule on package instructions 21 tablet 10/02/2024 Active Multiple Vitamins-Minerals (MULTIVITAMIN ADULT PO) (2 sources) Multiple Vitamins-Minerals (MULTIVITAMIN ADULT PO) Take by mouth 0 Active Multiple Vitamins-Minerals (Multivitamin Women) tablet (20 sources) Multiple Vitamins-Minerals (Multivitamin Women) tablet as directed Orally Active Multivitamin tablet (7 sources) Star t: 09-29 0 25 take 1 tablet by mouth once daily Multivitamin tablet Active 1 TAB PO Daily October 08, 2024 12:00am Multivitamin Women - (2 sources) Multivitamin Wom en - as directed Orally Active NONFORMULARY (2 sources) NONFORMULARY Armaan ly topically daily. Hormone therapy 0 Active ofloxacin 3 mg/ml otic solution (20 sources) Quinolone Antimicrobial Star t: 05-01 8 23 End: 07-03 0 24 ofloxacin (Floxin) 0.3 % otic solution INSERT 10 DROPS INTO AFFECTED EAR OR EARS ONCE DAILY FOR 7 DAYS 05/18/2023 07/30/2024 Discontinued (Therapy completed) omeprazole 40 mg delayed release oral capsule (20 sources) Proton Pump Inhibitor Star t: 10-31 25 take 1 capsule by mouth twice daily Omeprazole 40 mg capsule,delayed release(DR/EC) Active 40 MG PO Twice daily November 22, 2024 12:00am Start: 02-23-2024 End: 07-30-2024 take 1 capsule by mouth in the morning omeprazole (PriLOSEC) [address] capsule Indications: Gastroesophageal reflux disease without esophagitis Take 1 capsule (20 mg) by mouth in the morning and 1 capsule (20 mg) before bedtime. Do not crush or chew.. 180 capsule 1 07/30/2024 Active take 1 tablet by adriano th once daily PriLOSEC OTC 20 MG 1 tablet 30 [...] Active phentermine hydrochloride 37.5 mg oral capsule (20 sources) Sympathomimetic Amine Anorectic Start: End: take 1 capsule by mouth before mealtime phentermine 37.5 MG capsule Indications: Obesity (BMI 30.0-34.9) Take 1 capsule (37.5 mg) by mouth in the morning. Take before meals. 30 capsule 05/31/2024 07/30/2024 Discontinued (Therapy completed) 24 hr phentermine 3.75 mg / topiramate 23 mg extended release oral capsule (6 sources) Sympathomimetic Amine Anorectic Start: End: take 1 capsule by mouth once daily Phentermine-Topiramat e (Qsymia) 3.75-23 MG capsule sustained-release 24 hr Indications: Obesity (BMI 30.0-34.9) Take 1 capsule by mouth Daily 30 capsule 05/17/2024 05/31/2024 Discontinued (Cost of medication) polyethylene glycol 3350 59081 mg powder for oral solution (2 sources) [...] bid for 5 day(s) Oct, Active Progesterone (20 sources) Progesterone Progesterone 40 % cream Progesterone topical Active Progesterone 50 MG/ML (2 sources) Progesterone 50 MG/ML apply 0.5mL once daily and adjust dose as directed *please review for potential _update for e-prescription and drug interaction check* Active Semaglutide (8 sources) Start: 11-15-2024 Semaglutide (O zempic) 0.25 mg or 0.5 mg (2 mg/3 mL) pen injector Active 0.5 MG SUBCUT every week 2.944 November 15, 2024 8:31am Start: 10-25-2024 End: 11-15-2024 inject 0.25 mg by subcutaneous injection every week, then inject 0.5 mg by subcutaneous injection every week Semaglutide (Ozempic) 0.25 mg or 0.5 mg (2 mg/3 mL) pen injector Discontinued 0.25 MG SUBCUT every week 2.October 25, 2024 12:00am November 15, 2024 8:31am 0.25 mg once weekly x 4 weeks and then increase to 0.5 mg once weekly Start: 10-25-2024 inject 0.25 mg by hinojosa bcutaneous injection every week, then inject 0.5 mg by subcutaneous injection every week Semaglutide (Ozempic) 0.25 mg or 0.5 mg (2 mg/3 mL) pen injector Active 0.25 MG SUBCUT every week 2.October 25, 2024 12:00am 0.25 mg once weekly x 4 weeks and then increase to 0.5 mg once weekly Syringe (Disposable) (Monoject Luer-Lock Tip) 3 mL syringe (6 sources) Start: 10-12-2024 Syringe (Dispo sable) (Monoject Luer-Lock Tip) 3 mL syringe Active ML .ROUTE .MEDSUPPLY 100 October 12, 2024 12:00am As directed Testosterone (20 sources) Androgen End: 05-15-2024 testosterone [...] day Active Testosterone Propionate 2 % CREA (2 sources) Testosterone Propionate 2 % CREA Indications: Routine gynecological examination Place onto the skin. 0 Active tiZANidine 2 mg oral tablet (20 sources) Central alpha-2 Adrenergic Agonist Start: 4 End: 4 take 1 tablet by mouth every eight hours for muscle spasms tiZANidine (Zanaflex) 2 MG tablet Indications: Acute pain of left knee Take 1 tablet (2 mg) by mouth every 8 (eight) hours if needed for muscle spasms for up to 5 days 15 tablet 06/14/2024 Active valACYclovir 1000 mg oral tablet (6 sources) Herpesvirus Nucleoside Analog DNA Polymerase Inhibitor, [...] and 1 tablet before bedtime. 05/15/2024 Discontinued 24 hr venlafaxine 37.5 mg extended release oral capsule (10 sources) Serotonin and Norepinephrine Reuptake Inhibitor Start: 10-08-2024 End: 11-08-2024 take 1 capsule by mouth once daily at bedtime Venlafaxine 37.5 mg capsule,extended release 24hr Active 37.5 MG PO Daily at bedtime November 08, 2024 2:11pm vitamin B12 (2 sources) Vitamin B12 Vitamin B12 *ple ase review for potential _update for e-prescription and drug interaction check* Active Vitamin D3 (2 sources) Vitamin D3 *plea se review for potential _update for e-prescription and drug interaction check* Active Completed/Discontinued Medications Medication Drug Class(es) Dates Sig (Normalized) Sig (Original) dextromethorphan hydrobromide 15 mg / guaiFENesin 400 mg / pseudoephedrine hydrochloride 60 mg oral tablet (11 sources) alpha-Adrenergic Agonist, Uncompetitive R-[place]part[place] e Receptor Antagonist, Sigma-1 Agonist Start: 10-12-2024 End: 10-25-2024 take 4 tablets by mouth every twenty-four hours as needed Pseudoephedrine-D m-Guaifenesin (Capmist Dm) 60-15-400 mg tablet Discontinued 1 TAB PO EVERY 4-6 HOURS as needed for cold symptoms October 12, 2024 12:00am October 12, 2024 12:50pm do not exceed 4 doses per 24 hrs doxycycline hyclate 100 mg oral tablet (3 sources) Tetracycline-class Drug End: 05-15-2024 take 1 tablet by mouth in the morning doxycycline (Vibra-Tabs) 100 MG tablet Take 1 tablet by mouth in the morning and 1 tablet before bedtime. 05/15/2024 Discontinued Hormone Therapy (7 sources) Start: 10-08-2024 End: 11-22-2024 Hormone Therapy Discontinued PO October 08, 2024 12:00am November 22, 2024 8:06am Start: 10-08-2024 Hormone Therap y Active PO October 08, 2024 12:00am Omeprazole 20 mg capsule,delayed release(DR/EC) (7 sources) Start: 10-08-2024 End: 11-22-2024 take 1 capsule by mouth twice daily Omeprazole 20 mg capsule,delayed release(DR/EC) Discontinued 20 MG PO Twice daily October 08, 2024 12:00am November 22, 2024 8:34am Start: 10-08-2024 take 1 capsule by mo [facility] twice daily Omeprazole 20 mg capsule,delayed release(DR/EC) Active 20 MG PO Twice daily October 08, 2024 12:00am Triamcinolone (20 sources) Corticosteroid Start: 11-14-2021 KENALOG - 10 m g Oct, 40 mg Start: 08-11-2018 triamcinolone (ARISTOCORT) 0.5 % ointment 1 APPLICATION TO AFFECTED AREA TWICE A DAY NEED 4 08/11/2018 Active Problems Active Problems Problem Classification Problem Date Documented Da te Episodic/Chronic Abdominal hernia (4 sources) Hiatal hernia; Translations: [Diaphragmatic hernia without obstruction or gangrene] 07-02-2024 Episodic Adjustment disorders (17 sources) Adjustment disorder with anxious mood; Translations: [Adjustment disorder with anxiety] 10-12-2024 Chronic Administrative/social admission (20 sources) Persons encountering health services in other specified circumstances; Translations: [Other reasons for seeking consultation] 10-08-2024 Episodic Anxiety disorders (7 sources) Anxiety; Translations: [Anxiety disorder, unspecified] 10-08-2024 Chronic Conditions associated with dizziness or vertigo (18 sources) Benign paroxysmal positional vertigo; Translations: [Benign paroxysmal vertigo, unspecified ear] 10-08-2024 Episodic Diabetes mellitus without complication (19 sources) Diabetes mellitus; Translations: [Type 2 diabetes mellitus without complications] Onset: 12-30-2016 10-08-2024 Chronic Comment on above: prior to bariatric s urgery Disorders of lipid metabolism (20 sources) Hypercholesterolemia ; Translations: [Pure hypercholesterolemia , unspecified] Onset: 11-11-2023 11-11-2023 Chronic Esophageal disorders (20 sources) Gastro-esophageal reflux disease without esophagitis; Translations: [Gastroesophageal reflux disease without esophagitis] Onset: 10-14-2023 06-17-2024 Chronic Essential hypertension (20 sources) Essential hypertension; Translations: [Essential (primary) hypertension] Onset: 11-11-2023 11-11-2023 Chronic Gastritis and duodenitis (4 sources) Bile-induced gastritis; Translations: [Other gastritis without bleeding] 07-02-2024 Episodic Joint disorders and dislocations; trauma-related (1 source) Unspecified internal derangement of left knee; Translations: [Unspecified internal derangement of left knee] Onset: 08-19-2024 Chronic Joint disorders and dislocations; trauma-related (14 sources) Acute tear of medial meniscus of left knee; Translations: [Other tear of medial meniscus, current injury, left knee, initial encounter] Onset: 08-16-2024 08-15-2024 Episodic Malaise and fatigue (9 sources) Fatigue; Translations: [Chronic fatigue, unspecified] 10-08-2024 Chronic Menopausal disorders (20 sources) Menopausal symptom; Translations: [Menopausal and female climacteric states] Onset: 02-13-2024 05-16-2024 Chronic Mood disorders (20 sources) Reactive depression (situational); Translations: [Major depressive disorder, single episode, unspecified] Onset: 11-11-2023 11-11-2023 Chronic Osteoarthritis (20 sources) Primary coxarthrosis, bilateral; Translations: [Bilateral primary osteoarthritis of hip] Onset: 06-15-2017 11-11-2023 Chronic Other ear and sense organ disorders (20 sources) Conductive hearing loss, bilateral; Translations: [Conductive hearing loss, bilateral] Onset: 06-30-2022 11-11-2023 Chronic Other ear and sense organ disorders (9 sources) Bilateral tinnitus; Translations: [Tinnitus, bilateral] 10-08-2024 Episodic Other gastrointestinal disorders (12 sources) Bariatric surgery status; Translations: [Bariatric surgery status] Onset: 10-14-2023 10-08-2024 Episodic Other gastrointestinal disorders (7 sources) History of bariatric surgical procedure; Translations: [Bariatric surgery status] 10-08-2024 Episodic Comment on above: VSG Other inflammatory condition of skin (20 sources) Psoriasis; Translations: [Psoriasis, unspecified] Onset: 11-11-2023 11-11-2023 Chronic Other nervous system disorders (4 sources) Nerve root and plexus disorder, unspecified; Translations: [NERVE ROOT AND PLEXUS DISORDER UNS] Onset: 08-28-2018 Chronic Other nervous system disorders (9 sources) Difficulty walking; Translations: [Difficulty in walking, not elsewhere classified] 10-08-2024 Chronic Other nervous system disorders (9 sources) Chronic pain; Translations: [Other chronic pain] 10-08-2024 Chronic Other nervous system disorders (9 sources) Nerve root compression syndrome; Translations: [Nerve root and plexus disorder, unspecified] 10-08-2024 Chronic Other non-traumatic joint disorders (20 sources) Pain in left knee; Translations: [Pain in joint, lower leg] Onset: 05-24-2024 05-15-2024 Episodic Other nutritional; endocrine; and metabolic disorders (2 sources) Morbid obesity; Translations: [Morbid (severe) obesity due to excess calories] Chronic Other nutritional; endocrine; and metabolic disorders (4 sources) Body mass index 40+ - severely [...] Chronic Other nutritional; endocrine; and metabolic disorders (7 sources) Body mass index 30+ - obesity; Translations: [Obesity, unspecified] 05-16-2024 Chronic Other nutritional; endocrine; and metabolic disorders (7 sources) Obesity; Translations: [Obesity, unspecified] 10-08-2024 Chronic Other nutritional; endocrine; and metabolic disorders (17 sources) Obese class II; Translations: [Class 2 obesity] 10-12-2024 Chronic Other nutritional; endocrine; and metabolic disorders (5 sources) Body mass index (BMI) 37.0-37.9, adult; Translations: [Body Mass Index 37.0-37.9, adult] 10-25-2024 Chronic Other nutritional; endocrine; and metabolic disorders (7 sources) Abnormal weight gain; Translations: [Abnormal weight gain] Onset: 02-17-2024 Episodic Other nutritional; endocrine; and metabolic disorders (5 sources) Abnormal weight gain; Translations: [Abnormal weight gain] 10-25-2024 Episodic Other screening for suspected conditions (not mental disorders or infectious disease) (3 sources) Encounter for screening for other metabolic disorders; Translations: [Patient encounter status] Onset: 10-14-2023 07-02-2024 Episodic Other upper respiratory infections (10 sources) Viral upper respiratory tract infection; Translations: [Acute upper respiratory infection, unspecified] 10-12-2024 Episodic Otitis media and related conditions (20 sources) Chronic tubotympanic suppurative otitis media; Translations: [Chronic tubotympanic suppurative otitis media, unspecified] Onset: 08-25-2022 11-11-2023 Chronic Residual codes; unclassified (5 sources) History of arthroscopy of knee joint; Translations: [Other specified postprocedural states] 09-03-2024 Episodic Residual codes; unclassified (7 sources) History of hernia repair; Translations: [Other specified postprocedural states] 10-08-2024 Episodic Residual codes; unclassified (5 sources) Acquired absence of other specified parts of digestive tract; Translations: [Other acquired absence of organ] 10-25-2024 Episodic Residual codes; unclassified (5 sources) Acquired absence of both cervix and uterus; Translations: [Acquired absence of both cervix and uterus] 10-25-2024 Episodic Spondylosis; intervertebral disc disorders; other back problems (4 sources) Lumbosacral spondylosis without myelopathy; Translations: [Spondylosis without myelopathy or radiculopathy, lumbosacral region] Chronic Past or Other Problems Problem Classification Problem Date Documented Da te Episodic/Chronic Appendicitis and other appendiceal conditions (2 sources) Perforation of cecum; Translations: [Acute appendicitis with perforation and localized peritonitis, without abscess] Onset: 2 Resolved: 2 Episodic Mood disorders (20 sources) Mood disorders Onset: 4 11-11-2023 Other gastrointestinal disorders (2 sources) Disorder of abdomen; Translations: [Peritoneal adhesions (postprocedural) (postinfection)] Onset: 2 Episodic Otitis media and related conditions (20 sources) Postmastoidectomy complication; Translations: [Other disorders following mastoidectomy, unspecified ear] Onset: 2 11-11-2023 Episodic Ovarian cyst (2 sources) Cyst of bilateral ovaries; Translations: [Unspecified ovarian cyst, right side] Onset: 2 Episodic Residual codes; unclassified (20 sources) Family history of cancer of colon; Translations: [Family history of malignant neoplasm of digestive organs] Onset: 9 11-11-2023 Episodic Residual codes; unclassified (20 sources) History of sleeve gastrectomy; Translations: [Acquired absence of stomach [part of]] Onset: 4 11-11-2023 Episodic Sprains and strains (2 sources) Strain of muscle, fascia and tendon at neck level, initial encounter; Translations: [Strain of muscle and tendon of back wall of thorax, initial encounter] Onset: 2 Resolved: 2 Episodic Unclassified (6 sources) Acute pain of left knee 05-15-2024 Results Test Name Value Interpretation Reference Range Facility Pathology study report docum entOrdered By: Ebony Pollack on 12-11-2024 Pathology study [facility] Other Neil 12-06-2024 L - -------- Specimen: [id number] Received: 12/06/24 Status: ROSA ELENA Michaelyessica Num: [id number] Spec Type: Surgical Subm Dr: Zoe Go MD Tissues: A Gastric Biopsy (GASTRIC BX) Procedures: HE/2, Gross/Micro L4 -------- Age/ Patient Sex Location Account Attending Physician -------- Kathy Wu 54/F [id number] Zoe Go MD -------- SPEC NUM: [id number] RECD: 12/06/24 STATUS: ROSA ELENA MICHAELYessica NUM: [id number] MARU: 12/06/24 [facility] DR: Zoe Go MD ENTERED: 12/06/[address]: SPEC TYPE: Surgical DEPT: S ENTERED BY: [id number] RECV BY: [id number] ORDERED: HE/2, Gross/Micro L4 ORDERED: HE/2, Gross/Micro L4 Pathological Diagnosis Gastric biopsy: - Benign gastric mucosa showing reactive chemical gastropathy and mild focal chronic inflammation. - No H. pylori organisms identified on H E stained sections. Clinical Information GERD, rule out H. pylori Gross Description Part A is received in formalin labeled with the patients name, date of , and gastric BX are 2 hayes-vasquez, focally erythematous, friable, 0.2 and 0.3 cm in greatest dimension tissue bits. The specimen is entirely submitted in a single cassette. (1, ns, [id number]) CPT Codes 34557 -------- -------- Specimen: [id number] Received: 12/06/24 Status: ROSA ELENA [place]ton Num: [id number] Spec Type: Surgical Subm Dr: Zoe Go MD Tissues: A Gastric Biopsy (GASTRIC BX) Procedures: HE/Felicia, Gross/Micro L4 -------- Patient: Kathy Wu [id number] (Continued) -------- Signed (signature on file) Ebony Pollack MD 12/11/24 0848 Normal [facility] Influenza virus B Ag [Presen ce] in Upper respiratory specimen by Rapid immunoassayon 10-12-2024 FLUBV Ag IA.rapid Ql (Nph) Influenza virus B Ag [Presence] in Upper respiratory specimen by Rapid immunoassay [facility] No Panel Informationon 10-12 Influenza Type A (Rapid) Negative [facility] POC SARS CoV-2 Antigen Negative [facility] MAGR Intraoperative Recordon 08-28-2024 MAGR Intraoperative Record MAGR Intra-Op Record Summary Primary Physician: MELINA LEE DO Finalized Date/Time: 08/28/24 13:35:59 Pt. Name: KATHY WU /Sex: 1970 FEMALE Med Rec #: [id number] Physician: MELINA LEE DO Financial #: [id number] Pt. Type: D Room/Bed: / Admit/Disch: 08/20/24 07:57:24 - 08/20/24 14:14:00 Institution: Case Times MAGR Entry 1 Patient In Room Time 08/20/24 11:35:00 Out Room Time 08/20/24 12:47:00 Anesthesia Start Time 08/20/24 11:34:00 Stop Time 08/20/24 12:50:00 Surgery Start Time 08/20/24 12:00:00 Stop Time 08/20/24 12:42:00 Last Modified By: Bhargavi Ha RN 08/20/24 12:51:16 Case Attendance MAGR Entry 1 Entry 2 Entry 3 Case Attendee MELINA LEE Robert M MD Myers, Debra RN Role Performed Surgeon - Primary Anesthesiologist of Hop Separator Record Time In 08/20/24 11:54:00 08/20/24 11:35:00 08/20/24 11:35:00 Time Out 08/20/24 12:34:00 08/20/24 12:47:00 08/20/24 12:47:00 Procedure Arthroscopy Knee(Left) Arthroscopy Knee(Left) Arthroscopy Knee(Left) Last Modified By: Bhargavi Ha RN, Debra RN Myers, Debra RN 08/20/24 12:48:55 08/20/24 12:48:55 08/20/24 12:48:55 Entry 4 Entry 5 Case Attendee Iris Norwood CST, CST, Hunter ST CSFPeyton Role Performed Power Saw Mechanic Scrub Personnel Time In 08/20/24 11:35:00 08/20/24 11:35:00 Time Out 08/20/24 12:47:00 08/20/24 12:47:00 Procedure Arthroscopy Knee(Left) Arthroscopy Knee(Left) Last Modified By: Bhargavi Ha RN, Debra RN 08/20/24 12:48:55 08/20/24 12:48:55 General Comments: [employer] REP: SAL ARTHREX REP SARI DUBOIUS Surgical Procedures MAGR Pre-Care Text: A.20 Verifies operative procedure, surgical site, and laterality Im.150 Develops individualized plan of care Entry 1 Procedure Arthroscopy Knee Primary Procedure Yes Primary Surgeon MELINA LEE DO Modifiers Left Surgeon Comment LEFT KNEE ARTHROSCOPY Start 08/20/24 12:00:00 - MEDIAL MENISCECTOMY PARTIAL, MEDIAL PATELLA FEMORAL CHONDROPLASTY, EXCISION OF PATELLA FEMORAL PLICA Stop 08/20/24 12:42:00 Anesthesia Type General Surgical Service Orthopedics Wound Class Clean Technique Details Closure Technique Primary Entire procedure Yes was performed via laparoscope or robotic assistance Last Modified By: Bhargavi Ha RN 08/20/24 12:49:07 Post-Care Text: O.730 The patient's care is consistent with the individualized perioperative plan of care General Case Data MAGR Pre-Care Text: A.350.1 Classifies surgical wound Entry 1 Case Information OR MAGR OR 01 Case Level Level 4 Wound Class Clean Specialty Orthopedics ASA Class 2 Diagnosis Preop Diagnosis LEFT ACUTE MEDIAL Postop Same As Preop Yes MENISCUS TEAR Postop Diagnosis LEFT ACUTE MEDIAL MENISCUS TEAR Blunt or No Is the procedure No penetrating injury considered occured prior to Emergent/Urgent? the start of the procedure: Last Modified By: Bhargavi Ha RN 08/20/24 12:00:49 Post-Care Text: O.760 Patient receives consistent and comparable care regardless of the setting Time Out MAGR Entry 1 Procedure(s) Arthroscopy Knee(Left) Time Out Checklist Verifications Team Introductions Yes Confirmed Identity, Yes Completed Procedure, Incision Site, and Consent(s) Presence of Yes Site Verification, Yes Necessary Site Marking, Site Procedural Marking Equipment, Devices, Alternative, and/or and Implants Site Marking Verified Exception in Accordance with Facility Policy Anesthesia Review Antibiotic Received Yes All Anesthesia Yes Within an Concerns Addressed Appropriate Time Interval Prior to Surgical Incision Surgeon Review Anticipated Blood Yes Expected Case Yes Loss Risk Addressed Duration Addressed Critical and Yes Non-Routine Steps to be Performed Addressed Nurse Review Equipment Yes Fire Risk Yes Checks/Concerns Assessment Addressed Completed and Interventions Performed Diagnostic and Yes Sterilization n/a Radiological Test Concerns Addressed Results Displayed are Appropriate and Labeled Other Concerns n/a Addressed Time Out Kev Lucero MD, Time Out Time 08/20/24 12:00:00 Participants Bhargavi Ha RN, Tha Marti , Cuco STORAGE BATTERY TESTER, Iris STORAGE BATTERY TESTER CSFA, MELINA LEE DO Last Modified By: Bhargavi Ha RN 08/20/24 12:01:05 Patient Positioning MAGR Pre-Care Text: A.280 Identifies baseline musculoskeletal status Im.40 Positions the patient Im.80 Applies safety devices Entry 1 Procedure Arthroscopy Knee(Left) Body Position Supine Left Arm Position Extended on padded arm Right Arm Position Extended on padded arm board board Left Leg Position Dangling Right Leg Position Dangling Press Points Checked Yes Outcome Met (O.80) Yes Last Modified By: Bhargavi Ha RN 08/20/24 11:52:24 Post-Care Text: E.290 Evaluates musculoskeletal status O.80 Patient is free from signs and symptoms of injury relate (more content not included)... Normal [facility] Coding Summaryon 08-22-2024 Coding Summary HTMLBase 64 CnaboadaVRk7kVd+PGhlY WQ+LN9KLLKrP36zrHFypY 0lE1HNKHoBSjhsQYGQRIy JWuVqbcPeYW9uzXOsFOMk IC8+ZF6xFZWoJhubhKYoe 9N1uWS0T80zeh4gNJjydZ N9ETTmEqGgerlip7uyzVs 6IDcuNmluOyBt BNUlpG06IFF5tR37Ag21w ZTokHGog8qdaHq9SoSdDG EuUII6lPpzBMopr6UlOHJ bL66ihAWax7J6 TUGqzIpppWOxKvRzhUJ7u G1hQXmymqjbn8ktchecHu k7fv36mLNld8H3fUO7N2Z vaxW7NYMjzXCp UbaooELYcK6barymt7wlz wlvWrHjKWAeCIt7ATw4LQ HxtWovZaDpXG96PGX9ANX jrhGaZ6InEBZx nSahUbO6f3J5Od3VK2XRZ oxwV1HEDZDINHjudMG+PC 79ga72B7JpUvfjGha7BRE jBJT2xKE8hU0b MMFoVNkuo2B3nBO1X9Aur qAusj9cv0ffWGQnQJveK9 0lyFZvd2I3SIMpyMP6XIL egBmyIqEdqA31 Oyc+PDScnQfto2UmUehxw 4eus2yzkBi8NdmsBVLihn SknQltYLG9k8DgTs0cNKE zvWD1sPO5qX6t TwBjAsV1GOtcB893AeIab QVwTimqX67sB4IqzSM+PH EkCmw3YRCzzUaaGQ5wJ4V hZGRpbmctbGVm wDpmQO7tQWMnktflWDTfi G0jICQtP8v6ZsFtVcZ0JA fkT9HwILCwrfvfKo85zM4 tZyNfXpJ8EWfq D0ZpguY3ZWMnsWJdOCodP JQ8B13ji9T4JMHsQZXwML I0rHO1lP2vjZzjlovfcMA mdDsgdmVydGlj JKjnNKgiQ643LRUbhSodY kNvZGluZyBEYXRlOiAgMD EvMjIvMjAyNTwvdGQ+PHR zRME7jJfzYFIx oTAyBFrdTy6swHxlbPziA V5mZUIzcgtbQWPmqL7tBF CwzMAvyJjkXG1tGEBwrxj jf674ZqIhRWS1 KCYnwQYmJ0CppP4wVgWmZ KVgTHDmR6YkxUAeMKguY5 51IYiuXlQ9AAXotfCvV1Y sLWFsaWduOiB0 g7U1Mb4Gx3TwhsgqW2Sva KTzLsPoZrkkSPq2T6SnDg wvdHI+OV58EFAzWZ40MEs 4NUA1vBvcIWzw ROQsA6MfxN1gQuPaBJBoX GRkOyc+PHRhYmxlIHdpZH RoPScxMDAlJyBzdHlsZT0 qXt9kYFOnQYSg gBxghYPoYgLwg6jmWZCxB LwdMR7loWtnX5JzrPI5SL Dbj6b8Ca59R92wN8KvlDF +QMYetYS5hMO9 vO9rUnGbVwI7NSbiY661W qDqtBFeRguwi6cnz1nanZ o4FeV1JDXhnaGzrFudVLP 4u6ZlTd31H47t IHdpZHRoPSIxNSUiIHZhb Irrys2vlY9hMo0+PGNvbC Z6oIS7gQ4aMeZoUlF9NTi tC682IuBhbHQu Uvuqg3gaf1rgeCn0JhKoA YUdngCfrCnwEIR3s5TeEn 28X4IbqKabl8XpVcn8tk8 0dNMzg2W7sIZ7 L1LkMOJengokmQCrqEuoS Y7zGZOghkslCHZayZ0eUH RmP2d9ZaIlJaM1CMabO2S cqyP0MBXoaMGg UNLspGTPbQ2ytoenz5xqd nkgNnFsOOVvKAo1YWy9FG VbcNydPvTmMOZ0UvG6WLR 7xYWstG6ijHwd xvuszY8qHyb+PQR4xBNkn KXUZH4aOgrxdIX+PHRkIH I1dRtcTOwcOSJsfY7xNON oR4d3MsKuHjS9 YVwyE7VgkaK9LREjcYGbT FWfiELPvY4mdlgcq8pwzb dtQnDvRZCvYQt6MYi2DDO saWduOiBsZWZ0 VhG2IOQ5nSXzrJ6stGent ymyuU5qPwr+QmlydGggRG S0ASs9F0DjGsh9HJDnuDq pIQ8poODsFNba Hl9kwPhziAmsAM7rCFQad nbgd125MhFuv9tuGVOkpS IxDEfeRYV4Y10qt9G1HVY bWFAoJXR9tVD0 vV2njEpakurxhFPynDfyi fZjnCeqYZprHVyfJ556RA WmiMslHvUwCFa3Z0PzTrq 7SOScgWydOS0q oXNfALcjOg7aqTkncSbgR G3iLNHylavfr824PuOnv1 fzHMZuvVCwCXgkIRX2Q73 xy8R2VSAtFOPc BRQ0kES8rN0huSpcsjjde GVmdDsgdmVydGljYWwtYW mvP287SBFnzPcwHgNcaRn 2O2NrPow6CADs cUrsJQ6hhTDrEVkgKv1lv RdxuGzhAD7bTBVvgtrzh0 98BkBdi1peAUKwmPDvCRb yDCD1Q24ya5C7 XIDwFKFxCJC2rWS6nS3hu GlnbjogbGVmdDsgdmVydG tuKPniZCxcI726CPWjvDj nPlBhdGllbnQg JWmmBUf4I7NhZkxuyEH+P B39UPBwHN68jOPbhYGoz7 uxrLv5PgQmFHYvATO7bHt xYNkra8PwTWJc V88gzLDoo4J9LRLnaEsnw ZRxSpGllPC5cT2xOZykhz zeq1hgltvwCxscc1qqhp9 2jL90S54gKZds ZHRoPSIzMCUiIHZhbGlnb a4wnM6oXf4+RJZgeXW2aH P5lT8mIOIxQpZ2UUcwA45 9InRvcCIvPjxj x9ayq0hceSy3HyM4PVTnq hRqxObjXAP5x3QiIh71Q1 9sIHdpZHRoPSIyMCUiIHZ tjGregg5yxU6x Ii8+QQTxbVI2tSM5wJ3aM ePsBkR8YUzmV183RvWtbZ MeHniyF51sJ8YyyDD+PHR qRvj8STPemTdl FO6rbQCiRKbvIl2mZOB9L uKjPmFoTGjmE6FsNXEdow kymvkndJZ4USNpDVMlrX4 4Yx0jqOvpXDXw bXPWaK0iygrgo5ppiwvmV hDfURFbSWp7CFi8RXJwxB rvPkAtOIF8VeP4LTK3gZM cdP4zqHepzcjf gD7hR6EgRPSsbgsvLu26p E9wLmCdGaI5GNikFli+Ql KLBaSiWK5RT7tDJBuMPTw FQTwvdGQ+PHRk KZI1dGmeZZlpXPTqgI8zR CWfR3t6WkHdKiB8DSimP3 UkMVJtogfmUv76sU3pPyK lEuK6PAdcW9Qj mzL1MJQubXFaOKxuLEU4X 92ao9J8YJIaNNZhJRJ1rP X2nQ2ipLcuckrfzRFalLi gdmVydGljYWwt PTntE662CAZmsJzfTlAtE eQoXnH6BxB7D9SqIgb8IN CfkDgaIZ3aoBLnIWirAq9 usHfwmMmqTB7o DEZgneuoJIZhzX5vLBTjg MNrrKxcLX5qAAFliohzq5 45KyRdYUL3HATrgQLyP3R gwX4hNiBoYGHk EIArT3LnlJKkLPhmD039N EjvZjW9CZDfyhWkG8SvSN PruWsbSsN9s9Y3Hh84CcT ZZWFyczwvdGQ+ ZUUfRZM6vLmzGLjbKSXxn Z9uDOAbI7n0NyAcQqU5DD nqQ4NnFQHicelhTh36gJ8 yGfUsEyJ8BMol E4AyyoO1KFUjsBHcEYhtZ YX0H53mj5E1VVLdVAUsIQ H8gYE4dK6cqByhmwsevTL mdDsgdmVydGlj BGjcTLimQ350JIZebHgjV kZFTUFMRTwvdGQ+PHRkIH Y3uPvePBejGOFpdZ4wMQA vJ2j7YlGfZfU2 WEhvZ8ZbGWYwfgtgZk22v G0iTvDwPsS2CYelX4Nlwc C7SZFopONcVUiiGLT7Y34 xs7V4ESXxEXWg CIU7dPT3dN7tqHswngkau GVmdDsgdmVydGljYWwtYW ylF612BJXveWlhNmWljPT DeOLiDDX9RL95 CZ09S0MwQfabuKUbxQA+P HRhYmxlIHdpZHRoPScxMD DjPeGqtRatIN6aHg9jKKY yLWNvbGxhcHNl QiVdj6rsKXRcMWqkKA3ae IyqX6SztFH6XODnx7t6Pm 87D60uM6KomVB+PGNvbCB 6mUF9uA5cVvNv PkJ4LYtoY284ZoKkxQXzP cyyg6wkq3dilXv6MxTpJC YzcfDyiZcsSXQ9g5MvKr4 8A14fTLqvTRSk NLTnSHEnTDFpuLgbzb3dg G9wIi8+FQAwaCZ1lDM8eX 6wXgFkDiD9EMbgB942YsM khVNkBuftI09c T7CrzPF+URDcPzc1EHLpv DhqCH2nrQYyTAstLy5tFB H2HaNbLeWyTSkeZ1DyFGV pbmctcmlnaHQ6 GXAvNFVcyF95Bl8jzHnkX w6dHGFwOCP6MIFzwGVoV1 ErpR4dQdBpBBCfEKDbC1Q xbMOhKYmcH507 LPdzHhK1FQEtamWkO5EwD CMsnUxcLyD9r3Z4Jk8RnH mxtFSjCI6oAgYpZZf2J6H hGgf1RTGzqOdh QH0enSHgZRyvNe8fpQqgp PksXM5xKNYqehiyh709Gy Hvv1csMNPouWArNMlwRDU 4E99qd7M4GSZb FZXiNBF1qFU2yP2ufBdfd jogbGVmdDsgdmVydGljYW fmNWnjS383GOPvoZelNoI ZIwz2H2OwHfk9 YNShuHaxEI5efLJvTZpxC x9fmNwmxRqqTM9sEFUobx xrr029LgTyw6qaBLTpwOA tWGnnNPY3X12y n6W7AWYiYGZcKEZ1mAD8x J7reBbopvvscATlyIvrie LcpLxkFVefRRmqR584ZCZ bsPpkTw8JIwz0 T1SiKev3EGOpsSvzLN8av DUgEViqEa3seRgfwDxtWD 0sNLGqmgacr417ZpBva4f kIDEwcHQgVGlt MIY4Z04xo3T6HDXxCVMcO HD7uOY4iI3kuBmbpxaewD VmdDsgdmVydGljYWwtYWx nQ590BKNxcDws PlBheWVyOjwvdGQ+PC90c g91E4SdJstoHqh9WWVkTM P2hBX3gU0vAXFqLZmmj0L 3yQB6U4JlskBl ci1 (more content not included)... [facility] Coding Summary HTMLBase 64 CdehqrrjJJc1hDm+PGhlY WQ+GC0BWQAnE77pnZMtoS 8cL8SAJHnWVvfjBCJAHHp ZFtIfbdEaTM2sbQVyGXUk IC8+CG6fWMRtUhxtqUYpu 8Z4yEJ7X66vmh7hKNpwfO M6MFOdTxIjldcdr7ohpBg 6IDcuNmluOyBt GNBlsA88CSE6mJ81Fg14t KSgbQAfu3rukTv6LfTzWY OpLPH5rKnmLIzit1CkMBC pG96agEAax0E0 OJVrwEvfzCCbBcSwqBL7z U7lRHwwermhk9ffrgpgUm p3dv78rCNaf7J1lFS5C1I hzsT4YBUkvKXs MpxazIANdO4jnolbt5phv lioIkEvPDQqGMk3ZHv0WM RupAvvJqYiHJ63USQ0QYM oogRyB8YkLVQx rMqcHmH5o3P4Um1HO7ZSE aadQ4AMKHZPLUhkwNH+PC 44cm50X1NbWmbpQjt2IUU qTSP8jDF8iS8k QMEpNBzgi6Y1tZF6E0Hfl mWgpq3eg2awJVLwUDckW1 7zcPBzz2U0UOSpgZY0IPM lsGieNfWraO49 Oyc+IXFgeSjdv7LcVriox 0rwx2mveOp4OlbmGHFipl VmqGqkMSG1p0DmZm4vNWR byJQ2lPP5zU5d YbEuQvW1YLpgH573KrBdt MUwUyjzO14cI8ZcnGY+PH PrThh5IHYoeNxvAZ5wB8Y hZGRpbmctbGVm xDhgQV8hBLTopcozPPJho N3eOKSkQ5x9OvYqEtN3AM keU0PxCJEtcasdUd50uR3 nSqVeUfL4CDdq T5DvzaN8QAGdsAPqBRlkL ID9F07ll6V5PCQqYULrRN S0xOJ1nM0oaOnspamvtLZ mdDsgdmVydGlj TCbyIZqtW168DSIgfVbiK kNvZGluZyBEYXRlOiAgMD EvMjIvMjAyNTwvdGQ+PHR iQZX9nLhjNRXv hMHhDYamOk3oySiocOkiH K2cQOAwwtijFONlrA4dCM HnuCPmkEzfCM3mSGGlajd de404BmDjGVU5 UTWitQPyH7UeeX9sPpTfM URyCQTaO4DwqVJhOGrqB8 11FZlbRhI7RPHqvvRmC8S sLWFsaWduOiB0 j3T7Jn5Hl7PxojzhC5Wwf QMfMwMyJqqgSWf2W4NjCz wvdHI+HY15LJCkXU07DVh 7HUR8nLscSPdh HWLpD9MglK2cUhSmPLKgX GRkOyc+PHRhYmxlIHdpZH RoPScxMDAlJyBzdHlsZT0 tCg5kLYMsJHYz nIrkwEVcOlLtg9trBTTcG LgsLG1guIpjH4UggFB3YP Jju4v8Bd59V74aR2GatZT +WZQgbTO8vVE0 pZ5dZlDxCeT1EQfnN541S pDfjCXrHcolw6etk2zopA c6PbW6AHBejqPszPbfWQF 9q9ClLc38X74m IHdpZHRoPSIxNSUiIHZhb Opgew2dcN6mHy7+PGNvbC O7hCI9jA3sPrImNwY6TLr aJ882SfLqgMJv Vdhcb2zrm6utiXx9GwPrF JBbgrKwiRgxQYW6b5CyOy 21C6CnmVour9CxQmb6wl9 6cMQun6Z6pXU7 R7DvARWyqeixfWFzeTqqP A4dWWAkdnmiTTFbnL0zNJ ClF0g8SmGuZuN1ZXnzI3S ffsU6NGQotKDn IVFtnPVWvF1hrwhoj6rqy fsxDyHdIDTpYTy6UAu5DZ BsbKnxOoTpNCS8TtP6JFR 7cDSpjJ1ckQpd qcvhbV2jIrb+UQJ8oCDmn TLMHF0jDlyudQN+PHRkIH T2aReyLYpxVZUubF8zJTC dD6n1ZxIaZrA7 QGqyW5BmudO4OALzgOMbB TYvoZOPcS7dtatgd4zkxz udDbBwPLBkTEw2SGg5PAX saWduOiBsZWZ0 KfB0MGN6eIBcbS8nxMupp igewE2jKsi+QmlydGggRG U7HUr6D9SvHfz1FWLvgAe wTK0biITrEOsq Pb9poZvpbHmtCI2kCHOdw lrwm676GkKif6ezMNLeuM EeOJrhYFQ0Z05me0G3NTY aZKLgOMF9yLJ1 qR7xqOzmzdrztPOhsUffn fLnbOepLDnuEWkgS952SN PevYbiGbYmZKw6O1SiVls 4GWYveJukRM9f vMPkLBtrAg4ksRcncFpkX T9vGVDrjvszx253OkZpo8 myYHMfeDWxQMnmZGY9T08 fh1L8PLMtXVBd HLZ6zWI5gW7wgPzldfafd GVmdDsgdmVydGljYWwtYW nrS453IWQmoYqrFyLusEd 2S3NbFhu9CQSe uJkxGA1kkSQyLOnbPx4wq CfzrZkdQF6dLHZfxbans2 14KoVai9arMMAknBItQLu eUVR1W14wb2L6 HIUrCDWdVCI3dZW8sM2rb GlnbjogbGVmdDsgdmVydG qkKAohAPvsQ526GTMpaSo nPlBhdGllbnQg BUzqULk0G5LdAgfajVN+P O80BBTaWZ46dUUviATwd5 pccTl4ElUxEDUbWVQ7qBc mALvdb6MoNJZt M22yyVXaq0H1XYDevNzww PKmWyDkwVB3dU7zRKojte shi4rfqkcmDqshu1ekya9 8hI99X11nMWhh ZHRoPSIzMCUiIHZhbGlnb k6sqM7yCb0+DWJiwLS7qO J7aZ5uFQStZsL5QKhvS00 9InRvcCIvPjxj x7uqj9rejLp2KeW1KMLsy kTkrXfqHLI9a0IdMb84Z4 9sIHdpZHRoPSIyMCUiIHZ jfFdtnw2ooL3k Ii8+HYByoJU5jQI7eD1yV tJiVoO7XHrdI175AlDejW DzOyvtB82qD0IpnPJ+PHR iOsx8HLElfFjm AL9wvSJnPTwgSs7eLQD4G wHxIgYdJGsiJ5UsCCHgti ivxdewfKR0TFOyBIClaG4 3Bg8caJdgGQYx eUTGtV7pjiwfy3svgwhdP lMsZKNgMZk6VMz2LGVgdZ gkQaKjCRS6OoK4TOH1eMJ kpK6rbCmafeln kU9eY5MvGXDctowgIo71r Q1wJcGiVuJ3XKztOat+Ql YEYrVeTW4FZ1aISOxLFLs FQTwvdGQ+PHRk CVV2wIprMCbzALIurD0aJ YZpR2p6NqLfAzV5WKlnP2 RtBKSgqtkdOo08hW0cOfU uKaE3MSjuS0Wh ikR5WLHztZPcGCxzNDU3D 48js3A9SYSoYJFqZZX7bP Q6fE3jcUeucbszyDSfaYj gdmVydGljYWwt FCsgT229DBPisMwsIhNeH gIdZmS8NrT1G3GkXyv6TP OgmLxcQK6hbIXdFMfdXc3 ggMjjzXebZB8t HMRvvtgbXOGgyV7vYQMgo NWexYthHN6aRTIjpuemy6 90ThGuYOF3JQPukPZxB2M fuL0sVyBcYFZy FBHfC7EmxFWhMOkxT686F TykTbC3CSHjqjGuP2NeSP RvsOzfAgT1l0E6Th37AtX ZZWFyczwvdGQ+ NYRoQUA8cFmzLLwwYPVek V5eGIEhB3j9ByJkXuB6IM kgF0GpAKAazzwqLf79mF5 kGgBjNvL8OYsm D4TdqkX0YHGsdZOuTVfvB HQ2W95qe9Q8SLUwOQUnKP I6nBH2bK7xcRbsvulpfMS mdDsgdmVydGlj GVhfOIpgH184NCEpsZfgE kZFTUFMRTwvdGQ+PHRkIH K6wJrjSWkfRFGblT3fIOQ lK5v6ZjRrAeD8 VPvuF5XyAUJthyoaEk02b H8uRrOkKvK4XGyfU9Bgra S3YAHdsIAeZQojGBW0Y50 jo3U5BDRrGIRl VXL1wYR7fX8cmZihlserk GVmdDsgdmVydGljYWwtYW meS617MYIasWlzTy8XNT8 9EM25N0AyLqax dGFibGU+PHRhYmxlIHdpZ HRoPScxMDAlJyBzdHlsZT 3sPb1zWZCgIARacLclxAS pKoVyt7wnNMWb ZGujER7xlHaxE4DkrZN3K HRee7q3Vl85U86dU3IwhR A+RVBfrUA4cSA5nU5tReU hAhY8HSslU255 GhTblZYsHwdjc3xgd6day Xb7BuIlYLUjmqCozUyuBJ L7i0RoRi47C29oOUeoIHF oPSIyMCUiIHZh fGgjnk8brB8nNv8+PGNvb TK9iXW5rN2gRfRtVvB5KF vnJ843EkYjpXMjIaxiV33 fG4XksYB+PHRy Ybi4ZVCaqNioCH7taYPuM DypXy7pKSY8IaUnOdJbDS kwU0ZpIYYqldlhqbdjlNK 8GXAiAXUreQ38 El1niUmzNv4qYQXqIDY4Z JGlxVBgK1NvfZ2aMwNkAQ GoQZNjO9RelMBzPUhrM17 4MErjOdJ8BTMt vhOuR9FmAKVymYzhHgH1k 9X6Xh9WxRdyfSGtAN3iNp EiXPw1X1DpPfs2TTGgmBo fHE8coKItPEjz Be2pxBwlmCidQK8dTZDvd vtri428IkHsn0szNPDwzU FbIWqzOBS8T26ur4D9ZMO yCKIqKKL6mXD9 yV4cwHwtbkxueFOcqAxtl nQtzXcpVXddDMbqU905DV MaxPrvXiOITgc6N6YpNya 8QEVirSjcQO5k sJXtYUtuCp9ynLdmtJoeM R1iEVThdispd717TsQnf6 yeSTSogRAfNFsnNPO1I89 be5Y2JADqZZBa EWA1vAS3gU6pgMixdvnsz GVmdDsgdmVydGljYWwtYW lrC492UPHquNftBe9QVkz 9L5JqAto1ORJh cDqeYK7wdPGrEHlcBb2xy PkpcJkhOK0pUYPeyulyt7 83VrGhn0sbUVLceSNuRSl qKAB1G59ft0U4 ZEEzRCAzAUT5jVJ0rW1fp GlnbjogbGVmdDsgdmVydG mkFEtmDQshY891PJNlwXv nPlBheWVyOjwv dGQ+KH47xf74S3ZjSajlN dq3BZAbTUR6oXA4pH8qVV HnOPfei8Z4aQQ2F0OfzbJ jcf5lt1bnBCZp ZTo (more content not included)... [facility] Consent Formson 08-21-2024 Consent Forms [id number] 1 [id number]#1 .[id number] [facility] Telemetry Stripson Telemetry Strips [id number] 1 [id number]#1 .00OTGTIFF [facility] Anesthesia Noteon 08-20-2024 Anesthesia Note Patient: KATHY WU Age: 53 years Sex: FEMALE : 1970 Associated Diagnoses: None Author: Kev Lucero MD Postoperative Information Post Operative Note: Operative Day. Anesthetic utilized: General. Health Status Allergies: Allergic Reactions (All) Mild Latex- No reactions were documented. Unknown Penicillin- No reactions were documented. Problem list: All Problems GERD (gastroesophageal reflux disease) / SNOMED CT 060978031 / Confirmed Vertigo / SNOMED CT 1220195863 / Confirmed Physical Examination Vital Signs (last 24 hrs) Last Charted Temp Temporal 36.7 DegC (AUG 20 08:13) Heart Rate Monitored 65 bpm (AUG 20:00) Resp Rate 16 br/min (AUG 20:) SBP H 135 mmHg (AUG 20:) DBP 76 mmHg (AUG 20:) Review / Management Condition: Stable. Assessment Anesthetic outcome No anesthetic complications noted. Adequate pain relief. awake, alert, VSS, hydration appears adequate. No Complaint of nausea and vomiting. Plan Transfer/ Discharge: Patient can be discharged from PACU when criteria met. Condition good. [Electronically Signed on: 08/20/2024 13:04 EST] Kev Lucero MD [Verified on: 08/20/2024 13:04 EST] Kev Lucero MD [facility] Anesthesia Note Patient: KATHY WU Age: 53 years Sex: FEMALE : 1970 Associated Diagnoses: None Author: Kev Lucero MD Preoperative Information Anesthesia history: Patient history: Nausea and vomiting with anesthesia, No difficult intubation, No malignant hyperthermia. Family history: No malignant hyperthermia. Review of Systems Constitutional: Negative. Respiratory: Negative, No shortness of breath. Cardiovascular: No chest pain. Neurologic: Alert and oriented X4. Health Status Allergies: Allergic Reactions (All) Mild Latex- No reactions were documented. Unknown Penicillin- No reactions were documented. Current medications: Home Medications (3) Active melatonin 10 mg oral tablet 10 mg = 1 tab(s), Oral, Once a day (at bedtime) omeprazole 20 mg oral delayed release capsule 20 mg = 1 cap(s), Oral, BID Vitamin D3 1000 intl units oral capsule 25 mcg = 1 cap(s), Oral, Daily Problem list: All Problems GERD (gastroesophageal reflux disease) / SNOMED CT 156668868 / Confirmed Vertigo / SNOMED CT 0199280120 / Confirmed Histories Family History: Diabetes mellitus Mother Brother Lymphoma Mother Hypertension Mother Father Procedure history: Umbilical hernia (7495630142). Ventral hernia (0467524870). BAHA - Bone anchored hearing aid (9065581164). Comments: 08/16/2024 14:30 Emilio Chavez RN right ear Tympanostomy tube (3286845952). Comments: 08/16/2024 14:31 Emilio Chavez RN bilateral ears Appendectomy (739121171). Colonoscopy (541033202). Reconstruction of anterior abdominal wall (9494809717). Comments: 08/16/2024 14:07 Emilio Chavez RN with mesh Gastric sleeve (7347161719). Cholecystectomy (46389239). Small bowel resection (733086621). Right mastoidectomy (9487920408). Extraction of wisdom tooth (235659021). Hiatal hernia (836594152). Social History Electronic Cigarette/Vaping Assessment Electronic Cigarette Use: Never. Alcohol Assessment Use: Current. Beer, 1-2 times per year Tobacco Assessment Never tobacco user Tobacco Use:. Substance Abuse Assessment Substance use: Never. . Social & Psychosocial Habits Alcohol 08/16/2024 Alcohol Use: Current Type: Beer Frequency: 1-2 times per year Substance Use 08/16/2024 Substance use: Never Tobacco 08/16/2024 Smoking tobacco use: Never tobacco user Electronic Cigarette/Vaping 08/16/2024 Electronic Cigarette Use: Never . Physical Examination Vital Signs (last 24 hrs) Last Charted Temp Temporal 36.7 DegC (AUG 20 08:) Heart Rate Monitored 66 bpm (AUG 20:) Resp Rate 16 br/min (AUG 20:) SBP H 133 mmHg (AUG 20:) DBP 73 mmHg (AUG 20:) Airway: Mallampati classification: II (soft palate, fauces, uvula visible). Temporomandibular joint mobility: Good. Mouth: Adequate opening, Teeth ( chipped upper left molar, but denies anything loose ). Neck: Full range of motion. Respiratory: Lungs are clear to auscultation, Respirations are non-labored. Cardiovascular: Normal rate, Regular rhythm. Integumentary: No pallor. Neurologic: Alert, Oriented. Review / Management Laboratory Results Plan [place] [employer] (ASA) physical status classification Anesthetic Preoperative Plan Anesthesia: General. . Anesthetic plan, risks, benefits, and alternatives discussed with the patient and/or family. Patient verbalized understanding. Informed consent was given. Consent was signed by the patient. [Electronically Signed on: 08/20/2024 11:15 EST] Kev Lucero MD [Verified on: 08/20/2024 11:15 EST] Kev Lucero MD [facility] Inpatient Patient Summaryon 08-20-2024 Inpatient [place] [address] Patient Discharge Instructions Name: KATHY WU : 1970 Patient Address: [address] [place] [address] Primary Care Provider: Name: NAILA VILLARREAL After you are discharged if you find you have any questions, please, call [phone] ext [phone] to speak to a nurse. Discharge Diagnosis: Acute internal derangement of left knee Prescription Information: If you have been given a prescription for narcotics, seek immediate medical attention if you have any difficulty breathing or any sudden status changes such as confusion and sleepiness. If you or anyone you know is experiencing suicidal thoughts, mental health, alcohol and/or drug addiction problems; contact the [facility] 21/02 Crisis Hotline -text 4HDPG to 969094. If you received any narcotics, sedation, or any other medication that causes drowsiness for the next 24 hours, unless otherwise directed: ? Do not drive a car. ? Do not operate machinery such as power tools, lawn mowers, drills, sewing machines, or stoves ? Avoid alcoholic beverages and drugs for allergies, nerves, or sleep ? Do not make important personal or business decisions or sign any legal documents [facility] would like to thank you for allowing us to assist you with your healthcare needs. The following includes patient education materials and information regarding your injury/illness. KATHY WU has been given the following list of follow-up instructions, prescriptions, and patient education materials: Follow-up Instructions With: Address: When: Follow up with nurse practitioner Tesha Walton in the [place] office. [address] [place] [address] 09/03/2024 8:30 AM Medications During the course of your visit, your medication list was updated with the most current information. The details of those changes are reflected below: Medications to Continue That Have Not Changed Other Medications cholecalciferol (Vitamin D3 1000 intl units oral capsule) 1 cap(s) Oral (given by mouth) every day. melatonin (melatonin 10 mg oral tablet) 1 tab(s) Oral (given by mouth) once a day (at bedtime). omeprazole (omeprazole 20 mg oral delayed release capsule) 1 cap(s) Oral (given by mouth) 2 times per day. It is important to always keep an active list of medications available so that you can share with other providers and manage your medications appropriately. As an additional courtesy, we are also providing you with your final active medications list that you can keep with you. cholecalciferol (Vitamin D3 1000 intl units oral capsule) 1 cap(s) Oral (given by mouth) every day. melatonin (melatonin 10 mg oral tablet) 1 tab(s) Oral (given by mouth) once a day (at bedtime). omeprazole (omeprazole 20 mg oral delayed release capsule) 1 cap(s) Oral (given by mouth) 2 times per day. Take only the medications listed above. Contact your doctor prior to taking any medications not on this list. Diet & Activity Patient Activity Level: As Tolerated Patient Diet: Regular Patient Activity Restrictions: Discontinue Alcohol Use, No driving, No heavy lifting, Stop Smoking Comment: Patient education materials, if any, will display below Arthroscopic Surgery Discharge Instructions 1.) Keep ice on your knee after surgery. You may use the ice bag provided to you by the hospital or one from home. The ice should be applied at least 3 times a day for 20 minute intervals. 2.) Keep your knee elevated above the level of your hear. You may prop your leg up on pillows as long as the knee is higher than your heart. 3.) Move your knee. Please, do not be afraid to move the knee joint. It will be stiff and sore in the beginning, but this will slowly improve with healing time 4.) Wiggle your toes and exercise your ankle. These muscle pumps with help to take the swelling out of your knee and enhance circulation to the leg. Wiggle your toes and exercise your ankle for ten minutes every hour that you are awake. 5.) You may remove all bandages from your knee after 3 days. There may be some blood and drainage on the bandages, this is to be expected. You may clean the puncture sites with hydrogen peroxide and a cotton swab three times a day. Keep band aids over the puncture sites until scabbed over. 6.) If don't already have them, you will be issued a walker or crutches to aid in ambulation. These will allow you to move about without overloading your knee. The doctor would like you to: Add weight to your knee as tolerated. Let the level of pain be your guide, No weight on it today, start with toe-touch weight on 08/21/24 and gradually and weight as tolerated. Get off crutches a week from surgery. 7.) Do not immerse your knee under water. You may shower and pat the knee dry after you remove the bandages starting in 3 days. 8.) Keep yo (more content not included)... [facility] [place] [place] [facility] [place] [place] Summary Primary Physician: MELINA LEE DO Finalized Date/Time: 08/20/24 13:19:19 Pt. Name: KATHY WU/Sex: 1970 FEMALE Med Rec #: [id number] Physician: MELINA LEE DO Financial #: [id number] Pt. Type: D Room/Bed: / Admit/Disch: 08/20/24 07:57:24 - Institution: PACU Case Times MAGR Entry 1 In PACU I 08/20/24 12:49:00 Discharge from PACU 08/20/24 13:20:00 I Last Modified By: Milli Keys RN 08/20/24 13:19:15 Finalized By: Milli Keys RN Document Signatures Signed By: Milli Keys RN 08/20/24 13:19 [facility] 08-20-2024 [facility] [place] [facility] [place] II Record Summary Primary Physician: MELINA LEE DO Finalized Date/Time: 08/20/24 14:19:36 Pt. Name: KATHY WU/Sex: 1970 FEMALE Med Rec #: [id number] Physician: MELINA LEE DO Financial #: [id number] Pt. Type: D Room/Bed: / Admit/Disch: 08/20/24 07:57:24 - Institution: Phase II Case Times MAGR Pre-Care Text: Patient is free from s/s of injury. Patient remains free from compromised physical state related to surgery or anesthesia. Patient comfort maintained. Patient/family verbalize understanding of discharge instructions. Entry 1 In PACU II 08/20/24 13:22:00 Discharge from PACU 08/20/24 14:14:00 II Last Modified By: Arabella Funes RN 08/20/24 14:19:34 Post-Care Text: The patient remains free from s/s of injury. Patient's vital signs stable, circulation maintained, return to preop mental and physical status, opsite/dressing intact, minimal or absent nausea and vomiting, tolerates po intake. Patient verbalizes adequate pain control. Patient/family express understanding of discharge instructions. Finalized By: Arabella Funes RN Document Signatures Signed By: Arabella Funes RN 08/20/24 14:19 [facility] Preoperative Recordon 0 08-20-2024 [facility] Preoperative Record [facility] Pre-Op Rec ord Summary Primary Physician: MELINA LEE DO Finalized Date/Time: 08/20/24 12:07:30 Pt. Name: MAGGIE KATHY MAURIZIO Cheema./Sex: 1970 FEMALE Med Rec #: [id number] Physician: MELINA LEE DO Financial #: [id number] Pt. Type: D Room/Bed: / Admit/Disch: 08/20/24 07:57:24 - Institution: Pre-Op Case Times MAGR Pre-Care Text: Patient will be optimally prepared for surgery. Patient is free from s/s of injury. Provide information to patient/family related to plan of care. Verify patient allergies. Confirm identity and verify consent before the operative or invasive procedure. Entry 1 Patient Arrival Time 08/20/24 08:03:00 Preop Departure 08/20/24 11:34:00 Last Modified By: Bhargavi Ha RN 08/20/24 12:07:22 Post-Care Text: Patient is prepared mentally and physically and is ready for surgery. The patient remains free from s/s of injury. Patient/family express understanding of plan of care and participate in decisions affecting his or her perioperrative plan of care. Allergies documented appropriately. Patient identifiers and consent correct. General Comments: Patient to PSW ambulatory. Patient denies chest pain, cold, flu like symptoms. Patient denies diabetes, pacer/defib, sleep apnea. Patient verbalizes understanding of post op orders and instructions. Finalized By: Bhargavi Ha RN Document Signatures Signed By: Bhargavi Ha RN 08/20/24 12:07 [facility] Patient Handouton 08-20-2024 Patient Handout Arthroscopic Surgery Discharge Instructions 1.) Keep ice on your knee after surgery. You may use the ice bag provided to you by the hospital or one from home. The ice should be applied at least 3 times a day for 20 minute intervals. 2.) Keep your knee elevated above the level of your hear. You may prop your leg up on pillows as long as the knee is higher than your heart. 3.) Move your knee. Please, do not be afraid to move the knee joint. It will be stiff and sore in the beginning, but this will slowly improve with healing time 4.) Wiggle your toes and exercise your ankle. These muscle pumps with help to take the swelling out of your knee and enhance circulation to the leg. Wiggle your toes and exercise your ankle for ten minutes every hour that you are awake. 5.) You may remove all bandages from your knee after 3 days. There may be some blood and drainage on the bandages, this is to be expected. You may clean the puncture sites with hydrogen peroxide and a cotton swab three times a day. Keep band aids over the puncture sites until scabbed over. 6.) If don't already have them, you will be issued a walker or crutches to aid in ambulation. These will allow you to move about without overloading your knee. The doctor would like you to: Add weight to your knee as tolerated. Let the level of pain be your guide, No weight on it today, start with toe-touch weight on 08/21/24 and gradually and weight as tolerated. Get off crutches a week from surgery. 7.) Do not immerse your knee under water. You may shower and pat the knee dry after you remove the bandages starting in 3 days. 8.) Keep your follow up appoinment. 9.) If you notice foul odor, excessive drainage, calf pain, shortness of breath or increased swelling or pain call the office or proceed to the nearest Hospital Emergency Room. 10.) Be kind to yourself and do your exercises. Get planety of rest. Healing takes time. 11.) If you have been supplied with a brace, keep it in place at all times. 12.) For the next 24 hours do not drink any alcoholic beverages, drive a motore vehicle, operate machinery or powertools, make important decisions or sign important papers. 13.) You may feel dizzy, lightheaded or sleepy following surgery. Make sure you have someone with you for the rest of today. Normal [facility] Basic Metabolic [place] w/Rfx A1 Con 08-17-2024 Anion gap [Moles/Vol] 11.7 mmol/L Normal 6.0-15.0 e [facility] Comment on above: Performed By: #### E BS LIPID, EMP BMP #### [facility] [address] [id number] [place] Calcium [Mass/Vol] 9.7 mg/dL Normal 8.6-10.3 The Counts include 234 beds at the [facility] Comment on above: Performed By: #### E BS LIPID, EMP BMP #### [facility] [address] [id number] [place] Chloride [Moles/Vol] 102 mmol/L Normal 98-107 The [facility] Comment on above: Performed By: #### E BS LIPID, EMP BMP #### [facility] [address] [place] [address] [place] CO2 [Moles/Vol] 28.5 mmol/L Normal 21.0-31.0 The [facility] Comment on above: Performed By: #### E BS LIPID, EMP BMP #### [facility] [address] [place] [address] [place] Creatinine [Mass/Vol] 0.59 mg/dL Low 0.60-1.20 [facility] Comment on above: Performed By: #### E BS LIPID, EMP BMP #### [facility] [address] [id number] [place] GFR/1.73 sq M.predicted MDRD (S/P/Bld) [Vol rate/Area] mL/min/{1.73_m2} Normal The [facility] Comment on above: Performed By: #### E BS LIPID, EMP BMP #### [facility] [address] [place] [address] [place] Glucose [Mass/Vol] 100 mg/dL Normal 70-100 The Counts include 234 beds at the [facility] Comment on above: Performed By: #### E BS LIPID, EMP BMP #### [facility] [address] [place] [address] [place] Potassium [Moles/Vol] 4.2 mmol/L Normal 3.5-5.1 The [facility] Comment on above: Performed By: #### E BS LIPID, EMP BMP #### [facility] [address] [place] [address] [place] Sodium [Moles/Vol] 138 mmol/L Normal 136-145 The Counts include 234 beds at the [facility] Comment on above: Performed By: #### E BS LIPID, EMP BMP #### [facility] [address] [place] [address] [place] Urea nitrogen [Mass/Vol] 19 mg/dL Normal 7-25 The [facility] Comment on above: Performed By: #### E BS LIPID, EMP BMP #### [facility] [address] Calcium [Mass/volume] in Ser um or PlasmaOrdered By: Sherice Pressley on 08-17-2024 Calcium [Mass/Vol] Calcium [Mass/volume ] in Serum or Plasma 8.6-10.3 [facility] Carbon dioxide, total [Moles /volume] in Serum or PlasmaOrdered By: Sherice Pressley on 08-17-2024 CO2 [Moles/Vol] Carbon dioxide, tota l [Moles/volume] in Serum or Plasma 21.0-31.0 [facility] Chloride [Moles/volume] in S brigida or PlasmaOrdered By: Sherice Pressley on 08-17-2024 Chloride [Moles/Vol] Chloride [Moles/volume] in Serum or Plasma 98-107 [facility] Cholesterol [Mass/volume] in Serum or PlasmaOrdered By: Sherice Pressley on 08-17-2024 Cholesterol [Mass/Vol] Cholesterol [Mass/volume] in Serum or Plasma High 140-200 [facility] Comment on above: Chol less than 200 m g/dl low riskChol 201-239 mg/dl borderline riskChol 240 mg/dl and greater high risk Cholesterol in HDL [Mass/vol ume] in Serum or PlasmaOrdered By: Sherice Pressley on 08-17-2024 Cholesterol in HDL [Mass/Vol] Serum or plasma high density lipoprotein (HDL) cholesterol measurement 23-92 [facility] Comment on above: HDL CHOL ATP-III CLA SSIFICATION Cardiovascular RiskHDL > or equal to 60 mg/dL LOWHDL < 40 mg/dL HIGH Cholesterol in LDL Calc [Mas s/Vol]Ordered By: Sherice Pressley on 08-17-2024 Cholesterol in LDL [Mass/Vol] Cholesterol in LDL [Mass/volume] in Serum or Plasma by calculation High 0-100 [facility] Comment on above: LDL ATP III CLASSIFI CATIONLDL less than 100 mg/dL OptimalLDL 100-129 mg/dL Near or above optimalLDL 130-159 mg/dL Borderline highLDL 160-189 mg/dL HighLDL greater than 189 mg/dL Very high Cholesterol in VLDL Calc [Ma ss/Vol]Ordered By: Sherice Pressley on 08-17-2024 Cholesterol in VLDL [Mass/Vol] Cholesterol in VLDL [Mass/volume] in Serum or Plasma by calculation [facility] Creatinine [Mass/volume] in Serum or PlasmaOrdered By: Sherice Pressley on 08-17-2024 Creatinine [Mass/Vol] Creatinine [Mass/volume] in Serum or Plasma Low 0.60-1.20 [facility] Glucose [Mass/volume] in Ser um or PlasmaOrdered By: Sherice Pressley on 08-17-2024 Glucose [Mass/Vol] Glucose [Mass/volume ] in Serum or Plasma 70-100 [facility] Lipid Profileon 08-17-2024 Cholesterol [Mass/Vol] 271 mg/dL High 140-200 Th e [facility] Comment on above: Result Comment: Chol less than 200 mg/dl low risk Chol 201-239 mg/dl borderline risk Chol 240 mg/dl and greater high risk Performed By: #### E BS LIPID, EMP BMP #### [address] Cholesterol in HDL [Mass/Vol] 73 mg/dL Normal 23-92 The [facility] Comment on above: Result Comment: HDL CHOL ATP-III CLASSIFICATION Cardiovascular Risk HDL > or equal to 60 mg/dL LOW HDL < 40 mg/dL HIGH Performed By: #### E BS LIPID, EMP BMP #### [facility] [address] Cholesterol.total/Choles terol in HDL [Mass ratio] 3.7 {ratio} Normal <5.0 [facility] Comment on above: Result Comment: PERF ORMED BY: [place] [address] PATHOLOGIST BICYCLE INSPECTOR BLADE AKHTAR M.D. Performed By: #### E BS LIPID, EMP BMP #### [address] LDL Cholesterol,Calculated 173 mg/dL High 0-100 The Pending sale to [facility] Comment on above: Result Comment: LDL ATP III CLASSIFICATION LDL less than 100 mg/dL Optimal LDL 100-129 mg/dL Near or above optimal LDL 130-159 mg/dL Borderline high LDL 160-189 mg/dL High LDL greater than 189 mg/dL Very high Performed By: #### E BS LIPID, EMP BMP #### [address] Triglyceride w/Reflex 124 mg/dL Normal 0-149 [facility] Comment on above: Result Comment: TRIG ATP III CLASSIFICATION TRIG less than 150 mg/dL Normal TRIG 150-199 mg/dL Borderline high TRIG 200-500 mg/dL High TRIG greater than 500 mg/dL Very high Standard traceable to the Center for Disease Conrtrol and Prevention (CDC) test method. Performed By: #### E BS LIPID, EMP BMP #### [facility] [address] VLDL CHOLESTEROL 24 mg/dL Normal [facility] Comment on above: Performed By: #### E BS LIPID, EMP BMP #### [address] No Panel InformationOrdered By: Sherice Pressley on 08-17-2024 Estimated GFR (CKD-EPI) > 60.0 mL/Min [facility] Creatinine Clearance (Chem N/A [facility] Potassium [Moles/volume] in Serum or PlasmaOrdered By: Sherice Pressley on 08-17-2024 Potassium [Moles/Vol] Potassium [Moles/volume] in Serum or Plasma 3.5-5.1 [facility] Progress Note - Nurseon 08-01 Progress Note - Nurse PAT reviewed by Dr Wander Lucero. Scopolamine patch ordered for DOS. Order entered. No further orders received. [Electronically Signed on: 08/17/2024 12:21 EST] Emilio Mcrae RN [Verified on: 08/17/2024 12:21 EST] Emilio Mcrae RN [facility] Serum or plasma anion gap de terminationOrdered By: Sherice Pressley on 08-17-2024 Anion gap [Moles/Vol] Serum or plasma an ion gap determination 6.0-15.0 [facility] Serum or plasma total choles terol/high density lipoprotein (HDL) cholesterol mass ratOrdered By: Sherice Pressley on 08-17-2024 Cholesterol.total/Choles terol in HDL [Mass ratio] Serum or plasma total cholesterol/high density lipoprotein (HDL) cholesterol mass rat <5.0 [facility] Sodium [Moles/volume] in Ser um or PlasmaOrdered By: Sherice Pressley on 08-17-2024 Sodium [Moles/Vol] Sodium [Moles/volume ] in Serum or Plasma 136-145 [facility] Triglyceride [Mass/volume] i n Serum or PlasmaOrdered By: Sherice Pressley on 08-17-2024 Triglyceride [Mass/Vol] Triglyceride [Mass/volume] in Serum or Plasma 0-149 [facility] Comment on above: TRIG ATP III CLASSIF ICATIONTRIG less than 150 mg/dL NormalTRIG 150-199 mg/dL Borderline highTRIG 200-500 mg/dL High TRIG greater than 500 mg/dL Very highStandard traceable to the Center for Disease Conrtrol and Prevention (CDC) test method. Urea nitrogen [Mass/volume] in Serum or PlasmaOrdered By: Sherice Pressley on 08-17-2024 Urea nitrogen [Mass/Vol] Urea nitrogen [Mass/volume] in Serum or Plasma 02-22 [facility] MR KNEE LEFT WO IV CONTRASTo n 08-08-2024 MR KNEE LEFT WO IV CONTRAST Exam: MR KNEE LEFT WO IV CONTRAST History: Knee pain Technique: Multiplanar multisequence MRI of the knee was performed without contrast. Comparison: Radiographs July 30, 2024 Findings: Quadriceps and patellar tendons are intact. No joint effusion. Anterior and posterior cruciate ligaments are intact. The medial collateral ligament, lateral collateral ligament, and popliteus are intact. Complex tear of the posterior horn of the medial meniscus including flap tear component with displaced meniscus flap located inferiorly along the posterior aspect of the medial tibial plateau. Vertically oriented hyperintense signal within the anterior horn/root of the lateral meniscus appears to reach the articular surface on one image. There are a few tiny foci of subcortical bone marrow edema of the medial femoral trochlea likely secondary to full-thickness cartilage fissures.. Popliteal fossa structures are intact. No Cullen cyst. IMPRESSION: Complex tear of the posterior horn of the medial meniscus. ELECTRONICALLY SIGNED BY: Kev Jacques, DO Normal Not Available XR KNEE 4+ VIEWS RIGHTon XR KNEE 4+ VIEWS RIGHT Exam: XR KNEE 4+ VIEWS RIGHT Clinical History: Acute right medial knee pain, no injury Reference Exam: No comparison FINDINGS: The right knee joint spaces are preserved. Normal location of the knee. Negative for fracture or acute articular pathology. No knee joint effusion. No acute soft tissue pathology; a foreign body is not identified. IMPRESSION: No acute abnormality of the right knee is identified. Dictated on: 07/31/2024 11:32 AM This report has been electronically signed and approved by the interpreting Radiologist. Normal Not Available Vitamin B6on 02-21-2024 Vitamin B6 464.6 nmol/L High 20.0-125.0 [facility] Comment on above: Result Comment: (NOT E) INTERPRETIVE INFORMATION: Vitamin B6 (Pyridoxal 5-Phosphate) Pyridoxal 5'-phosphate measured in a specimen collected following an 8-hour or overnight fast accurately indicates vitamin B6 nutritional status. Non-fasting specimen concentration reflects recent vitamin intake. This test was developed and its performance characteristics determined by [facility]. It has not been cleared or approved by the [place] Food and Drug Administration. This test was performed in a CLIA certified laboratory and is intended for clinical purposes. Performed By: [address] [address] Payment Processor: Partha Crandall MD, PhD CLIA Number: [id number] Performed By: #### A VITB6 #### [address] [address] Family Services Coordinator: León Jain MD #### GLYHGB #### [address] [id number] Family Services Coordinator: Jamie Kilgore MD #### CP, TSH #### [address] [place] [address] Family Services Coordinator: Dk Steele MD [facility] Metabolic Prof 2023 Albumin [Mass/Vol] 4.3 g/dL Normal 3.5-5.2 [facility] Comment on above: Performed By: #### A VITB6 #### [address] [address] Family Services Coordinator: León Jain MD #### GLYHGB #### [address] [id number] Family Services Coordinator: Jamie Kilgore MD #### CP, TSH #### [facility] [address] [place] [address] Family Services Coordinator: Dk Steele MD Albumin/Glob Ratio 1.5 Normal 1.0-2.5 [facility] Comment on above: Performed By: #### A VITB6 #### [address] [address] Family Services Coordinator: León Jain MD #### GLYHGB #### [address] [address] Family Services Coordinator: Jamie Kilgore MD #### CP, TSH #### [address] [place], [place] [id number] Family Services Coordinator: Dk Steele MD Alkaline Phos 46 U/L Normal 35-104 [facility] Comment on above: Performed By: #### A VITB6 #### [facility] [address] [place] [address] Family Services Coordinator: León Jain MD #### GLYHGB #### [address] [address] Family Services Coordinator: Jamie Kilgore MD #### CP, TSH #### [address] [place] [address] Family Services Coordinator: Dk Steele MD ALT [Catalytic activity/Vol] 28 U/L Normal 5-33 [facility] Comment on above: Performed By: #### A VITB6 #### [facility] [address] [place], [place] [id number] Family Services Coordinator: León Jain MD #### GLYHGB #### [address] [id number] Family Services Coordinator: Jamie Kilgore MD #### CP, TSH #### [address] [place] [address] Family Services Coordinator: Dk Steele MD Anion gap [Moles/Vol] 9 mmol/L Normal 9-17 [facility] Comment on above: Performed By: #### A VITB6 #### [facility] [address] [place] [address] Family Services Coordinator: León Jain MD #### GLYHGB #### [address] [place] [address] Family Services Coordinator: Jamie Kilgore MD #### CP, TSH #### [address] [place] [address] Family Services Coordinator: Dk Steele MD AST [Catalytic activity/Vol] 22 U/L Normal <32 [facility] Comment on above: Performed By: #### A VITB6 #### [facility] [address] [place], [place] [id number] Family Services Coordinator: León Jain MD #### GLYHGB #### [address] [address] Family Services Coordinator: Jamie Kilgore MD #### CP, TSH #### [address] [place] [address] Family Services Coordinator: Dk Steele MD Bilirubin [Mass/Vol] 0.3 mg/dL Normal 0.3-1.2 [facility] Comment on above: Performed By: #### A VITB6 #### [facility] [address] [place], [place] [id number] Family Services Coordinator: León Jain MD #### GLYHGB #### [address] [address] Family Services Coordinator: Jamie Kilgore MD #### CP, TSH #### [address] [place] [address] Family Services Coordinator: Dk Steele MD BUN/CRE Ratio 30 High 9-20 [facility] Comment on above: Performed By: #### A VITB6 #### [facility] [address] [place], [place] [id number] Family Services Coordinator: León Jain MD #### GLYHGB #### [address] [address] Family Services Coordinator: Jamie Kilgore MD #### CP, TSH #### [facility] [address] [place] [address] Family Services Coordinator: Dk Steele MD Calcium [Mass/Vol] 9.3 mg/dL Normal 8.6-10.4 [facility] Comment on above: Performed By: #### A VITB6 #### [facility] [address] [place] [address] Family Services Coordinator: León Jain MD #### GLYHGB #### [address] [address] Family Services Coordinator: Jamie Kilgore MD #### CP, TSH #### [address] [place] [address] Family Services Coordinator: Dk Steele MD Chloride [Moles/Vol] 104 mmol/L Normal 98-107 [facility] Comment on above: Performed By: #### A VITB6 #### [facility] [address] [place] [address] Family Services Coordinator: León Jain MD #### GLYHGB #### [address] [address] Family Services Coordinator: Jamie Kilgore MD #### CP, TSH #### [address] [place] [address] Family Services Coordinator: Dk Steele MD CO2 [Moles/Vol] 28 mmol/L Normal 20-31 [facility] Comment on above: Performed By: #### A VITB6 #### [facility] [address] [place] [address] Family Services Coordinator: León Jain MD #### GLYHGB #### [address] [address] Family Services Coordinator: Jamie Kilgore MD #### CP, TSH #### [facility] [address] [place] [address] Family Services Coordinator: Dk Steele MD Creatinine [Mass/Vol] 0.6 mg/dL Normal 0.5-0.9 [facility] Comment on above: Performed By: #### A VITB6 #### [facility] [address] [place] [address] Family Services Coordinator: León Jain MD #### GLYHGB #### [facility] [address], [place] [id number] Family Services Coordinator: Jamie Kilgore MD #### CP, TSH #### [address] [place] [address] Family Services Coordinator: Dk Steele MD GFR/1.73 sq M.predicted among non-blacks MDRD (S/P/Bld) [Vol rate/Area] mL/min/{1.73_m2} Normal >60 [facility] Comment on above: Result Comment: These [...] #### A VITB6 #### [facility] [address] [place] [address] Family Services Coordinator: León Jain MD #### GLYHGB #### [facility] [address] [place] [address] Family Services Coordinator: Jamie Kilgore MD #### CP, TSH #### [facility] [address] [place] [address] Family Services Coordinator: Dk Steele MD Glucose [Mass/Vol] 93 mg/dL Normal 70-99 [facility] Comment on above: Performed By: #### A VITB6 #### [facility] [address] [place] [address] Family Services Coordinator: León Jain MD #### GLYHGB #### [address] [address] Family Services Coordinator: Jamie Kilgore MD #### CP, TSH #### [address] [place] [address] Family Services Coordinator: Dk Steele MD Potassium [Moles/Vol] 4.0 mmol/L Normal 3.7-5.3 [facility] Comment on above: Performed By: #### A VITB6 #### [facility] [address] [place] [address] Family Services Coordinator: León Jain MD #### GLYHGB #### [address] [address] Family Services Coordinator: Jamie Kilgore MD #### CP, TSH #### [address] [place] [address] Family Services Coordinator: Dk Steele MD Protein [Mass/Vol] 7.1 g/dL Normal 6.4-8.3 [facility] Comment on above: Performed By: #### A VITB6 #### [facility] [address] [place] [address] Family Services Coordinator: León Jain MD #### GLYHGB #### [address] [address] Family Services Coordinator: Jamie Kilgore MD #### CP, TSH #### [address] [place] [address] Family Services Coordinator: Dk Steele MD Sodium [Moles/Vol] 141 mmol/L Normal 135-144 [facility] Comment on above: Performed By: #### A VITB6 #### [facility] [address] [place] [address] Family Services Coordinator: León Jain MD #### GLYHGB #### [facility] [address], [place] [address] Family Services Coordinator: Jamie Kilgore MD #### CP, TSH #### [facility] [address] [place] [address] [place] [address] Family Services Coordinator: Dk Steele MD Urea nitrogen [Mass/Vol] 18 mg/dL Normal 6-20 [facility] Comment on above: Performed By: #### A VITB6 #### [facility] [address], [place] [address] Family Services Coordinator: León Jain MD #### GLYHGB #### [address] [place], [place] 9[address] Family Services Coordinator: Jamie Kilgore MD #### CP, TSH #### [facility] [address] [place] [address] [place] [address] Family Services Coordinator: Dk Steele MD Comprehensive Metabolic Pane [facility] 02-17-2024 Albumin/Globulin [Mass ratio] 1.5 {ratio} 1.0 - 2.5 [facility] ALP [Catalytic activity/Vol] 46 U/L 35 - 104 U/L [facility] Est, Glom Filt Rate - [facility] Comment on above: These results are not intended for use [...] following therapy that affects renal tubular secretion. Interpretation and review of laboratory results Abnormal [facility] Urea nitrogen/Creatinine [Mass ratio] 30 mg/mg High 9 - 20 [facility] Hemoglobin A1Con 02-17-2024 Average glucose Estimated from glycated hemoglobin (Bld) [Mass/Vol] 111 mg/dL [facility] Comment on above: The ADA and AACC rec ommend providing the estimated average glucose result to permit better patient understanding of their HBA1c result. HbA1c (Bld) [Mass fraction] 5.5 % 4.0 - 6.0 % [facility] Glucose [Mass/Vol] 111 mg/dL Normal [facility] Comment on above: Result Comment: The ADA and AACC recommend providing the estimated average glucose result to permit better patient understanding of their HBA1c result. Performed By: #### A VITB6 #### [facility] [address] [place] [address] Family Services Coordinator: León Jain MD #### GLYHGB #### [address] [id number] Family Services Coordinator: Jamie Kilgore MD #### CP, TSH #### [facility] [address] [place] [address] [place] [address] Family Services Coordinator: Dk Steele MD HbA1c (Bld) [Mass fraction] 5.5 % Normal 4.0-6.0 [facility] Comment on above: Performed By: #### A VITB6 #### [facility] [address] [place] [address] Family Services Coordinator: León Jain MD #### GLYHGB #### [address] [id number] Family Services Coordinator: Jamie Kilgore MD #### CP, TSH #### [facility] [address] [place] [address] Family Services Coordinator: Dk Steele MD No Panel Informationon 02-16 [facility] TSHon 02-17-2024 TSH Qn 3.58 m[IU]/L [facility] Thyroid Stim. Horm.on 2023 Thyroid Stim. Horm. 3.58 uIU/mL Normal 0.30-5.00 [facility] Comment on above: Performed By: #### A VITB6 #### [facility] [address] [place] [address] Family Services Coordinator: León Jain MD #### GLYHGB #### [facility] [address], [place] [address] Family Services Coordinator: Jamie Kilgore MD #### CP, TSH #### [facility] [address] [place] [address] Family Services Coordinator: Dk Steele MD BI MAMMOGRAM SCREENING TOMOS [...] IS VERY IMPORTANT TO YOUR HEALTH. THE [employer] GUIDELINES RECOMMEND THAT WOMEN 40 [...] 24 ABSOLUTE BASOPHIL 0.0 X10E9/L Normal 0.0-0.2 [facility] Comment on above: Performed By: #### C BCA, CMP, 44150-8, FEPR, 06152-9, 2777-1, 2276-4, 2284-8, 42322-6, 2131-9 #### [facility] ([id number]) [address] [place] [address], [address] [place] [address] #### VITASP, 2900-9, 2998-3 #### [facility] ([id number]) [address] [place] [address] 19559 ABSOLUTE NEUTROPHIL 2.5 X10E9/L Normal 1.5-6.6 [facility] Comment on above: Performed By: #### C BCA, CMP, 20609-4, FEPR, 17245-6, 2777-1, 2276-4, 2284-8, 10110-3, 2132-04 #### [facility] ([id number]) [address] [place] [address], [address] [place] [address] #### VITASP, 2900-9, 2998-3 #### [facility] ([id number]) [address] [place] [address]408 Basophils/100 WBC (Bld) 1.1 % Normal [facility] Comment on above: Performed By: #### C BCA, CMP, 84185-0, FEPR, 99199-3, 2777-1, 2276-4, 2284-8, 38101-2, 9 #### [facility] ([id number]) [address] [place] [address], [address] [place] [address] #### VITASP, 2900-9, 2998-3 #### [facility] ([id number]) [address] [place] [address] Eosinophils (Bld) [#/Vol] 0.2 10*3/uL Normal 0.0-0.[address] [facility] Comment on above: Performed By: #### C BCA, CMP, 76629-7, FEPR, 16552-3, 2777-1, 2276-4, 2284-8, 87044-1, 2131-9 #### [facility] ([id number]) [address], [address] [place] [address] #### VITASP, 2900-9, 2998-3 #### [facility] ([id number]) [address] [place] [address] Eosinophils/100 WBC (Bld) 3.6 % Normal [facility] Comment on above: Performed By: #### C BCA, CMP, 15538-8, FEPR, 39976-4, 2777-1, 2276-4, 2284-8, 26355-3, 2131-9 #### [facility] ([id number]) [address], [address] [place] [address] #### VITASP, 2900-9, 2998-3 #### [facility] ([id number]) [address] [place] [address] Erythrocyte distribution width (RBC) [Ratio] 13.1 % Normal 11.5-15.[address] [facility] Comment on above: Performed By: #### C BCA, CMP, 53885-4, FEPR, 12039-5, 2777-1, 2276-4, 2284-8, 07985-3, 2131-9 #### [facility] ([id number]) [address], [address] [place] [address] #### VITASP, 2900-9, 2998-3 #### [facility] ([id number]) [address] [place] [address]267 Hematocrit (Bld) [Volume fraction] 36.8 % Normal 35-[address] [facility] Comment on above: Performed By: #### C BCA, CMP, 71563-0, FEPR, 45997-4, 2777-1, 2276-4, 2284-8, 36210-4, 2132-04 #### [facility] ([id number]) [address], [address] [place] [address] #### VITASP, 2900-9, 2998-3 #### [facility] ([id number]) [address] [place] [address] Hemoglobin (Bld) [Mass/Vol] 12.5 g/dL Normal 11.7-15.[address] [facility] Comment on above: Performed By: #### C BCA, CMP, 92986-6, FEPR, 94585-9, 2777-1, 2276-4, 2284-8, 97652-1, 2132-04 #### [facility] ([id number]) [address], [address] [place] [address] #### VITASP, 2900-9, 2998-3 #### [facility] ([id number]) [address] [place] [address] Lymphocytes (Bld) [#/Vol] 1.4 10*3/uL Normal 1.0-3.[address] [facility] Comment on above: Performed By: #### C BCA, CMP, 18627-7, FEPR, 95976-8, 2777-1, 2276-4, 2284-8, 87048-4, 2132-04 #### [facility] ([id number]) [address], [address] [place] [address] #### VITASP, 2900-9, 2998-3 #### [facility] ([id number]) [address] [place] [address] 28222 Lymphocytes/100 WBC (Bld) 31.0 % Normal [facility] Comment on above: Performed By: #### C BCA, CMP, 08650-9, FEPR, 34076-3, 2777-1, 2276-4, 2284-8, 03156-4, 2132-04 #### [facility] ([id number]) [address], [address] [place] [address] #### VITASP, 2900-9, 2998-3 #### [facility] ([id number]) [address] [place] [address] 88019 MCH (RBC) [Entitic mass] 30.3 pg Normal 27-[address] [facility] Comment on above: Performed By: #### C BCA, CMP, 50330-9, FEPR, 76058-3, 2777-1, 2276-4, 2284-8, 90400-1, 2131-9 #### [facility] ([id number]) [address] [facility], [address] [place] [address] #### VITASP, 2900-9, 2998-3 #### [facility] ([id number]) [address] [place] [address] 73791 MCHC (RBC) [Mass/Vol] 33.9 g/dL Normal 32-36 [facility] Comment on above: Performed By: #### C BCA, CMP, 92486-0, FEPR, 77172-1, 2777-1, 2276-4, 2284-8, 42851-0, 2131-9 #### [facility] ([id number]) [address] [facility] [facility], [address] [place] [address] #### VITASP, 2900-9, 2998-3 #### [facility] ([id number]) [address] [place] [address] 16750 MCV (RBC) [Entitic vol] 89 fL Normal 80-100 [facility] Comment on above: Performed By: #### C BCA, CMP, 46558-9, FEPR, 01153-2, 2777-1, 2276-4, 2284-8, 56012-1, 2131-9 #### [facility] ([id number]) [address], [address] [place] [address] #### VITASP, 2900-9, 2998-3 #### [facility] ([id number]) [address] [place] [address] 76390 Monocytes (Bld) [#/Vol] 0.4 10*3/uL Normal 0-0.[address] [facility] Comment on above: Performed By: #### C BCA, CMP, 19353-5, FEPR, 04182-8, 2777-1, 2276-4, 2284-8, 38043-7, 2131-9 #### [facility] ([id number]) [address], [address] [place] [address] #### VITASP, 2900-9, 2998-3 #### [facility] ([id number]) [address] [place] [address] 04239 Monocytes/100 WBC (Bld) 8.7 % Normal [facility] Comment on above: Performed By: #### C BCA, CMP, 58316-7, FEPR, 43104-7, 2777-1, 2276-4, 2284-8, 11338-1, 2132-04 #### [facility] ([id number]) [address], [address] [place] [address] #### VITASP, 2900-9, 2998-3 #### [facility] ([id number]) [address] [place] [address] 34697 Neutrophils/100 WBC (Bld) 55.6 % Normal [facility] Comment on above: Performed By: #### C BCA, CMP, 66103-1, FEPR, 19824-6, 2777-1, 2276-4, 2284-8, 14934-9, 2131-9 #### [facility] ([id number]) [address], [address] [place] [address] #### VITASP, 2900-9, 2998-3 #### [facility] ([id number]) [address] [place] [address] 98928 Platelet mean volume (Bld) [Entitic vol] 8.8 fL Normal 7-[address] [facility] Comment on above: Performed By: #### C BCA, CMP, 44585-6, FEPR, 92862-8, 2777-1, 2276-4, 2284-8, 66707-4, 2131-9 #### [facility] ([id number]) [address], [address] [place] [address] #### VITASP, 2900-9, 2998-3 #### [facility] ([id number]) [address] [place] [address] 27479 Platelets (Bld) [#/Vol] 246 10*3/uL Normal 150-[address] [facility] Comment on above: Performed By: #### C BCA, CMP, 51380-4, FEPR, 28104-2, 2777-1, 2276-4, 2284-8, 04941-1, 2131-9 #### [facility] ([id number]) [address], [address] [place] [address] #### VITASP, 2900-9, 2998-3 #### [facility] ([id number]) [address] [place] [address] 56600 RBC COUNT 4.11 X10E12/L Normal 3.80-5.[address] [facility] Comment on above: Performed By: #### C BCA, CMP, 53866-6, FEPR, 90827-6, 2777-1, 2276-4, 2284-8, 16732-6, 2131-9 #### [facility] ([id number]) [address], [address] [place] [address] #### VITASP, 2900-9, 2998-3 #### [facility] ([id number]) [address] [place] [address] 34817 WBC (Bld) [#/Vol] 4.4 10*3/uL Normal 4.0-11.0 [facility] Comment on above: Performed By: #### C BCA, CMP, 31617-4, FEPR, 48902-3, 2777-1, 2276-4, 2284-8, 64854-3, 2131-9 #### [facility] ([id number]) [address], [address] [place] [address] #### VITASP, 2900-9, 2998-3 #### [facility] ([id number]) [address] [place] [address] 00576 COMPREHENSIVE METABOLIC PANE Neil 10-14-2023 Albumin [Mass/Vol] 4.4 g/dL Normal 3.2-5.3 [facility] Comment on above: Performed By: #### C BCA, CMP, 56615-7, FEPR, 47783-6, 2777-1, 2276-4, 2284-8, 55039-9, 2131-9 #### [facility] ([id number]) [address], [address] [place] [address] #### VITASP, 2900-9, 2998-3 #### [facility] ([id number]) [address] [place] [address] 88754 ALP [Catalytic activity/Vol] 37 U/L Low 39-[address] [facility] Comment on above: Performed By: #### C BCA, CMP, 27193-7, FEPR, 94613-5, 2777-1, 2276-4, 2284-8, 57631-4, 2131-9 #### [facility] ([id number]) [address], [address] [place] [address] #### VITASP, 2900-9, 2998-3 #### [facility] ([id number]) [address] [place] [address] 95483 ALT [Catalytic activity/Vol] 35 U/L High 0-[address] [facility] Comment on above: Performed By: #### C BCA, CMP, 31735-2, FEPR, 19387-5, 2777-1, 2276-4, 2284-8, 24989-9, 2132-9 #### [facility] ([id number]) [address] [place] [address], [address] [place] [address] #### VITASP, 2900-9, 2998-3 #### [facility] ([id number]) [address] [place] [address] 63603 Anion gap [Moles/Vol] 11 mmol/L Normal 5-15 [facility] Comment on above: Performed By: #### C BCA, CMP, 58028-6, FEPR, 91967-9, 2777-1, 2276-4, 2284-8, 69990-9, 2131-9 #### [facility] ([id number]) [address] [place] [address], [address] [place] [address] #### VITASP, 2900-9, 2998-3 #### [facility] ([id number]) [address] [place] [address] 98536 AST [Catalytic activity/Vol] 24 U/L Normal 0-[address] [facility] Comment on above: Performed By: #### C BCA, CMP, 45770-9, FEPR, 57579-6, 2777-1, 2276-4, 2284-8, 89343-7, 2131-9 #### [facility] ([id number]) [address] [place] [address], [address] [place] [address] #### VITASP, 2900-9, 2998-3 #### [facility] ([id number]) [address] [place] [address] 59542 Bilirubin [Mass/Vol] 0.5 mg/dL Normal 0.3-1.2 [facility] Comment on above: Performed By: #### C BCA, CMP, 65460-8, FEPR, 91854-1, 2777-1, 2276-4, 2284-8, 32960-3, 213-9 #### [facility] ([id number]) [address], [address] [place] [address] #### VITASP, 2900-9, 2998-3 #### [facility] ([id number]) [address] [place] [address] 68974 Calcium [Mass/Vol] 9.6 mg/dL Normal 8.5-10.5 [facility] Comment on above: Performed By: #### C BCA, CMP, 63470-1, FEPR, 91080-6, 2777-1, 2276-4, 2284-8, 21719-4, 2131-9 #### [facility] ([id number]) [address], [address] [place] [address] #### VITASP, 2900-9, 2998-3 #### [facility] ([id number]) [address] [place] [address] 54924 Chloride [Moles/Vol] 106 mmol/L Normal 98-109 [facility] Comment on above: Performed By: #### C BCA, CMP, 35816-9, FEPR, 11325-5, 2777-1, 2276-4, 2284-8, 19227-3, 2131-9 #### [facility] ([id number]) [address], [address] [place] [address] #### VITASP, 2900-9, 2998-3 #### [facility] ([id number]) [address] [place] [address] 27591 CO2 [Moles/Vol] 26 mmol/L Normal 22-[address] [facility] Comment on above: Performed By: #### C BCA, CMP, 64507-5, FEPR, 89883-2, 2777-1, 2276-4, 2284-8, 88060-8, 2131-9 #### [facility] ([id number]) [address] [facility], [address] [place] [address] #### VITASP, 2900-9, 2998-3 #### [facility] ([id number]) [address] [place] [address] 34418 Creatinine [Mass/Vol] 0.68 mg/dL Normal 0.40-1.00 [facility] Comment on above: Result Comment: METH OD TRACEABLE TO IDMS STANDARD Performed By: #### C BCA, CMP, 26759-7, FEPR, 34404-9, 2777-1, 2276-4, 2284-8, 25725-9, 9 #### [facility] ([id number]) [address] [facility] [place] [address] #### VITASP, 2900-9, 2998-3 #### [facility] ([id number]) [address] [place] [address] 39772 eGFR (CKD-EPI) NON-RACE DEPENDENT >90 Normal >[address] [facility] Comment on above: Result Comment: Reported eGFR is based on the CKD-EPI 2020 equation that does not use a race coefficient. Performed By: #### C BCA, CMP, 07351-7, FEPR, 37024-7, 2777-1, 2276-4, 2284-8, 14230-3, 2131-9 #### [facility] ([id number]) [address], [address] [place] [address] #### VITASP, 2900-9, 2998-3 #### [facility] ([id number]) [address] [place] [address] Glucose [Mass/Vol] 95 mg/dL Normal 65-99 [facility] Comment on above: Performed By: #### C BCA, CMP, 18145-7, FEPR, 97299-7, 2777-1, 2276-4, 2284-8, 93920-1, 2132-9 #### [facility] ([id number]) [address], [address] [place] [address] #### VITASP, 2900-9, 2998-3 #### [facility] ([id number]) [address] [place] [address] 79862 Potassium [Moles/Vol] 3.9 mmol/L Normal 3.5-5.0 [facility] Comment on above: Performed By: #### C BCA, CMP, 06768-4, FEPR, 57923-5, 2777-1, 2276-4, 2284-8, 59426-5, 2131-9 #### [facility] ([id number]) [address] [facility], [address] [place] [address] #### VITASP, 2900-9, 2998-3 #### [facility] ([id number]) [address] [place] [address] 45697 Protein [Mass/Vol] 6.8 g/dL Normal 6.0-8.0 [facility] Comment on above: Performed By: #### C BCA, CMP, 31877-0, FEPR, 00007-0, 2777-1, 2276-4, 2284-8, 61776-4, 2131-9 #### [facility] ([id number]) [address], [address] [place] [address] #### VITASP, 2900-9, 2998-3 #### [facility] ([id number]) [address] [place] [address] 67233 Sodium [Moles/Vol] 143 mmol/L Normal 134-146 [facility] Comment on above: Performed By: #### C BCA, CMP, 17660-3, FEPR, 64252-7, 2777-1, 2276-4, 2284-8, 55782-1, 2131-9 #### [facility] ([id number]) [address], [address] [place] [address] #### VITASP, 2900-9, 2998-3 #### [facility] ([id number]) [address] [place] [address] 80753 Urea nitrogen [Mass/Vol] 28 mg/dL High 5-[address] [facility] Comment on above: Performed By: #### C BCA, CMP, 27147-0, FEPR, 46518-9, 2777-1, 2276-4, 2284-8, 86316-3, 2131-9 #### [facility] ([id number]) [address], [address] [place] [address] #### VITASP, 2900-9, 2998-3 #### [facility] ([id number]) [address] [place] [address]153 FERRITINon 10-14-2023 Ferritin [Mass/Vol] 71 ng/mL Normal 11-307 [facility] Comment on above: Performed By: #### C BCA, CMP, 81054-3, FEPR, 21920-4, 2777-1, 2276-4, 2284-8, 16978-4, 2131-9 #### [facility] ([id number]) [address], [address] [place] [address] #### VITASP, 2900-9, 2998-3 #### [facility] ([id number]) [address] [place] [address] 95797 Folate [Mass/Vol]on 10-14-19 24 FOLIC ACID >25.0 Normal >5.[address] [facility] Comment on above: Result Comment: NEW REFERENCE RANGE Performed By: #### C BCA, CMP, 26359-9, FEPR, 59407-9, 2777-1, 2276-4, 2284-8, 48878-3, 9 #### [facility] ([id number]) [address], [address] [place] [address] #### VITASP, 2900-9, 2998-3 #### [facility] ([id number]) [address] [place] [address] HGB A1C (GLYCO-HGB)on 2023 Glucose [Mass/Vol] 126 mg/dL Normal [facility] Comment on above: Performed By: #### C BCA, CMP, 88792-0, FEPR, 81186-3, 2777-1, 2276-4, 2284-8, 20006-2, 2132-04 #### [facility] ([id number]) [address], [address] [place] [address] #### VITASP, 2900-9, 2998-3 #### [facility] ([id number]) [address] [place] [address] 39135 HbA1c (Bld) [Mass fraction] 6.0 % High 4.4-5.[address] [facility] Comment on above: Result Comment: NOTE ADA Guidelines Result HgbA1c Normal : less than 5.7 % Prediabetes : 5.7 % to 6.4 % Diabetes : > 6.4 % Use with caution in patients with abnormal hemoglobin variants as the half-life of red blood cells and in vivo glycation rates are affected. Performed By: #### C BCA, CMP, 91857-2, FEPR, 35055-5, 2777-1, 2276-4, 2284-8, 42194-2, 9 #### [facility] ([id number]) [address], [address] [place] [address] #### VITASP, 2900-9, 2998-3 #### [facility] ([id number]) [address] [place] [address]231 IRON PROFILEon 10-14-2023 Iron [Mass/Vol] 130 ug/dL Normal 50-[address] [facility] Comment on above: Performed By: #### C BCA, CMP, 69183-5, FEPR, 50975-6, 2777-1, 2276-4, 2284-8, 93768-0, 2131-9 #### [facility] ([id number]) [address], [address] [place] [address] #### VITASP, 2900-9, 2998-3 #### [facility] ([id number]) [address] [place] [address] 87698 IRON BINDING 371 ug/dL Normal 250-[address] [facility] [address] [facility] Comment on above: Performed By: #### C BCA, CMP, 25380-6, FEPR, 42538-2, 2777-1, 2276-4, 2284-8, 27963-3, 2131-9 #### [facility] ([id number]) [address], [address] [place] [address] #### VITASP, 2900-9, 2998-3 #### [facility] ([id number]) [address] [place] [address] 96387 IRON SATURATION 35 % SATURATION Normal 15-50 [facility] Comment on above: Performed By: #### C BCA, CMP, 33159-7, FEPR, 17251-9, 2777-1, 2276-4, 2284-8, 47908-9, 2131-9 #### [facility] ([id number]) [address], [address] [place] [address] #### VITASP, 2900-9, 2998-3 #### [facility] ([id number]) [address] [place] [address] 45195 Lipid 1996 panelon 4 Cholesterol [Mass/Vol] 183 mg/dL Normal 150-200 [facility] Comment on above: Performed By: #### C BCA, CMP, 43723-9, FEPR, 64431-6, 2777-1, 2276-4, 2284-8, 75123-8, 2132-04 #### [facility] ([id number]) [address] [place] [address], [address] [place] [address] #### VITASP, 2900-9, 2998-3 #### [facility] ([id number]) [address] [place] [address] 32544 Cholesterol in HDL [Mass/Vol] 69 mg/dL Normal >[address] [facility] Comment on above: Result Comment: HDL <40 mg/dL - High Risk HDL > or = 40mg/dL- Desirable HDL >60 mg/dL - Negative Risk Performed By: #### C BCA, CMP, 45423-1, FEPR, 79526-5, 2777-1, 2276-4, 2284-8, 79014-7, 2132-04 #### [facility] ([id number]) [address] [place] [address], [address] [place] [address] #### VITASP, 2900-9, 2998-3 #### [facility] ([id number]) [address] [place] [address] 90287 Cholesterol in LDL [Mass/Vol] 92 mg/dL Normal <[address] [facility] Comment on above: Result Comment: LDL <100 mg/dL - Desirable LDL >160 mg/dL - High Risk Performed By: #### C BCA, CMP, 26101-8, FEPR, 12445-2, 2777-1, 2276-4, 2284-8, 55560-5, 2132-9 #### [facility] ([id number]) [address] [facility], [address] [place] [address] #### VITASP, 2900-9, 2998-3 #### [facility] ([id number]) [address] [place] [address] 59909 Cholesterol in VLDL [Mass/Vol] 22 mg/dL Normal 0-[address] [facility] Comment on above: Performed By: #### C BCA, CMP, 23655-1, FEPR, 75031-6, 2777-1, 2276-4, 2284-8, 36166-5, 2131-9 #### [facility] ([id number]) [address] [facility], [address] [place] [address] #### VITASP, 2900-9, 2998-3 #### [facility] ([id number]) [address] [place] [address]37 CHOLESTEROL:HDL 2.7 Normal 1.0-5.[address] [facility] Comment on above: Performed By: #### C BCA, CMP, 74611-6, FEPR, 16646-2, 2777-1, 2276-4, 2284-8, 99981-8, 2131-9 #### [facility] ([id number]) [address] [facility], [address] [place] [address] #### VITASP, 2900-9, 2998-3 #### [facility] ([id number]) [address] [place] [address] 56706 Triglyceride [Mass/Vol] 111 mg/dL Normal 27-150 [facility] Comment on above: Performed By: #### C BCA, CMP, 18867-8, FEPR, 43533-4, 2777-1, 2276-4, 2284-8, 02900-1, 9 #### [facility] ([id number]) [address] [facility], [address] [place] [address] #### VITASP, 2900-9, 2998-3 #### [facility] ([id number]) [address] [place] [address] 41354 MAGNESIUMon 10-14-2023 Magnesium [Mass/Vol] 2.1 mg/dL Normal 1.8-2.6 [facility] Comment on above: Performed By: #### C BCA, CMP, 33638-4, FEPR, 91187-9, 2777-1, 2276-4, 2284-8, 91543-3, 2132-04 #### [facility] ([id number]) [address] [facility], [address] [place] [address] #### VITASP, 2900-9, 2998-3 #### [facility] ([id number]) [address] [place] [address] 29218 PHOSPHORUSon 10-14-2023 Phosphate [Mass/Vol] 4.0 mg/dL Normal 2.4-4.9 [facility] Comment on above: Performed By: #### C BCA, CMP, 94520-3, FEPR, 41730-3, 2777-1, 2276-4, 2284-8, 02028-4, 9 #### [facility] ([id number]) [address] [facility], [address] [place] [address] #### VITASP, 2900-9, 2998-3 #### [facility] ([id number]) [address] [place] [address] 44900 Pyridoxine [Mass/Vol]on 09-29 VITAMIN B6 307.1 nmol/L High 20.0-125.[address] [facility] Comment on above: Result Comment: NOTE INTERPRETIVE INFORMATION: Vitamin B6 (Pyridoxal 5-Phosphate) Pyridoxal 5'-phosphate measured in a specimen collected following an 8-hour or overnight fast accurately indicates vitamin B6 nutritional status. Non-fasting specimen concentration reflects recent vitamin intake. This test was developed and its performance characteristics determined by [employer]. It has not been cleared or approved by the US Food and Drug Administration. This test was performed in a CLIA certified laboratory and is intended for clinical purposes. Performed By: [employer] [address] [place] [address] Payment Processor: Partha Crandall MD, PhD CLIA Number: [id number] Performed By: #### C BCA, CMP, 57069-4, FEPR, 08669-0, 2777-1, 2276-4, 2284-8, 64533-3, 2132-9 #### [facility] ([id number]) [address] [place] [address], [address] [place] [address] #### VITASP, 2900-9, 2998-3 #### [facility] ([id number]) [address] [place] [address], [place] [address] Thiamine (Bld) [Mass/Vol]on 10-14-2023 THIAMIN VITAMIN B1 See Below Normal [facility] Comment on above: Result Comment: NOTE TEST RESULT FLAG UNIT REF.RANGE --------- Vitamin B1 (TDP), Whole Blood 112.5 nmol/L 84.3-213.3 This assay measures the concentration of thiamine diphosphate (TDP), the primary active form of vitamin B1. Approximately 90 percent of vitamin B1 present in whole blood is TDP. Thiamine and thiamine monophosphate, which comprise the remaining 10 percent, are not measured. This test was developed and its performance characteristics determined by [facility]'s [facility] [place] ([facility]). It has not been cleared or approved by the FDA. -[facility] is regulated under CLIA as qualified to perform high-complexity testing. This test is used for clinical purposes. It should not be regarded as investigational or for research. Test Performed By: [place] [address] Payment Processor: Josias Villanueva III, M.D. CLIA #[id number] Performed By: #### C BCA, CMP, 95056-6, FEPR, 18057-7, 2777-1, 2276-4, 2284-8, 68242-8, 2131-9 #### [facility] ([id number]) [address] [place] [address], [address] [place] [address] #### VITASP, 2900-9, 2998-3 #### [facility] ([id number]) [address] [place] [address] 24342 VITAMIN A(RETINOL)on 024 RETINYL PALMITATE 0.24 mg/L High 0.00-0.10 [facility] Comment on above: Performed By: #### C BCA, CMP, 91087-2, FEPR, 78636-0, 2777-1, 2276-4, 2284-8, 90896-0, 9 #### [facility] ([id number]) [address] [place] [address], [address] [place] [address] #### VITASP, 2900-9, 2998-3 #### [facility] ([id number]) [address] [place] [address] 79996 VIT A,SER/PL INTERP SEE NOTE Normal [facility] Comment on above: Result Comment: NOTE Modest elevation of retinyl palmitate consistent with oral supplementation. Vitamin A supplements in the range of 10,000 IU/day are typically associated with a retinyl palmitate concentration less than 0.10 mg/L. Drugs which may interfere with analysis include probucal (Lorelco). This test was developed and its performance characteristics determined by [employer]. It has not been cleared or approved by the US Food and Drug Administration. This test was performed in a CLIA certified laboratory and is intended for clinical purposes. Performed By: [facility] [address] [place] [address] Payment Processor: Partha Crandall MD, PhD CLIA Number: [id number] Performed By: #### C BCA, CMP, 58567-9, FEPR, 55296-7, 2777-1, 2276-4, 2284-8, 59532-9, 213-9 #### [facility] ([id number]) [address], [address] [place] [address] #### VITASP, 2900-9, 2998-3 #### [facility] ([id number]) [address] [place] [address] 78708 VITAMIN A(RETINOL) 0.82 mg/L Normal 0.30-1.20 [facility] Comment on above: Performed By: #### C BCA, CMP, 83565-9, FEPR, 62926-2, 2777-1, 2276-4, 2284-8, 62752-1, 2131-9 #### [facility] ([id number]) [address], [address] [place] [address] #### VITASP, 2900-9, 2998-3 #### [facility] ([id number]) [address] [place] [address] 11822 VITAMIN B12on 10-14-2023 Cobalamin (Vitamin B12) [Mass/Vol] 413 pg/mL Normal 180-[address] [facility] Comment on above: Performed By: #### C BCA, CMP, 18242-3, FEPR, 20053-8, 2777-1, 2276-4, 2284-8, 40724-9, 2131-9 #### [facility] ([id number]) [address], [address] [place] [address] #### VITASP, 2900-9, 2998-3 #### [facility] ([id number]) [address] [place] [address] Vitamin D+Metabolites [Mass/ Vol]on 10-14-2023 VITAMIN D 25 HYD TOT 29.9 ng/mL Low 30-100 [facility] Comment on above: Result Comment: Vitamin D status 25 [place] Vitamin D Deficiency <20 ng/mL Insufficiency 20-29 ng/mL Sufficiency 30-100 ng/mL Toxicity >100 ng/mL NOTE: A pediatric reference range has not been established by the civil draftsman of this kit. The [place] [employer] recommends a Vitamin D level of = or >20ng/mL in infants and children. Performed By: #### C BCA, CMP, 64098-3, FEPR, 76470-0, 2777-1, 2276-4, 2284-8, 34662-2, 2132-9 #### [facility] ([id number]) [address] [place] [address], [address] [place] [address] #### VITASP, 2900-9, 2998-3 #### [facility] ([id number]) [address] [place] [address] 98824 Zinc [Mass/Vol]on 10-14-2023 ZINC 83 ug/dL Normal 60-[address] [facility] Comment on above: Result Comment: NOTE This test was developed and its performance characteristics determined by [facility]'s [facility] [place] [facility] [place] ([facility]). It has not been cleared or approved by the FDA. -[facility] is regulated under CLIA as qualified to perform high-complexity testing. This test is used for clinical purposes. It should not be regarded as investigational or for research. Test Performed By: [facility] [employer] [address] [place] [address] Payment Processor: Josias Villanueva III, M.D. CLIA #[id number] Performed By: #### C BCA, CMP, 60812-8, FEPR, 69603-5, 2777-1, 2276-4, 2284-8, 77811-7, 2132-9 #### [facility] ([id number]) [address] [facility], [address] [place] [address] #### VITASP, 2900-9, 2998-3 #### [facility] ([id number]) [address] [facility], [place] [address] Microalbumin (with Creat)on 12-23-2021 mALB <1.2 Low [facility] Comment on above: Result Comment: Unab le to calculate mALB/Crea ratio, mALB is <1.2 mg/dL mALB reference range not established. Performed By: #### m ALBC #### [facility] [address] [place], [place] [id number] UCREA 105 mg/dL Normal 28-217 [facility] Comment on above: Performed By: #### m ALBC #### [facility] [address] [place], [place] [id number] SCREENING MAMMOGRAM W/LLOYD, BILATERAL*on 07-29-2021 SCREENING MAMMOGRAM [...] VERY IMPORTANT TO YOUR HEALTH. THE CURRENT [employer] [place] AND [employer] GUIDELINES RECOMMENDS ANNUAL MAMMOGRAPHY BEGINNING AT AGE 40 THIS FACILITY USES A REMINDER SYSTEM TO ENSURE ALL PATIENTS RECEIVE REMINDER NOTIFICATIONS AT THE APPROPRIATE TIME BASED ON THE RECOMMENDATIONS OF THIS EXAM. Report reported and signed by Augustin Esparza on 08/03/2021 0702 Normal [facility] Progress Note-Physicianon Progress Note-Physician Patient: KATHY [...] All Problems Symptomatic cholelithiasis / SNOMED CT 048458206 / Confirmed Resolved: Anxiety / SNOMED CT 56722800 Physical Examination No qualifying data available General: Alert and oriented, No acute distress. Respiratory: Lungs are clear to auscultation. Cardiovascular: Normal rate, Regular rhythm. Neurologic: Normal sensory. Review / Management Condition: Stable. Assessment Anesthetic outcome No anesthetic complications noted. Adequate pain relief. TOLERATING PO INTAKE. voiding w/o diff.. No Complaint of nausea and vomiting. Plan Transfer/ Discharge: Condition stable. Normal [facility] Comment on above: Result Comment: Elec [...] RUIZ and edited by Caroline Campa, Quality Curtain Supervisor. Follow-up No qualifying data available Problem List/Past [...] 10 mg, Oral, Daily HRT (Bioidentical) Testosterone dhea/Estradiol/proges terone, 5 mg each, Daily lysine, 500 mg, [...] Mother. Primary malignant neoplasm of colon: Mother. [facility] Comment on above: Result Comment: Elec tronically Signed By: Sumit Killian MD\.br\Date and Time Signed: 04/14/21 08:25 EDT\.br\Electronically Co-Signed By: Caroline Campa\.br\Date and Time Co-Signed: 04/10/21 15:13 EDT Provider Letteron 04-10-2021 Provider Letter April 10, 2021 April 10, 2021 [address]Z [address] [place] [id number] KATHY MARTINEZ 1970 To Whom It May Concern, Please excuse above patient from work. Date of Illness: From: 03/20/21 To: 04/15/21 May Return to Work On: 04/16/21 Restrictions: None Comments: Any questions feel free to call the office at [phone] Sincerely, Dr. Sumit Killian [facility] Progress Note-Physicianon Progress Note-Physician Patient: KATHY MARTINEZ Age: 50 years Sex: Female : 1970 Associated Diagnoses: None Author: Joseph Rincon Jr, DO Preoperative Information Time patient last ate or drank:=== (npo 8 hours) Anesthesia history: Patient history: No prior anesthesia problems. Re-evaluation prior to induction: Completed, Initial evaluation reviewed. Review of Systems Respiratory: No shortness of breath. Cardiovascular: No chest pain. Hematology/Lymphatics : No bruising tendency, No bleeding tendency. Health [...] cap(s), Oral, Daily, Prophylaxis HRT (Bioidentical) Testosterone dhea/Estradiol/proges terone: HRT (Bioidentical) Testosterone dhea/Estradiol/proges terone, 5 mg each, Daily Motion Sickness Relief [...] All Problems Symptomatic cholelithiasis / SNOMED CT 088294640 / Confirmed Resolved: Anxiety / SNOMED CT 72965379 Histories Past Medical History: No active or resolved past medical history items have been selected or recorded. Family History: Primary malignant neoplasm of colon Mother Diabetes mellitus type 1 Mother CA - Cancer of kidney Mother Hodgkin's disease Mother Procedure history: T and A (tonsillectomy and adenoidectomy) (5508035813). Myringotomy and insertion of T tube b/l x5 (410418640). Mastoidectomy (60764527). History of hernia repair x2 (9153248626). section/tubal (32404471). Partial or subtotal hysterectomy (4563178144). History of appendectomy/ovaries removed/4 inches of bowel removed (0123122417). Reconstruction of abdominal wall (157939479). Gastric sleeve (5050291902). Social History Social & Psychosocial Habits Alcohol [...] results Radiology results ECG interpretation Condition Plan [place] [employer] Anesthesiologists (ASA) physical status classification: Class II. Anesthetic Preoperative Plan Anesthesia: General. . Anesthetic plan, risks, benefits, and alternatives discussed with the patient and/or family. Risks discussed: nausea, vomiting, headache, sore throat, dental injury, serious complications. Patient verbalized understanding. Communication: face to face with (patient 5 minutes, Pt educated on the importance of smoking cessation.). [facility] Comment on above: Result Comment: Elec tronically Signed By: Sergey Nation DO, Joseph Todd\.rhiannon\Date and Time Signed: 04/08/21 14:50 EDT Coding Summary.on 04-07-2021 Coding Summary. [id number] G h0bWw+PGhlYWQ+AH5JUXO kB46hiESyrS9NH7qBST8W BUIBANNUJE2KWC7iyND0S IkqQ6JgcvBb ArmilTHlLJ55RAc3IYL2g LsnDYwnrL9obTBlZ0d4Dj OgHL88sN79LGatALNiEoG 3LjZpbjsgbWFy E0ztPiKwyTDpOhh+PHRhY mxlIHdpZHRoPScxMDAlJy GfqNnsEV7kNi2yVFAzCQO vbGxhcHNlOiBj l7zlYNIlWMqqNI4nxAkaM 1JhlIP7WPAgl9l6Pz33oL I+JJBxEYO2fIpbCFiux55 4WcGuz4orGWW8 nCRcQByqPPB9Z24pm8D2Z ZHdHYKqMJD7pTX2vX9iiL xsxnttR6GnaZSzQoW2KNK 6rDRcxU6wtSpo kpddzW4bNrf+J79LAD0ZP XFRLH7LJvo6R5OcQwzyhK I+OH25UCArYW77rLCsrLB rc1npwHk4ByOm KPBpWEE3qMcnDFgis6PyA HXtM35kkJHlt9W4QDDcvW jvbSFkCrMsaJC0mX0rBTi bfqkfv5mngocf Hbpid6yiqr48xQ04P06wG FhjIEWqSUN4ALTjSOLyqK nsik4bwV6xGa3+RCuut1b cx6yvsLo8YiDb BTQqyrUcfZbuXUJ5u4ZnW g60Y8OpeWdpt7NzDel9ue 26wDLqo3F1tBQ3VBufMRA htM0qGAcmSiW2 FQPvLnTifL55nOTxVHkfZ c4qqHxpzGbfUS3oQANtwg osZAAfcX2pTSCakZNseGt tMP9tUWYqhyky y243FhSlHUV1ZTTgxQKzB 3XwuD7bEiCxHEWxGKOfG2 BulTLjNUdyW260YTnhCdY 8PGBdqlSsY0Ga LPQtaCzjYkG4c3K0Zk0Jl 8QstngyGRD1GTtrICK5Eh N2HkFoPjS4U8CyXop3OWE doLuiAZ3qG8Rs HZDtjbsenkxjrLT7TXZlD DFsuI19lUFcYUleRh7qb6 D2d482JVEbKZVynG20Yy9 udDogMTBwdCBU vO6gtlmkm6cdpmyuTjPzJ GOsWGr3PYs4ZFUsiOphWn UjGRM5RwF2VBF4jHOhdK3 elBvrvfrapG6v Oyc+D57qoU2cGQP1EPR5a wesOLGbumDlZX56OK96H6 RyPjwvdGFibGU+PGRpdiB jcXfvFM9iIuGj j4ven8GtEPyaF8VeNAClF QypWcd2OAFySFB9pIJ2eC 7vZWMxFYkia3J7lGL0P6N zfmJzcb2vc6dx ITIfTQrqN16qtGRbd9O8X AFyiBM7HCGbzLkxQlBogP 93Oyc+PVPgaSjai4TjIps qq8jse6txuAj0 KoCxALYzrkRemQgtODY0n 2MhIm12U02sPKqwEPMmFS WkYEQsVVYyoGxcdf0coM2 wIi8+PGNvbCB3 nPA2hH7aXOGpAaH6HMclL 914RfKzdVQrZfmlk3qzr6 oamHi9HbMjYOQiliEmoXf oYNP2h0QzAk57 N89sQGhhQSFxBBKeHYUlY YJywUllls8khP3nBr4+PC 8nh1boxg15uG91mFY+PHR dIES7mRwnQDvn KOAbsM7hOEisSmJ2SMKsG xUorW09cLSeLTytIw5vwI hqsEijKI4cYLQznvnjp77 4KdAht7uaZVRl pEWjEHuzLWJ8A25cy0O3A MZwQHRgSVB5mEW5tW7fdB lnbjogbGVmdDsgdmVydGl nGKmeVByhG102 IHRvcDsnPlBhdGllbnQgT xMvVXt0B5NnAnn6GSNfsR yjLC7ypFWlLPrlTu6pjVg siOptVU3gOIHx yswbs822EeRen6eaKZDvx NXfGIxpUHS2C84tx8A6GP OnAFRcPOA7kYQ5uF5rpLw nbjogbGVmdDsg sdPrcXyhFKckLAsfS675E HRvcDsnPkJpcnRoIERhdG W6MT60DM49jVMbs6Y4xRO 2M3DdNTAonqui jyncmQH2RNSpIYEtiP31J l1jfFkrTm7eSKDeBCA3TO SrnPBnW4KbrI0eEqCcKCU zELLvH8ZzoYOq YRlkH684UXepToK1WLWbi tByZ5DyTIKlfVgeQyH5v4 T5Rg5SF8G2ZU64HU70cPU ue4V6dIQ1Z9Kt MONdpueabtgkyBC0FPVqC UYriT56Ta3wqJyiFd8sIK DkFAV8MQVymAZpC2VpiO6 yOiAjMDAwMDAw W1PnrRCoTIviR768SLmlA hJ3GULnerYqO3ClZATkkS iwSpA7o7N2Tq7KLGp0JZ1 1YZ90qNDmn6T7 dUX6O8JfFIPwqejrkxzcm TJ2KRUcOLXaqK92Mf1uaB tyFp5cPZXwLOH0TUQbbFW xH5KomF3eTlRa UPGdFPRrG9HgxJOsUMdwU 315QFyqZiV1EMMguvSmN1 LaDGRetHbkWlV6u6E0Qp0 KDWFaZD66PHY9 iTU1EZ13AY02W2ApXlvvp GFibGU+PHRhYmxlIHdpZH RoPScxMDAlJyBzdHlsZT0 kCh7zUCKmXGTa yGusbJOmYiOra4ekXNJkZ MheRG8fdRoxL8SjiEZ7DE Jyb2b5Aj12D24iX4BcyQY +GQXfoGJ0lVT9 hV2wHoAqOnT3LGwjR814L cPbpVGyIdnxn2hmq6ckfO j9UcN2IFKhihEorPveQIO 4v8UpFo68D89g IHdpZHRoPSIxNSUiIHZhb Asyzl1qvK7vSu7+PGNvbC G6rLE4gK1yWhSvPvN8HLy fF712TlZcoJMu Jquqo4wge2ifsBx3ZvNtQ ZWdieFfzSvaJNA0q0MaQr 82M0NsnLzls9DvDnv5md3 5eEGmh4W0jFH7 I9BuQEXdtyaqqFTyyOkkZ R2kXXIwiyyhWAJbcA7qQS HpZ0z5HhFuTrV2ABlaC2M jliO2JHYigMIr XOyuKXL5T98ax8O5AHNhD WAxDCT8rAH0jE5jcZjmwx ogbGVmdDsgdmVydGljYWw nZNtaW560CUDf gBthJPBgnI7gELAyqNSly MosQU6uVXUeesgbTuJGGA VeGZ0JX1wPFJdWLFc2Z1P eIzg6KRIcxOvy AJ4zoWXwGIzrYh1axCtgk ZyhIV3kFTQphjygHGNtoS 3vFQCzwTSkfWrpGI4yCBK tyiwyz393CqXo PYZ3TJBqtKPjH3VewO2zA eEzKNGuYBWlH3VwgQUfTD zxI012JMmdVwA9VSIxdyH cB2WyLPPkqFqn CxR5t2R6Bu9lDj0aCY9aB LojIE66AR82oXLbg4W5gY X6T2FxDZCbyypqtzggzUS 2UIZiSBQnvI65 oJCxPQviWa8xl3I4a342Y ZClHEHrbY49On7elQwkYW QjgDQFoE1roliuy8jzvao gIzAwMDAwMDt0 NVn2JKXtwEtdVfVcQZX4H yP2QSD8mPZvkF4peRdakv lkyF1eIxp+NTAgWWVhcnM 2M5JqNsz6RVYk eVsjLZ4ctVPtDAlbDz4ip TnpzBbmBV2wYWNqqrsdFF FexI1gXPFgoTLgiNksVK9 eUFStzwrlh592 HjSjMGU9JIPoxWKmG9Wpu V2yTnXqUCKtIFMwF5AmoA RnKVhyY814QRvbKtB2JTO kzzVsX3HhROBc qUdgEnW4n2R3Jr8KGM4xb KS3H7EdYao0FZMqdQkmZM 8bpKGtFOhtBb3jgYmrlLh nRH3lAUOmajrk GIOmpK3bCNGmuOCpaKppZ D6bSOYntcvgw887LgOzHM A8FSSpiSPaP0BlmL1vSiS gSTVgFERaJ2Wc yNDiKLaiK508YZrcIeU6P PVcyzNhB5ZkRKOddOmsJn N6y3F2Jr5XsOX3qME7r3E 6S5BomDGiVYV4 DIC6quejtsv6K1AaAmzcf HI+MW69HVPjZI39mNVceH Ohl0afhKu5UrLgLSWbSYI 4pZijDZksh7Al EJJbA38vlFZud2N6NRXcu EbsxBZgNgSdrQK2oS9hKF bjkmcpw7rrbvlaWjpqg8w zus24kR86R04z IHdpZHRoPSIzMCUiIHZhb Cllwn2zvN5iJl2+PGNvbC M0dPF1mY0rGvLnSyN7ZSd pN121IgDppXXy Upuwk8ykl8xstKh1HiJwT DBskaQbnSxtZHS9b4QjSb 45K63rOXxdAMBtIBWnRBY aQTNadOthrz7y qK4hZn4+FE4sz3jlji88o D48dHI+NMRiLET3dBhiIS tsCPWenP4hOJalQhZ7KDP fJuQhmI80iZAs XPxfFi4qoWskeHxuUD3sL UJkbtktj461EyGic4dgOL QdhFAkFHorRWC4D63vs1X 3PXOsDMJnECW9 yHV1iG5khHpqhtwvsSPox DsgdmVydGljYWwtYWxpZ2 48RIChwGsiClZfxXRzK3z vbnNVFK9aJdku dGQ+ZLVwHLB0cLkwYTioU IDtwL1uCNBtQ6i2NdLsTt Z2WYsoJ7VwisT6ZOMweTO ySZPknESObQ5t fteje6uqidupCqYgPFCkA Sb6QXv6TCUnmFspDmTsQR C8RgE3PQW0kEOzuG4tgJb wxidjiH9lFpx+ RklOOjwvdGQ+RCOnDAE1r FpuVOmmLLOrzI5sDVRyJ6 k9UrEqRtJ8DFmzQ4TpbyG 6IGJvbGQgMTBw rHFLfO7llfavx1qkwfqoA vBwRYKlUNb9ANo8EOHvnG etThAlHHE1RuW3JMM9hSD thE8ceMjzwalm gU2fEhd+TVJOOjwvdGQ+P EEbEFS1rOyrQYlkNDQqpA 1nDZAdH0e9ZmXmFbU1UWb yF1SttcX0NNFm pQNcBUFbpJYYhF9fzcrga 7actpozVnKgGLSdULb7VO y3NILjwQezXgLcSQU4YaT 9ODU5rGYpcC5e bMxmdwydyL8hPmj+UGF5Z HH9QF51LZ73E2WaHceofR FibGU+PHRhYmxlIHdpZHR oPScxMDAlJyBz dHls (more content not included)... Normal [facility] Postoperative Documentson Postoperative Documents [id number]# 1.00CD:127 Normal [facility] Consent for Anesthesiaon Consent for Anesthesia [id number] [id number]# 1.00CD:127 [facility] Discharge Instructionson Discharge Instructions [id number] [id number]# 1.00CD:127 [facility] IntraOperative Documentson 0 04-02-2021 IntraOperative Documents [id number]# 1.00CD:127 [facility] IntraOperative Documents [id number]# 1.00CD:127 Normal [facility] IntraOperative Documents [id number]# 1.00CD:127 Normal [facility] Main OR Intraoperative Recor don 04-02-2021 Main OR Intraoperative Record IntraOp Document Type FT Summary Primary Physician: Sumit Killian MD Finalized Date/Time: 04/02/21 12:31:53 Pt. Name: KATHY MARTINEZ Justin FriasB./Sex: 1970 Female Med Rec #: [id number] Physician: Sumit Killian MD Financial #: [id number] Pt. Type: A Room/Bed: 03/01 Admit/Disch: 04/01/21 10:30:50 - 04/01/21 18:00:00 Institution: Case Times FT Entry 1 Patient Times In Room 04/01/21 11:53:00 Out Room 04/01/21 14:41:00 Procedure Times Start 04/01/21 12:13:00 Stop 04/01/21 14:35:00 Anesthesia Times Start 04/01/21 11:53:00 Stop 04/01/21 14:41:00 Last Modified By: Lori May RN 04/01/21 14:41:58 General Comments: 04/02/21 Chart opened to review and send charges Tanya FERNANDES Case Attendance FT Entry 1 Entry 2 Entry 3 Case Attendee Sumit Killian MD TIG WELDER, Sherrie Sainz CST Role Performed Surgeon - Primary TIG WELDER [employer]/ Time In 04/01/21 11:53:00 04/01/21 12:06:00 04/01/21 11:53:00 Time Out 04/01/21 14:41:00 04/01/21 12:41:00 04/01/21 14:41:00 Procedure CHOLECYSTECOMY ROBOT CHOLECYSTECOMY ROBOT CHOLECYSTECOMY ROBOT ASSISTED(.) ASSISTED(.) ASSISTED(.) Comments dr rincon supervising surgical assistant certified student Last Modified By: Lalo STROUD, Lori May RN, Lori Mccain RN 04/01/21 15:03:08 04/01/21 15:03:08 04/01/21 15:03:08 Entry 4 Entry 5 Entry 6 Case Attendee Lalo RN, Lori Sharma RN, Deepti Whalen CST, Keya Gómez Role Performed Hop Separator - Primary Hop Separator - Primary Scrub - Primary Time In 04/01/21 11:53:00 04/01/21 11:53:00 04/01/21 11:53:00 Time Out 04/01/21 14:41:00 04/01/21 14:41:00 04/01/21 14:41:00 Procedure CHOLECYSTECOMY ROBOT CHOLECYSTECOMY ROBOT CHOLECYSTECOMY ROBOT ASSISTED(.) ASSISTED(.) ASSISTED(.) Comments out of room from orientation - out for 1342-7915 for lunch lunch from 2265-2814 Last Modified By: Lalo RN, Lori May RN, Lori May RN, Lori Gómez 04/01/21 15:03:08 04/01/21 15:03:08 04/01/21 15:03:08 Entry 7 Entry 8 Case Attendee Greyson STROUD, Anayeli Pacheco Role Performed Hop Separator - Relief Anesthesiologist Population Geneticist Time In 04/01/21 12:15:00 04/01/21 11:53:00 Time Out 04/01/21 12:59:00 04/01/21 14:41:00 Procedure CHOLECYSTECOMY ROBOT CHOLECYSTECOMY ROBOT ASSISTED(.) ASSISTED(.) Comments dr rincon supervising lunch out of room from [id number] Last Modified By: Lalo RN, Lori May RN, Lori Gómez 04/01/21 15:03:08 04/01/21 15:03:08 General Comments: rodger hernandez rep present for procedure. Michael weeks rntest and turn up technician Protocols FT Pre-Care Text: Implements protective measures [...] (If Applicable) PreOp Antibiotic Yes Time Out Constantin CHOE, Sumit Milian, Given Participants Alpesh NEGRETE, Lalo Marroquin RN, Edith Santoro RN, Marlee Niño CST, John Hidalgo CAA, Anayeli M Time Out Complete 04/01/21 12:13:00 Outcomes Met? [...] 22 MODIFIER) Primary Procedure Yes Primary Surgeon Constantin CHOE, Sumit Milian Start 04/01/21 12:13:00 Stop 04/01/21 14:35:00 Anesthesia [...] is free (more content not included)... Normal [facility] Preoperative Documentson Preoperative Documents [id number]# 1.00CD:127 Normal [facility] Preoperative Documents [id number]# 1.00CD:127 Normal [facility] Preoperative Documents [id number]# 1.00CD:127 Normal [facility] Consent for Procedure/Surger yon 04-01-2021 Consent for Procedure/Surgery [id number]#1. 00CD:127 Normal [facility] Consent for Treatmenton Consent for Treatment [id number]#1 .00CD:127 Normal [facility] Inpatient Patient Summaryon 04-01-2021 Inpatient Patient Summary [place] [address] [facility] Clinical Discharge Instructions PERSON INFORMATION Name: KATHY MARTINEZ PHYSICIANS Admitting Physician: Sumit Killian MD Attending Physician: Sumit Killian MD PCP: PHIL CHOE, NAILA Discharge Diagnosis: Comment: PATIENT EDUCATION INFORMATION Instructions: Laparoscopic Cholecystectomy, Care After Medication Leaflets: Follow up: With: Address: When: Sumit Killian [address] [place], [place] [phone] Business (1) Comments: Keep scheduled appointment Type Location Start [facility] 04/10/2021 1:00 PM 04/10/2021 1:15 PM Confirmed MEDICATION LIST New Medications [id number], [address], [place] [id number], [phone] acetaminophen-oxycodo ne (Percocet 5 mg-325 mg oral tablet) 1 [...] every day. Non-Formulary Medication (HRT (Bioidentical) Testosterone dhea/Estradiol/proges terone) 5 mg each every day., hormone replacement therapy phentermine (phentermine 37.5 mg oral capsule) 1 Capsules By Mouth every day., appetite suppresant Comment: Normal [facility] Main OR PACU I Recordon Main OR PACU I Record PACU Phase I Docum ent Type FT Summary Primary Physician: Sumit Killian MD Finalized Date/Time: 04/01/21 15:38:37 Pt. Name: CLEO MARTINEZFRANK Yanez/Sex: 1970 Female Med Rec #: [id number] Physician: Sumit Killian MD Financial #: [id number] Pt. Type: A Room/Bed: [facility] Admit/Disch: 04/01/21 10:30:50 - Institution: Case [...] By: Emilie Green RN 04/01/21 15:38 Normal [facility] Main OR PACU II Recordon Main OR PACU II Record PACU Phase II Document Type FT Summary Primary Physician: Sumit Killian MD Finalized Date/Time: 04/01/21 18:21:53 Pt. Name: CLEO MARTINEZFRANK Yanez/Sex: 1970 Female Med Rec #: [id number] Physician: Sumit Killian MD Financial #: [id number] Pt. Type: A Room/Bed: Admit/Disch: 04/01/21 10:30:50 - 04/01/21 18:00:00 Institution: [...] Signed By: Danny Coleman RN 04/01/21 18:21 Normal [facility] Main OR Preoperative Recordo n 04-01-2021 Main OR Preoperative Record PreOp Document Type FT Summary Primary Physician: Sumit Killian MD Finalized Date/Time: 04/01/21 12:43:26 Pt. Name: KATHY MARTINEZ/Sex: 1970 Female Med Rec #: [id number] Physician: Sumit Killian MD Financial #: [id number] Pt. Type: A Room/Bed: Admit/Disch: 04/01/21 10:30:50 [...] By: Diana Rubi RN 04/01/21 12:43 Normal [facility] Monitor Recordon 04-01-2021 Monitor Record [id number]# 1.00CD:127 Normal [facility] Operative Reporton 1 Operative Report Indication for Surgery 50-year-old female with history of exploratory laparotomy [...] Surgeon(s) Sumit Killian MD (Surgeon - Primary) Population Geneticist Sherrie Betts Anesthesia [facility] [place] Nation DO (Carving Machine Operator) Barbra Bush CRNA (Other) Anayeli Barber (Anesthesiologist Population Geneticist) Estimated Blood Loss 20 cc Urine Output [...] recovery room in a stable condition. Normal [facility] Comment on above: Result Comment: Elec tronically Signed By: Constantin CHOE, Sumit Mendoza.rhiannon\Date and Time Signed: 04/01/21 15:06 EDT Outpatient Surgery Discharge Instructionon 04-01-2021 Outpatient Surgery Discharge Instruction [place] [id number] Patient Discharge Instructions PERSON INFORMATION Name: KATHY [...] THE NEAREST EMERGENCY ROOM OR CALL 911 I, KATHY MARTINEZ, have received the attached patient education materials/instruction s and have verbalized understanding: May we do a follow up call? Yes No I was present when discharge instructions were given Patient Signature Date Clinican/Nurse Signature Date Follow up: With: Address: When: Sumit Killian [address] [place] [address] [place], [place] [address], [address] [address] [phone] Business (1) Comments: Keep scheduled appointment Type Location Start [place] Post Op [facility] [place] 04/10/2021 1:00 PM 04/10/2021 1:15 PM Confirmed Pharmacy Information: You may receive a survey from [employer] asking you to rate your care experience. Your feedback is important and will help us understand what we do well and how we can improve the quality of care we provide to you, your loved ones and our community. It?s an honor to serve you. Thank you for choosing [facility] HERE ARE THE MEDICATION CHANGES THAT OCCURRED DURING YOUR HOSPITAL STAY New Medications [id number], [address], [place] [id number], [phone] acetaminophen-oxycodo ne (Percocet 5 mg-325 mg oral tablet) 1 [...] every day. Non-Formulary Medication (HRT (Bioidentical) Testosterone dhea/Estradiol/proges terone) 5 mg each every day., hormone replacement [...] and water are not available, use hand yoke setter. ? Change your dressing as told by your health care provider. ? Leave stitches (sutures), skin glue, or adhesive strips in place. These skin closures may need to be in place for 2 weeks or longer. If adhesive strip edges start to loosen and curl up, you may trim the loose edges. Do not remove adhesive strips com (more content not included)... Normal [facility] Patient Education - Texton 0 04-01-2021 Patient Education - Text Gastroenterolog y Laparoscopic Cholecystectomy, Care After This sheet gives [...] and water are not available, use hand yoke setter. ? Change your dressing as told by [...] care provider approves. General instructions ? Take gzih-drd-ctfvjsk and prescription medicines only as told by your health care provider. ? To prevent or treat constipation while you are taking prescription pain medicine, your health care provider may recommend that you: ? Drink enough fluid to keep your urine clear or pale yellow. ? Take eycx-qqz-tbkcjxe or prescription medicines. ? Eat foods that [...] 07/18/2006 Document Revised: 06/30/2018 Document Reviewed: 01/03/2017 [employer] Access Patient Education ? 2019 [employer] [facility] Consent for Procedure/Surger yon 03-25-2021 Consent for Procedure/Surgery [id number]# 1.00CD:127 [facility] Consent for Treatmenton 03-02 Consent for Treatment [id number]# 1.00CD:127 [facility] Coding Summary.on 03-23-2021 Coding Summary. CD:[id number] G h0bWw+PGhlYWQ+SN1HJYV pI53esSUekD6TF3oWGO1I SZQEVEZLVL3MUS3waFH0H YtdN8XibwDk ZfxvvEZcWR39EAd2VGI5m WmnVAlruW5jkZKqJ1x4Ez EgMB73iH56QEbiDWBtQpB 3LjZpbjsgbWFy K5dzImGzhGKpXhk+PHRhY mxlIHdpZHRoPScxMDAlJy EheWosSN7gDd6bUYRsJEW vbGxhcHNlOiBj b9kjVBChPRzvML7qqNmhD 8VdzXN2HAOle4h7Pa03zB I+CXScCYH5rYhwZPnvi32 1QhIrp5swJJP3 gHRjJOqcUYJ8B44hg6N8E VJzNZZaCZJ7fFB0oJ5egD yskqxuD2RcoXGvUpA8LTS 3gJTgpE3kbHxu ktyhmW9hIoj+P63DKN6IV NVZDW6LTnl0T1KaLjaskJ I+OI93LMFzDF67eAGshID bo8qyvHv4JbHx ELQzJLG0lUvdVRjvh7RcL ZAgZ09dwJYjb4J7FMEhaX ftyJOwKiGxdGH4tH4xPWy uqgmps9opqoys Tuamo4ekqr63tP56I86cE QalYWDdTKQ5ACHrXQQdfE subu0qbE2eZt2+LEkmi9l cw9nbeRz4ThQv PJBwgiVbiKrrGZA5p7CnA m41Q0IdoHozk8DdDkt0ni 79zPGfo5K7rXH9ELbvWMR gaB1aGHhlNeN1 BOOwKxLwgF22rMIrHPnaN r6xnQqeoJmeKJ6nZMUkga glREQqqK2vNYCsxTApkMk lYH6sKMBkvyan p203FaXyUAL2VSAlmNIaI 8FdoL7tHpMyEHKrWHKjR7 CmgWVvKRlcQ313YBpyHuL 9QBCruoYhD1Rd XNVmdGogBpT5c8F6Xl7Mk 4FaccpoGHT8KRnbFVZ5Ba QkDhHlGbU7T7XkWld0KNW haSviNV0uE0Ff TGGzoivslbzhyDP6COSkV ORhjZ10mODrYEteBa5ty5 R6i087WEHeFKMvvV22Pr6 udDogMTBwdCBU eH5bkrkrk3astgdfLzElA ROqYQr7IHa2LVFjjGmmFl LtHIG3CzT3DEG6oSDwzA9 wfIzstfzrlR2v Oyc+J40roB6iOCV3DIF5f vnwFMRbyxWaXY41ZM55L1 RyPjwvdGFibGU+PGRpdiB iaFeeVI3qToDx y4fbu1WkHHuzI8KtRBXkO BbmIhg9HZAlGYL5xDF8oN 7vFDCzLSebw2V2nNE6S0P hofLkum1ws4cz KPMzHYsdU64zwSWxs9V5E QKsmHJ0OJQfyVljMzPjfI 93Oyc+VNLyyRrsd2MpLxt qw1cce4zyvMj9 PwPzOZWwdmJwxZqjPFI3r 4MhFi15T63dDLhaAPTrWN PrNMEhOUZenCeqfc7ldP9 wIi8+PGNvbCB3 eSD6jF5jTHLzIcZ1ABpkJ 862CcEaaQBqNfctj8pno4 loqWs1IvBzAKKrucOveGd bAGC4r1UuQf03 D00bKVllIONfVMKqTEOiD PNnoSrvlp6kqP1nJn4+PC 1fv8icsq83lP80wZR+PHR eDST6iOjaEJva SGDmqH3xRPumXuM3NKLiU mSwuL74sCLgLYkhWx8hlB hidZybST1bKWBefvjhf09 4BtAfb1kxSFHw aIIfNNevGLX0W54yp0C3N YVzBGRbYWK4jVE7yO0djV lnbjogbGVmdDsgdmVydGl zTTjdOFwyX158 IHRvcDsnPlBhdGllbnQgT sPaEYg3J4PoOuu3ARVswH vjHM7hvMSdMYkhAv5fdRt ymBibNB2kYETg kfyjb147UtWyr2xcGBLqe CAzCPcmOST9B02ll3A6MH EtPNIbLVD5uYO4rP7yeHr nbjogbGVmdDsg pdViuDtqYGyvJQstE948E HRvcDsnPkJpcnRoIERhdG H6KE11KQ10aYNoe7E2nWK 0J1FhZVBavvep lwccmPJ9FGDfWTIipJ84L r3plOqjMt6sIUMmNHO5EB JyhIMuC9ZwqJ5zYoApVOF tPKKiF8YvdLGg NCseZ318LDzyCtT9MTYof aDjK2SaNKWowEgmWeB9n8 L2Jg9WS7K3PN32LF99wGH uz5Q5oYW4N7Ii DNMxklbqzsohbVT1EPFrL XFtwK68Zg9hdQakJd1rKJ OxATS9AQPzkGLtV1EtlM2 yOiAjMDAwMDAw U5QteJAbECxsB046NOpaA aH1USFadbUxB3OmTCFapU esQuE1i5P8Kx4ZJZk6FW7 3FI07pAPkw8W2 yGE6A8LvFFSliniwtpnix TK0SNUkXQHseY65Ot4ylW znPt4lKODhGIM5CXMtzWH gA5AocC2jGgNk UOPfUZHeV1NjzKYvMVfgR 824MMjvLhH4CGJumnHjF3 NnYXUudZupKnY2r3V8Zh7 DGBWqDB32TBP2 mJX1UD24GB60E5XtOkfft GFibGU+PHRhYmxlIHdpZH RoPScxMDAlJyBzdHlsZT0 wOr9yFIQlUTGn zIpgeXVrIrKfu2eaBHBpA PalHG5xnBlzH4TbdGR7OD Dvd4a5Pp88E69lL1BbdWS +POUhfPW0aXQ5 bR5jQpNyNcB7TKbfM552N dYhbOUfPxclo8bqt3fzqV a2RkL1ZQOnjzEhlYhiTKY 5u8PtOm50G33o IHdpZHRoPSIxNSUiIHZhb Gweye2ewE9cXx3+PGNvbC J2kQZ2iM1qQxUtXhD0VYe yC286DmKuyUAf Fdeli7zzl2cgeVb0NpWdP PDtorSohHywFKH9x2MoKa 89N7XwxBvkh3YqBxx7kc7 1kXSen8V3xNH6 M0IsIEOqpqlwpLRmwNxrF W2qNVPenkvdFNAzuC4wGJ YdM2l1BiVvPaC2ALleC1I rtjZ8AELttLHs ESjrIYP5P89kh1N3GGVxC GCkFSU0aLV7iP7jrDyamm ogbGVmdDsgdmVydGljYWw cEPovZ884PXRw mCefXPAzcV0cHOOqsMRfk RymOX9oKVIjiobhMhEUTV ZlTM0CO4iXCGbAZId5D4E iJze5FIMnrPdc MO9exGPxCKujLc8alQmdr XwnET9dNBFragpdHVUssE 8wVDMhoRFvxAvmXS7nOQO ymtvhc000FbZd FFJ6KSFpaGDyJ5InmX0cY eIuSGDvNYLgQ4VsaIIrUN ruK549SYraYpY9MWFafjZ hF3WaMNMuoXht VwG0z3H7Pb4cPg7jXZ9xZ AooNX05QV15nHUbl5K4pU K7M0YrHEBlnwwmaikxvPD 5JYElUJHicW58 uLAmEOpbWz6ll4D4z715Z EDnDZUgtC72Lw0bxGjlFC LsgPANrX7obiylj4wdudq gIzAwMDAwMDt0 GKl8KREqnWljAcPdKRT9Z pK2GMU0oOSiyM5iyZaxuy dmcL7oCzy+NTAgWWVhcnM 7W0CrJez8LZCz tWxuZM3auLIgIKbsOw8wt TharCtuSS2jKUVsneyqCA JgzM9eJSJpeXFylQejKR2 yQAQplveth946 YbDzWFT2HLXccIQwT5Iiu P2hAkWlGNMjJTFcE1OjpH CeAAuaK704TGgnUnD8OAS rbbHmP7JnNKTg yIuxAlQ3s1A6Pg3RSM6en TE4K0IpVns9PBUnrYicZT 2eyFSqJCxlQw2ipWepaAg rPI7lXPQfszxo IERdzN3oCJOooYCbmEuhO Y9tOCJkpzhuy216OyJqBH Z2JKAxiKPzR4AimX5iPnY hRSMwPUBzN1Sm qGKmHNslB638SFjuApT1B NDwrdXiP0MlTYYllIcqLc H5m3Q2Vk4PqKMuZQSdSG9 8YH37RJ13D4Ig PjwvdGFibGU+PHRhYmxlI HdpZHRoPScxMDAlJyBzdH bvVD8bQr7lHZTaCADevFk mqCHvDcXby4fu GJUnXPwyZE3zdFpeC2Gkr YH9ONMoz3b0Oq77V93dX8 JvdXA+PGJrhRR9cKO7jQ4 hCoNrHfC3RWpm T405CfDnoXNsPkdym0ynj 4njnRi5YnWsNUCzydHbcR siJCK7c2GdTa54B36fRYl pZHRoPSIyMCUi WENljWldtm3zdV4wKw3+P SEkjZZ5iYP7jP6pCnUaJm L1DTtzU146ErWnzRKyEdb mY52yC9ZpsAL+ CJOzXrw1VMNxhHruDC5ct MJwGYxtOa3cHFO7XaBjNg ShYTnwE7ZsPIRzzkbacfp jxNK4YJLoNNGa uQ80Zz2zhAlkCo0fRDIrO NU6YFXnfWYiE6QdmS1xEy KcWOVnNBOnK6LtuXXqMEw uK049IGydZoP4 QJJonvKpH5YqCAYmpTeeF hT8f0F6Jh1KmGfewUNkNO 2gAfTcNHw5C6KiXkk4MDL wjEriRV5zvZPd BPqnUp7xfEmleFqwAX5jX AZotzydv822ZvQwj5ieCZ FpyMFzBXnzGSH8W32vz3A 3FCGxJRSmQRF3 mJP0bB3txEnlypcksNAtb DsgdmVydGljYWwtYWxpZ2 79ZCXcsWokMwBOWdt1W2E cPkd9GTJigAyo LV1ncFHlMYuqSf3yjWssl HdaNX1aVPDfkecfr360Hv Ltb2heVLHsuDOsLXgrPGB 6C26jl5I3AHLp XKRaKHE4vDA8yI4dzXjrh jogbGVmdDsgdmVydGljYW xxYHpcO429CUBmqHhhOo7 CGgr0O4WiLrs7 URJgnGbrCN4byNIxDVvbF q3gyEbcjFhuKL1wSGKkcr kew642VxPkl8hpKADktFL iBUbaPMO0O04u j4Y4IFVrDUTkYNR1kTF5p L4koCrikepugOKxdKrzdz XibTwwPYekXWurQ275WVO vcDsnPlBheWVy OjwvdGQ+QJ11ds24K5AgG gkdVty3CDOcPNB3yRC1jC 4lINLhVOxas2L7zYR6S0I gdpEnew2sy7bm YXBz (more content not included)... Normal [facility] Formson 03-23-2021 Forms [id number]#1. 00CD:127 Normal [facility] COVID-19 ([facility])on 03-20-2021 SARS-CoV-2 (COVID-19) RNA LAUREN+probe Ql (Unsp spec) Detected Abnormal Not Detected [facility] Comment on above: Result Comment: Resu lts Called To Milli Honeycutt/Constantin Stroud By ALL And Read Back For Confirmation On 03/20/2021 13:59:13 EDT Faxed to [facility] 03/20/2021 13:59:16 EDT. This test result should be correlated with clinical presentations and medical history by a healthcare provider to determine its clinical significance. This assay was performed by a reverse transcriptase real-time polymerase chain reaction (rt PCR) method on the [employer] system. This test has been authorized only [...] or revoked sooner. Performed By: #### 2 [id number] ####[facility] [address] [place] [address] SARS-CoV-2 (COVID-19) RNA LAUREN+probe Ql (Unsp spec) Pass Normal Pass [facility] Comment on above: Performed By: #### 2 [id number] ####[place] [id number] [place] [address] Specimen source Nom (Unsp spec) Nasal Normal [facility] Comment on above: Performed By: #### 2 [id number] ####[address] [address] Patient Correspondenceon Patient Correspondence [id number]#1. 00CD:127 Normal [facility] Provider Letteron 03-20-2021 Provider Letter March 20, 2021 KATHY MARTINEZ [address] [place] [phone] KATHY MARTINEZ 1970 To Whom It May Concern, Please excuse above patient from work. Date of Illness: From: 03/20/2021 To: 04/20/2021 May Return to Work On: 04/20/2021 Restrictions: pt fully restricted until 04/20/21 Sincerely, Dr. Sumit Killian Normal [facility] BUNon 03-19-2021 Urea nitrogen [Mass/Vol] 23 mg/dL High 12-19 [facility] Comment on above: Performed By: #### 2 938676, 6972822, 24179450, 9643153, 8624937, 1099182, 5274794 ####[facility] [address] [place] [address] CBC w/Indiceson 03-19-2021 Erythrocyte distribution width (RBC) [Ratio] 12.8 % Normal 10.9-14.2 [facility] Comment on above: Performed By: #### 2 844682, 0085023, 36264861, 3381749, 3607408, 3215302, 4415821 ####[facility] [address] [place] [address] Hematocrit (Bld) [Volume fraction] 36.4 % Normal 34.0-46.0 [facility] Comment on above: Performed By: #### 2 149673, 2675520, 54019306, 3817333, 4896185, 9159229, 2933148 ####[facility] [address] [place], [place] [address] Hemoglobin (Bld) [Mass/Vol] 12.4 g/dL Normal 12.0-16.0 [facility] Comment on above: Performed By: #### 2 070675, 6524121, 42823563, 8517533, 5034781, 9170709, 5326660 ####[facility] [address] [place], [place] [address] MCH (RBC) [Entitic mass] 30.0 pg Normal 27.0-34.0 [facility] Comment on above: Performed By: #### 2 344417, 5973791, 50862231, 5472602, 9480766, 5002487, 8245062 ####[place] [address] MCHC (RBC) [Mass/Vol] 33.9 g/dL Normal 31.4-36.0 [facility] Comment on above: Performed By: #### 2 760033, 5681035, 96108786, 9050684, 1112148, 4241201, 0071289 ####[facility] [address] [place] [address] MCV (RBC) [Entitic vol] 88.5 fL Normal 80.0-100.0 [facility] Comment on above: Performed By: #### 2 923107, 2761457, 08352185, 2218646, 3825642, 8228219, 4117752 ####[facility] [address] [place] [address] Platelet mean volume (Bld) [Entitic vol] 8.9 fL Normal 6.4-10.8 [facility] Comment on above: Performed By: #### 2 123309, 5973456, 25732373, 3953029, 7628563, 9933111, 4303658 ####[facility] [address] [place] [address] Platelets (Bld) [#/Vol] 213.0 E9/L Normal 150.0-500.0 [facility] Comment on above: Performed By: #### 2 999807, 4028799, 51618086, 9912883, 6358082, 7280615, 8636065 ####[address] [address] RBC (Bld) [#/Vol] 4.1 E12/L Low 4.3-5.9 [facility] Comment on above: Performed By: #### 2 873639, 6277269, 01431311, 8727821, 0973992, 7050916, 3265862 ####[facility] [address] [place] [address] WBC corrected for nucl RBC Auto (Bld) [#/Vol] 2.5 E9/L Low 4.0-11.0 [facility] Comment on above: Performed By: #### 2 899362, 8178329, 04069851, 1820098, 9476496, 8627769, 2818269 ####[address] [address] Consent for Treatmenton 03-01 Consent for Treatment [id number]#1 .00CD:127 Normal [facility] Creatinineon 03-19-2021 Creatinine [Mass/Vol] 0.5 mg/dL Normal 0.5-1.3 [facility] Comment on above: Performed By: #### 2 911952, 0086785, 47093031, 7767178, 2867836, 0703523, 8056786 ####[facility] [address] [place] [address] Glucoseon 03-19-2021 Glucose [Mass/Vol] 91 mg/dL Normal 55-199 [facility] Comment on above: Performed By: #### 2 268340, 0619987, 59793946, 0317709, 9086342, 3303393, 8418539 ####[facility] [address] [place] [address] Hep Func Panelon 03-19-2021 Bilirubin.indirect [Mass or moles/Vol] UTC Abnormal 0.1-0.9 [facility] Comment on above: Result Comment: Resu lt verified by Discern Rule. Performed result UTC (Unable to Calculate) was sent as an Alpha code due the inability to calculate a valid numeric value. Performed By: #### 2 937449, 8164395, 03139189, 1166939, 8298486, 9226833, 4578461 ####[facility] [address] [place] [address] Albumin [Mass/Vol] 4.0 g/dL Normal 3.3-5.0 [facility] Comment on above: Performed By: #### 2 971798, 4658594, 32118521, 7354147, 5917676, 6081195, 4533080 ####[facility] [address] [place] [address] Albumin/Globulin (S) [Mass conc ratio] 1.5 Normal 1.1-2.2 [facility] Comment on above: Performed By: #### 2 554901, 6921016, 32664982, 7646535, 6507436, 1130619, 5454013 ####[facility] [address] [place] [address] ALP [Catalytic activity/Vol] 40 Int._Unit/L Normal 21-98 [facility] Comment on above: Performed By: #### 2 946428, 4793698, 33689000, 3236815, 5346793, 7188596, 0440164 ####[facility] [address] [place] [address] ALT No additional P-5'-P [Catalytic activity/Vol] 29 Int._Unit/L Normal 6-46 [facility] Comment on above: Performed By: #### 2 230011, 8832143, 94322598, 6812238, 7312918, 8465035, 6398856 ####[facility] [address] [place] [address] AST [Catalytic activity/Vol] 24 Int._Unit/L Normal 5-43 [facility] Comment on above: Performed By: #### 2 495489, 3357459, 26679125, 1704766, 9141213, 3630148, 8890225 ####[facility] [address] [place], [place] [id number] Bilirubin [Mass/Vol] 0.3 mg/dL Normal 0.0-1.[address] [facility] Comment on above: Performed By: #### 2 855441, 5406759, 64495148, 7466440, 5090379, 2381574, 1705652 ####[address] [address] Bilirubin.direct [Mass/Vol] mg/dL Normal 0.1-0.4 [facility] Comment on above: Performed By: #### 2 090284, 0691811, 25502355, 5040494, 3730702, 8176352, 2514942 ####[address] [place] [address] Globulin (S) [Mass/Vol] 2.7 g/dL Normal 1.4-4.0 [facility] Comment on above: Performed By: #### 2 022811, 0469739, 60248491, 9375978, 0245498, 3115842, 7755496 ####[address] [place] [address] Protein [Mass/Vol] 6.7 g/dL Normal 6.0-7.8 [facility] Comment on above: Performed By: #### 2 168592, 0548759, 04578217, 0343531, 3197141, 4359892, 4953578 ####[facility] [address] [place] [address] [place] 03-19-2021 Anion gap [Moles/Vol] 14 mmol/L Normal 6-16 [facility] Comment on above: Performed By: #### 2 774413, 8477747, 73201414, 1758295, 3651074, 5945582, 0442928 ####[facility] [address] [place] [address] Chloride [Moles/Vol] 102 mmol/L Normal 101-111 [facility] Comment on above: Performed By: #### 2 178253, 8397842, 15697791, 7952970, 4772667, 2059443, 8717428 ####[facility] [address] [place] [address] CO2 [Moles/Vol] 25 mmol/L Normal 21-31 [facility] Comment on above: Performed By: #### 2 052106, 7914332, 07081773, 4077749, 3990622, 7060406, 1489842 ####[facility] [address] [place] [address] Potassium [Moles/Vol] 4.0 mmol/L Normal 3.5-5.3 [facility] Comment on above: Performed By: #### 2 160645, 5692880, 90192506, 3567848, 1161271, 6844656, 3034861 ####[facility] [address] [place] [address] Sodium [Moles/Vol] 137 mmol/L Normal 135-145 [facility] Comment on above: Performed By: #### 2 301144, 0577826, 70138197, 7235968, 5555593, 3900425, 7108284 ####[facility] [address] [place] [address] XR Chest 2 Viewson XR Chest 2 [...] MD Transcribed by: REMINGTON Technologist: LISA Daniel [facility] eGFRon 03-19-2021 GFR/1.73 sq M.predicted among blacks MDRD (S/P/Bld) [Vol rate/Area] mL/min/{1.73_m2} Normal >=59 [facility] Comment on above: Order Comment: Order added by Discern Expert. Result Comment: eGFR is race adjusted. AA=. Performed By: #### 2 472170, 1800873, 88371184, 7959280, 9623387, 0962320, 5904225 ####[facility] [address] [place] [address] GFR/1.73 sq M.predicted among non-blacks MDRD (S/P/Bld) [Vol rate/Area] mL/min/{1.73_m2} Normal >=59 [facility] [facility] Comment on above: Order Comment: Order added by Discern Expert. Result Comment: Club Steward barbie kidney disease could be indicated at eGFR's of less than 60 mL/min/1.73m2. Kidney failure is indicated at less than 15 mL/min/1.73m2. Performed By: #### 2 [id number] ####[facility] [address] [facility] [place] [address] COVID-19 (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 NO Normal [facility] Comment on above: Performed By: #### 2 [id number] ####[address] [address] ICU NO Normal [facility] Comment on above: Performed By: #### 2 [id number] ####[address] [place] [address] ? NO Normal [facility] Comment on above: Performed By: #### 2 [id number] ####[facility] [address] [facility] [place] [address] Resides in a Congregate Care Setting NO Normal [facility] Comment on above: Performed By: #### 2 [id number] ####[facility] [address] [facility] [place] [address] Symptomatic as defined by [facility] Unknown [facility] Comment on above: Performed By: #### 2 [id number] ####[facility] [address] [place] [address], [place] [address] Consultation Noteon 03-18-20 21 Consultation Note [id number]. 00CD:127 Normal [facility] Ambulatory Clinical Summaryo n 03-17-2021 Ambulatory Clinical Summary {[id number] Normal [facility] Consent for Procedure/Surger yon 03-17-2021 Consent for Procedure/Surgery [id number]# 1.00CD:127 Normal [facility] Formson 03-17-2021 Forms [id number] .00CD:127 Normal [facility] RAD - MISCon 03-17-2021 RAD - MISC [id number] .00CD:127 Normal [facility] RAD - Ultrasound Reporton RAD - Ultrasound Report [id number] 1.00CD:127 Normal [facility] MRI C-SPINE WO CONon 019 MRI C-SPINE WO CON [address] [place] [address] Patient: KATHY MARTINEZ Exam Date: 08/28/2018 : 1970 Gender:F Ordering : MR. JACQUELYN LECHUGA [facility] Admission #: [id number] Family : Order #: [id number] CLICK HERE TO VIEW EXAM RADIOLOGY REPORT [...] Guajardo M.D. on 08/28/2018 at 13:54 Normal [facility] Vital Signs Date Time Vital Sign Value Performing Clinician Facility 12-06-2024 13:15-0400 Diastolic blood pressure 79 mm[Hg] Annabel Bailey DOG BEHAVIORIST Work Phone: [facility] 12-06-2024 13:15-0400 Heart rate 67 /min Annabelharley Bailey DOG BEHAVIORIST Work Phone: [facility] 12-06-2024 13:15-0400 Respiratory rate 16 /min Annabelharley Bailey DOG BEHAVIORIST Work Phone: [facility] 12-06-2024 13:15-0400 SaO2% (BldA) [Mass fraction] 98 % Annabelharley Bailey DOG BEHAVIORIST Work Phone: [facility] 12-06-2024 13:15-0400 Systolic blood pressure 127 mm[Hg] Annabelharley Bailey DOG BEHAVIORIST Work Phone: [facility] 12-06-2024 11:02-0400 Body height 170.18 cm Annabelharley Bailey DOG BEHAVIORIST Work Phone: [facility] 12-06-2024 11:02-0400 Body weight 99.79 kg Annabelharley Bailey DOG BEHAVIORIST Work Phone: [facility] 11-22-2024 08:04-0400 Body height 167.64 cm [facility] 11-22-2024 08:04-0400 Body mass index (BMI) [Ratio] 36.9 kg/m2 [facility] 11-22-2024 08:04-0400 Body weight 103.87 kg [facility] 11-15-2024 08:42-0400 Body height 167.64 cm [facility] 11-15-2024 08:42-0400 Body mass index (BMI) [Ratio] 37.3 kg/m2 [facility] 11-15-2024 08:42-0400 Body weight 104.94 kg [facility] 10-25-2024 07:18-0400 Body height 167.64 cm [facility] 10-25-2024 07:18-0400 Body mass index (BMI) [Ratio] 37.1 kg/m2 [facility] 10-25-2024 07:18-0400 Body weight 104.4 kg [facility] 10-25-2024 07:18-0400 Diastolic blood pressure 73 mm[Hg] [facility] 10-25-2024 07:18-0400 Heart rate 65 /min [facility] 10-25-2024 07:18-0400 Respiratory rate 16 /min [facility] 10-25-2024 07:18-0400 SaO2% (BldA) [Mass fraction] 99 % [facility] 10-25-2024 07:18-0400 Systolic blood pressure 127 mm[Hg] [facility] 10-12-2024 10:22-0400 Body height 170.18 cm [facility] 10-12-2024 10:22-0400 Body mass index (BMI) [Ratio] 36.7 kg/m2 [facility] 10-12-2024 10:22-0400 Body temperature 98.5 [degF] [facility] 10-12-2024 10:22-0400 Body weight 106.31 kg [facility] 10-12-2024 10:22-0400 Diastolic blood pressure 88 mm[Hg] [facility] 10-12-2024 10:22-0400 Heart rate 85 /min [facility] 10-12-2024 10:22-0400 Respiratory rate 18 /min [facility] 10-12-2024 10:22-0400 SaO2% (BldA) [Mass fraction] 98 % [facility] 10-12-2024 10:22-0400 Systolic blood pressure 124 mm[Hg] [facility] 10-08-2024 08:04-0400 Body height 170.18 cm [facility] 10-08-2024 08:04-0400 Body mass index (BMI) [Ratio] 35.6 kg/m2 [facility] 10-08-2024 08:04-0400 Body weight 103.41 kg [facility] 10-08-2024 08:04-0400 Diastolic blood pressure 79 mm[Hg] [facility] 10-08-2024 08:04-0400 Heart rate 65 /min [facility] 10-08-2024 08:04-0400 SaO2% (BldA) [Mass fraction] 99 % [facility] 10-08-2024 08:04-0400 Systolic blood pressure 125 mm[Hg] [facility] 08-16-2024 11:40-0500 Body height 170.2 cm Jacquelyn Banks PA Work Phone: [facility] 08-16-2024 11:40-0500 Body mass index (BMI) [Ratio] 37.12 kg/m2 Jacquelyn Banks PA Work Phone: [facility] 08-16-2024 11:40-0500 Body weight 107.5 kg Jacquelyn Banks PA Work Phone: [facility] 07-30-2024 08:29-0500 Body mass index (BMI) [Ratio] 37.12 kg/m2 Calista Whitek HUMAN RESOURCE OFFICER Work Phone: [facility] 07-30-2024 08:29-0500 Body temperature 97.39 [degF] Calista Whitek HUMAN RESOURCE OFFICER Work Phone: [facility] 07-30-2024 08:29-0500 Body weight 107.5 kg Calista Whitek HUMAN RESOURCE OFFICER Work Phone: [facility] 07-30-2024 08:29-0500 Diastolic blood pressure 76 mm[Hg] Calista Beachpatrick HUMAN RESOURCE OFFICER Work Phone: [facility] 07-30-2024 08:29-0500 Systolic blood pressure 114 mm[Hg] Calista Yung HUMAN RESOURCE OFFICER Work Phone: [facility] 07-02-2024 08:19-0500 Body height 170.2 cm Luca Mace DO Work Phone: [facility] 07-02-2024 08:19-0500 Body mass index (BMI) [Ratio] 36.65 kg/m2 Lucareggie Mace DO Work Phone: [facility] 07-02-2024 08:19-0500 Body weight 106.14 kg Luca Mace DO Work Phone: [facility] 07-02-2024 08:19-0500 Diastolic blood pressure 78 mm[Hg] Luca Mace DO Work Phone: [facility] 07-02-2024 08:19-0500 Heart rate 67 /min Luca Mace DO Work Phone: [facility] 07-02-2024 08:19-0500 Respiratory rate 12 /min Luca Mace DO Work Phone: [facility] 07-02-2024 08:19-0500 SaO2% (BldA) [Mass fraction] 99 % Luca Mace DO Work Phone: [facility] 07-02-2024 08:19-0500 Systolic blood pressure 137 mm[Hg] Luca Mace DO Work Phone: [facility] 05-15-2024 19:15-0400 Body height 170.2 cm Shanthi Faithjenifercarmenza HUMAN RESOURCE OFFICER Work Phone: [facility] 05-15-2024 19:15-0400 Body mass index (BMI) [Ratio] 35.84 kg/m2 Shanthi Faithjenifercarmenza HUMAN RESOURCE OFFICER Work Phone: [facility] 05-15-2024 19:15-0400 Body weight 103.78 kg Shanthi Faithjenifercarmenza HUMAN RESOURCE OFFICER Work Phone: [facility] 05-15-2024 19:15-0400 Diastolic blood pressure 72 mm[Hg] Shanthi Valle HUMAN RESOURCE OFFICER Work Phone: [facility] 05-15-2024 19:15-0400 Heart rate 84 /min Shanthi Valle HUMAN RESOURCE OFFICER Work Phone: [facility] 05-15-2024 19:15-0400 SaO2% (BldA) [Mass fraction] 97 % Shanthi Valle HUMAN RESOURCE OFFICER Work Phone: [facility] 05-15-2024 19:15-0400 Systolic blood pressure 122 mm[Hg] Shanthi Valle HUMAN RESOURCE OFFICER Work Phone: [facility] 11-14-2021 14:50-0400 Body height 168.91 cm Sherice Gale Other [email or web address] Other 11-14-2021 14:50-0400 Body mass index (BMI) [Ratio] 28.61 kg/m2 Sherice Beasley Other [email or web address] Other 11-14-2021 14:50-0400 Body temperature 97.4 [degF] Sherice Gale Other [email or web address] Other 11-14-2021 14:50-0400 Body weight 81.65 kg Sherice Gale Other [email or web address] Other 11-14-2021 14:50-0400 SaO2% (BldA) [Mass fraction] 98 % Sherice Beasley Other [email or web address] Other Encounters Encounter Date Encounter Type Care Provider Facility Start: 12-06-2024 Non-patient / Non-visit [facility]idia Bailey APRN [facility] Work Phone: Start: 12-06-2024 End: 12-06-2024 Admission to same day surgery center Annabel Bailey APRN Work Phone: [facility] Work Phone: Start: 12-06-2024 End: 12-06-2024 ambulatory Imad Asaad Facility:[facility] Start: 11-22-2024 End: 11-22-2024 ambulatory [facility] Work Phone: Start: 11-22-2024 End: 11-22-2024 Patient encounter procedure [facility] Work Phone: Start: 11-15-2024 End: 11-15-2024 ambulatory [facility] Work Phone: Start: 11-15-2024 End: 11-15-2024 Patient encounter procedure [facility] Work Phone: Start: 10-25-2024 End: 10-25-2024 ambulatory [facility] Work Phone: Start: 10-25-2024 End: 10-25-2024 Patient encounter procedure [facility] Work Phone: Start: 10-12-2024 End: 10-12-2024 ambulatory [facility] Work Phone: Start: 10-12-2024 End: 10-12-2024 Patient encounter procedure [facility] [place] Work Phone: Start: 10-08-2024 End: 10-08-2024 ambulatory [facility] Work Phone: Start: 10-08-2024 End: 10-08-2024 Patient encounter procedure [facility] Work Phone: Start: 10-02-2024 End: 10-02-2024 Telephone encounter Tesha Walton HUMAN RESOURCE OFFICER Work Phone: [facility] Comment on above: Knee Pain Start: 09-27-2024 End: 09-27-2024 Bamboo flowsheet Tesha Walton HUMAN RESOURCE OFFICER Work Phone: [facility] Start: 09-27-2024 End: 09-27-2024 Bamboo flowsheet Tesha Walton HUMAN RESOURCE OFFICER Work Phone: [facility] Start: 09-27-2024 End: 09-27-2024 Postop follow up visit related to original px Tesha Walton HUMAN RESOURCE OFFICER Work Phone: [facility] Comment on above: Status post arthrosc opy of left knee (Primary Dx) Start: 09-27-2024 End: 09-27-2024 ambulatory TESHA WALTON Not Available Start: 09-03-2024 End: 09-03-2024 Postop follow up visit related to original px Tesha Walton HUMAN RESOURCE OFFICER Work Phone: [facility] Comment on above: Status post arthrosc opy of left knee (Primary Dx) Start: 09-03-2024 End: 09-03-2024 ambulatory TESHA WALTON Not Available Start: 08-23-2024 End: 08-23-2024 Telephone encounter JrWander Lee DO Work Phone: [facility] Comment on above: PO questions Start: 08-20-2024 End: 08-20-2024 ambulatory MELINA LEE Facility:[facility] Start: 08-17-2024 End: 08-17-2024 Departed Referred Annabel Bailey APRN Work Phone: [facility] [address] Work Phone: Start: 08-17-2024 End: 08-19-2024 Refill Tesha Walton HUMAN RESOURCE OFFICER Work Phone: [facility] Comment on above: Acute medial meniscu s tear of left knee, initial encounter (Primary Dx) Start: 08-16-2024 End: 08-16-2024 Preprocedural examination done Luca Sharma PT Work Phone: [facility] Start: 08-16-2024 End: 08-16-2024 ambulatory Luca Sharma PT Work Phone: [facility] Comment on above: Chronic pain of left knee (Primary Dx); Acute medial meniscus tear of left knee, subsequent encounter; Pre-op examination Start: 08-16-2024 End: 08-16-2024 Bamboo flowsheet Jacquelyn Banks PA Work Phone: [facility] Start: 08-16-2024 End: 08-16-2024 Bamboo flowsheet aJcquelyn Banks PA Work Phone: [facility] Start: 08-16-2024 End: 08-16-2024 ambulatory NAILA VILLARREAL Facility:[facility] Start: 08-16-2024 Encounter for other preprocedural examination [facility] Start: 08-16-2024 End: 08-16-2024 Patient encounter procedure Jacquelyn Banks PA Work Phone: [facility] Comment on above: Pre-op examination ( Primary Dx) Start: 08-16-2024 End: 08-16-2024 Preprocedural examination done Jacquelyn Banks PA Work Phone: [facility] Work Phone: Start: 08-16-2024 End: 08-16-2024 ambulatory JACQUELYN BANKS Not Available Start: 08-15-2024 End: 08-15-2024 Bamboo damian Dumont Stepjelly DO Work Phone: [facility] Start: 08-15-2024 End: 08-15-2024 Bamboo flowsheet Jr. Melina Dumont Stepanic DO Work Phone: [facility] Start: 08-15-2024 End: 08-15-2024 Office outpatient visit 25 minutes Jr. Melina Dumont Stepjelly DO Work Phone: [facility] Comment on above: Acute medial meniscu s tear of left knee, initial encounter (Primary Dx); Acute pain of both knees Start: 08-15-2024 End: 08-15-2024 ambulatory MELINA JUAN Not Available Start: 08-09-2024 End: 08-09-2024 Telephone encounter Naila Villarreal MD Work Phone: [facility] Start: 08-08-2024 End: 08-08-2024 ambulatory CALISTA WHITEK Not Available Start: 07-30-2024 End: 07-30-2024 Bamboo flowsheet Calista Beachpatrick HUMAN RESOURCE OFFICER Work Phone: [facility] Start: 07-30-2024 End: 07-30-2024 Bamboo flowsheet Calista Whitek HUMAN RESOURCE OFFICER Work Phone: [facility] Start: 07-30-2024 End: 07-30-2024 Office outpatient visit 25 minutes Calista Yung HUMAN RESOURCE OFFICER Work Phone: [facility] Comment on above: Acute pain of right knee (Primary Dx); Gastroesophageal reflux disease without esophagitis; Acute pain of left knee; Primary hypertension (CMS/HCC); Obesity (BMI 30.0-34.9); History of sleeve gastrectomy; Acute pain of both knees Start: 07-30-2024 End: 07-30-2024 ambulatory CALISTA WASHBURNTRICK Not Available Start: 07-26-2024 End: 07-26-2024 ambulatory Henriettakianna Harkinsbley MACHINE ADJUSTER HELPER [facility] Comment on above: Chronic pain of left knee (Primary Dx); Acute pain of left knee Start: 07-26-2024 End: 07-26-2024 Bamboo flowsheet Henrietta Kelbley MACHINE ADJUSTER HELPER [facility] Start: 07-26-2024 End: 07-26-2024 Bamboo flowsheet Henrietta Kelbley MACHINE ADJUSTER HELPER [facility] Start: 07-26-2024 End: 07-26-2024 Telephone encounter Naila Villarreal MD Work Phone: [facility] Start: 07-23-2024 End: 07-23-2024 Bamboo flowsheet Mayra Hoffman PT [facility] Start: 07-23-2024 End: 07-23-2024 Bamboo flowsheet Mayra Hoffman PT [facility] Start: 07-23-2024 End: 07-23-2024 Clinical Support Vandauday Chow MACHINE ADJUSTER HELPER [facility] Comment on above: Chronic pain of left knee (Primary Dx); Acute pain of left knee Start: 07-18-2024 End: 07-19-2024 ambulatory Vanda Chow MACHINE ADJUSTER HELPER [facility] Comment on above: Chronic pain of left knee (Primary Dx); Acute pain of left knee Start: 07-16-2024 End: 07-16-2024 Bamboo flowsheet Oswaldo Taylor MACHINE ADJUSTER HELPER [facility] Start: 07-16-2024 End: 07-16-2024 Bamboo flowsheet Oswaldo Taylor MACHINE ADJUSTER HELPER [facility] Start: 07-16-2024 End: 07-16-2024 ambulatory Oswaldo Taylor MACHINE ADJUSTER HELPER [facility] Comment on above: Acute pain of left k nee (Primary Dx); Chronic pain of left knee Start: 07-09-2024 End: 07-09-2024 Bamboo flowsheet Mayra Hoffman PT [facility] Start: 07-09-2024 End: 07-09-2024 Bamboo flowsheet Mayra Hoffman PT [facility] Start: 07-09-2024 End: 07-09-2024 ambulatory Mayra Hoffman PT [facility] Comment on above: Acute pain of left k nee (Primary Dx) Start: 07-02-2024 End: 07-02-2024 Bamboo flowsheet Lucareggie Zamoraett DO Work Phone: [facility] Start: 07-02-2024 End: 07-02-2024 Bamboo flowsheet Luca Esthela DO Work Phone: [facility] Start: 07-02-2024 End: 07-02-2024 Office outpatient visit 25 minutes Lucareggie Mace DO Work Phone: [facility] Comment on above: Screening for malign ant neoplasm of colon (Primary Dx); Hiatal hernia; Reflux gastritis Start: 07-02-2024 End: 07-02-2024 ambulatory LUCA MACE Not Available Start: 06-20-2024 End: 06-21-2024 Telephone encounter Jorge Chan PT Work Phone: [facility] Comment on above: [place] [facility] (Tried to c ontact, per message taken by Vanda, to offer time / day availability for PT Eval. She was treated 1x in [place] but had noted she'd like to transfer to [place]. Had to lm requesting call back.); Call Back (She contacted and we scheduled her PT Eval 07/09 w/ Tomy Hoffman, PT.) Start: 06-17-2024 End: 06-18-2024 Refill Isaias Castellon HUMAN RESOURCE OFFICER Work Phone: [facility] Comment on above: Gastroesophageal ref lux disease without esophagitis Start: 06-14-2024 End: 06-14-2024 Orders Only Shanthi Valle HUMAN RESOURCE OFFICER Work Phone: [facility] Comment on above: Acute pain of left k nee Start: 05-31-2024 End: 05-31-2024 Orders Only Shanthi Valle HUMAN RESOURCE OFFICER Work Phone: [facility] Comment on above: Obesity (BMI 30.0-34 .9) (Primary Dx) Start: 05-24-2024 End: 05-25-2024 ambulatory Luca Sharma PT Work Phone: [facility] Comment on above: Chronic pain of left knee (Primary Dx) Start: 05-24-2024 End: 05-24-2024 Bamboo flowsheet Luca Sharma PT Work Phone: [facility] Start: 05-24-2024 End: 05-24-2024 Bamboo flowsheet Luca Sharma PT Work Phone: [facility] Start: 05-17-2024 End: 05-17-2024 Orders Only Shanthi Valle HUMAN RESOURCE OFFICER Work Phone: [facility] Comment on above: Obesity (BMI 30.0-34 .9) (Primary Dx) Obesity (BMI 30.0-34 .9) Start: 05-16-2024 End: 05-16-2024 Telephone encounter Naila Villarreal MD Work Phone: [facility] Start: 05-15-2024 End: 05-15-2024 Office outpatient visit 25 minutes Shanthi Faithmehdi HUMAN RESOURCE OFFICER Work Phone: [facility] Comment on above: Acute pain of left k nee (Primary Dx); Obesity (BMI 30-39.9) Start: 05-15-2024 End: 05-15-2024 ambulatory SHANTHI FAITHJeniferCARMENZA Not Available Start: 05-15-2024 End: 05-15-2024 Bamboo flowsheet Shanthi Faithjenifercarmenza HUMAN RESOURCE OFFICER Work Phone: [facility] Start: 05-15-2024 End: 05-15-2024 Bamboo flowsheet Shanthi Valle HUMAN RESOURCE OFFICER Work Phone: [facility] Start: 02-17-2024 End: 02-17-2024 ambulatory NAILA MEYER [facility] Start: 02-17-2024 End: 02-17-2024 Subsequent hospital visit by physician Naila Meyer MD Work Phone: [facility] Start: 12-05-2023 End: 12-05-2023 ambulatory LUCA MACE Not Available Start: 12-02-2023 End: 12-02-2023 ambulatory ISAIAS A HACKENBURG Not Available Start: 11-11-2023 End: 11-11-2023 ambulatory ISAIAS A HACKENBURG Not Available Start: 10-14-2023 End: 10-15-2023 ambulatory [facility] Start: 10-07-2022 End: 10-07-2022 Patient encounter procedure Naila Meyer MD Work Phone: [facility] Start: 10-07-2022 End: 10-07-2022 Subsequent hospital visit by physician Naila Meyer MD Work Phone: [facility] Comment on above: Women's annual routi ne gynecological examination Start: 11-14-2021 End: 11-14-2021 ambulatory Sherice Beasley Other [email or web address] Other Start: 11-14-2021 Office outpatient vi sit 15 minutes Sherice Beasley [facility] [place] Start: 08-09-2021 End: 08-09-2021 ambulatory Mayra Lopez Other [email or web address] Other Start: 08-09-2021 Telephone encounter Mayra Lopez [facility] [place] Start: 08-28-2018 End: 08-29-2018 Patient encounter procedure JACQUELYN CLEMENTEDNA Facility:[facility] Procedures Date Procedure Procedure Detail Performing Clinician Start: 12-06-2024 Esophagogastroduodenoscopy Annabel redd APRN Work Phone: Start: 02-17-2024 Comprehensive metabolic panel Naila Meyer MD Work Phone: Start: 12-02-2023 Mammography Shanthi Valle NP Work Phone: Start: 11-11-2023 H/O: hysterectomy Hx of hysterectomy Shanthi Valle HUMAN RESOURCE OFFICER Work Phone: Start: 11-10-2018 Colonoscopy Naila Meyer MD Work Phone: H/O: hysterectomy Mayra Gint y Other H/O: hysterectomy Hx of hysterectomy History of appendectomy History of append ectomy History of cholecystectomy Hx of cholecys tectomy Plan of Treatment Date Care Activity Detail Author Start: 11-10-2028 [facility]ening for malign ant neoplasm [facility] Start: 03-17-2026 Lipid panel Lipids [facility] Start: 12-06-2024 [facility] Start: 12-01-2024 Screening for malign ant neoplasm of breast Mammogram [facility] Start: 10-08-2024 Patient referral [facility] Work Phone: Start: 09-27-2024 End: 09-27-2024 Patient encounter procedure [facility] Comment on above: Arrived Start: 09-24-2024 Influenza vaccination Influenza Vacc ine (#1) [facility] Comment on above: Postponed from 04/01 (Patient Refused) Start: 09-03-2024 End: 09-03-2024 Patient encounter procedure 09/03/2024 3:30 PM EST Office Visit [facility] [address] [place] [id number] Tesha Walton, HUMAN RESOURCE OFFICER [address] [place] [address] [facility] Start: 09-03-2024 End: 09-03-2024 Patient encounter procedure 09/03/2024 8:30 AM EST Office Visit [facility] [address] [place] [phone] Tesha Walton, HUMAN RESOURCE OFFICER [address] [place], [place] [id number] [facility] Start: 08-23-2024 End: 08-23-2024 ambulatory 08/23/2024 6:00 PM EST Treatment [facility] [address] [facility] [address] [place] [address] Henrietta Edmondson, MACHINE ADJUSTER HELPER [facility] Start: 08-20-2024 End: 08-20-2024 ambulatory 08/20/2024 8:00 AM EST Treatment [facility] [address] [facility] [address] [place] [address] Oswaldo Taylor, MACHINE ADJUSTER HELPER [facility] Start: 08-17-2024 End: 08-17-2024 Patient encounter procedure 08/17/2024 8:15 AM EST Office Visit [facility] [address] [place] [address] Jr. Melina Lee, DO [address] [facility] [address] [place] [address] [facility] Start: 08-16-2024 End: 08-16-2024 Patient encounter procedure 08/16/2024 11:40 AM EST Office Visit [facility] [address] [place] [address] Jacquelyn Banks, PA [address] [place] [address] Pre-op examination (Primary Dx) [facility] Comment on above: Pre-op examination ( Primary Dx) Start: 08-15-2024 End: 08-15-2024 ambulatory 08/15/2024 5:00 PM EST Treatment [facility] [address] [place] [address] Vanda Chow, MACHINE ADJUSTER HELPER [facility] Start: 08-15-2024 End: 08-15-2024 Patient encounter procedure 08/15/2024 9:00 AM EST Office Visit [facility] [address] [place] [phone] Jr. Melina Lee, DO [address] [place] [address] Acute pain of both knees [facility] Comment on above: Acute pain of both k nees Start: 08-13-2024 End: 08-13-2024 ambulatory 08/13/2024 8:30 AM EST Treatment [facility] [address] [place] [address] Mayra Hoffman, PT [facility] Start: 08-09-2024 End: 08-09-2024 ambulatory 08/09/2024 6:00 PM EST Treatment [facility] [address] [place] [address] Henrietta Edmondson, MACHINE ADJUSTER HELPER [facility] Start: 08-06-2024 End: 08-06-2024 ambulatory 08/06/2024 8:30 AM EST Treatment [facility] [address] [place] [address] Hoffman, Mayra, PT [facility] Start: 08-02-2024 End: 08-02-2024 ambulatory 08/02/2024 5:30 PM EST Treatment [facility] [address] [facility] [place] [address] Henrietta Edmondson, MACHINE ADJUSTER HELPER [facility] Start: 07-30-2024 End: 07-30-2025 MR Knee - left WO contrast MR knee left wo IV contrast Imaging Routine Acute pain of left knee Expected: 07/30/2024, Expires: 07/30/2025 [facility] Comment on above: Expected: 07/30/2024 , Expires: 07/30/2025 Start: 07-30-2024 End: 07-30-2025 XR Knee - right 4 Views [facility] Work Phone: Comment on above: Expected: 07/30/2024 , Expires: 07/30/2025 Start: 07-30-2024 End: 07-30-2024 ambulatory 07/30/2024 8:30 AM EST Treatment [facility] [address] [facility] [place] [address] Oswaldo Taylor MACHINE ADJUSTER HELPER [facility] Start: 07-30-2024 End: 07-30-2024 Patient encounter procedure 07/30/2024 8:30 AM EST Office Visit [facility] [address] [place] [phone] Calista Yung, HUMAN RESOURCE OFFICER [address], [place] [id number] Arrived [facility] Comment on above: Arrived Start: 07-26-2024 End: 07-26-2024 ambulatory [facility] Comment on above: Chronic pain of left knee (Primary Dx); Acute pain of left knee Start: 07-23-2024 End: 07-23-2024 ambulatory [facility] Comment on above: Chronic pain of left knee (Primary Dx); Acute pain of left knee Start: 07-18-2024 End: 07-18-2024 ambulatory 07/18/2024 5:30 PM EST Treatment [facility] [address] [facility] [address] [place] [address] Vanda Chow, RIVERA [facility] Start: 07-16-2024 End: 07-16-2024 ambulatory 07/16/2024 7:00 AM EST Treatment [facility] [address] [place] [phone] Oswaldo Taylor, RIVERA [facility] Start: 07-09-2024 End: 07-09-2024 [...] 07/02/2024 8:00 AM EST Office Visit [facility] [address] [place] [phone] Luca Mace DO [address] [place] [id number] Arrived [facility] Comment on above: Arrived Start: 06-11-2024 End: 06-11-2024 ambulatory 06/11/2024 8:00 AM EST Treatment [facility] [address] [place] [address] Summer Oconnell, RIVERA [address] [place], [place] [phone] [facility] Start: 06-07-2024 End: 06-07-2024 ambulatory 06/07/2024 7:00 AM EST Treatment [facility] [address] [place] [address] Sonia Gillespie PTA [facility] Start: 05-24-2024 End: 05-24-2024 ambulatory 05/24/2024 5:30 PM EDT Evaluation [facility] [address] [place] [phone] Luca Sharma, PT [address] [place] [address] [facility] Start: 05-15-2024 End: 05-15-2024 Patient encounter procedure 05/15/2024 7:30 PM EDT Office Visit [facility] [address] [facility] [place] [phone] Shanthi Valle NP [address] [facility] [place] [address] Arrived [facility] Comment on above: Arrived Start: 04-01-2024 Influenza vaccination Influenza Vacc ine (#1) [facility] Start: 03-01-2024 Influenza vaccination Flu vaccine (# 1) [facility] Start: 03-01-2022 Influenza vaccination Flu vaccine (# 1) [facility] Start: 06-17-2021 Hemoglobin A1c measurement A1C test (Diabetic or Prediabetic) [facility] Start: 2020 Screening for malign ant neoplasm of breast Breast cancer screen [facility] Start: 2020 Shingles vaccine (1 of 2) Carson gles vaccine (1 of 2) [facility] Start: 10-29-2015 Screening for malign ant neoplasm of colon [facility] Start: 2010 Lipid panel Lipids [facility] [employer] Start: 2010 Screening for malign ant neoplasm of breast Breast cancer screen [facility] Start: 1989 DTaP/Tdap/Td vaccine (1 - Tdap) DTaP/Tdap/Td vaccine (1 - Tdap) [facility] [employer] Start: 1988 Hepatitis C screening Hepatitis C sc reen [facility] Start: 1985 HIV screening HIV screen [facility] Start: 1982 Depression Screen Depression Screen [facility] Start: 04-30-1971 COVID-19 Vaccine (#1) COVID-19 Vacci ne (#1) [facility] Start: 1970 Hepatitis B vaccine (1 of 3 - 3-dose series) Hepatitis B vaccine (1 of 3 - 3-dose series) [facility] End: 10-07-2022 Cytopathology procedure, preparation of smear, genital source PAP SMEAR Lab Routine Women's annual routine gynecological examination 1 Occurrences starting 10/07/2022 until 10/07/2022 [facility] Work Phone: Comment on above: 1 Occurrences starti ng 10/07/2022 until 10/07/2022 Patient Education Hiatal hernia - Discharge instructions Know your Meds [facility] Work Phone: Patient referral [facility] Work Phone: End: 02-17-2024 [facility] Work Phone: Comment on above: Once for 1 Occurrenc es starting 02/17/2024 until 02/17/2024 Immunizations Immunization Date Immunization Notes Care Provider Aaliyah sky NEGATED: Highlighted row has not occurred! 9 pneumococcal polysaccharide vaccine, 23 valent Patient Objection Mayra Ginty Other [email or web address] Other NEGATED: Highlighted row has not occurred! 9 influenza, high dose seasonal, preservative-free Patient Objection Mayra Ginty Other [email or web address] Other NEGATED: Highlighted row has not occurred! 9 influenza, high dose seasonal, preservative-free Patient Objection Mayra Ginty Other [email or web address] Other NEGATED: Highlighted row has not occurred! 8 influenza, high dose seasonal, preservative-free Patient Objection Mayra Ginty Other [email or web address] Other NEGATED: Highlighted row has not occurred! 8 pneumococcal polysaccharide vaccine, 23 valent Patient Objection Mayra Lopez Other [email or web address] Other Payers Date Payer Category Payer Unknown [id number] 2024 Self-pay 2024 Unknown [id number] 2024 Blue Cross Blue Shield [id number] 2023 Private Health Insurance [facility] [id number]. [id number] 2023 Unknown [id number] 2015 Unknown [id number] 2013 Unknown [id number] 2.16.840.1.309458.19 1970 Unknown [id number] 2.16.840.1.273472.3.579.2. 593 1970 Unknown [id number] 2.16.840.1.816207.3.579.2. 1286 1970 Unknown [id number] 2.16.840.1.096899.3.579.2. 173 1970 Unknown [id number] 2.16.840.1.440992.3.579.2. 71 1970 Unknown [id number] 2.16.840.1.940826.3.579.2. 8 1970 Unknown [id number] 2.16.840.1.021019.3.579.2. 1258 1970 Unknown [id number] 2.16.840.1.255799.3.579.2. 1258 1970 Unknown [id number] 2.16840.1.329170.3.579.2. 1258 1970 Unknown [id number] 2.16840.1.773675.3.579.2. 1258 1970 Unknown [id number] 2.16840.1.487395.3.579.2. 1258 1970 Unknown [id number] 2.840.1.990232.3.579.2. 1258 1970 Unknown [id number] 2.840.1.221763.3.579.2. 1258 1970 Unknown [id number] 2.840.1.429483.3.579.2. 1258 1970 Unknown [id number] 2.16840.1.033364.3.579.2. 1258 1970 Unknown [id number] 2.16840.1.512444.3.579.2. 1258 1970 Unknown [id number] 2.16840.1.076980.3.579.2. 1258 1970 Unknown [id number] 2.16840.1.083458.3.579.2. 1258 1970 Unknown [id number] 2.16840.1.934767.3.579.2. 1258 1970 Unknown [id number] 2.16.840.1.168288.3.579.2. 1258 1970 Unknown [id number] 2.16840.1.362232.3.579.2. 9 1970 Unknown [id number] 2.16.840.1.329733.3.579.2. 1259 1970 Unknown [id number] 2.16.840.1.146799.3.579.2. 1259 1970 Unknown [id number] 2.16.840.1.699493.3.579.2. 1259 1970 Unknown [id number] 2.16.840.1.994155.3.579.2. 1259 1959 Unknown [id number] Private Health Insurance [id number] 2.16.840.1.825656.19 Unknown [id number] 2.16.840.1.666309.3.579.2. 531 Unknown [id number] 2.16.840.1.403426.3.579.2. 531 Social History Date Type Detail Facility Unknown if ever smoked [email or web address] Other Start: 11-11-2023 End: 05-15-2024 Sex Assigned At [facility] Start: 11-16-2018 End: 12-06-2024 Tobacco smoking status AKIS Never smoked tobacco [employer] Start: 11-16-2018 End: 11-11-2023 Tobacco use and exposure Smokeless tobacco non-user [employer] Phone: Start: 10-07-2022 Alcohol intake Current drinke r of alcohol (finding) [employer] Phone: Start: 06-19-2012 Alcohol Comment rarely [employer] Phone: Start: 1970 Sex Assigned At Not on file B ON [employer] Phone: Start: 12-05-2023 End: 09-27-2024 Alcoholic beverage intake Ex-drinker (finding) [facility] Start: 11-11-2023 End: 05-15-2024 History of Social function [facility] How often do you nee d to have someone help you when you read instructions, pamphlets, or other written material from your doctor or pharmacy [SILS] Never [facility] Do you belong to any clubs or organizations such as episcopalian groups, unions, fraternal or athletic groups, or [...] [facility] Start: 05-15-2024 Alcohol Comment caffeien intak e: 1 cup daily [facility] Start: 10-08-2024 End: 12-06-2024 Sex Female (finding) [facility] Start: 1970 Sex Assigned At Female F [facility] NEGATED: Highlighted row [facility] Medical Equipment Procedure Code Equipment Code Equipment Original Text Equi pment Identifier Dates OneTouch UltraSoft Lancets Goals Date Patient Goal Desired Activity /State Clinical Notes 03-20-2021 to 12-06-2024 Note Date & Type Note Facility 12-06-2024 Procedure note [facility] 11-22-2024 Evaluation note Authored November 22, 2024 9:48am 54-year-old female referred to the GI clinic for evaluation of heartburn. +history of gastric sleeve and hiatal hernia repair. + Chronic heartburn for years, not been controlled with omeprazole 20 mg twice daily. Will increase omeprazole to 40 mg twice daily for 8 weeks then decrease to 20 mg twice daily. Will arrange for EGD to assess for Guerrero's [facility] Work Phone: 1(979) 792-102803-10-2025 Evaluation note* Diagnosis Onset Date Resolution Status Admit Date Adjustment disorder with anxiety acute October 08, 2024 8:02am Annual visit for general adult medical examination without abnormal findings acute October 08, 2024 8:02am GERD (gastroesophageal reflu x disease) acute October 08, 2024 8:02am H/O bariatric surgery [facility] 2024 8:02am Menopause syndrome acute October 08, 2024 8:02am Obesity, Class II, BMI 35-39.9 acute October 08, 2024 8:02am Encounter to establish care with new doctor noneactive October 08, 2024 8:02am [facility] Work Phone: 1(601) 704-964803-10-2025 Evaluation note* Diagnosis Onset Date Resolution Status Admit Date Adjustment disorder with anxiety acute October 08, 2024 8:02am Annual visit for general ministerio lt medical examination without abnormal findings acute October 08 8:02am GERD (gastroesophageal reflu x disease) acute October 08, 2024 8:02am H/O bariatric surgery [facility] 2024 8:02am Menopause syndrome acute October 08, 2024 8:02am Obesity, Class II, BMI 35-39.9 acute October 08, 2024 8:02am Encounter to establish care with new doctor noneactive October 08, 2024 8:02am Viral URI with cough acute [facility] 2024 10:07am Abnormal weight gain acute [facility] 2024 7:13am Adjustment disorder with anxiety acute October 25, 2024 7:13am BMI 37.0-37.9, adult acute [facility] 2024 7:13am Dietary surveillance and counseling acute October 25, 2024 7:13am Exercise counseling acute October 25, 2024 7:13am GERD (gastroesophageal reflu x disease) acute October 25, 2024 7:13am H/O bariatric surgery acute [facility] 2024 7:13am Hx of cholecystectomy [facility] 2024 7:13am Hx of hysterectomy acute October 25, 2024 7:13am Obesity, Class II, BMI 35-39.9 acute October 25, 2024 7:13am Type II diabetes mellitus acute October 25, 2024 7:13am [facility] Work Phone: 1(653) 675-982003-10-2025 Evaluation note* Diagnosis Onset Date Resolution Status Admit Date Adjustment disorder with anxiety acute October 08, 2024 8:02am Annual visit for general ministerio lt medical examination without abnormal findings acute October 08 8:02am GERD (gastroesophageal reflu x disease) acute October 08, 2024 8:02am H/O bariatric surgery acute Sep 8:02am Menopause syndrome acute October 08, 2024 8:02am Obesity, Class II, BMI 35-39.9 acute October 08, 2024 8:02am Encounter to establish care with new doctor noneactive October 08, 2024 8:02am Viral URI with cough acute [facility] 2024 10:07am Abnormal weight gain acute [facility] 2024 7:13am Adjustment disorder with anxiety acute October 25, 2024 7:13am BMI 37.0-37.9, adult acute [facility] 2024 7:13am Dietary surveillance and counseling acute October 25, 2024 7:13am Exercise counseling acute October 25, 2024 7:13am GERD (gastroesophageal reflu x disease) acute October 25, 2024 7:13am H/O bariatric surgery acute [facility] 2024 7:13am Hx of cholecystectomy acute [facility] 2024 7:13am Hx of hysterectomy acute October 25, 2024 7:13am Mixed hyperlipidemia acute [facility] 2024 7:13am Obesity, Class II, BMI 35-39.9 acute October 25, 2024 7:13am Type II diabetes mellitus acute October 25, 2024 7:13am [facility] Work Phone: 1(320) 895-374203-10-2025 Evaluation note* Diagnosis Onset Date Resolution Status Admit Date Adjustment disorder with anxiety acute October 08, 2024 8:02am Annual visit for general ministerio lt medical examination without abnormal findings acute October 08 8:02am GERD (gastroesophageal reflu x disease) acute October 08, 2024 8:02am H/O bariatric surgery acute [facility] 2024 8:02am Menopause syndrome acute October 08, 2024 8:02am Obesity, Class II, BMI 35-39.9 acute October 08, 2024 8:02am Encounter to establish care with new doctor noneactive October 08, 2024 8:02am Viral URI with cough acute [facility] 2024 10:07am Abnormal weight gain acute [facility] 2024 7:13am Adjustment disorder with anxiety acute October 25, 2024 7:13am BMI 37.0-37.9, adult acute [facility] 2024 7:13am Dietary surveillance and counseling acute October 25, 2024 7:13am Exercise counseling acute October 25, 2024 7:13am GERD (gastroesophageal reflu x disease) acute October 25, 2024 7:13am H/O bariatric surgery acute [facility] 2024 7:13am Hx of cholecystectomy acute [facility] 2024 7:13am Hx of hysterectomy acute October 25, 2024 7:13am Mixed hyperlipidemia acute [facility] 2024 7:13am Obesity, Class II, BMI 35-39.9 acute October 25, 2024 7:13am Type II diabetes mellitus acute October 25, 2024 7:13am GERD (gastroesophageal reflu x disease) acute November 22, 2024 7:59am [facility] Work Phone: 1(248) 965-577703-04-2025 Telephone encounter Note* Telephone Encounter - Tesha Walton NP - 10/02/2024 1:24 PM EST We typically have to wait until we are 12 weeks out from surgery before we can do injection and sheis only 6 weeks out right now. I discussed option of injection but I would start with a MDP that wecan order for her now. [facility] [id number] Miscellaneous Notes* Telephone Encounter - Tesha Walton NP - 10/02/2024 1:24 PM EST We typically have to wait until we are 12 weeks out from surgery before we can do injection and sheis only 6 weeks out right now. I discussed option of injection but I would start with a MDP that wecan order for her now. * Telephone Encounter - Terese Muñoz - 10/02/2024 1:04 PM EST Patient called stated that she had LT KNEE MEDIAL MENISECTOMY, CHONDROPLASTY MFC, EXC PLICA 08/20/24, she was last seen with you on 09/27 and is still having pain and wanted to know if she can have aninjection now? Please advise documented in this encounterSaint John's Health [id number] Telephone encounter Note* Telephone Encounter - Terese Muñoz - 10/02/2024 1:04 PM EST Patient called stated that she had LT KNEE MEDIAL MENISECTOMY, CHONDROPLASTY MFC, EXC PLICA 08/20/24, she was last seen with you on 09/27 and is still having pain and wanted to know if she can have aninjection now? Please advise [facility] [id number] History of Present illness Narrative* Tesha Walton NP - 09/27/2024 8:00 AM EST Images from the original note were not included. HISTORY OF PRESENT ILLNESS: POST OP PT Kathy Wu is an 53 y.o. @ female. (5 WEEKS, 3 DAYS) LT KNEE MEDIAL MENISECTOMY, CHONDROPLASTY MFC, EXC PLICA 08/20/24 @ [facility]- SORENESS MEDIAL KNEE, INTERMITTENT. ACHES. DISCOMFORT POSTERIOR. +TYL. +ICE PRN. DENIES N/T, SWELLING. STRETCHES. WEAKNESS. DENIES GIVING OUT. +POPPING. WAKES PT AT HS, POSITIONAL. REVIEW OF SYSTEMS: General: Denies fever, fatigue or weight loss Lungs: Denies SOB Cardio: Denies chest pain GI: Denies indigestion or abdominal pain Neuro: Denies numbness or tingling, denies new onset paralysis Musculoskeletal: ( see note) PHYSICAL EXAM: Left Knee Exam Left knee exam is normal. Tenderness Left knee tenderness location: Compartments soft. Range of Motion The patient has normal left knee ROM. Extension: 0 Flexion: 120 (tightness on terminal flexion) Other Erythema: absent Scars: present (Portals well healed, no erythema, drainge or discharge, no dehisence) Sensation: normal Pulse: present Swelling: mild Effusion: no effusion (consistent with surgery) present Comments: Operative lower extremity was noted to be neurovascularly intact. Patient was able to motor feet, toes and ankles in all anatomic planes bilaterally with 5 out of 5 strength. Operative knee's patellar tracking was optimal and quad/ham strength was 5 out of 5 to operative lower extremity. There was no varus valgus, anterior-posterior, or rotatory instability noted to the operative knee. Swelling was well controlled, patella was not ballotable and compartments were soft to the operativelower extremity. Dorsalis pedis and posterior tibial pulses were present and equal bilaterally. There was no evidence of infection or ascending lymphangitis to operative lower extremity. Sensation tolight touch was intact to all dermatomes to bilateral lower extremities. Negative Homans and negative John were noted bilaterally to lower extremities. Incision was healing without evidence of infection Procedures No orders of the defined types were placed in this encounter. ASSESSMENT: ICD-10-CM 1. Status post arthroscopy of left knee Z98.890 PLAN: Patient is 5 weeks s/p LT medial menisectomy and chondroplasty. She is cleared to start doing stationary bike at gym and increasing her activity. She still has some aching in her knee but the sharp pain has greatly improved. I believe most of the aching pain is inflammation related. She will call if this does not improve as we could do an IA injection in her LT knee. Questions answered in laymen terms at the bedside. The diagnosis, home exercise plan and any ongoing restrictions/ recommendations reviewed. If unable to be reached in office, I recommend evaluation at nearest Emergency Room if any symptoms worsened or new symptoms develop for requiring urgent evaluation. Tesha Walton DOG BEHAVIORIST-[facility] documented in this encounterSaint John's Health [id number] Telephone encounter Note* Telephone Encounter - JOSH Welsh - 08/23/2024 12:47 PM EST Spoke with pt answered questions.. pt requesting refill of pain med as well. Oarrs reviewed. RX sent to pharmacy. Please notify pt. Take least effective dose for pain control. [facility] [id number] Miscellaneous Notes* Telephone Encounter - JOSH Welsh - 08/23/2024 12:47 PM EST Spoke with pt answered questions.. pt requesting refill of pain med as well. Oarrs reviewed. RX sent to pharmacy. Please notify pt. Take least effective dose for pain control. * Telephone Encounter - Juana Cormier - 08/23/2024 10:08 AM EST Pt called and stated she had Lt knee scope on 08/20/24 and She took band aid off today and she wondered when she is suppose to start the exercises that you sent her home with last time she saw you? She has been doing the ones for blood clots? Please advise Her call back [phone] documented in this encounterSaint John's Health [id number] Telephone encounter Note* Telephone Encounter - Juana Cormier - 08/23/2024 10:08 AM EST Pt called and stated she had Lt knee scope on 08/20/24 and She took band aid off today and she wondered when she is suppose to start the exercises that you sent her home with last time she saw you? She has been doing the ones for blood clots? Please advise Her call back [phone] [facility] [id number] Note [id number]#1.00[facility]01-21-2025 [id number]#1.00[facility] 08-20-2024 History of Present illness Narrative* Tesha Walton, VELMA - 09/03/2024 3:30 PM EST Images from the original note were not included. HISTORY OF PRESENT ILLNESS: POST OP PT Kathy Wu is an 53 y.o. @ female. 1ST PO (14 DAYS)LT KNEE MEDIAL MENISECTOMY, CHONDROPLASTY MFC, EXC PLICA 08/20/24 @ [facility]- DOING WELL- MINIMAL DISCOMFORT- SUTURES REMOVED WITHOUT DIFFICULTY- PT PLEASED REVIEW OF SYSTEMS: General: Denies fever, fatigue or weight loss Lungs: Denies SOB Cardio: Denies chest pain GI: Denies indigestion or abdominal pain Neuro: Denies numbness or tingling, denies new onset paralysis Musculoskeletal: ( see note) PHYSICAL EXAM: Left Knee Exam Left knee exam is normal. Tenderness Left knee tenderness location: Compartments soft. Range of Motion The patient has normal left knee ROM. Extension: 0 Flexion: 120 (tightness on terminal flexion) Other Erythema: absent Scars: present (Portals well healing, sutures removed, no erythema, drainge or discharge, no dehisence) Sensation: normal Pulse: present Swelling: mild Effusion: effusion (consistent with surgery) present Comments: Operative lower extremity was noted to be neurovascularly intact. Patient was able to motor feet, toes and ankles in all anatomic planes bilaterally with 5 out of 5 strength. Operative knee's patellar tracking was optimal and quad/ham strength was 5 out of 5 to operative lower extremity. There was no varus valgus, anterior-posterior, or rotatory instability noted to the operative knee. Swelling was well controlled, patella was not ballotable and compartments were soft to the operativelower extremity. Dorsalis pedis and posterior tibial pulses were present and equal bilaterally. There was no evidence of infection or ascending lymphangitis to operative lower extremity. Sensation tolight touch was intact to all dermatomes to bilateral lower extremities. Negative Homans and negative John were noted bilaterally to lower extremities. Incision was healing without evidence of infection Procedures No orders of the defined types were placed in this encounter. ASSESSMENT: ICD-10-CM 1. Status post arthroscopy of left knee Z98.890 PLAN: Patient is 2 weeks s/p LT medial menisectomy and chondroplasty. Discussed surgery and reviewed surgical images. I recommend no deep squatting or pivoting with operative knee. Continue working on ROM.Follow up in 3-4 weeks for RCK. We will keep her off work until follow up with our office. Questions answered in laymen terms at the bedside. The diagnosis, home exercise plan and any ongoing restrictions/ recommendations reviewed. If unable to be reached in office, I recommend evaluation at nearest Emergency Room if any symptoms worsened or new symptoms develop for requiring urgent evaluation. Tesha Walton DOG BEHAVIORIST-[facility] documented in this encounterSaint John's Health [id number] [facility] SUR[facility]ERY Clinical Discharge Summary PERSON INFORMATION Name KATHY WU Age 53 Years 1970 Sex FEMALE Language Belizean PCP NAILA VILLARREAL Marital Status Phone Med Service Ambulatory Surgery Acct# Arrival 08/20/2024 07:57:24 Visit Reason SURGERY - LEFT KNEE ARTHROSCOPY - MEDIAL MENISCECTOMY Acuity LOS 005 03:05 Address: [address] [place] [address] Comment: PROVIDER INFORMATION VITALS INFORMATION Vital Sign Triage Latest Temp Oral Temp Temporal Temp Intravascular Temp Axillary Temp Rectal 02 Sat 97 % 100 % Respiratory Rate Peripheral Pulse Rate Apical Heart Rate Blood Pressure / 84 mmHg / 68 mmHg Comment: MEDICAL INFORMATION Allergy Info: Latex; penicillin Prescriptions Given: cholecalciferol (Vitamin D3 1000 intl units oral capsule) 1 cap(s) Oral (given by mouth) every day. melatonin (melatonin 10 mg oral tablet) 1 tab(s) Oral (given by mouth) once a day (at bedtime). omeprazole (omeprazole 20 mg oral delayed release capsule) 1 cap(s) Oral (given by mouth) 2 times per day. Medication List: Medications to Continue That Have Not Changed Other Medications cholecalciferol (Vitamin D3 1000 intl units oral capsule) 1 cap(s) Oral (given by mouth) every day. melatonin (melatonin 10 mg oral tablet) 1 tab(s) Oral (given by mouth) once a day (at bedtime). omeprazole (omeprazole 20 mg oral delayed release capsule) 1 cap(s) Oral (given by mouth) 2 times per day. Medications to Continue That Have Not Changed Other Medications cholecalciferol (Vitamin D3 1000 intl units oral capsule) 1 cap(s) Oral (given by mouth) every day. melatonin (melatonin 10 mg oral tablet) 1 tab(s) Oral (given by mouth) once a day (at bedtime). omeprazole (omeprazole 20 mg oral delayed release capsule) 1 cap(s) Oral (given by mouth) 2 times per day. Medications to Continue That Have Not Changed Other Medications cholecalciferol (Vitamin D3 1000 intl units oral capsule) 1 cap(s) Oral (given by mouth) every day. melatonin (melatonin 10 mg oral tablet) 1 tab(s) Oral (given by mouth) once a day (at bedtime). omeprazole (omeprazole 20 mg oral delayed release capsule) 1 cap(s) Oral (given by mouth) 2 times per day. Comment: Lab and Radiology Results Laboratory or Other Results This Visit (last charted value for your 08/20/2024 visit) No Laboratory or Other Results This Visit DIET & ACTIVITY Patient Activity Level: Patient Diet: Patient Activity Restrictions: DISCHARGE INFORMATION Discharge Disposition: Discharge Location: [facility] REASON INCOMPLETE INFORMATION PATIENT EDUCATION INFORMATION Instructions: [facility] Arthroscopy Discharge Instructions (MHMPATRICK) Follow up: With: Address: When: Follow up with nurse practitioner Tesha Walton in the [place] office. [address] [place] [address] 09/03/2024 8:30 AM DIAGNOSIS Acute internal derangement of left knee Comment: MOISES BUCHANAN [facility]01-17-2025 Telephone encounter Note* Telephone Encounter - Tesha Walton NP - 08/17/2024 12:52 PM EST Post op pain rx. PDMP reviewed [facility] [id number] Miscellaneous Notes* Telephone Encounter - Tesha Walton NP - 08/17/2024 12:52 PM EST Post op pain rx. PDMP reviewed documented in this encounterSaint John's Health [id number] History of Present illness Narrative* Luca Sharma, PT - 08/16/2024 3:30 PM EST Pt to have L knee scope this coming Tuesday08/20/24. Adult regular crutches fit to size 5 ft 7 demo and verbal cues for correct technique both NWB (likely 1 week) and PWB both on level ground and steps as she has 2 steps to enter. Good return demo with some difficulty maintaining WBING status due to coordination, strength. Advised to practice at home. Pt reports she does have option for walker if she does not feel safe. X 15 min gait training. documented in this encounterSaint John's Health [id number] History of Present illness Narrative* JOSH Welsh - 08/16/2024 11:40 AM EST Images from the original note were not included. GENERAL HISTORY AND PHYSICAL: NAME: Kathy Wu : 1970 HISTORY OF PRESENT ILLNESS: Kathy Wu is an 53 y.o. @ female. Here for surgery instructions (LT) KNEE SCOPE W/MM @ [facility] 08/20/2024 PAST MEDICAL HISTORY: Past Medical History: Diagnosis Date Hammer toe 2018 Medial collateral ligament sprain of knee 08/10/2023 Tear of meniscus of knee 08/10/2023 PAST SURGICAL HISTORY: Past Surgical History: Procedure Laterality Date APPENDECTOMY 2014? SECTION, LOW TRANSVERSE 2003 CHOLECYSTECTOMY 2020 COLON SURGERY 2014? EAR MASTOIDECTOMY W/ COCHLEAR IMPLANT W/ LANDMARK Right 08/2022 [facility] HERNIA REPAIR 2019 HYSTERECTOMY 2004 SMALL INTESTINE SURGERY 2014? TUBAL LIGATION 2004 SOCIAL HISTORY: Social History Occupational History Not on file Tobacco Use Smoking status: Never Smokeless tobacco: Never Vaping Use Vaping status: Never Used Substance and Sexual Activity Alcohol use: Not Currently Comment: caffeien intake: 1 cup daily Drug use: Never Sexual activity: Yes Partners: Male control/protection: Female Sterilization, Other, None Comment: Hysterectomy 2004 ALLERGIES: Allergies Allergen Reactions Penicillins Anaphylaxis and Unknown Unknown reaction, tested positive as a child Latex Rash MEDICATIONS: Current Outpatient Medications Medication Instructions bacitracin 500 UNIT/GM ointment APPLY A THIN AMOUNT TO AFFECTED AREA TWICE A DAY Cholecalciferol (VIT D3) 400 Units, Daily RT estradiol (ESTRACE) 0.5 mg, Daily RT Estrogens Conjugated (Premarin) 0.625 MG/GM cream Insert into the vagina Estrogen topical. fluticasone (Flonase) 50 MCG/ACT nasal spray SPRAY SPRAY 1 SPRAY INTO EACH NOSTRIL EVERY DAY FOR 30DAYS Multiple Vitamins-Minerals (Multivitamin Women) tablet as directed Orally omeprazole (PRILOSEC) 20 mg, Oral, 2 times daily, Do not crush or chew. Progesterone 40 % cream Progesterone topical Testosterone 20 % cream Testosterone topical. tiZANidine (ZANAFLEX) 2 mg, Oral, Every 8 hours PRN triamcinolone (Kenalog) 0.5 % ointment APPLY TO AFFECTED AREA TWICE DAILY NEEDED FOR 30 DAYS REVIEW OF SYSTEMS: Review of Systems Constitutional: Negative for fatigue, fever and unexpected weight change. Eyes: Negative for redness and visual disturbance. Gastrointestinal: Negative for abdominal pain. Denies Indigestion Musculoskeletal: See note: Skin: Negative for color change and rash. Neurological: Negative for light-headedness and numbness. Vitals: Body mass index is 37.12 kg/m . PHYSICAL EXAM: Physical Exam Constitutional: General: She is not in acute distress. Appearance: Normal appearance. HENT: Head: Normocephalic and atraumatic. Right Ear: External ear normal. Left Ear: External ear normal. Nose: Nose normal. No rhinorrhea. Mouth/Throat: Mouth: Mucous membranes are moist. Pharynx: No posterior oropharyngeal erythema. Eyes: Extraocular Movements: Extraocular movements intact. Conjunctiva/sclera: Conjunctivae normal. Cardiovascular: Rate and Rhythm: Normal rate and regular rhythm. Pulses: Normal pulses. Heart sounds: No murmur heard. Pulmonary: Effort: Pulmonary effort is normal. No respiratory distress. Breath sounds: Normal breath sounds. No wheezing or rhonchi. Abdominal: Palpations: Abdomen is soft. Tenderness: There is no abdominal tenderness. Musculoskeletal: Cervical back: Normal range of motion and neck supple. Lymphadenopathy: Cervical: No cervical adenopathy. Skin: General: Skin is warm and dry. Findings: No erythema or rash. Neurological: General: No focal deficit present. Mental Status: She is alert and oriented to person, place, and time. Psychiatric: Mood and Affect: Mood normal. Behavior: Behavior normal. No orders of the defined types were placed in this encounter. ASSESSMENT: ICD-10-CM 1. Pre-op examination Z01.818 PLAN: This patient presents for preadmission testing for upcoming surgery. Complete history with medical, surgery, and current allergy and medication list obtained. Consent for surgery signed and witnessed after verbal consent to perform surgery received. All questions answered and proposed surgeryscheduled. Pt uses a bioidential topical estrogen cream for perimenopause symptoms, no estrogen pill- [facility] Compound (LT) KNEE SCOPE W/MM @ [facility] 08/20/2024 PAT WITH SAL 08/16/2024 PAT @ [facility] 08/16/2024 @ 2PM CPT APPROVED #[id number] Follow up for SEP 03, 2024 @ 8:30 AM IN [place] WITH TESHA Post-Op. documented in this encounterSaint John's Health [id number] History of Present illness Narrative* Jr. Melina Lee, DO - 08/15/2024 9:00 AM EST Images from the original note were not included. NAME: Kathy Wu : 1970 HISTORY OF PRESENT ILLNESS: NEW PT Kathy Wu is an 53 y.o. @ female. NEW PT - REFERRED BY CALISTA YUNG FOR LT KNEE PAIN, WEARING BRACE XRAY LT KNEE ON 07/30/24 NO XR RT KNEE MRI LT KNEE W/O CONTRAST 08/08/24 NO CORTISONE INJ NO MDP PREDNISONE 06/24 PHYSICAL THERAPY (7 VISITS) PAIN MANAGEMENT FOR B/L HIPS, COMPLETED 5 YRS AGO NOTES CONSTANT DULL ACHE, SHOOTING SHARP PAIN POSTERIOR AND MEDIALLY WHEN TURNING AND AFTER GOING UP STAIRS. NOTES SHOOTING PAIN WAS WORSE WITH PT. ROM LIMITED WITH BENDING KNEE. WAKES AT HS WHEN IN A POSITION TOO LONG. NOTES WEAKNESS, CLICKING, POPPING. NOTES FREQUENT GIVING OUT WHEN TURNING. ICING, ELEVATING, TYL 500MG 2-3X DAILY. WEARING BRACE DURING THE DAY. ELEVATING AT WORK. PAST MEDICAL HISTORY: History reviewed. No pertinent past medical history. PAST SURGICAL HISTORY: Past Surgical History: Procedure Laterality Date APPENDECTOMY 2014? SECTION, LOW TRANSVERSE 2003 CHOLECYSTECTOMY 2020 COLON SURGERY 2014? EAR MASTOIDECTOMY W/ COCHLEAR IMPLANT W/ LANDMARK Right 08/2022 [facility] HERNIA REPAIR 2020 HYSTERECTOMY 2003 SMALL INTESTINE SURGERY 2014? TUBAL LIGATION 2003 SOCIAL HISTORY: Social History Occupational History Not on file Tobacco Use Smoking status: Never Smokeless tobacco: Never Vaping Use Vaping status: Never Used Substance and Sexual Activity Alcohol use: Not Currently Comment: caffeien intake: 1 cup daily Drug use: Not Currently Sexual activity: Yes Partners: Male control/protection: None ALLERGIES: Allergies Allergen Reactions Penicillins Anaphylaxis and Unknown Unknown reaction, tested positive as a child Latex Rash HOME MEDICATIONS: Current Outpatient Medications Medication Instructions bacitracin 500 UNIT/GM ointment APPLY A THIN AMOUNT TO AFFECTED AREA TWICE A DAY Cholecalciferol (VIT D3) 400 Units, Daily RT estradiol (ESTRACE) 0.5 mg, Daily RT Estrogens Conjugated (Premarin) 0.625 MG/GM cream Insert into the vagina Estrogen topical. fluticasone (Flonase) 50 MCG/ACT nasal spray SPRAY SPRAY 1 SPRAY INTO EACH NOSTRIL EVERY DAY FOR 30DAYS Multiple Vitamins-Minerals (Multivitamin Women) tablet as directed Orally omeprazole (PRILOSEC) 20 mg, Oral, 2 times daily, Do not crush or chew. Progesterone 40 % cream Progesterone topical Testosterone 20 % cream Testosterone topical. tiZANidine (ZANAFLEX) 2 mg, Oral, Every 8 hours PRN triamcinolone (Kenalog) 0.5 % ointment APPLY TO AFFECTED AREA TWICE DAILY NEEDED FOR 30 DAYS REVIEW OF SYSTEMS: Review of Systems Vitals: There is no height or weight on file to calculate BMI. Tobacco Use: Low Risk (08/15/2024) Patient History Smoking Tobacco Use: Never Smokeless Tobacco Use: Never Passive Exposure: Not on file Alcohol Use: Not At Risk (05/15/2024) AUDIT-C Frequency of Alcohol Consumption: Never Average Number of Drinks: Patient does not drink Frequency of Binge Drinking: Never PHYSICAL EXAM: Knee Musculoskeletal Exam Gait Gait is normal. Antalgic: left Inspection Leg length disparity: no discrepancy Left Erythema: none Effusion: mild Edema: none Ecchymosis: none Deformity: none Alignment: normal Palpation Left Increased warmth: none Masses: none Tenderness: present Medial joint line: moderate Range of Motion Left Left knee range of motion is normal and full. Active extension: 5 Passive extension: 5 Active flexion: 120 Passive flexion: 120 Range of motion additional comments: + PAIN ON TERMINAL FLEXION AND EXTENSION Strength Left Extension: 5/5. Extension is affected by pain. Flexion: 5/5. Flexion is affected by pain. Instability Left Instability signs: none - stable Varus stress grade: normal Valgus stress grade: normal Anterior drawer: normal Medial Kelly test: positive Neurovascular Left Left knee neurovascular exam is normal. Pulses - PT: normal Posterior tibial: 2+ Capillary refill: warm and well-perfused Special Signs Left Left knee special signs are normal. Patellar apprehension: none General Constitutional: appears stated age Labored breathing: no Psychiatric: normal mood and affect Neurological: alert Skin: intact Lymphadenopathy: none IMAGING: Procedures No orders of the defined types were placed in this encounter. ASSESSMENT: ICD-10-CM 1. Acute medial meniscus tear of left knee, initial encounter S83.242A 2. Acute pain of both knees M25.561 Ambulatory referral to Orthopaedic Surgery M25.562 We sounds like it is no medical PLAN: We have discussed her MRI with her at length and I recommended a diagnostic and operative arthroscopy of her Left knee for medial meniscus tear. We have discussed both surgical and nonsurgical treatment options with the patient at length and the risks and benefits associated with both. The patient is requesting surgical intervention because they have not responded to outpatient treatment options including but not limited to rest ice, and home exercise program. Pain and decreased range of motion are affecting the patient's ability to sleepand activities of daily living and we have recommended surgical intervention. Questions answered in laymen terms at the bedside. The diagnosis, home exercise plan and any ongoing restrictions/ recommendations reviewed. If unable to be reached in office, I recommend evaluation at nearest Emergency Room if any symptoms worsened or new symptoms develop for requiring urgent evaluation. documented in this encounterSaint John's Health [id number] Telephone encounter Note* Telephone Encounter - Latoya Eden - 08/09/2024 3:02 PM EST Hi, my name is Michelle. Wu date of [birth year], phone number [phone]. I received a call from Miss Diehl Aga to go over the results of my MRI scan that was completed yesterday. Thank you. Tootie. [facility] Health [id number] Miscellaneous Notes* Telephone Encounter - Latoya Meek - 08/09/2024 3:02 PM EST Hi, my name is Michelle. Wu date of [birth year], phone number [phone]. I received a call from Miss Diehl Aga to go over the results of my MRI scan that was completed yesterday. Thank you. Tootie. documented in this encounterSaint John's Health [id number] History of Present illness Narrative* Calista Yung, HUMAN RESOURCE OFFICER - 07/30/2024 8:30 AM EST Images from the original note were not included. Kathy Wu is a 53 y.o. female presents with chief complaint of Follow-up HPI: HPI Patient is present with concerns of worsening left knee pain and now right knee pain. Patient states she feels that physical therapy is worsening her left knee. She states her knee keeps giving out and is clicking. She states that she is unable to sleep well due to the pain. Patient has been using ice and Tylenol with minimal relief. Patient needs to discuss her Omeprazole dose and needs a refill of her Tizanidine. SUBJECTIVE: MEDICATIONS: Current Outpatient Medications Medication Instructions [...] SPRAY INTO EACH NOSTRIL EVERY DAY FOR 30DAYS Multiple Vitamins-Minerals (Multivitamin Women) tablet as directed Orally ofloxacin (Floxin) 0.3 % otic solution INSERT 10 DROPS INTO AFFECTED EAR OR EARS ONCE DAILY FOR 7 DAYS omeprazole (PRILOSEC) 20 mg, Oral, 2 times daily, Do not crush or chew. phentermine 37.5 mg, Oral, Daily before breakfast Progesterone 40 % cream Progesterone topical Testosterone 20 % cream Testosterone topical. tiZANidine (ZANAFLEX) 2 mg, Oral, Every 8 hours PRN triamcinolone (Kenalog) 0.5 % ointment APPLY TO AFFECTED AREA TWICE DAILY NEEDED FOR 30 DAYS I have reviewed and reconciled the history and medication list with the patient today. REVIEW OF SYMPTOMS: Review of Systems Constitutional: Negative for chills and fatigue. HENT: Negative for ear discharge, ear pain, rhinorrhea and sore throat. Eyes: Negative for pain and redness. Respiratory: Negative for cough and chest tightness. Cardiovascular: Negative for chest pain and palpitations. Gastrointestinal: Negative for abdominal distention and abdominal pain. Genitourinary: Negative for difficulty urinating and frequency. Musculoskeletal: Positive for arthralgias (bilateral knee pain). Negative for gait problem. Skin: Negative. Neurological: Negative for dizziness and numbness. Endocrine: Negative. Allergic/Immunologic: Negative. OBJECTIVE: Visit Vitals Smoking Status Never Physical Exam Vitals reviewed. Cardiovascular: Rate and Rhythm: Normal rate and regular rhythm. Pulses: Normal pulses. Heart sounds: Normal heart sounds. Pulmonary: Effort: Pulmonary effort is normal. Breath sounds: Normal breath sounds. Abdominal: General: Abdomen is flat. Bowel sounds are normal. Palpations: Abdomen is soft. Musculoskeletal: Right knee: Swelling and crepitus present. Decreased range of motion. Left knee: Swelling and crepitus present. Decreased range of motion. Skin: General: Skin is warm and dry. Neurological: General: No focal deficit present. Mental Status: She is oriented to person, place, and time. ASSESSMENT AND PLAN: Assessment/Plan Diagnoses and all orders for this visit: Acute pain of right knee - XR knee 4+ views right; Future Gastroesophageal reflux disease without esophagitis-stable continue on current medications - omeprazole (PriLOSEC) [address] capsule; Take 1 capsule (20 mg) by mouth in the morning and 1 capsule (20 mg) before bedtime. Do not crush or chew.. Acute pain of left knee-failed PT MRI ordered, referral to orthopedics - MR knee left wo IV contrast; Future Primary hypertension (CMS/HCC)-stable Obesity (BMI 30.0-34.9)-follows with gastric specialist History of sleeve gastrectomy documented in this [facility]12-26-2024 Telephone encounter Note* Telephone Encounter - Joaquin Gupta - 07/26/2024 5:00 PM EST Kathy is wondering how many PT appts she has to do before she can get the MRI . Please call her back at [phone]. Please l;eave full message on [employer]rux if not available . Ty [facility] [id number] Miscellaneous Notes* Telephone Encounter - Joaquin Gupta - 07/26/2024 5:00 PM EST Kathy is wondering how many PT appts she has to do before she can get the MRI . Please call her back at [phone]. Please l;eave full message on [employer] if not available . Ty documented in this [facility]12-23-2024 History of Present illness Narrative* Mayra Hoffman, PT - 07/23/2024 10:00 AM EST Images from the original note were not included. Physical Therapy Treatment Visit Patient Name: Kathy Wu Today's Date: 07/23/2024 Encounter Diagnoses Name Primary? Chronic pain of left knee Yes Acute pain of left knee Visit number: 3 (1 Additional at another facility this year) Timed Code Treatment Minutes: 53 minutes Total Treatment Time: 60 minutes Time In: 1655 Time Out: 1750 History: Pt states she was playing around with her daughter in the spring of this year. Her daughter played kicked at her left knee which had hurt quite a bit. Pt states a few days later, she was at a hockey game with was tripped up by her grandson. Precautions: [place] Subjective: Pt had no changes to report following initial evaluation. Pt states improved compliancewith HEP. Pain: 10/08 Objective: PT Evaluation (07/09/2024) Left KNEE AROM: 1 degree hyperextension, 102 degrees flexion MMT: strength left hip abd 4-/5, right hip abd 4/5; bilateral hip ER 4- to 4/5. Left quad 4/5 Muscle length: equal SLR Palpation: mild to moderate tenderness left lateral patella Special Test: pain with patellar grind testing. Negative Kelly testing for clicking and popping;however, pt notes pain with testing to lateral meniscus. No significant laxity with MCL and LCL, nolaxity with ACL testing. Unable to perform SLR due to pain. Thessaly testing painful med and lateral. Treatment: Education: HEP education with demonstration, Educated on Eval Findings and POC Manual Therapy: (10 minutes) Patella glides and femorotibial jt grade II mobs to maintain arthorkinematics and long axis distraction for pain reducing. PA mobs to improve knee extension. Passive ROM, Joint mobilization, Soft Tissue Mobilization, Myofascial Release, Muscle Energy Technique, Neural Mobilization, Myofascial Cupping, Dry Needling, IASTM, and Scar mobilization as needed. Therapeutic Exercise: (43 minutes) Instructed in there ex to improve LE strength to support knee for reduced pain and improve functional tolerance. Strength, Endurance, Flexibility, ROM, HEP, Neural Mobilization, Power, and Core Stability as needed. Therapeutic Activity: Exercises to improve dynamic activities, functional tasks, functional mobility to return to prior activity level as needed. Neuromuscular re-education: Balance Training, Muscle Facilitation, Dynamic Stability, Core Stabilization, and Blood Flow Restriction Training (BFRT) as needed. Modalities: Heat, Ice, Electrical Stimulation, Ultrasound, Cervical Mechanical Traction, Lumbar Mechanical Traction, Iontophoresis, and Fluidotherapy as needed. CP at end of session for pain x 10 minutes. Assessment: Pt is 53 y/o female with complaints of left knee pain following injury injury involvingvalgus force and following fall on left knee. Limited ROM present. Mild progression this date with no increased pain. Mini squats presented with a 'click and pain' in the middle of the knee, despite reduced ROM. Step Ups were tolerated well. Reinforced the importance of HEP, pt verbalized understanding. CP at end of session for symptom control. Pt will benefit from PT. Outcome Measure: Lower Extremity Functional Scale (LEFS): 41/80 Rehab Diagnosis: left knee pain and weakness; left hip weakness; difficulty walking Short Term Goal: To be met in 2 weeks Goal 1: Pt to be instructed in home exercise program. [employer] Goals: To be met in 10 weeks Goal 1: Pt to report independence and compliance with home program. Goal 2: Pt to achieve 115 degrees left knee flexion to assist with functional tasks such as squatting. Goal 3: Pt to achieve 5/5 strength left knee flexion and extension to assist with functional mobility and ADL's. Goal 4: Pt to achieve 4/5 strength left hip abduction and ER to assist with proper alignment with functional mobility and ADL's. Goal 5: Pt to score no less than 60/80 on LEFS indicating improved QOL. Pt will benefit from skilled PT for 2x/week from 07/09/2024 to 09/17/2024 to address the above impairments. I hereby deem this POC medically necessary. Please sign below. Date: documented in this [facility]12-02-2024 History of Present illness Narrative* Luca Mace, - 07/02/2024 8:00 AM EST General Surgery H&P Kathy Wu 1970 Kathy Wu is a 53 y.o. female presents for Colonoscopy. Pt presents today for a colonoscopy consult. Pt admits to having a colonoscopy before. Last colonoscopy was about 5 years ago and it wasnormal. Pt denies abdominal pain. Pt denies rectal bleeding. Pt denies changes in bowel movements. Pt admits to a family history of colon cancer that they know of. Pt states that her mother had coloncancer. She states that would like to discuss an egd as well. She has been having increased reflux despite being on BID omeprazole. She is interested in possibly having her sleeve converted to a RnY. Denies abdominal pain. Denies hx of unplanned weight loss. Denies fevers, chills, or sweats. Deniesnausea or vomiting. Last colonoscopy was 2018. SUBJECTIVE: [...] SPRAY INTO EACH NOSTRIL EVERY DAY FOR 30DAYS Multiple Vitamins-Minerals (Multivitamin Women) tablet as directed [...] Right 08/2022 baha HERNIA REPAIR 2019 HYSTERECTOMY 2003 SMALL INTESTINE SURGERY 2014? TUBAL LIGATION 2003 [...] cancer. Colonoscopy can be scheduled electively. Patient informedof the risks of procedure which include but [...] that does revisions for her persistent reflux postsleeve gastrectomy. Thank you, Hanane Mace DO documented in this [facility]11-20-2024 Telephone encounter Note* Telephone Encounter - Jasmina Joshi - 06/20/2024 1:36 PM EST Offer 06/25 @ either 8:30 or 9 w/ Jorge Chan PT. [facility] [id number] Miscellaneous Notes* Telephone Encounter - Jasmina Joshi - 06/20/2024 1:36 PM EST Offer 06/25 @ either 8:30 or 9 w/ Jorge Chan PT. documented in this [facility]10-24-2024 History of Present illness Narrative* Luca Sharma PT - 05/24/2024 5:30 PM EDT Images from the original note were not [...] and able to avoid further imaging/intervention at [place] Pt will benefit from skilled PT to address the above impairments for 2-3x/week for 4-6 weeks. I hereby deem this POC medically necessary. Please sign below. Date: documented in this [facility]10-16-2024 Telephone encounter Note* Telephone Encounter - Joaquin Gupta - 05/16/2024 8:11 AM EDT Qsymia Wegovy and Zepbound are what Kathy[employer] Ins will cover for weight loss med . Prior Auth - # [id number] [id number] Miscellaneous Notes* Telephone Encounter - Joaquin Gupta - 05/16/2024 8:11 AM EDT Qsymia Wegovy and Zepbound are what Kathy[employer] will cover for weight loss med . Prior Auth - # [id number] documented in this [facility]10-15-2024 History of Present illness Narrative* Shanthi Valle NP - 05/15/2024 7:30 PM EDT Images from the original note were not included. Kathy Wu is a 53 y.o. female presents with chief complaint of Knee Pain HPI: HPI Presents to the office with complaints of left knee pain. Initially started in September, hyperextendedincorrectly playing with her daughter. About a week later, she sustained a fall on the same knee due to tripping over her grandsons leg. She sought medical attention at an urgent care facility where x-rays were taken, which revealed a sprain. However symptoms have progressed. She has tried Tylenol,icing, and elevation, she experiences pain during ambulation. Her right knee only causes discomfortdue to altered gait. She also reports crackling sounds in her left knee. Mobility hs been significantly limited, use to walk regularly but is not able to know d/t the pain, has gained a lot of weightshe had previously lost, would like to discuss [...] SPRAY INTO EACH NOSTRIL EVERY DAY FOR 30DAYS Multiple Vitamins-Minerals (Multivitamin Women) tablet as directed [...] once she finds out documented in this [facility]Saint [facility] [id number] Evaluation note* Encounter Date Diagnosis Assessment Notes Treatment Notes Treatment Clinical Notes Oct, Strain of neck muscle, initial [...] of thoracic back region (ICD-10 - S29.012A) [email or web address] Other 09-01-2021 NoteHistory and Physical Update H&P [...] disease: Mother. Primary malignant neoplasm of colon: Mother.[facility] 03-25-2021 [id number]:127[facility]08-20-2021 NoteI Staff pt presents for consultation regarding gallstones/ biliary dyskinesia, self referred. pt complains of RUQ pain, nausea, abdominal bloating, change in bowel habits, sensitivity to certain foods for the last 2mo. pt with history of gastric sleeve surgery 1 yr ago. pt has US and HIDA scan completed. History of Present Illness Consent: The patient or their guardian verbally consented to allow Qoniacmadan Adan Zora to record this visit. Kathy Martinez is [...] RUIZ and edited by Henrietta Linder, Quality Curtain Supervisor. Reviewed and entered into [employer] by Olamide Garcia. Follow-up No qualifying data available Problem List/Past Medical History Ongoing Symptomatic cholelithiasis Historical No qualifying data Medications fluoxetine, Oral phentermine 37.5 mg oral capsule, 37.5 mg= 1 cap(s), Oral, Daily Allergies penicillins (Rash) (more content not included)...[facility] Comment on above:Result Comment: Electronically Signed By: Sumit Killian MD\.br\Date and Time Signed: 03/20/21 08:43 EDT\.br\Electronically Co-Signed By: Olamide Garcia\.br\Date and Time Co-Signed: 03/17/21 15:27 EDTEvaluation noteNo [employer] Other Evaluation note* Diagnosis Women's annual routine gynecological examination documented in this encounter [employer] Phone: evaluation note* Diagnosis Acute pain of [...] Diagnosis Acute pain of left knee- Primary Chronic pain of left knee documented in this encounter [facility]* Diagnosis Chronic pain of left knee- Primary Acute pain of left knee documented in this encounter [facility]* Diagnosis Chronic pain of left knee- Primary Acute pain of left knee documented in this encounter [facility]* Diagnosis Acute pain of right knee- Primary Gastroesophageal reflux disease without esophagitis Esophageal reflux Acute pain of left knee Primary hypertension (CMS/HCC) Unspecified essential hypertension Obesity (BMI 30.0-34.9) History of sleeve gastrectomy Acute pain of both knees documented in this encounter [facility]* Diagnosis Acute medial meniscus tear of left knee, initial encounter- Primary Acute pain of both knees documented in this encounter [facility]* Diagnosis Pre-op examination- Primary documented in this encounter [facility]* Diagnosis Chronic pain of left knee- Primary Acute medial meniscus tear of left knee, subsequent encounter Pre-op examination documented in this encounter [facility] HealthcareEvaluation note* Diagnosis Acute medial meniscus tear of left knee, initial encounter- Primary documented in this encounter [facility]* Diagnosis Acute medial meniscus tear of left knee, initial encounter documented in this encounter [facility] HealthcareEvaluation note* Diagnosis Status post arthroscopy of left knee- Primary Other postprocedural status documented in this encounter [facility] HealthcareEvaluation note* Diagnosis Status post arthroscopy of left knee- Primary Other postprocedural status documented in this encounter [facility] HealthcareEvaluation note* Diagnosis Status post arthroscopy of left knee- Primary Other postprocedural status Acute pain of both knees documented in this encounter [facility] HealthcareEvaluation noteNo assessment information availableAd[facility] Work Phone: Histqkf general Narrative - Reported* Type Description Date [...] History bowel resection 06/2012 Surgical History mastoidectomy 1988 Surgical History Hysterectomy 2003 Surgical History Umbilical [...] Surgical History cholecystectomy Hospitalization History see above [email or web address] Other Hospital Discharge instructionsAmbulatory Orders* Referral to Gastroenterology Location: None [facility] Work Phone: Reason for visit Narrative* Rehabilitation - Outpatient (Routine) - Authorized Specialty Diagnoses / Procedures Referred By Mike zamorano Referred To Contact Physical Therapy Diagnoses Acute pain of left knee Procedures DE OFFICE/OUTPATIENT [facility] 60 MINUTES Shanthi Valle NP [address] [place] [address] Phone: tel: fax: Luca Sharma, PT [address] [place] [address] Phone: tel: fax: Referral ID Status Reason Start Date Expiration Date Visits Requested Visits Authorized [id number] Authorized Specialty Services Required 4 11/11/2024 20 20 [facility] HealthcareReason for visit Narrative* Rehabilitation - Outpatient (Routine) - Authorized Specialty Diagnoses / Procedures Referred By Mike zamorano Referred To Contact Physical Therapy Diagnoses Acute pain of left knee Procedures DE OFFICE/OUTPATIENT [facility] Shanthi Valle NP [address] [place] [address] Phone: tel: fax: Mayra Hoffman PT Referral ID Status Reason Start Date Expiration Date Visits Requested Visits Authorized [id number] Authorized Specialty Services Required 4 05/11/2025 19 19 [facility] HealthcareReason for visit Narrative* Rehabilitation - Outpatient (Routine) - Authorized Specialty Diagnoses / Procedures Referred By Mike t Referred To Contact Physical Therapy Diagnoses Acute pain of left knee Procedures DE OFFICE/OUTPATIENT [facility] Shanthi Valle NP [address] [place] [address] Phone: tel: fax: Mayra Hoffman, GILLES Referral ID Status Reason Start Date Expiration Date Visits Requested Visits Authorized [id number] Authorized Specialty Services Required 07/31/2024 19 19 [facility] HealthcareReason for visit Narrative* Consultation (Routine) - Authorized Specialty Diagnoses / Procedures Referred By Contac t Referred To Contact Physical Therapy Diagnoses Pre-op examination Acute medial meniscus tear of left knee, initial encounter Procedures DE OFFICE/OUTPATIENT [facility] 60 MINUTES Jacquelyn Banks, PA [address] [facility] [address] [place] [address] Phone: tel: fax: Luca Sharma, PT [address] [place] [address] Phone: tel: fax: Referral ID Status Reason Start Date Expiration Date Visits Requested Visits Authorized [id number] Authorized Consult and Treat 08/16/2024 02/12/2025 60 60 [facility] Healthcare Summary Purpose Family History Relationship Condition Age at Onset Recorded Date/T amy brother Hypertension Unknown Diabetes mellitus Unknown grandparent History of stroke Unknown grandparent Diabetes mellitus Unknown Hypertension Unknown mother Diabetes mellitus Unknown Heart disease Unknown Malignant neoplasm Unknown father Hypertension Unknown Advance Directives Latest Code Status on File Code Status Date Activated Date Inactivated Comments Full Code 06/20/2012 1:55 PM 06/26/2012 1:09 PM Latest Code Status on File Code Status Date Activated Date Inactivated Comments Full Code 06/20/2012 1:55 PM 06/26/2012 1:09 PM Advance Directive Response Recorded Date/ Time Advance Directives No September 9:56am Chief Complaint and Reason for Visit Chief Complaint Admit Date fever, congestion, body ache October 12, 2024 10:07am Reason for Visit Admit Date Adjustment disorder with anxiety September 292024 8:02am Annual visit for general ministerio lt medical examination without abnormal findings October 08, 2024 8:02am GERD (gastroesophageal reflux disease) M 2024 8:02am H/O bariatric surgery October 08, 2024 8 :02am Menopause syndrome October 08, 2024 8:0 2am Obesity, Class II, BMI 35-39.9 September 8:02am Encounter to establish care with new nguyễn ospina October 08, 2024 8:02am Chief Complaint Admit Date fever, congestion, body ache October 12, 2024 10:07am Self- [facility] ([facility]) October 25, 2024 7:13am Reason for Visit Admit Date Adjustment disorder with anxiety September 292024 8:02am Annual visit for general ministerio lt medical examination without abnormal findings October 08, 2024 8:02am GERD (gastroesophageal reflux disease) M arch 2024 8:02am H/O bariatric surgery October 08, 2024 8 :02am Menopause syndrome October 08, 2024 8:0 2am Obesity, Class II, BMI 35-39.9 September 8:02am Encounter to establish care with isidro ospina October 08, 2024 8:02am Viral URI with cough October 12, 2024 10 :07am Abnormal weight gain October 25, 2024 7: 13am Adjustment disorder with anxiety September 302024 7:13am BMI 37.0-37.9, adult October 25, 2024 7: 13am Dietary surveillance and counseling [facility] 2024 7:13am Exercise counseling October 25, 2024 7:1 3am GERD (gastroesophageal reflux disease) M [facility] 2024 7:13am H/O bariatric surgery October 25, 2024 7 :13am Hx of cholecystectomy October 25, 2024 7 :13am Hx of hysterectomy October 25, 2024 7:1 3am Obesity, Class II, BMI 35-39.9 September 7:13am Type II diabetes mellitus October 25 7:13am Chief Complaint Admit Date frmc pre emp pillars August 17, 2024 2:59pm fever, congestion, body ache October 12, 2024 10:07am Self- [facility] ([facility]) October 25, 2024 7:13am Reason for Visit Admit Date Adjustment disorder with anxiety September 292024 8:02am Annual visit for general ministerio lt medical examination without abnormal findings October 08, 2024 8:02am GERD (gastroesophageal reflux disease) M [facility] 2024 8:02am H/O bariatric surgery October 08, 2024 8 :02am Menopause syndrome October 08, 2024 8:0 2am Obesity, Class II, BMI 35-39.9 September 8:02am Encounter to establish care with isidro ospina October 08, 2024 8:02am Viral URI with cough October 12, 2024 10 :07am Abnormal weight gain October 25, 2024 7: 13am Adjustment disorder with anxiety September 302024 7:13am BMI 37.0-37.9, adult October 25, 2024 7: 13am Dietary surveillance and counseling Pete 2024 7:13am Exercise counseling October 25, 2024 7:1 3am GERD (gastroesophageal reflux disease) M arch 2024 7:13am H/O bariatric surgery October 25, 2024 7 :13am Hx of cholecystectomy October 25, 2024 7 :13am Hx of hysterectomy October 25, 2024 7:1 3am Mixed hyperlipidemia October 25, 2024 7: 13am Obesity, Class II, BMI 35-39.9 September 7:13am Type II diabetes mellitus October 25 7:13am Chief Complaint Admit Date fever, congestion, body ache October 12, 2024 10:07am Self- [facility] ([facility]) October 25, 2024 7:13am Refer: GERD, bariatric surgery status Ap ril 2024 7:59am Reason for Visit Admit Date Adjustment disorder with anxiety September 292024 8:02am Annual visit for general ministerio lt medical examination without abnormal findings October 08, 2024 8:02am GERD (gastroesophageal reflux disease) M arch 2024 8:02am H/O bariatric surgery October 08, 2024 8 :02am Menopause syndrome October 08, 2024 8:0 2am Obesity, Class II, BMI 35-39.9 September 8:02am Encounter to establish care with isidro ospina October 08, 2024 8:02am Viral URI with cough October 12, 2024 10 :07am Abnormal weight gain October 25, 2024 7: 13am Adjustment disorder with anxiety September 302024 7:13am BMI 37.0-37.9, adult October 25, 2024 7: 13am Dietary surveillance and counseling Pete 2024 7:13am Exercise counseling October 25, 2024 7:1 3am GERD (gastroesophageal reflux disease) M arch 2024 7:13am H/O bariatric surgery October 25, 2024 7 :13am Hx of cholecystectomy October 25, 2024 7 :13am Hx of hysterectomy October 25, 2024 7:1 3am Mixed hyperlipidemia October 25, 2024 7: 13am Obesity, Class II, BMI 35-39.9 September 7:13am Type II diabetes mellitus October 25 7:13am GERD (gastroesophageal reflux disease) A pril 2024 7:59am Chief Complaint Admit Date fever, congestion, body ache October 12, 2024 10:07am Self- [facility] ([facility]) October 25, 2024 7:13am Refer: GERD, bariatric surgery status Ap ril 2024 7:59am gerd December 06, 2024 10:28a m gerd December 06, 2024 12:35p m Additional Source Comments INFORMATION SOURCE (unrecogn ized section and content) DATE CREATED AUTHOR 12/19/2018 [facility] DATE CREATED AUTHOR AUTHOR'S ORGANIZ ATION 10/05/2021 [facility] DATE CREATED AUTHOR AUTHOR'S ORGANIZ ATION 12/24/2021 [facility] DATE CREATED AUTHOR AUTHOR'S ORGANIZ ATION 10/19/2023 [facility] DATE CREATED AUTHOR AUTHOR'S ORGANIZ ATION 02/24/2024 [facility] DATE CREATED AUTHOR AUTHOR'S ORGANIZ ATION 08/30/2024 [facility] DATE CREATED AUTHOR AUTHOR'S ORGANIZ ATION 09/29/2024 [facility] EPIC DATE CREATED AUTHOR AUTHOR'S ORGANIZ ATION 12/12/2024 [facility] REASON FOR VISIT (unrecogniz ed section and content) Reason Onset Date Comments Knee Pain 10/02/2024 Reason Onset Date Comments PO questions 08/23/2024 Reason Comments Pre-op Exam Reason Comments Pain Specialty Diagnoses / Procedures Referred By Contac t Referred To Contact Orthopaedic Surgery Diagnoses Acute pain of both knees Calista Yung NP [address] [place] [address] Phone: tel: fax: Tesha Walton, HUMAN RESOURCE OFFICER [address] [place] [address] Phone: tel: fax: Referral ID Status Reason Start Date Expiration Date V isits Requested Visits Authorized [id number] Closed Specialty Services Required 07/30/2024 01/26/2025 1 1 Reason Comments Follow-up Reason Comments Colonoscopy Pt presents today fo [...] to contact , per message taken by Vanda, to offer time / day availability for PT Eval. She was treated 1x in [place] but had noted she'd like to transfer to [place]. Had to lm requesting call back. Call Back 06/21/2024 She contacted an d we scheduled her PT Eval 07/09 w/ Tomy Hoffman PT. 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 Relationship Specialty Start Date End Date Naila Villarreal MD [address] [place] [address] PCP - General Family Medicine 12/07/22 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 Relationship Specialty Start Date End Date Naila Villarreal MD [address] [place] [address] PCP - General Family Medicine 12/07/22 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 Relationship Specialty Start Date End Date Naila Villarreal MD [address] [place] [address] PCP - General Family Medicine 12/07/22 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 Relationship Specialty Start Date End Date Naila Villarreal MD [address] [place] [address] PCP - General Family Medicine 12/07/22 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 Relationship Specialty Start Date End Date Naila Villarreal MD [address] [place] [address] PCP - General Family Medicine 12/07/22 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 Relationship Specialty Start Date End Date Naila Villarreal MD [address] [place] [address] PCP - General Family Medicine 12/07/22 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 Relationship Specialty Start Date End Date Naila Villarreal MD [address] [place] [address] PCP - General Family Medicine 12/07/22 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 Relationship Specialty Start Date End Date Naila Villarreal MD [address] [place] [address] PCP - General Family Medicine 12/07/22 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 Relationship Specialty Start Date End Date Naila Villarreal MD [address] [place] [address] PCP - General Family Medicine 12/07/22 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 Relationship Specialty Start Date End Date Naila Villarreal MD [address] [place] [address] PCP - General Family Medicine 12/07/22 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 Relationship Specialty Start Date End Date Naila Villarreal MD [address] [place] [address] PCP - General Family Medicine 12/07/22 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 Relationship Specialty Start Date End Date Naila Villarreal MD [address] [place] [address] PCP - General Family Medicine 12/07/22 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 Relationship Specialty Start Date End Date Naila Villarreal MD [address] [place] [address] PCP - General Family Medicine 12/07/22 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 Relationship Specialty Start Date End Date Naila Villarreal MD [address] [place] [address] PCP - General Family Medicine 12/07/22 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 Relationship Specialty Start Date End Date Naila Villarreal MD [address] [place] [address] PCP - General Family Medicine 12/07/22 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 Relationship Specialty Start Date End Date Naila Villarreal MD [address] [place] [address] PCP - General Family Medicine 12/07/22 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 Relationship Specialty Start Date End Date Naila Villarreal MD [address] [place] [address] PCP - General Family Medicine 12/07/22 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 Relationship Specialty Start Date End Date AlyceNaila Villarreal MD [address] [place] [address] PCP - General Family Medicine 11/16/18 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 Relationship Specialty Start Date End Date Naila Villarreal MD [address] [place] [address] PCP - General Family Medicine 12/07/22 Shanthi Valle NP [address] [place] [address] PCP - [place] [employer] 07/01/24 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 Relationship Specialty Start Date End Date Naila Villarreal MD [address] [place] [address] PCP - General Family Medicine 12/07/22 Shanthi Valle NP [address] [place] [address] PCP - [place] [employer] 07/01/24 Team Status: Active Member Role Status Dates Annabel Bailey APRN Primary Care Provider Activ e Team Status: Inactive Member Role Status Dates Annabel Bailey APRN Primary Care Provider, Attending Provider Active Start: October 08, 2024 End: October 08, 2024 Team Status: Inactive Member Role Status Dates Annabel Bailey APRN Primary Care Provider Activ e Start: October 12, 2024 End: October 12, 2024 Diana Montilla APRN Attending Provider Active Start: October 12, 2024 End: October 12, 2024 Team Status: Inactive Member Role Status Dates Naila Arita DNP Attending Provider Active S tart: October 25, 2024 End: October 25, 2024 Annabel Bailey APRN Primary Care Provider Activ e Start: October 25, 2024 End: October 25, 2024 Team Status: Inactive Member Role Status Dates Sherice Pressley APRN Attending Provider Active Start: August 17, 2024 End: August 17, 2024 Annabel Bailey APRN Primary Care Provider Activ e Start: August 17, 2024 End: August 17, 2024 Team Status: Inactive Member Role Status Dates Annabel Bailey APRN Primary Care Provider Activ e Start: November 15, 2024 End: November 15, [address] Active Start: November 15, 2024 End: November 15, 2024 LACIE Merino Attending Provider Active S tart: November 15, 2024 End: November 15, 2024 Team Status: Inactive Member Role Status Dates Annabel Bailey APRN Primary Care Provider Activ e Start: November 22, 2024 End: November 22, 2024 Zoe Go MD Attending Provider Active Start: November 22, 2024 End: November 22, 2024 Team Status: Inactive Member Role Status Dates Annabel Bailey APRN Primary Care Provider Activ e Start: December 06, 2024 End: December 06, 2024 Zoe Go MD Attending Provider Active Start: December 06, 2024 End: December 06, 2024 Team Status: Active Member Role Status Dates Annabel Bailey APRN Primary Care Provider Activ e Start: December 06, 2024 Zoe Go MD Attending Provider, Other Provider Active Start: December 06, 2024 Goals (unrecognized section and content) Goals may be documented in a n alternate section FOR RECORDS PERTAINING TO PATIENTS WHO ARE [...] BE BASED ON THE PRIMARY CLINICAL RECORDS. [facility] [employer] [facility]. provides no warranty or guarantee of the accuracy or completeness of information in this document.
[2024-12-14 19:54] LABS: Basophils Percent Auto 0.7 % (0.2-2.0); Eosinophils Absolute Auto 0.1 10^3/uL (0.0-0.7); Eosinophils Percent Auto 3.2 % (0.9-7.0); Hematocrit 34.5 % (36.0-48.0); Hemoglobin 11.8 g/dL (12.0-16.0); Immature Granulocytes Abs Auto 0.01 10^3/uL (0.00-0.03); Immature Granulocytes Pct Auto 0.2 % (0.0-0.5); Lymphocytes Absolute Auto 1.5 10^3/uL (1.2-3.8); Lymphocytes Percent Auto 37.4 % (20.5-60.0); Mean Corpuscular HGB Conc 34.2 g/dL (29.9-35.2); Mean Corpuscular Hemoglobin 29.1 pg (26.7-34.0); Mean Corpuscular Volume 85.2 fL (81.0-99.0); Mean Platelet Volume 10.3 fL (9.5-13.5); Monocytes Absolute Auto 0.4 10^3/uL (0.3-0.8); Monocytes Percent Auto 10.6 % (1.7-12.0); Neutrophils Absolute Auto 1.9 10^3/uL (1.4-6.5); Neutrophils Percent Auto 47.9 % (43.0-75.0); Platelet Count 275 10^3/uL (150-450); Red Blood Count 4.05 10^6/uL (4.20-5.40); Red Cell Distribution Width 12.1 % (11.0-15.0)
[2024-12-14 20:27] LABS: Alanine Aminotransferase 30 U/L (14-59); Albumin Globulin Ratio 1.3; Albumin Level 3.4 g/dL (3.4-5.0); Alkaline Phosphatase 53 U/L (46-116); Anion Gap 13.7; Aspartate Amino Transferase 14 U/L (15-37); BUN Creatinine Ratio 34.5; Bilirubin Total 0.2 mg/dL (0.2-1.0); Calcium 8.7 mg/dL (8.5-10.1); Chloride 107 mmol/L (98-107); Estimated GFR (African America >60 (>=60 mL/min/1.73m^2); Estimated GFR (Non-African Ame >60 (>=60 mL/min/1.73m^2); Globulin 2.6 g/dL; Glucose 114 mg/dL (74-106); Potassium 3.7 mmol/L (3.5-5.1); Sodium 144 mmol/L (136-145)
[2024-12-14 20:53] LABS: TSH W/ REFLEX FT4 <0.007 uIU/mL (0.358-3.740)
[2024-12-14 21:01] VITALS: BP 131/56; O2SAT 98
== END 2024-12-14 21:05 | disposition home or self-care (01) ==
PROVIDERS: Emergency Provider Internal Medicine; PCP Internal Medicine Gastroenterology
DX: R60.0 Localized edema (principal); E05.90 Thyrotoxicosis, unspecified without thyrotoxic crisis or storm; Z90.710 Acquired absence of both cervix and uterus; Z98.51 Tubal ligation status; Z90.49 Acquired absence of other specified parts of digestive tract
CPT/HCPCS: 36415; 80053; 84439; 84443; 85025; 99283